=== PATIENT | female | born 1955 | race Caucasian/White ===

== ENCOUNTER 2017-04-09 09:58 | Emergency (ER) | payer OTHER ==
[~2017-04-09] VITALS: Ht 167.6 cm; Wt 99.3 kg
[~2017-04-09 09:58] MED LIST: BISACODYL5 MG PO; CALCIUM600 MG PO; HYDROCHLOROTH12.5 M1 PO; PRILOSEC20 MG PO; SERTRALINE HCL100 MG PO; SIMVASTATIN40 MG PO; STOOL SOFT-STI1 EACH PO; VITAMIN D250000 UNIT PO
[2017-04-09] MEDS ORDERED: TIZANIDINE HCL4 MG PO (10:22)
[2017-04-09] MEDS ORDERED: DOXYCYCLINE HY100 MG PO (12:07)
== END 2017-04-09 12:20 | disposition home or self-care (01) ==
LOC: ED 09:58
DX: J32.9 Chronic sinusitis, unspecified (principal); E78.00 Pure hypercholesterolemia, unspecified; F17.200 Nicotine dependence, unspecified, uncomplicated; Z79.899 Other long term (current) drug therapy
CPT/HCPCS: 70450; 80053; 85025; 99284

== ENCOUNTER 2017-06-21 08:20 | Emergency (ER) | payer OTHER ==
[~2017-06-21] VITALS: Ht 167.6 cm; Wt 99.3 kg
--- OUTSIDE RECORDS SUMMARY | ~2017-06-21 | XMS | Clinical Summary ---
Demographics + + + | Address | [address] | | | [place] [address] | + + + | Home Phone | | + + + | Preferred Language | Unknown | + + + | Marital Status | Single | + + + | Latter-Day Affiliation | NRP | + + + | Race | White | + + + | Ethnic Group | Not or | + + + Author + + + | Author | [facility] | + + + | Organization | [facility] | + + + | Address | Unknown | + + + | Phone | Unavailable | + + + Support + + +---------+ + | Name | Relationship | Address | Phone | + + +---------+ + | RONAN | ECON | Unknown | | | [place] | | | | + + +---------+ + Care Team Providers + +------+ + | Care Passenger Interline Clerk Name | Role | Phone | + +------+ + | Eric Lew DO | PP | | + +------+ + Source Comments LAURA is fully live on both [facility] and [facility]Patient.[facility] Allergies No Known Allergies Current Medications + + +--------+---------+------+------+-------+ | Prescription | Sig. | Disp. | Refills | Star | End | Statu | | | | | | t | Date | s | | | | | | Date | | | + + +--------+---------+------+------+-------+ | ergocalciferol | | | 0 | 03/2 | | Activ | | 50,000 unit oral | | | | 0/20 | | e | | capsule | | | | 16 | | | + + +--------+---------+------+------+-------+ | omeprazole 20 mg | | | 0 | 03/1 | | Activ | | oral capsule,delayed | | | | 20 | | e | | release(DR/EC) | | | | 16 | | | + + +--------+---------+------+------+-------+ | | | | 0 | 04/0 | | Activ | | hydrochlorothiazide | | | | 08/14 | | e | | 12.5 mg oral tablet | | | | 16 | | | + + +--------+---------+------+------+-------+ | sertraline 100 mg | Take 100 mg by mouth | | 0 | 03/0 | | Activ | | oral tablet | once daily. FOR | | | 20 | | e | | | DEPRESSION | | | 16 | | | + + +--------+---------+------+------+-------+ | simvastatin 40 mg | Take 40 mg by mouth | | 1 | 03/2 | | Activ | | oral tablet | once daily in the | | | 05/16 | | e | | | evening. | | | 16 | | | + + +--------+---------+------+------+-------+ | aspirin chewable | Chew and swallow 1 | | | 04/1 | | Activ | | 81 mg oral | tablet once daily. | | | 7/20 | | e | | tablet,chewable | | | | 16 | | | + + +--------+---------+------+------+-------+ | oxyCODONE, | Take 1-2 tablets by | 75 | 0 | 04/1 | | Activ | | immediate release, 5 | mouth every four | tablet | | 7/20 | | e | | mg oral tablet | hours as needed for | | | 16 | | | | | moderate pain. | | | | | | + + +--------+---------+------+------+-------+ Active Problems + + + | Problem | Noted Date | + + + | Laceration of right middle finger without foreign body without | 08/11/2015 | | damage to nail | | + + + | Laceration of right middle finger without foreign body without | 08/11/2015 | | damage to nail, initial encounter | | + + + Social History + + + +--------+ + | Tobacco Use | Types | Packs/Day | Years | Date | | | | | Used | | + + + +--------+ + | Current Every Day | Cigarettes | 0.5 | 50 | Started: 10/09/1969 | | Smoker | | | | | + + + +--------+ + + +---+---+---+ | Smokeless Tobacco: | | | | | Never Used | | | | + +---+---+---+ + + +---------+ + | Alcohol Use | Drinks/We | oz/Week | Comments | | | ek | | | + + +---------+ + | No | 0 | 0.0 | | | | Standard | | | | | drinks or | | | | | | | | | | equivalen | | | | | t | | | + + +---------+ + + + + | Sex Assigned at | Date Recorded | | | | + + + | Not on file | | + + + Last Filed Vital Signs + + + + | Vital Sign | Reading | Time Taken | + + + + | Blood Pressure | 136/73 | 10/10/2015 10:43 AM PDT | + + + + | Pulse | 81 | 10/10/2015 10:43 AM PDT | + + + + | Temperature | 36.6 C (97.9 F) | 09/05/2015 12:34 PM PDT | + + + + | Respiratory Rate | 20 | 10/10/2015 10:43 AM PDT | + + + + | Oxygen Saturation | 95% | 10/10/2015 10:43 AM PDT | + + + + | Inhaled Oxygen | - | - | | Concentration | | | + + + + | Weight | 102.5 kg (225 lb | 10/10/2015 10:43 AM PDT | | | 14.4 oz) | | + + + + | Height | 167.6 cm (5' 6") | 10/10/2015 10:43 AM PDT | + + + + | Body Mass Index | 36.46 | 10/10/2015 10:43 AM PDT | + + + + Plan of Treatment + + + + + | Health Maintenance | Due Date | Last Done | Comments | + + + + + | INFLUENZA VACCINE | | 01/29/2015, 02/07/2014, | | | (FLU SHOT) | 7 | 04/14/2005 | | + + + + + Results Not on filefrom Last 3 Months
--- OUTSIDE RECORDS SUMMARY | ~2017-06-21 | XMS | Clinical Summary ---
Demographics + + + | Address | [address] | | | [place] [address] | + + + | Home Phone | | + + + | Preferred Language | Unknown | + + + | Marital Status | Single | + + + | Bahai Affiliation | NRP | + + + [...] Team Providers + +------+ + | Care Security Clerk Name | Role | Phone | + +------+ + | Eric Lew DO | PP | | + +------+ + Source Comments LAURA is fully live on both [facility] and [facility] Allergies No Known Allergies Current Medications + [...]
[~2017-06-21 08:20] MED LIST changes: +DOXYCYCLINE HY100 MG PO; +TIZANIDINE HCL4 MG PO
[2017-06-21] MEDS ORDERED: GABAPENTIN300 MG PO (08:31)
[2017-06-21] MEDS ORDERED: VENTOLIN HFA18 GM INH (08:32)
[2017-06-21] MEDS ORDERED: CYCLOBENZAPRINE10 MG PO (09:31)
[2017-07-15] MEDS ORDERED: ESOMEPRAZOLE MA40 MG PO (14:48)
[2017-07-15] MEDS ORDERED: VITAMIN D3400 UNI2 PO (14:48)
[2017-07-15] MEDS ORDERED: BAYER CHEWABLE81 MG (14:48)
[2017-08-26] MEDS ORDERED: MULTIVITAMINS1 EAC7 (14:08)
[2017-08-26] MEDS ORDERED: SERTRALINE HCL100 MG PO (14:09)
[2017-08-26] MEDS ORDERED: POLYOX WSR-3011 GM MISC (14:09)
== END 2017-06-21 09:44 | disposition home or self-care (01) ==
LOC: ED 08:20
DX: M54.5 Low back pain (principal); F17.200 Nicotine dependence, unspecified, uncomplicated; E78.00 Pure hypercholesterolemia, unspecified; Z79.899 Other long term (current) drug therapy
CPT/HCPCS: 72110; 99283

== ENCOUNTER 2017-07-17 10:26 | Day surgery (SDC) | payer OTHER ==
[~2017-07-17] VITALS: Ht 167.6 cm; Wt 86.6 kg
[~2017-07-17 10:26] MED LIST changes: +BAYER CHEWABLE81 MG; +CYCLOBENZAPRINE10 MG PO; +ESOMEPRAZOLE MA40 MG PO; +GABAPENTIN300 MG PO; +VENTOLIN HFA18 GM INH; +VITAMIN D3400 UNI2 PO
[2017-07-17] MEDS ORDERED: ENDOCET 10-3251 EACH PO (10:59)
[2017-07-17] MEDS ORDERED: OXYCONTIN10 MG PO (11:00)
[2017-07-17] MEDS ORDERED: ELIQUIS5 MG PO (11:13)
--- NOTE | 2017-07-17 12:21 | NUR ---
LEFT LOWER LEG EDEMA NOTED RED. PURPLE BLISTER NOTED TOP OF LEFT FOOT AND LOWER CASTLE AREA. BLISTER TOP OF LEFT FOOT 3 CM AND 2 CM ON DISTAL CASTLE
--- NOTE | 2017-07-17 13:58 | NUR ---
07/17/17 Karen Rizvi 1230 PT ARRIVED IN PRONE POSTION, RESP EVEN AND UNLABORED. 1231 PT TURNED ON HER BACK AND O2 REMOVED. 1240 MD AT BEDSIDE. PT COUGHING OFF AND ON. BANDAID CDI. RESP EVEN AND UNLABORED. 1258 2L NC PLACED ON PT, O2 SAT 88%.
[2017-08-26] MEDS ORDERED: MULTIVITAMINS1 EAC7 (14:08)
[2017-08-26] MEDS ORDERED: SERTRALINE HCL100 MG PO (14:09)
[2017-08-26] MEDS ORDERED: POLYOX WSR-3011 GM MISC (14:09)
== END 2017-07-17 13:35 | disposition home or self-care (01) ==
LOC: DS 10:26 → OPS 10:26 → DS 12:00 → OPS 12:00
PROVIDERS: Specialist
PROC: 07JT3ZZ Inspection of Bone Marrow, Percutaneous Approach (ICD-10-PCS; principal; 2017-07-17 12:00)
DX: C79.51 Secondary malignant neoplasm of bone (principal); C80.1 Malignant (primary) neoplasm, unspecified; G89.3 Neoplasm related pain (acute) (chronic); E87.6 Hypokalemia; I82.402 Acute embolism and thrombosis of unspecified deep veins of left lower extremity; D50.9 Iron deficiency anemia, unspecified; E55.9 Vitamin D deficiency, unspecified; E78.5 Hyperlipidemia, unspecified; F17.210 Nicotine dependence, cigarettes, uncomplicated; F41.0 Panic disorder [episodic paroxysmal anxiety]; F32.9 Major depressive disorder, single episode, unspecified; K21.9 Gastro-esophageal reflux disease without esophagitis; Z90.49 Acquired absence of other specified parts of digestive tract; Z90.710 Acquired absence of both cervix and uterus; Z98.890 Other specified postprocedural states; Z79.899 Other long term (current) drug therapy
CPT/HCPCS: 80053; 82306; 82310; 82378; 83615; 83970; 85025; 99152; J2250; J3010; J7120

== ENCOUNTER 2017-08-20 20:38 | Emergency (ER) | payer OTHER ==
[~2017-08-20] VITALS: Ht 167.6 cm; Wt 86.6 kg
--- OUTSIDE RECORDS SUMMARY | ~2017-08-20 | XMS | Clinical Summary ---
Demographics + + + | Address | [address] | | | [place] [address] | + + + | Home Phone | | + + + | Preferred Language | Unknown | + + + | Marital Status | Single | + + + | Shinto Affiliation | Unknown | + + + | Race | Unknown | + + + | Ethnic Group | Unknown | + + + Author + + + | Author | [facility] | | | and [place] | + + + | Organization | [facility] | | | and [place] | + + + | Address | Unknown | + + + | Phone | Unavailable | + + + Support + + + + + | Name | Relationship | Address | Phone | + + + + + | Elina Castellanos | ECON | [address] | | | | | [place] | | | | | [address] | | + + + + + Care Team Providers + +------+ + | Care Aviation Technical Systems Specialist Name | Role | Phone | + +------+ + | Eric Lew DO | PP | | + +------+ + Allergies Not on File Current Medications Not on file Active Problems Not on file Encounters +--------+ + + + + | Date | Type | Specialty | Care Team | Description | +--------+ + + + + | 07/29/ | Telephone | | Daniella Henao | | 2018 | | | Jm Dominguez MD | | +--------+ + + + + | 07/21/ | Telephone | | Earlene, | Other | | 2018 | | | Jm Dominguez MD | | +--------+ + + + + from Last 3 Months Social History + +-------+ +--------+------+ | Tobacco Use | Types | Packs/Day | Years | Date | | | | | Used | | + +-------+ +--------+------+ | Never Assessed | | | | | + +-------+ +--------+------+ + + + | Sex Assigned at | Date Recorded | | | | + + + | Not on file | | + + + Plan of Treatment + + + + + | Health Maintenance | Due Date | Last Done | Comments | + + + + + | Hepatitis C | | | | | Screening | 5 | | | + + + + + | Vaccine: | | | | | Dtap/Tdap/Td (1 - | 4 | | | | Tdap) | | | | + + + + + | CERVICAL CANCER | | | | | SCREENING (PAP EVERY | 6 | | | | 3 YEARS 21-64 ) | | | | + + + + + | BREAST CANCER | | | | | SCREENING (MAMM Q2 | 5 | | | | YEARS 50-74) | | | | + + + + + | COLON CANCER | | | | | SCREENING | 5 | | | | (COLONOSCOPY EVERY | | | | | 10 YEARS 50-75) | | | | + + + + + | Vaccine: Influenza | | | | | (Season Ended) | 8 | | | + + + + + Results Not on filefrom Last 3 Months Insurance +-------+--------+ +------+ + + | Payer | Benefi | Subscriber | Type | Phone | Address | | | t Plan | ID | | | | | | / | | | | | | | Group | | | | | +-------+--------+ +------+ + + | [employer] | [employer] | [phone] | PPO | [phone] | [address] [address] | | | [place] | | | [phone] | [place] [address] | | | TY PPO | | | | | +-------+--------+ +------+ + + + +--------+ +--------+ + + | Guarantor Name | Accoun | Relation to | Date | Phone | Billing Address | | | t Type | Patient | of | | | | | | | | | | + +--------+ +--------+ + + | CARMEN KAHN | Person | Self [birth year] Home: | [address] | | | al/Fam | | 1956 | [phone] | [place] [address] | | | cong | | | [phone] | | + +--------+ +--------+ + +"
--- OUTSIDE RECORDS SUMMARY | ~2017-08-20 | XMS | Encounter Summary ---
Demographics + + + | Address | [address] | | | [place] [address] | + + + | Home Phone | | + + + | Preferred Language | Unknown | + + + | Marital Status | Single | + + + | Buddhist Affiliation | Unknown | + + + | Race | Unknown | + + + | Ethnic Group | Unknown | + + + Author + + + | Author | [facility] | + + + | Organization | [facility] | + + + | Address | Unknown | + + + | Phone | Unavailable | + + + Support + + +---------+ + | Name | Relationship | Address | Phone | + + +---------+ + | Harriet Waite | ECON | Unknown | | | a | | | | + + +---------+ + Care Team Providers + +------+ + | Care Automotive Services Manager Name | Role | Phone | + +------+ + | Eric Lew DO | PCP | | + +------+ + Encounter Details +--------+ + + + + | Date | Type | Department | Care Team | Description | +--------+ + + + + | 08/04/ | Procedure | [facility] | | | | 2018 | [facility] | [facility] | | | | | | Floor [place] | | | | | | [address] | | | | | | [place] [address] | | | | | | [phone] | | | +--------+ + + + + Social History + +-------+ +--------+------+ | Tobacco Use | Types | Packs/Day | Years | Date | | | | | Used | | + +-------+ +--------+------+ | Former Smoker | | | | | + +-------+ +--------+------+ + +---+---+---+ | Smokeless Tobacco: | | | | | Never Used | | | | + +---+---+---+ + + +---------+ + | Alcohol Use | Drinks/We | oz/Week | Comments | | | ek | | | + + +---------+ + | No | | | | + + +---------+ + + + + | Sex Assigned at | Date Recorded | | | | + + + | Not on file | | + + + as of this encounter Plan of Treatment +--------+---------+ + + + | Date | Type | Specialty | Care Team | Description | +--------+---------+ + + + | 08/28/ | Office | Vascular Surgery | Dolores Harrison DNP | | | 2017 | Visit | | [address] | | | | | | [place] | | | | | | [address] | | | | | | | | +--------+---------+ + + + as of this encounter Visit Diagnoses Not on filein this encounter"
--- OUTSIDE RECORDS SUMMARY | ~2017-08-20 | XMS | Encounter Summary ---
Demographics + + + | Address | [address] | | | [place] [address] | + + + | Home Phone | | + + + | Preferred Language | Unknown | + + + | Marital Status | Single | + + + | Yazdanism Affiliation | Unknown | + + + | Race | Unknown | + + + | Ethnic Group | Unknown | + + + Author + + + | Author | [facility] | + + + | Organization | [facility] | + + + | Address | [...] Team Providers + +------+ + | Care Remote Computer Terminal Operator Name | Role | Phone | + +------+ + | Anant Grajeda DO | PCP | | + +------+ + Reason for Visit + + + | Reason | Comments | + + + | Referral | coming from the wound clinic, following bilateral DVT's. left | | | foot wound. | + + + Auth/Cert +--------+--------+ + + + + | Status | Reason | Specialty | Diagnoses / | Referred By | Referred To | | | | | Procedures | Contact | Contact | +--------+--------+ + + + + | | | | Diagnoses | | | | | | | Lactic | | | | | | | acidosis | | | | | | | Normocytic | | | | | | | anemia | | | | | | | Hypoalbumine | | | | | | | erik Wet | | | | | | | gangrene | | | | | | | (HCC) | | | | | | | Wet | | | | | | | gangrene, | | | | | | | left foot | | | | | | | (HCC) | | | +--------+--------+ + + + + Encounter Details +--------+ + + + + | Date | Type | Department | Care Team | Description | +--------+ + + + + | 08/04/ | Hospital | [facility] | [place], | Wet gangrene, left | | 2018 - | Encounter | [facility] | [address] | foot (HCC) (Primary | | | | [facility] [place] | EMERGENCY DEPARTMENT | Dx); Normocytic | | 08/14/ | | [address] | [place] [address] | anemia; Lactic | | 2018 | | [place] [address] | [phone] | acidosis; | | | | [phone] | | Hypoalbuminemia | | | | | Rafa Villalpando MD [address] | | [address] | | | | | | [place] [address] | | | | | | [phone] | | | | | | | | | | | | Karina Pinto MD [address] | | | [address] | | | | | | [address] | | | | | | [place] [address] | | | | | | [phone] | | | | | | | | | | | | Harshil Tomlinson, | | | | | | [address] | | | | | | [place] [address] | | | | | | [phone] | | | | | | | | +--------+ + + + [...] + + + as of this encounter Last Filed Vital Signs + + + + | Vital Sign | Reading | Time Taken | + + + + | Blood Pressure | 126/56 | 08/14/2017 11:06 AM PDT | + + + + | Pulse | 104 | 08/14/2017 11:06 AM PDT | + + + + | Temperature | 36.6 C (97.8 F) | 08/14/2017 11:06 AM PDT | + + + + | Respiratory Rate | 18 | 08/14/2017 11:06 AM PDT | + + + + | Oxygen Saturation | 94% | 08/14/2017 11:06 AM PDT | + + + + | Inhaled Oxygen | - | - | | Concentration | | | + + + + | Weight | 79.1 kg (174 lb 6.4 | 08/14/2017 3:01 AM PDT | | | oz) | | + + + + | Height | 167.6 cm (5' 6") | 08/04/2017 8:39 PM PDT | + + + + | Body Mass Index | 28.15 | 08/14/2017 3:01 AM PDT | + + + + in this encounter Discharge Summaries Harshil Tomlinson MD - 08/14/2017 10:34 AM PDTFormatting of this note may be different fro m the original. 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 She was diagnosed with deep vein thrombos is in mid June -started on Eliquis. 3 days later patient presented to [facility] ER for hemor rhagic bullae and toe discoloration on 07/14. Case was discussed with multiple specialists in cluding vascular surgery andoncology. She had a CTA of lower extremity that showed no sign ificant stenosis and good distal runoff. Oncology was concerned about interaction of blood t hinner and proteins with his multiple myeloma causing possible TMA. Oncology at [facility] thought patient might have cerulae alba malignancy associatedand recwas to co ntinue treatment with Lovenox. Even vascular surgery was consulted at [facility] with recommendation to continue with Lovenox wound care and no interventions needed. Vijay mariscal also had COPD exacerbation during this same timeframe and was treated with prednisone and nebs. 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 ENT evaluated the patient and on fiberoptic scope she was not thought to have any airway compromise and recwas to follow-up with her oncologist Dr. Us. She keita d biopsy taken for same. She came in as a referral from wound clinic for L foot wound, foul smelling . In the ED, genesis quintana was found to have lactic acid of 2.9, WBC of 11, xray was negative for osteomyelitis but s howed mild superficial skin gas. She was admitted for LLE hemorrhagic skin lesion with compl ication of wet gangrene/cellulitis, with history of thrombotic microangiopathy. ID, Podia try, and Vascular Surgery were consulted. No interventionable vessel was found. Pt underwent AKA on 08/07/[address] Haley following pt up, and started pt on gabapentin for ph antom limb pain. Course complicated by urinary retention smith catheter placed on 08/09/17 - the smith was r emoved yesterday and she has been urinating without problems Course complicated by acute hypoxic respiratory failure requiring PPV. Pt was started on di uretics and steroids. CXR showed moderate R pleural effusion with associated atelectasis or consolidation, possible atelectasis or infiltrate at L base with trace L effusion,borderl ine cardiomegaly On 08/11 she underwent S/p 1.9 L thoracentesis from R side,she still requires O2 but has si gnificant improvement as far as mentation. I also Discussed case with Dr Us 0 he states biopsy result was adenoca likely for m pancreas or gallbladder. Discussed with pt and daughter, who wish to obtain Oncology consu ltation from here. Dr Emerson is kindly consulting. Per his recommendations: Reviewed with the above medical records that are available to care everywhere and nichole shahid some of the details with the patient. She has laryngeal/hypopharynx squamous cell cancer. Also, she has hilar adenopathy, and right pleural effusion. Thoracocentesis was performed to follow cytology to evaluate for malignant cells. If pleural effusion positive, she has metastatic cancer and may be treated accordingly. If pleural effusion negative for malignan t cells, consider bronchoscopy and biopsy of the right paratracheal lymph node. This could either be metastatic from head and neck cancer, or synchronous second primary. Also, multip le bone lesions are noted on the imaging, and may be biopsied as needed, if above workup and confirmatory. She underwent left above knee amputation for wet gangrene of the left foot and is recoverin g from that. She is being managed with the hospitalist team, infectious diseases and vascul ar surgery and recommend continued management. She was seen by Dr. Us previously and wanted to follow-up with Dr. sU aft er discharge. After discharge she may follow-up with Dr. Us for further management of cancer. If patient remains admitted in the hospital management of her wet gangrene, I w ill help with workup for malignancy on as-needed basis. Patient has been cleared by Vasculary surgery to discharge. They recommend a f/u with them as outpatient for wound check. ID has cleared th epatient for discharge and recommends for oral abx (augmentin) to be completed until 08/18. I have spoken to Dr Emerson and he r ecommends for pt to f/u with Dr Us to discuss the diagnoses and treatment for her m alignancy. She has been seen by PT and the recommendation is for pt to be at SNF. Pt requires O2 but has improved to 3 l today. She needs to continue with diuretics, nebuli zers. She may need repeat CXR For follow up to see whether she needs repeat thoracentesis. But for the most part, her most important issue is to have a discussion with Dr Us for her diagnosis and prognosis. Due to her multiple comorbidities and the fact that her malignancy seems to be metastatic, but still needs further re eval by her primary Oncologyist, she is a High risk for readmiss ion We have taken care of her O2 prescription DISCHARGE EXAM Vital Signs: BP 126/56 (BP Location: Right upper arm) | Pulse 104 | Temp 97.8 F (36.6 C) (Oral) | Resp 18 | Ht 1.676 m (5' 6") | Wt 79.1 kg (174 lb 6.4 oz) | LMP (LMP Unknown) | SpO2 9 4% | ? No | BMI 28.15 kg/m Constitutional: Alert and awake , obese, sheis 94$ on 3 lpm via NC, she is in pleasant spi rits HEENT: moist mucous membranes, pink conjunctivae and anicteric sclerae. No JVD. Neck s upple Cardiovascular: mild tachycardia of 104 Pulmonary: Breath sounds are diminished in bases , scattered wheezing Abdominal: Soft and non-tender. Bowel sounds are present. No rebound or guarding. Extremities: s/p L AKA, dressing in place, no significant edema on R Neurological: AAO x3. No CN deficit. Skin: No diaphoresis Psychiatric: normal mood and affect Disposition: [place] Condition: stable and improved Code Status: Full Code Follow up: Anant Grajeda, [address] [place] [address] Follow up [facility] Vascular Surgery [address] [place] [phone] Follow up in 3 week(s) staple removal and post op appointment Jm Us MD [facility] [id number] Schedule an appointment as soon as possible for a visit Medication List START taking these medications amoxicillin-clavulanate 875-125 MG per tablet QTY: 8 tablet Refills: 0 Commonly known as: AUGMENTIN Take 1 tablet by mouth every 12 (twelve) hours for 4 days. aspirin 81 MG chewable tablet QTY: 30 tablet Refills: 0 Take 1 tablet by mouth daily with breakfast. Start taking on: 08/15/2017 furosemide 20 MG tablet QTY: 42 tablet Refills: 0 Commonly known as: LASIX Take 3 tablets by mouth daily for 14 days. gabapentin 100 MG capsule QTY: 180 capsule Refills: 0 Commonly known as: NEURONTIN Take 2 capsules by mouth 3 (three) times daily. guaiFENesin 600 MG 12 hr tablet QTY: 60 tablet Refills: 0 Commonly known as: MUCINEX Take 1 tablet by mouth 2 (two) times daily. potassium chloride SA 20 MEQ tablet QTY: 10 tablet Refills: 0 Commonly known as: K-DUR,KLOR-CON Take 1 tablet by mouth daily. predniSONE 20 MG tablet QTY: 26 tablet Refills: 0 Commonly known as: DELTASONE 60 mg x 4 days then 40 mg x 4 days then 20 mg x 4 days then 10 mg x 4 days and needs to be reassessed by physician before stopping CONTINUE taking these medications acetaminophen 325 MG tablet Refills: 0 Commonly known as: TYLENOL calcium-vitamin D 600-400 MG-UNIT per tablet Refills: 0 Commonly known as: CALCITRATE enoxaparin 100 MG/ML Soln Refills: 0 Commonly known as: LOVENOX esomeprazole 40 MG capsule Refills: 0 Commonly known as: NEXIUM fentaNYL 12 MCG/HR QTY: 3 patch Refills: 0 Commonly known as: DURAGESIC Place 1 patch onto the skin every third day. guaifenesin-codeine 100-10 MG/5ML syrup Refills: 0 Commonly known as: GUAIFENESIN AC ipratropium-albuterol 0.5-2.5 mg/3mL Refills: 0 Commonly known as: DUO-NEB nicotine 21 MG/24HR QTY: 28 patch Refills: 0 Commonly known as: NICODERM CQ Place 1 patch onto the skin daily. * oxyCODONE 10 MG 12 hr tablet QTY: 20 each Refills: 0 Commonly known as: OXYCONTIN Take 1 tablet by mouth 2 (two) times daily. * oxyCODONE 5 MG immediate release tablet QTY: 20 tablet Refills: 0 Commonly known as: ROXICODONE Take 1 tablet by mouth every 4 (four) hours as needed for Pain. polyethylene glycol packet Refills: 0 Commonly known as: GLYCOLAX Senna 8.6 MG Caps Refills: 0 sertraline 100 MG tablet Refills: 0 Commonly known as: ZOLOFT simvastatin 40 MG tablet Refills: 0 Commonly known as: ZOCOR VENTOLIN HFA 108 (90 Base) MCG/ACT inhaler Refills: 1 Generic drug: albuterol vitamin D2 (ergocalciferol) 96912 units capsule Refills: 0 * This list has 2 medication(s) that are the same as other medications prescribed for you. Read the directions carefully, and ask your doctor or other care provider to review them wit h you. You might also be taking other medications not listed above. If you have questions about an y of your other medications, talk to the person who prescribed them or your Primary Care Pro vider. Where to Get Your Medications You can get these medications from any pharmacy Bring a paper prescription for each of these medications amoxicillin-clavulanate 875-125 MG per tablet aspirin 81 MG chewable tablet fentaNYL 12 MCG/HR furosemide 20 MG tablet gabapentin 100 MG capsule guaiFENesin 600 MG 12 hr tablet nicotine 21 MG/24HR oxyCODONE 10 MG 12 hr tablet oxyCODONE 5 MG immediate release tablet potassium chloride SA 20 MEQ tablet predniSONE 20 MG tablet Discharge took >30 minutes, to include final examination, discussion of admission, and prep aration of prescriptions, instructions for on-going care, follow-up and documentation of dis charge summary. HARSHIL TOMLINSON MD 08/14/2017 in this encounter Discharge Instructions Harshil Tomlinson MD - 08/11/2017YOU NEED TO FOLLOW UP WITH DR US SOON POSS IBLE PLEURAL EFFUSION CYTOLOGY IS PENDING. DR US TO REVIEW THOSE RESULTS -Follow up with Vascular Surgery in 3 weeks -Please call clinic to schedule appointment if we have not contacted you within 3 days -Please complete any follow up imaging prior to post operative appointment. Our office meredith l arrange this for you. -OK to remove dressing in 2 days and shower. Change dressing minimum of daily using clean dry guaze pad to cover incision and secure with guaze wrap. 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 Wear protector any time you are out of bed or moving -Please call with any questions or concerns in this encounter Medications at Time of Discharge + + + +---------+ + + | Medication | Sig. | Disp. | Refills | Start | End Date | | | | | | Date | | + + + +---------+ + + | acetaminophen | Take 650 mg by mouth | | | | | | (TYLENOL) 325 MG | every 6 (six) hours | | | | | | tabletIndications: | as needed for Pain. | | | | | | Pain | | | | | | + + + +---------+ + + | aspirin 81 MG | Take 1 tablet by | 30 | 0 | 08/16/19 | | | chewable tablet | mouth daily with | tablet | | 18 | 9 | | | breakfast. | | | | | + + + +---------+ + + | calcium-vitamin D | Take 1 tablet by | | | | | | (CALCITRATE) 600-400 | mouth 2 (two) times | | | | | | MG-UNIT per tablet | daily. 600mg/800IU | | | | | | | PO BID | | | | | + + + +---------+ + + | enoxaparin | Inject 90 mg into | | | | | | (LOVENOX) 100 MG/ML | the skin every 12 | | | | | | SOLNIndications: | (twelve) hours. | | | | | | Deep Vein Thrombosis | | | | | | + + + +---------+ + + | esomeprazole | Take 40 mg by mouth | | | | | | (NEXIUM) 40 MG | every morning before | | | | | | capsuleIndications: | breakfast. | | | | | | Gastroesophageal | | | | | | | Reflux Disease | | | | | | + + + +---------+ + + | fentaNYL | Place 1 patch onto | 3 patch | 0 | 08/15/19 | | | (DURAGESIC) 12 | the skin every third | | | 18 | | | MCG/HRIndications: | day. | | | | | | Chronic Pain | | | | | | + + + +---------+ + + | furosemide (LASIX) | Take 3 tablets by | 42 | 0 | 08/15/19 | | | 20 MG tablet | mouth daily for 14 | tablet | | 18 | 8 | | | days. | | | | | + + + +---------+ + + | gabapentin | Take 2 capsules by | 180 | 0 | 08/15/19 | | | (NEURONTIN) 100 MG | mouth 3 (three) | capsule | | 18 | 9 | | capsule | times daily. | | | | | + + + +---------+ + + | guaiFENesin | Take 1 tablet by | 60 | 0 | 08/15/19 | | | (MUCINEX) 600 MG 12 | mouth 2 (two) times | tablet | | 18 | 9 | | hr tablet | daily. | | | | | + + + +---------+ + + | | Take 10 mLs by mouth | 120 mL | 0 | 08/15/19 | | | guaifenesin-codeine | every 6 (six) hours | | | 18 | | | (GUAIFENESIN AC) | as needed for | | | | | | 100-10 MG/5ML syrup | Cough. | | | | | + + + +---------+ + + | | Inhale 3 mLs into | | | 04/03/20 | | | ipratropium-albutero | the lungs every 4 | | | 18 | | | l (DUO-NEB) 0.5-2.5 | (four) hours as | | | | | | mg/3mL | needed. | | | | | + + + +---------+ + + | nicotine (NICODERM | Place 1 patch onto | 28 | 0 | 08/15/19 | | | CQ) 21 | the skin daily. | patch | | 18 | | | MG/24HRIndications: | | | | | | | Nicotine Dependence | | | | | | + + + +---------+ + + | oxyCODONE | Take 1 tablet by | 28 each | 0 | 08/15/19 | | | (OXYCONTIN) 10 MG 12 | mouth 2 (two) times | | | 18 | 8 | | hr | daily for 14 days. | | | | | | tabletIndications: | | | | | | | Chronic Pain | | | | | | + + + +---------+ + + | oxyCODONE | Take 1 tablet by | 40 | 0 | 08/15/19 | | | (ROXICODONE) 5 MG | mouth every 4 (four) | tablet | | 18 | | | immediate release | hours as needed for | | | | | | tablet | Pain. | | | | | + + + +---------+ + + | polyethylene | Take 17 g by mouth 3 | | | | | | glycol (GLYCOLAX) | (three) times daily | | | | | | packetIndications: | as needed. | | | | | | Constipation | | | | | | + + + +---------+ + + | potassium chloride | Take 1 tablet by | 10 | 0 | 08/15/19 | | | (K-HERMES MCKEON) 20 | mouth daily. | tablet | | 18 | | | MEQ tablet | | | | | | + + + +---------+ + + | predniSONE | 60 mg x 4 days then | 26 | 0 | 08/15/19 | | | (DELTASONE) 20 MG | 40 mg x 4 days | tablet | | 18 | | | tablet | then 20 mg x 4 days | | | | | | | then 10 mg x 4 days | | | | | | | and needs to be | | | | | | | reassessed by | | | | | | | physician before | | | | | | | stopping | | | | | + + + +---------+ + + | Sennosides (SENNA) | Take 17.2 mg by | | | | | | 8.6 MG CAPS | mouth 2 (two) times | | | | | | | daily. | | | | | + + + +---------+ + + | sertraline | Take 100 mg by mouth | | | | | | (ZOLOFT) 100 MG | daily. | | | | | | tablet | | | | | | + + + +---------+ + + | simvastatin | Take 40 mg by mouth | | 0 | 07/03/19 | | | (ZOCOR) 40 MG tablet | every evening. | | | 18 | | + + + +---------+ + + | VENTOLIN HFA 108 | Take 2 puffs by | | 1 | 06/12/19 | | | (90 Base) MCG/ACT | mouth every 4 (four) | | | 18 | | | inhaler | hours as needed. | | | | | + + + +---------+ + + | vitamin D2, | Take 1 capsule by | | 0 | 07/03/19 | | | ergocalciferol, | mouth once a week. | | | 18 | | | [address]250 units capsule | On Fridays | | | | | + + + +---------+ + + | | Take 1 tablet by | 8 | 0 | 08/15/19 | | | amoxicillin-clavulan | mouth every 12 | tablet | | 18 | 8 | | ate (AUGMENTIN) | (twelve) hours for 4 | | | | | | 875-125 MG per | days. | | | | | | tabletIndications: | | | | | | | Non-Purulent Skin | | | | | | | and Soft Tissue | | | | | | | Infection | | | | | | + + + +---------+ + + as of this encounter Progress Notes Barber Montero, CODE MACHINE OPERATOR - 08/14/2017 9:00 AM PDTFormatting of this note may be different from th e original. [facility] Department of Respiratory Correction Oxygen Evaluation (Evaluation is valid for 48 hours once completed) Date: 08/14/2017 RT: BARBER MONTERO Time: 9:00 AM Home O2 Eval at rest-Part 1 Is the patient's SpO2 88% or lower at rest & breathing room air? : Yes SpO2 at rest & breathing room air: 80 percent If yes, lpm O2 to keep SpO2 88% or higher at rest: 3 lpm Home O2 Eval Comment Eval Comment: pt is amputee. requires 2-3 lpm to keep sats up. HOME OXYGEN PROVIDER PREFERENCE PHONE FAX *NOTE* Provider must include liter flow, route of oxygen administration, frequency of use w ith duration of need in months on the prescription AND document patient s diagnosis. OXYGEN PRN IS NOT A VALID ORDER Physician Signature: Date: Time: Barry Lobo DO - 08/14/2017 7:11 AM PDTFormatting of this note may be different from the original. [facility] Service: Infectious Disease Progress Note Hospital Day: LOS: 10 days Post-Op Day: * No surgery found * SUBJECTIVE Patient Summary: 61 y.o. 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 3 days later patient presented to [facility] ER for hemorrhagic bullae and toe discoloration o n 07/14. Case was discussed with multiple specialists including vascular surgery andoncolog y. She had a CTA of lower extremity that showed no significant stenosis and good distal runo ff. Oncology was concerned about interaction of blood thinner and proteins with his multiple myeloma causing possible TMA. Oncology at [facility] thought patient might have cerulae alba malignancy associatedand recwas to continue treatment with Lovenox. Even v ascular surgery was consulted at [facility] with recommendation to continue with Lovenox wound care and no interventions needed. Patient also had COPD exacerbation during t his same timeframe and was treated with prednisone and nebs. 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 ENT evaluated the patient and on fiberoptic scope she was not thought to have any airway compromise and recwas to follow-up with her oncologist Dr. Us. The patient denies any known trauma or irritation that lead to the hemorrhagic bulla on her left foot, appeared spontaneously in her opinion. Over the past week or so the wound has be en gradually worsening and has developed a foul odor. Cellulitis improved with Unasyn. To OR on 08/07 for the following: Left above knee amputation Placement of Prevena incision management system to incision CC: Left foot gangrene Chart reviewed: No new events. Subjective The patient reports that her left leg stump pain has completely resolved. She is breathing better. She denies any ongoing cough or pleuritic chest pain. No nausea or vomiting. ROS No fever, chills sweats. No nausea, vomiting or diarrhea. No rashes or pruritis. No oral pa in. Scheduled Medications amoxicillin-clavulanate 1 tablet Oral 2 times per day aspirin 81 mg Oral Daily with breakfast atorvastatin 40 mg Oral Nightly enoxaparin 1 mg/kg Subcutaneous Q12H fentaNYL 12 mcghr Transdermal Q72H furosemide 60 mg Intravenous Daily gabapentin 200 mg Oral TID guaiFENesin 600 mg Oral BID ipratropium-albuterol 3 mL Nebulization Q6H nicotine 1 patch Transdermal Q24H oxyCODONE 15 mg Oral BID pantoprazole 40 mg Oral QAM AC predniSONE 60 mg Oral Daily with breakfast senna 17.2 mg Oral BID sertraline 100 mg Oral Daily Continuous Infusions PRN Medications acetaminophen OR acetaminophen, albuterol, albuterol, HYDROmorphone OR HYDROmorphon e, LORazepam, ondansetron OR ondansetron, oxyCODONE OR oxyCODONE OR oxyCODONE, p olyethylene glycol, saline lock IV - when tolerating PO fluids AND sodium chloride (PF) OBJECTIVE Vital Signs: BP 134/69 (BP Location: Right upper arm) | Pulse 103 | Temp 97.9 F (36.6 C) (Oral) | Resp 18 | Ht 1.676 m (5' 6") | Wt 79.1 kg (174 lb 6.4 oz) | LMP (LMP Unknown) | SpO2 9 4% | ? No | BMI 28.15 kg/m Temp (24hrs), Av.9 F (36.6 C), Min:97.8 F (36.6 C), Max:97.9 F (36.6 C) Exam: Const: Vitals reviewed. No acute distress Skin: No rashes, no edema. ENT: No thrush. Lungs: CTAB, no rales or wheezes Heart: RRR, no murmur Abd: soft, NT, + bowel sounds Musculoskeletal: Status post left above-knee amputation, limb protector in place. DATA CBC: Lab Results Component Value Date WBC 9.33 08/14/2017 RBC 3.68 (L) 08/14/2017 HGB 9.6 (L) 08/14/2017 HCT 29.8 (L) 08/14/2017 MCV 80.9 08/14/2017 MCH 26.0 (L) 08/14/2017 MCHC 32.1 08/14/2017 RDW 49.9 08/14/2017 PLT 295 08/14/2017 MPV 6.7 08/14/2017 DIFFTYPE MANUAL 08/14/2017 CMP: Lab Results Component Value Date NA 138 08/14/2017 K 3.4 (L) 08/14/2017 CL 93 (L) 08/14/2017 CO2 37 (H) 08/14/2017 ANIONGAP 11 08/14/2017 GLUF 88 08/14/2017 BUN 20 08/14/2017 CREATININE 0.5 08/14/2017 BCR 40 08/14/2017 CA 8.6 08/14/2017 PROT 6.1 (L) 08/14/2017 ALB 1.8 (L) 08/14/2017 GLOB 4.3 08/14/2017 BILITOT 0.6 08/14/2017 ALP 581 (H) 08/14/2017 AST 49 (H) 08/14/2017 ALT 24 08/14/2017 EGFR >60 08/14/2017 Microbiology: Pleural fluid Gram's stain negative, culture remains negative. PROBLEM LIST Principal Problem: 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HCC) Active Problems: DVT (deep venous thrombosis) (HCC) Hyperlipidemia Multiple myeloma (HCC) Open wound of left lower leg Left foot infection COPD (chronic obstructive pulmonary disease) ([facility]) Moderate obesity Phantom limb pain ([facility]) S/P AKA (above knee amputation), left ([facility]) ASSESSMENT & PLAN 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[facility]) (08/04/2017) The patient has been diagnosed with thrombotic microangiopathy 3, which is likely the dri ving factor of her left foot gangrene. Vascular workup has not revealed any large vessel dis ease which could be intervened upon. The patient has now undergone above-knee amputation. Right pleural effusion with possible consolidation CT scan suggests metastatic disease, most likely a malignant pleural effusion, has findin gs of dense infiltrate and consolidation in the right midlung zone responded promptly after removal of fluid. The patient has been found to have evidence of chronic aspiration, therefo re I would favor completing a course of treatment with Augmentin. Overall treatment day #10 of 14 including prior Unasyn. Left foot infection (08/04/2017) Surgically treated. DVT (deep venous thrombosis) ([facility]) (08/04/2017) Management per primary service and hematology. Disposition: Ready for discharge from infectious diseases standpoint. The patient will need to continue oral Augmentin through August 18. Please call with any further questions. Dr. Miller will assume Infectious Diseases followup starting Tuesday 08/15if needed. Code Status: Full Code BARRY LOBO, 08/14/2017Harshil Tomlinson MD - 08/13/2017 12:04 PM PDTFormatting of this note may be diff erent from the original. [facility] Service: Hospitalist Progress Note Pt: Carmen Neda Kahn AGE/SEX: 61 y.o. female ROOM: 8119/8119-1 : 1955 PCP: ANANT GRAJEDA ADMIT DATE: 08/04/2017 TODAY'S DATE: 08/13/2017 Hospital Day/Hospital Course: LOS: 9 days 61 y/o F with hx of DVT on lovenox [employer] WORK[employer], COPD, obesity, hx of multiple myeloma and laryngea l lesion (details unknown by pt) sees Dr Martinez Oncologist, 60 pack year smoker, GERD, H LD,chronic pain on opiates, recent complicated history from H&P Patient had a recent complicated hospital course. She was diagnosed with deep vein thrombos is in mid June - started on Eliquis. 3 days later patient presented to [facility] ER for hemorr hagic bullae and toe discoloration on 07/14. Case was discussed with multiple specialists inc luding vascular surgery and oncology. She had a CTA of lower extremity that showed no signif icant stenosis and good distal runoff. Oncology was concerned about interaction of blood thi nner and proteins with his multiple myeloma causing possible TMA. Oncology at [facility] thought patient might have cerulae alba malignancy associated and rec was to contin ue treatment with Lovenox. Even vascular surgery was consulted at [facility] wit h recommendation to continue with Lovenox wound care and no interventions needed. Patient al so had COPD exacerbation during this same timeframe and was treated with prednisone and nebs . 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 ENT evaluated the patient and on fiberoptic scope she was not thought to have any airway compromise and rec was to follow-up with her oncologist Dr. Us. She had biopsy taken for same. She came in as a referral from wound clinic for L foot wound, foul smelling . In the ED, sh e was found to have lactic acid of 2.9, WBC of 11, xray was negative for osteomyelitis but s howed mild superficial skin gas. She was admitted for LLE hemorrhagic skin lesion with compl ication of wet gangrene/cellulitis, with history of thrombotic microangiopathy. ID, Podia try, and Vascular Surgery were consulted. No interventionable vessel was found. Pt underwent AKA on 08/07/[address] Haley following pt up, and started pt on gabapentin for ph antom limb pain. Course complicated by urinary retention smith catheter placed on 08/09/1708/10 Noted events overnight of acute hypoxic respiratory failure requiring PPV. Pt was also given lasix total 40 mg IV CXR showed moderate R pleural effusion with associated atelecta sis or consolidation, possible atelectasis or infiltrate at L base with trace L effusion,bor derline cardiomegaly. Pt also given IV steroids. When I saw pt she was fatigued but awake and answering questions. States breathing has impr corine. CT chest has been ordered for her. I spoke with Dr Ortiz about shifting back to l ovenox from heparin due to the volume from heparin gtt, and he had no objections to this curry nge. 08/11 S/p 1.9 L thoracentesis from R side, pt feels better. Discussed with Dr Us 0 he states biopsy result was adenoca likely form pancreas or gallbladder. Discussed with pt a nd daughter, who wish to obtain Oncology consultation from here. Dr Emerson is kindly co nsulting. Await further recommendations 08/12 Await Oncology recommendations. Pt appearing mildly tachypneic, denies SOB to me. Will continue with lasix for now. Currently still on IV abx . Still on 5 L O2 but has been on m uch higher, and this has been an improvemen t SUBJECTIVE: Patient seen and examined. Appears stable. Still net + fluid. Will receive lasix. Also rem patito smith in preparation for discharge Will also need home o2 eval prior to d;c She strongly DECLINES rehab CM spoke with daughter, she is in agreement with plan to discharge to home ASSESSMENT & PLAN First problem in the list is the principal problem: Principal Problem: 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HCC) 08/09 felt to be due to thrombotic microangiopathy, Vascular surgery consulted, no interv entionable vessel was found, s/p AKA, ID is following for abx, today has been shifted to ora l abx, needs to work with PT/OT. Pt encouraged, continue wound care,continue pain meds ,cont inue asa and statin `08/[address] Ortiz about shifting back to lovenox from heparin due to the volum e from heparin gtt, and he had no objections to this change. 08/11 she remains stable, she is now on oral abx - augmentin as of 08/13, discharge planni ng in place Active Problems: Acute hypoxic respiratory failure 08/10 remains on BIPAP but mentation is improving, will see if we can wean off. Will contin ue steroids IV for now. Continue duonebs, lasix prn. 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 Strict Is and Os. Check echo, and have fluid restriction of 1.5 L /24 hours after NPO. Salt restriction. 08/11 improving, s/p R sided thoracentesis of 1.9L on R side, await fluid studies 08/12 shift to oral steroid tomorrow, continue lasix to keep on negative fluid balance 08/13 stable, home O2 eval tomorrow L foot cellulitis on abx as above per ID DVT (deep venous thrombosis) ([facility]) per chart notes was on full dose lovenox [employer] Currently on heparin gtt, transition to lovenox if okay with surgeon (done 08/10) Hyperlipidemia continue statin Multiple myeloma ([facility]), query Hx of laryngeal lesion Dr Emerson is consulted , I will touch base with him today re his recommendations COPD (chronic obstructive pulmonary disease) ([facility]) continue with duonebs prn Moderate obesity will benefit from obesity specialist referral Phantom limb pain ([facility]) gabapentin has been started and was recommended to be uptitrated to sx control Smoking hx Continue nicotine patch DVT prophylaxis not necessary as pt on lovenox Scheduled Medications: amoxicillin-clavulanate 1 tablet Oral 2 times per day aspirin 81 mg Oral Daily with breakfast atorvastatin 40 mg Oral Nightly enoxaparin 1 mg/kg Subcutaneous Q12H fentaNYL 12 mcghr Transdermal Q72H [START ON 08/14/2017] furosemide 60 mg Intravenous Daily gabapentin 200 mg Oral TID guaiFENesin 600 mg Oral BID ipratropium-albuterol 3 mL Nebulization Q6H nicotine 1 patch Transdermal Q24H oxyCODONE 15 mg Oral BID pantoprazole 40 mg Oral QAM AC predniSONE 60 mg Oral Daily with breakfast senna 17.2 mg Oral BID sertraline 100 mg Oral Daily Continuous Infusions PRN Medications acetaminophen OR acetaminophen, albuterol, albuterol, HYDROmorphone OR HYDROmorphon e, LORazepam, morphine OR morphine OR morphine, ondansetron OR ondansetron, oxyC ODONE OR oxyCODONE OR oxyCODONE, polyethylene glycol, saline lock IV - when tolerati ng PO fluids AND sodium chloride (PF) Allergy: No Known Allergies OBJECTIVE: Vitals: Patient Vitals for the past 24 hrs: BP Temp Temp src Pulse Resp SpO2 Weight 08/13/17 0933 - - - 90 18 93 % - 08/13/17 0925 - - - 89 18 91 % - 08/13/17 0739 136/68 97.8 F (36.6 C) Oral 88 18 91 % - 08/13/17 0520 - - - 86 16 93 % - 08/13/17 0506 - - - 77 16 93 % - 08/13/17 0339 142/75 98.5 F (36.9 C) Oral 104 18 90 % 81.6 kg (180 lb) 08/12/17 2317 - - - 87 16 92 % - 08/12/17 2313 146/73 98.1 F (36.7 C) Axillary 82 16 92 % - 08/12/17 2302 - - - 81 16 95 % - 08/12/17 1919 141/65 97.9 F (36.6 C) Oral 92 18 95 % - 08/12/17 1637 - - - 87 17 96 % - 08/12/17 1508 125/61 98.6 F (37 C) Axillary 100 18 93 % - I&O Detailed Table: Intake/Output Summary (Last 24 hours) at 08/13/17 1204 Last data filed at 08/13/17 1018 Gross per 24 hour Intake 100 ml Output 3425 ml Net -3325 ml Patient Vitals for the past 96 hrs: Weight 08/13/17 0339 81.6 kg (180 lb) 08/12/17 0306 84.3 kg (185 lb 13.6 oz) 08/11/17 0241 88.6 kg (195 lb 4.8 oz) 08/10/17 0231 89.2 kg (196 lb 11.2 oz) Hemodynamics Last 24hrs: Physical Examination: Constitutional: Alert and awake , Mild tachypnea HEENT: Dry mucous membranes, pink conjunctivae and anicteric sclerae. No JVD. Neck supp le Cardiovascular: Normal rate and rhythm. . No appreciable murmurs. Pulmonary: Breath sounds are diminished in bases Abdominal: Soft and non-tender. Bowel sounds are present. No rebound or guarding. Extremities: s/p L AKA, dressing in place, no significant edema on R Neurological: AAO x3. No CN deficit. Skin: No diaphoresis Psychiatric: normal mood and affect LABS: Recent Labs Lab 08/13/17 0503 08/12/17 0507 08/11/17 0546 WBC 8.60 9.37 10.80 HGB 9.2* 8.9* 8.7* HCT 28.5* 26.9* 25.9* PLT 299 274 277 Recent Labs Lab 08/13/17 0503 08/12/17 0507 08/11/17 0546 NA 141 143 | 142 137 K 3.3* 3.7 | 3.7 3.5 CL 96* 101 | 99 95* CO2 37* 35* | 38* 35* BUN 21 17 | 19 17 CREATININE 0.5 0.5 | 0.5 0.4* PROT 6.3 5.8* 5.9* BILITOT 0.4 0.3 0.4 ALT 25 10 7* AST 44 31 18 Phosphorus: Lab Results Component Value Date PHOS 3.8 08/13/2017 Invalid input(s): LABALBU Recent Labs Lab 08/13/17 0503 08/12/17 0507 08/11/17 0546 MG 2.4 2.4 2.3 No results for input(s): AMYLASE in the last 168 hours. Recent Labs Lab 08/10/17 1917 08/09/17 2309 BEART 16* 7* Recent Labs Lab 08/11/17 0546 08/10/17 0503 08/09/17 0641 08/06/17 1557 APTT 39* 72* 65* < > 39* INR 1.2 -- -- -- 1.1 < > = values in this interval not displayed. No results for input(s): TSH, T3FREE, FREET4 in the last 168 hours. No results for input(s): CKTOTAL, TROPONINI, TROPONINT, CKMBINDEX in the last 168 hours. PROBLEM LIST Principal Problem: 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HCC) Active Problems: DVT (deep venous thrombosis) (HCC) Hyperlipidemia Multiple myeloma (HCC) Open wound of left lower leg Left foot infection COPD (chronic obstructive pulmonary disease) (HCC) Moderate obesity Phantom limb pain (HCC) S/P AKA (above knee amputation), left (HCC) More than 35 mins were spent on the review of H/P, imaging and labs, formulation of assessm ent and plan, discussion with the patient/family, staff and providers. HARSHIL TOMLINSON MD 08/13/2017 12:04 PM Barry Lobo DO - 08/13/2017 7:14 AM PDTFormatting of this note may be different from the original. [facility] Service: Infectious Disease Progress Note Hospital Day: LOS: 9 days Post-Op Day: * No surgery found * SUBJECTIVE Patient Summary: 61 y.o. 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 3 days later patient presented to [facility] ER for hemorrhagic bullae and toe discoloration o n 07/14. Case was discussed with multiple specialists including vascular surgery andoncolog y. She had a CTA of lower extremity that showed no significant stenosis and good distal runo ff. Oncology was concerned about interaction of blood thinner and proteins with his multiple myeloma causing possible TMA. Oncology at [facility] thought patient might have cerulae alba malignancy associatedand recwas to continue treatment with Lovenox. Even v ascular surgery was consulted at [facility] with recommendation to continue with Lovenox wound care and no interventions needed. Patient also had COPD exacerbation during t his same timeframe and was treated with prednisone and nebs. 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 ENT evaluated the patient and on fiberoptic scope she was not thought to have any airway compromise and recwas to follow-up with her oncologist Dr. Us. The patient denies any known trauma or irritation that lead to the hemorrhagic bulla on her left foot, appeared spontaneously in her opinion. Over the past week or so the wound has be en gradually worsening and has developed a foul odor. Cellulitis improved with Unasyn. To OR on 08/07 for the following: Left above knee amputation Placement of Prevena incision management system to incision CC: Left foot gangrene Chart reviewed: No new events. Subjective The patient reports that her left leg stump pain has completely resolved. She continues to have cough, and does note that she has had coughing while eating and drinking for a month or more, prior to coming to the hospital. She is very upset about her modified diet which incl udes mechanical soft and thickened liquids. ROS No fever, chills sweats. No nausea, vomiting or diarrhea. No rashes or pruritis. No oral pa in. Scheduled Medications ampicillin-sulbactam 3 g Intravenous Q6H aspirin 81 mg Oral Daily with breakfast atorvastatin 40 mg Oral Nightly enoxaparin 1 mg/kg Subcutaneous Q12H fentaNYL 12 mcghr Transdermal Q72H furosemide 40 mg Intravenous Daily gabapentin 200 mg Oral TID guaiFENesin 600 mg Oral BID ipratropium-albuterol 3 mL Nebulization Q6H nicotine 1 patch Transdermal Q24H oxyCODONE 15 mg Oral BID pantoprazole 40 mg Oral QAM AC predniSONE 60 mg Oral Daily with breakfast senna 17.2 mg Oral BID sertraline 100 mg Oral Daily Continuous Infusions PRN Medications acetaminophen OR acetaminophen, albuterol, albuterol, HYDROmorphone OR HYDROmorphon e, LORazepam, morphine OR morphine OR morphine, ondansetron OR ondansetron, oxyC ODONE OR oxyCODONE OR oxyCODONE, polyethylene glycol, saline lock IV - when tolerati ng PO fluids AND sodium chloride (PF) OBJECTIVE Vital Signs: BP 142/75 (BP Location: Right upper arm) | Pulse 86 | Temp 98.5 F (36.9 C) (Oral) | Resp 16 | Ht 1.676 m (5' 6") | Wt 81.6 kg (180 lb) | LMP (LMP Unknown) | SpO2 93% | Br eastfeeding? No | BMI 29.05 kg/m Temp (24hrs), Av.1 F (36.7 C), Min:97.6 F (36.4 C), Max:98.6 F (37 C) Exam: Const: Vitals reviewed. No acute distress Skin: No rashes, no edema. ENT: No thrush. Lungs: CTAB, no rales or wheezes Heart: RRR, no murmur Abd: soft, NT, + bowel sounds Musculoskeletal: Status post left above-knee amputation, limb protector in place. DATA CBC: Lab Results Component Value Date WBC 8.60 08/13/2017 RBC 3.50 (L) 08/13/2017 HGB 9.2 (L) 08/13/2017 HCT 28.5 (L) 08/13/2017 MCV 81.4 08/13/2017 MCH 26.3 (L) 08/13/2017 MCHC 32.3 08/13/2017 RDW 51.6 08/13/2017 PLT 299 08/13/2017 MPV 6.9 08/13/2017 DIFFTYPE MANUAL 08/13/2017 CMP: Lab Results Component Value Date NA 141 08/13/2017 K 3.3 (L) 08/13/2017 CL 96 (L) 08/13/2017 CO2 37 (H) 08/13/2017 ANIONGAP 11 08/13/2017 GLUF 122 (H) 08/13/2017 BUN 21 08/13/2017 CREATININE 0.5 08/13/2017 BCR 42 08/13/2017 CA 8.3 (L) 08/13/2017 PROT 6.3 08/13/2017 ALB 1.8 (L) 08/13/2017 GLOB 4.5 08/13/2017 BILITOT 0.4 08/13/2017 ALP 534 (H) 08/13/2017 AST 44 08/13/2017 ALT 25 08/13/2017 EGFR >60 08/13/2017 Microbiology: Pleural fluid Gram's stain negative, culture negative so far. Protein 3.0, gl ucose 109, LDH 490, pH 7.64, WBC 6180, 88% neutrophils. PROBLEM LIST Principal Problem: 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HCC) Active Problems: DVT (deep venous thrombosis) (HCC) Hyperlipidemia Multiple myeloma (HCC) Open wound of left lower leg Left foot infection COPD (chronic obstructive pulmonary disease) (HCC) Moderate obesity Phantom limb pain (HCC) S/P AKA (above knee amputation), left ([facility]) ASSESSMENT & PLAN 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HCC) (08/04/2017) The patient has been diagnosed with thrombotic microangiopathy 3, which is likely the dri ving factor of her left foot gangrene. Vascular workup has not revealed any large vessel dis ease which could be intervened upon. The patient has now undergone above-knee amputation. We will transition back to oral Augmentin. Right pleural effusion with possible consolidation CT scan suggests metastatic disease, most likely a malignant pleural effusion, has findin gs of dense infiltrate and consolidation in the right midlung zone responded promptly after removal of fluid. The patient has been found to have evidence of chronic aspiration, therefo re I would favor completing a course of treatment with Augmentin. Overall treatment day #9 o f 14 including prior Unasyn. Left foot infection (08/04/2017) Surgically treated. DVT (deep venous thrombosis) (HCC) (08/04/2017) Management per primary service and hematology. Code Status: Full Code BARRY LOBO, DO 08/13/2017Harshil Tomlinson MD - 08/12/2017 2:25 PM PDTFormatting of this note may be diff erent from the original. [facility] Service: Hospitalist Progress Note Pt: Carmen Kahn AGE/SEX: 61 y.o. female ROOM: 8119/8119-1 : 1955 PCP: ANANT GRAJEDA ADMIT DATE: 08/04/2017 TODAY'S DATE: 08/12/2017 Hospital Day/Hospital Course: LOS: 8 days 61 y/o F with hx of DVT on lovenox [employer] WORK[employer], COPD, obesity, hx of multiple myeloma and laryngea l lesion (details unknown by pt) sees Dr Martinez Oncologist, 60 pack year smoker, GERD, H LD,chronic pain on opiates, recent complicated history from H&P Patient had a recent complicated hospital course. She was diagnosed with deep vein thrombos is in mid June - started on Eliquis. 3 days later patient presented to [facility] ER for hemorr hagic bullae and toe discoloration on 07/14. Case was discussed with multiple specialists inc luding vascular surgery and oncology. She had a CTA of lower extremity that showed no signif icant stenosis and good distal runoff. Oncology was concerned about interaction of blood thi nner and proteins with his multiple myeloma causing possible TMA. Oncology at [facility] thought patient might have cerulae alba malignancy associated and rec was to contin ue treatment with Lovenox. Even vascular surgery was consulted at [facility] wit h recommendation to continue with Lovenox wound care and no interventions needed. Patient al so had COPD exacerbation during this same timeframe and was treated with prednisone and nebs . 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 ENT evaluated the patient and on fiberoptic scope she was not thought to have any airway compromise and rec was to follow-up with her oncologist Dr. Us. She had biopsy taken for same. She came in as a referral from wound clinic for L foot wound, foul smelling . In the ED, sh lilian was found to have lactic acid of 2.9, WBC of 11, xray was negative for osteomyelitis but s howed mild superficial skin gas. She was admitted for LLE hemorrhagic skin lesion with compl ication of wet gangrene/cellulitis, with history of thrombotic microangiopathy. ID, Podia try, and Vascular Surgery were consulted. No interventionable vessel was found. Pt underwent AKA on 08/07/[address] Haley following pt up, and started pt on gabapentin for ph antom limb pain. Course complicated by urinary retention smith catheter placed on 08/09/1708/10 Noted events overnight of acute hypoxic respiratory failure requiring PPV. Pt was also given lasix total 40 mg IV CXR showed moderate R pleural effusion with associated atelecta sis or consolidation, possible atelectasis or infiltrate at L base with trace L effusion,bor derline cardiomegaly. Pt also given IV steroids. When I saw pt she was fatigued but awake and answering questions. States breathing has impr corine. CT chest has been ordered for her. I spoke with Dr Ortiz about shifting back to l ovenox from heparin due to the volume from heparin gtt, and he had no objections to this curry nge. 08/11 S/p 1.9 L thoracentesis from R side, pt feels better. Discussed with Dr Us 0 he states biopsy result was adenoca likely form pancreas or gallbladder. Discussed with pt a nd daughter, who wish to obtain Oncology consultation from here. Dr Emerson is kindly co nsulting. Await further recommendations SUBJECTIVE: Patient seen and examined. Await Oncology recommendations. Pt appearing mildly tachypneic , denies SOB to me. Will continue with lasix for now. Currently still on IV abx . Still on 5 L O2 but has been on much higher, and this has been an improvemen t ASSESSMENT & PLAN First problem in the list is the principal problem: Principal Problem: 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HCC) 08/09 felt to be due to thrombotic microangiopathy, Vascular surgery consulted, no interv entionable vessel was found, s/p AKA, ID is following for abx, today has been shifted to ora l abx, needs to work with PT/OT. Pt encouraged, continue wound care,continue pain meds ,cont inue asa and statin `08/[address] Ortiz about shifting back to lovenox from heparin due to the volum e from heparin gtt, and he had no objections to this change. Active Problems: Acute hypoxic respiratory failure 08/10 remains on BIPAP but mentation is improving, will see if we can wean off. Will contin ue steroids IV for now. Continue duonebs, lasix prn. 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 Strict Is and Os. Check echo, and have fluid restriction of 1.5 L /24 hours after NPO. Salt restriction. 08/11 improving, s/p R sided thoracentesis of 1.9L on R side, await fluid studies 08/12 shift to oral steroid tomorrow, continue lasix to keep on negative fluid balance L foot cellulitis on abx as above per ID DVT (deep venous thrombosis) (HCC) per chart notes was on full dose lovenox [employer] Currently on heparin gtt, transition to lovenox if okay with surgeon (done 08/10) Hyperlipidemia continue statin Multiple myeloma (HCC), query Hx of laryngeal lesion Dr Emerson is consulted COPD (chronic obstructive pulmonary disease) (HCC) continue with duonebs prn Moderate obesity will benefit from obesity specialist referral Phantom limb pain (HCC) gabapentin has been started and was recommended to be uptitrated to sx control Smoking hx Continue nicotine patch DVT prophylaxis not necessary as pt on lovenox Scheduled Medications: ampicillin-sulbactam 3 g Intravenous Q6H aspirin 81 mg Oral Daily with breakfast atorvastatin 40 mg Oral Nightly enoxaparin 1 mg/kg Subcutaneous Q12H fentaNYL 12 mcghr Transdermal Q72H furosemide 40 mg Intravenous Daily gabapentin 200 mg Oral TID guaiFENesin 600 mg Oral BID ipratropium-albuterol 3 mL Nebulization Q6H methylPREDNISolone 40 mg Intravenous Q8H nicotine 1 patch Transdermal Q24H oxyCODONE 15 mg Oral BID pantoprazole 40 mg Oral QAM AC [START ON 08/13/2017] predniSONE 60 mg Oral Daily with breakfast senna 17.2 mg Oral BID sertraline 100 mg Oral Daily Continuous Infusions PRN Medications acetaminophen OR acetaminophen, albuterol, albuterol, HYDROmorphone OR HYDROmorphon e, LORazepam, morphine OR morphine OR morphine, ondansetron OR ondansetron, oxyC ODONE OR oxyCODONE OR oxyCODONE, polyethylene glycol, saline lock IV - when tolerati ng PO fluids AND sodium chloride (PF) Allergy: No Known Allergies OBJECTIVE: Vitals: Patient Vitals for the past 24 hrs: BP Temp Temp src Pulse Resp SpO2 Weight 08/12/17 1155 133/62 97.9 F (36.6 C) Oral 92 18 97 % - 08/12/17 1007 - - - 89 17 97 % - 08/12/17 0755 134/66 97.6 F (36.4 C) Oral 83 18 95 % - 08/12/17 0527 - - - - 20 - - 08/12/17 0513 - - - 82 20 - - 08/12/17 0306 139/64 97.7 F (36.5 C) Oral 91 20 93 % 84.3 kg (185 lb 13.6 oz) 08/11/17 2355 - - - 94 - 96 % - 08/11/17 2254 150/72 97.7 F (36.5 C) Oral 89 20 95 % - 08/11/17 1951 155/80 98.1 F (36.7 C) Oral 100 20 93 % - 08/11/17 1705 - - - 95 20 95 % - 08/11/17 1701 - - - 101 20 94 % - 08/11/17 1653 - - - - - 94 % - 08/11/17 1515 143/81 98.5 F (36.9 C) Oral 109 21 90 % - I&O Detailed Table: Intake/Output Summary (Last 24 hours) at 08/12/17 1425 Last data filed at 08/12/17 0558 Gross per 24 hour Intake 547 ml Output 675 ml Net -128 ml Patient Vitals for the past 96 hrs: Weight 08/12/17 0306 84.3 kg (185 lb 13.6 oz) 08/11/17 0241 88.6 kg (195 lb 4.8 oz) 08/10/17 0231 89.2 kg (196 lb 11.2 oz) Hemodynamics Last 24hrs: Physical Examination: Constitutional: Alert and awake , Mild tachypnea HEENT: Dry mucous membranes, pink conjunctivae and anicteric sclerae. No JVD. Neck supp le Cardiovascular: Normal rate and rhythm. . No appreciable murmurs. Pulmonary: Breath sounds are diminished in bases ,few expiratory wheezes Abdominal: Soft and non-tender. Bowel sounds are present. No rebound or guarding. Extremities: s/p L AKA, dressing in place, no significant edema on R Neurological: AAO x3. No CN deficit. Skin: No diaphoresis Psychiatric: normal mood and affect LABS: Recent Labs Lab 08/12/17 0507 08/11/17 0546 08/10/17 0503 WBC 9.37 10.80 9.98 HGB 8.9* 8.7* 8.9* HCT 26.9* 25.9* 26.5* PLT 274 277 249 Recent Labs Lab 08/12/17 0507 08/11/17 0546 08/10/17 0503 NA 143 | 142 137 135 K 3.7 | 3.7 3.5 3.9 CL 101 | 99 95* 95* CO2 35* | 38* 35* 29 BUN 17 | 19 17 12 CREATININE 0.5 | 0.5 0.4* 0.6 PROT 5.8* 5.9* -- BILITOT 0.3 0.4 -- ALT 10 7* -- AST 31 18 -- Phosphorus: Lab Results Component Value Date PHOS 3.7 08/12/2017 PHOS 3.7 08/12/2017 Invalid input(s): LABALBU Recent Labs Lab 08/12/17 0507 08/11/17 0546 MG 2.4 2.3 No results for input(s): AMYLASE in the last 168 hours. Recent Labs Lab 08/10/17 1917 08/09/17 2309 BEART 16* 7* Recent Labs Lab 08/11/17 0546 08/10/17 0503 08/09/17 0641 08/06/17 1557 APTT 39* 72* 65* < > 39* INR 1.2 -- -- -- 1.1 < > = values in this interval not displayed. No results for input(s): TSH, T3FREE, FREET4 in the last 168 hours. No results for input(s): CKTOTAL, TROPONINI, TROPONINT, CKMBINDEX in the last 168 hours. PROBLEM LIST Principal Problem: 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HCC) Active Problems: DVT (deep venous thrombosis) (HCC) Hyperlipidemia Multiple myeloma (HCC) Open wound of left lower leg Left foot infection COPD (chronic obstructive pulmonary disease) (HCC) Moderate obesity Phantom limb pain (HCC) S/P AKA (above knee amputation), left (HCC) More than 35 mins were spent on the review of H/P, imaging and labs, formulation of assessm ent and plan, discussion with the patient/family, staff and providers. HARSHIL TOMLINSON MD 08/12/2017 2:25 PM Wally Keating CPO, LPO - 08/12/2017 10:12 AM [facility], [place], operated by [facility], Pt seen for follow up on her AK Post Op Protector. She was asleep but willing to don protec tor. Her dressing had fallen off a couple times in the night. She doesn't have any drainage so I put on a post op sock and then donned the protector. She understands it is important to were the protector as much as possible, but particularly if she is moving around or out of bed. The steps for donning this protector are: 1) don gait belt around waist. 2) don protector w ith seem anterior and plastic laterally. 3) attach protector to gait belt with straps. PRN. [facility], [phone], Wally Keating CPO, Barry Donaldson, - 08/12/2017 6:58 AM PD TFormatting of this note may be different from the original. [facility] Service: Infectious Disease Progress Note Hospital Day: LOS: 8 days Post-Op Day: * No surgery found * SUBJECTIVE Patient Summary: 61 y.o. 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 3 days later patient presented to [facility] ER for hemorrhagic bullae and toe discoloration o n 07/14. Case was discussed with multiple specialists including vascular surgery andoncolog y. She had a CTA of lower extremity that showed no significant stenosis and good distal runo ff. Oncology was concerned about interaction of blood thinner and proteins with his multiple myeloma causing possible TMA. Oncology at [facility] thought patient might have cerulae alba malignancy associatedand recwas to continue treatment with Lovenox. Even v ascular surgery was consulted at [facility] with recommendation to continue with Lovenox wound care and no interventions needed. Patient also had COPD exacerbation during t his same timeframe and was treated with prednisone and nebs. 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 ENT evaluated the patient and on fiberoptic scope she was not thought to have any airway compromise and recwas to follow-up with her oncologist Dr. Us. The patient denies any known trauma or irritation that lead to the hemorrhagic bulla on her left foot, appeared spontaneously in her opinion. Over the past week or so the wound has be en gradually worsening and has developed a foul odor. Cellulitis improved with Unasyn. To OR on 08/07 for the following: Left above knee amputation Placement of Prevena incision management system to incision CC: Left foot gangrene Chart reviewed: No new events. Subjective The patient reports continued gradual improvement in left leg stump pain. She is breathing much better, denies any shortness of breath, pleurisy or sputum production. She has a dry co ugh. ROS No fever, chills sweats. No nausea, vomiting or diarrhea. No rashes or pruritis. No oral pa in. Scheduled Medications ampicillin-sulbactam 3 g Intravenous Q6H aspirin 81 mg Oral Daily with breakfast atorvastatin 40 mg Oral Nightly enoxaparin 1 mg/kg Subcutaneous Q12H fentaNYL 12 mcghr Transdermal Q72H gabapentin 200 mg Oral TID guaiFENesin 600 mg Oral BID ipratropium-albuterol 3 mL Nebulization Q6H methylPREDNISolone 40 mg Intravenous Q8H nicotine 1 patch Transdermal Q24H oxyCODONE 15 mg Oral BID pantoprazole 40 mg Oral QAM AC senna 17.2 mg Oral BID sertraline 100 mg Oral Daily Continuous Infusions PRN Medications acetaminophen OR acetaminophen, albuterol, albuterol, HYDROmorphone OR HYDROmorphon e, LORazepam, morphine OR morphine OR morphine, ondansetron OR ondansetron, oxyC ODONE OR oxyCODONE OR oxyCODONE, polyethylene glycol, saline lock IV - when tolerati ng PO fluids AND sodium chloride (PF) OBJECTIVE Vital Signs: BP 139/64 (BP Location: Right upper arm) | Pulse 82 | Temp 97.7 F (36.5 C) (Oral) | Resp 20 | Ht 1.676 m (5' 6") | Wt 84.3 kg (185 lb 13.6 oz) | LMP (LMP Unknown) | SpO2 9 3% | ? No | BMI 30.00 kg/m Temp (24hrs), Av F (36.7 C), Min:97.7 F (36.5 C), Max:98.5 F (36.9 C) Exam: Const: Vitals reviewed. No acute distress Skin: No rashes, no edema. ENT: No thrush. Lungs: CTAB, no rales or wheezes Heart: RRR, no murmur Abd: soft, NT, + bowel sounds Musculoskeletal: Status post left above-knee amputation, limb protector in place. DATA CBC: Lab Results Component Value Date WBC 9.37 08/12/2017 RBC 3.35 (L) 08/12/2017 HGB 8.9 (L) 08/12/2017 HCT 26.9 (L) 08/12/2017 MCV 80.4 08/12/2017 MCH 26.6 (L) 08/12/2017 MCHC 33.1 08/12/2017 RDW 49.9 08/12/2017 PLT 274 08/12/2017 MPV 7.1 08/12/2017 DIFFTYPE MANUAL 08/12/2017 CMP: Lab Results Component Value Date NA 143 08/12/2017 NA 142 08/12/2017 K 3.7 08/12/2017 K 3.7 08/12/2017 CL 101 08/12/2017 CL 99 08/12/2017 CO2 35 (H) 08/12/2017 CO2 38 (H) 08/12/2017 ANIONGAP 11 08/12/2017 ANIONGAP 9 08/12/2017 GLUF 113 (H) 08/12/2017 GLUF 131 (H) 08/12/2017 BUN 17 08/12/2017 BUN 19 08/12/2017 CREATININE 0.5 08/12/2017 CREATININE 0.5 08/12/2017 BCR 38 08/12/2017 CA 8.5 08/12/2017 CA 7.9 (L) 08/12/2017 PROT 5.8 (L) 08/12/2017 ALB 1.5 (L) 08/12/2017 ALB 1.7 (L) 08/12/2017 GLOB 4.1 08/12/2017 BILITOT 0.3 08/12/2017 ALP 502 (H) 08/12/2017 AST 31 08/12/2017 ALT 10 08/12/2017 EGFR >60 08/12/2017 EGFR >60 08/12/2017 Microbiology: Pleural fluid Gram's stain negative, culture negative so far. Protein 3.0, gl ucose 109, LDH 490, pH 7.64, WBC 6180, 88% neutrophils. Medical imaging: Post thoracentesis CXR was viewed in PACS and shows resolution of priopr d ense mid-lung opacity on the right, which may have been atelectasis or fluid in the fissure. There is a small residual right pleural effusion, similar top that seen on the left. No foc al infiltrates or consolidation. Radiology report as follows: X-ray Chest Inspiration & Expiration Result Date: 08/11/2017 No pneumothorax. Right basilar patchy consolidation/atelectasis. Bilateral interstitial raquel ma. Interval improvement of right pleural effusion. Heart size and mediastinal contours are unchanged. Diffuse sclerotic metastases persists. LEM LIST Principal Problem: 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HCC) Active Problems: DVT (deep venous thrombosis) (HCC) Hyperlipidemia Multiple myeloma (HCC) Open wound of left lower leg Left foot infection COPD (chronic obstructive pulmonary disease) (HCC) Moderate obesity Phantom limb pain (HCC) S/P AKA (above knee amputation), left (HCC) ASSESSMENT & PLAN 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HCC) (08/04/2017) The patient has been diagnosed with thrombotic microangiopathy 3, which is likely the dri ving factor of her left foot gangrene. Vascular workup has not revealed any large vessel dis ease which could be intervened upon. The patient has now undergone above-knee amputation. We ll covered with Unasyn. Right pleural effusion with possible consolidation CT scan suggests metastatic disease, most likely a malignant pleural effusion. Appreciate thoracentesis. Fluid did have a neutrophil predominance, although clinically this is still most likely to be malignant. Postprocedure images do not show any residual consolidation or focal infiltrates. Gram stain was negative. If culture shows no growth, we can transition ba ck to oral Augmentin tomorrow. Left foot infection (08/04/2017) Surgically treated. DVT (deep venous thrombosis) (HCC) (08/04/2017) Management per primary service and hematology. Code Status: Full Code BARRY Deborah LOBO, DO 08/12/2017SaWally apple CPO, BUBBA - 08/11/2017 5:55 PM [facility], [place], operated by [facility], Pt seen for fitting of AK Post Op Protector. She had family visiting but was willing to don n protector. I did not leave it on her as she says she won't be getting out of bed tonight. She understands it is important to were the protector as much as possible, but particularly if she is moving around or out of bed. The steps for donning this protector are: 1) don gait belt around waist. 2) don protector w ith seem anterior and plastic laterally. 3) attach protector to gait belt with straps. If PT is coming to see this patient tomorrow at a certain time, give me a call and I will t ry to be there to assist. PRN. [facility], [phone], Wally Keating CPO, Harshil Mujica MD - 08/11/2017 4:50 PM P DTFormatting of this note may be different from the original. [facility] Service: Hospitalist Progress Note Pt: Carmen Kahn AGE/SEX: 61 y.o. 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 She was diagnosed with deep vein thrombos is in mid June - started on Eliquis. 3 days later patient presented to [facility] ER for hemorr hagic bullae and toe discoloration on 07/14. Case was discussed with multiple specialists inc luding vascular surgery and oncology. She had a CTA of lower extremity that showed no signif icant stenosis and good distal runoff. Oncology was concerned about interaction of blood thi nner and proteins with his multiple myeloma causing possible TMA. Oncology at [facility] thought patient might have cerulae alba malignancy associated and rec was to contin ue treatment with Lovenox. Even vascular surgery was consulted at [facility] recommendation to continue with Lovenox wound care and no interventions needed. Patient emilia so had COPD exacerbation during this same timeframe and was treated with prednisone and nebs . 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 ENT evaluated the patient and on fiberoptic scope she was not thought to have any airway compromise and rec was to follow-up with her oncologist Dr. Us. She had biopsy taken for same. She came in as a referral from wound clinic for L foot wound, foul smelling . In the ED, genesis quintana was found to have lactic acid of 2.9, WBC of 11, xray was negative for osteomyelitis but s howed mild superficial skin gas. She was admitted for LLE hemorrhagic skin lesion with compl ication of wet gangrene/cellulitis, with history of thrombotic microangiopathy. ID, Podia try, and Vascular Surgery were consulted. No interventionable vessel was found. Pt underwent AKA on 08/07/[address] Haley following pt up, and started pt on gabapentin for ph antom limb pain. Course complicated by urinary retention smith catheter placed on 08/09/1708/10 Noted events overnight of acute hypoxic respiratory failure requiring PPV. Pt was also given lasix total 40 mg IV CXR showed moderate R pleural effusion with associated atelecta sis or consolidation, possible atelectasis or infiltrate at L base with trace L effusion,bor derline cardiomegaly. Pt also given IV steroids. When I saw pt she was fatigued but awake and answering questions. States breathing has impr corine. CT chest has been ordered for her. I spoke with Dr Ortiz about shifting back to l ovenox from heparin due to the volume from heparin gtt, and he had no objections to this curry nge. SUBJECTIVE: Patient seen and examined. S/p 1.9 L thoracentesis from R side, pt feels better. Discussed with Dr Us 0 he states biopsy result was adenoca likely form pancreas or gallbladd er. Discussed with pt and daughter, who wish to obtain Oncology consultation from here. Dr Alberto winter is kindly consulting. Await further recommendations ASSESSMENT & PLAN First problem in the list is the principal problem: Principal Problem: 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HCC) 08/09 felt to be due to thrombotic microangiopathy, Vascular surgery consulted, no interv entionable vessel was found, s/p AKA, ID is following for abx, today has been shifted to ora l abx, needs to work with PT/OT. Pt encouraged, continue wound care,continue pain meds ,cont inue asa and statin `08/09I spoke with Dr Ortiz about shifting back to lovenox from heparin due to the volu me from heparin gtt, and he had no objections to this change. Active Problems: Acute hypoxic respiratory failure 08/10 remains on BIPAP but mentation is improving, will see if we can wean off. Will contin ue steroids IV for now. Continue duonebs, lasix prn. 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 Strict Is and Os. Check echo, and have fluid restriction of 1.5 L /24 hours after NPO. Salt restriction. 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 Currently on heparin gtt, transition to lovenox if okay with surgeon (done 08/10) Hyperlipidemia continue statin Multiple myeloma (HCC), query Hx of laryngeal lesion Dr Emerson is consulted COPD (chronic obstructive pulmonary disease) (HCC) continue with duonebs prn Moderate obesity will benefit from obesity specialist referral Phantom limb pain (HCC) gabapentin has been started and was recommended to be uptitrated to sx control Smoking hx Continue nicotine patch DVT prophylaxis not necessary as pt on lovenox Scheduled Medications: ampicillin-sulbactam 3 g Intravenous Q6H aspirin 81 mg Oral Daily with breakfast atorvastatin 40 mg Oral Nightly enoxaparin 1 mg/kg Subcutaneous Q12H fentaNYL 12 mcghr Transdermal Q72H gabapentin 200 mg Oral TID guaiFENesin 600 mg Oral BID ipratropium-albuterol 3 mL Nebulization Q6H methylPREDNISolone 81.25 mg Intravenous Q8H nicotine 1 patch Transdermal Q24H oxyCODONE 15 mg Oral BID pantoprazole 40 mg Oral QAM AC senna 17.2 mg Oral BID sertraline 100 mg Oral Daily Continuous Infusions PRN Medications acetaminophen OR acetaminophen, albuterol, albuterol, HYDROmorphone OR HYDROmorphon e, LORazepam, morphine OR morphine OR morphine, ondansetron OR ondansetron, oxyC ODONE OR oxyCODONE OR oxyCODONE, polyethylene glycol, saline lock IV - when tolerati ng PO fluids AND sodium chloride (PF) Allergy: No Known Allergies OBJECTIVE: Vitals: Patient Vitals for the past 24 hrs: BP Temp Temp src Pulse Resp SpO2 Weight 08/11/17 1515 143/81 98.5 F (36.9 C) Oral 109 21 90 % - 08/11/17 1245 - - - 90 22 94 % - 08/11/17 1240 - - - 95 24 95 % - 08/11/17 1112 159/75 98 F (36.7 C) Oral 79 20 96 % - 08/11/17 0743 155/68 98.1 F (36.7 C) Oral 99 21 - - 08/11/17 0533 - - - 95 20 92 % - 08/11/17 0527 - - - 92 22 91 % - 08/11/17 0241 164/71 97.9 F (36.6 C) Oral 91 21 94 % 88.6 kg (195 lb 4.8 oz) 08/10/17 2308 132/60 97.9 F (36.6 C) Oral 93 24 96 % - 08/10/17 2255 - - - - 20 - - 08/10/172246 - - - 76 20 (!) 88 % - 08/10/172032 113/67 97.5 F (36.4 C) Oral 101 24 94 % - 08/10/171701 - - - - 22 - - 08/10/171651 - - - 118 20 - - I&O Detailed Table: Intake/Output Summary (Last 24 hours) at 08/11/17 165 Last data filed at 08/11/17 1524 Gross per 24 hour Intake 1054 ml Output 1025 ml Net 29 ml Patient Vitals for the past 96 hrs: Weight 08/11/17 0241 88.6 kg (195 lb 4.8 oz) 08/10/17 0231 89.2 kg (196 lb 11.2 oz) Hemodynamics Last 24hrs: Physical Examination: Constitutional: Alert and awake ,more awake today , not In Acute respiratory distress HEENT: Dry mucous membranes, pink conjunctivae and anicteric sclerae. No JVD. Neck supp le Cardiovascular: Normal rate and rhythm. . No appreciable murmurs. Pulmonary: Breath sounds are diminished in bases Abdominal: Soft and non-tender. Bowel sounds are present. No rebound or guarding. Extremities: s/p L AKA, dressing in place, no significant edema on R Neurological: AAO x3. No CN deficit. Skin: No diaphoresis Psychiatric: normal mood and affect LABS: Recent Labs Lab 08/11/17 0546 08/10/17 0503 08/09/17 0510 08/04/17 1702 WBC 10.80 9.98 10.41 < > 11.07* HGB 8.7* 8.9* 8.4* < > 9.9* HCT 25.9* 26.5* 26.0* < > 31.3* PLT 277 249 246 < > 276 NEUTOPHILPCT -- -- -- -- 85.73 MONOPCT -- -- -- -- 4.15 < > = values in this interval not displayed. Recent Labs Lab 08/11/17 0546 08/10/17 0503 08/09/17 0510 08/05/17 0520 08/04/17 1702 NA 137 135 135 < > 135 134* K 3.5 3.9 4.3 < > 4.4 4.7 CL 95* 95* 100 < > 97* 100 CO2 35* 29 27 < > 27 28 BUN 17 12 10 < > 13 14 CREATININE 0.4* 0.6 0.5 < > 0.7 0.76 PROT 5.9* -- -- -- 7.0 7.1 BILITOT 0.4 -- -- -- 0.5 0.4 ALT 7* -- -- -- 15 18 AST 18 -- -- -- 24 21 < > = values in this interval not displayed. Phosphorus: Lab Results Component Value Date PHOS 3.2 08/11/2017 Invalid input(s): LABALBU Recent Labs Lab 08/11/17 0546 08/05/17 0520 MG 2.3 2.7* No results for input(s): AMYLASE in the last 168 hours. Recent Labs Lab 08/10/17 1917 08/09/17 2309 BEART 16* 7* Recent Labs Lab 08/11/17 0546 08/10/17 0503 08/09/17 0641 08/06/17 1557 08/05/17 0520 APTT 39* 72* 65* < > 39* 34* INR 1.2 -- -- -- 1.1 1.1 < > = values in this interval not displayed. No results for input(s): TSH, T3FREE, FREET4 in the last 168 hours. No results for input(s): CKTOTAL, TROPONINI, TROPONINT, CKMBINDEX in the last 168 hours. PROBLEM LIST Principal Problem: 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[facility]) Active Problems: DVT (deep venous thrombosis) ([facility]) Hyperlipidemia Multiple myeloma ([facility]) Open wound of left lower leg Left foot infection COPD (chronic obstructive pulmonary disease) ([facility]) Moderate obesity Phantom limb pain ([facility]) S/P AKA (above knee amputation), left ([facility]) More than 35 mins were spent on the review of H/P, imaging and labs, formulation of assessm ent and plan, discussion with the patient/family, staff and providers. HARSHIL TOMLINSON MD 08/11/2017 4:[address] - 08/11/2017 1:45 PM PDTFormatting of this note may be different fro m the original. 08/11/17 1322 Subjective Pt c/o Pt triggered for wound VAC, dysphagia, & LOS. Pt was in bed watching TV while on O2. She reports she feels she has been on NPO for most of her stay and that she is feeling hung ry. On 08/07 pt had L AKA and has since been experiencing phantom pain. Reported by Patient Diet Experience Self-selected diet(s) followed Pt reports no special diet followed at home. Fluid / Beverage Intake Oral Fluids Amount NPO Food Intake Amount of Food NPO. 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 Type of Food / Meals NPO; previously on mechanical soft, NTL. Meal / Snack Pattern NPO for thoracentesis tiday. Food and Nutrition Knowledge Area(s) and Level of Knowledge Encouraged increased protein. Nutrition-Focused Physical Findings Overall Appearance Pt appeared obese - consistent with BMI of 31.52 (class one obesity) Body Language Pleasant to speak with. 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 Pt is missing teeth. Skin L AKA. NPWT in place. Anthropometrics Weight change Wt has remained stable throughout admit. Admitted at 88.5 kg and currently we ighs 88.6 kg. Pt is noted to be 1485 mL fluid negative. Will monitor. Biochemical data, medical tests, and procedures reviewed Biochemical data, medical tests, and procedures reviewed BG 129 - pt has solu-medrol ordere d which is a steroid and can cause an increase in BG levels. Estimated Energy Needs Total Energy Estimated Needs [id number] kcal/day Method for Estimating Needs 25-30 kcal/kg based on adjusted body wt 66.5 kg Estimated Protein Needs Total Protein Estimated Needs 80-100 g/day Method for Estimating Needs 1.2-1.5 g/kg based on adjusted body wt 66.5 kg Recommendations Recommended energy needs ADAT to GLAZIER SUPERVISOR recs. Encourage increased protein. Ensure Enlive order ed PRN - pt will call and request as she desires. Will continue to follow per nutrition prot ocol. Nutritional Risk Nutritional risk Moderate Follow up date 08/16/[address] Boost plus is ordered as dietary supplement, not ensure enlive.Wally Keating, , LPO - 12:49 PM [facility], [place], operated by [facility], I was called this morning to provide this patient a AK Post Op Protector. I saw her to froilan ure her limb and will return with her post-op protector this afternoon or early evening. [facility], [phone], Wally Keating CPO, LPOSloot Neeru, ALVARO - 08/11/2017 8:44 AM PDT Formatting of this note may be different from the original. [facility] Service: Vascular Surgery Progress Note Hospital Day: LOS: 7 days Post-Op Day: 4 days post op SUBJECTIVE Patient Summary: S/P left AKA secondary to LLE gas gangrene POD#2 S/P left AKA. Pt complaining of phantom limb pain but this has improved since startin g gabapentin. Also received Smith catheter for urinary retention. Events Overnight: Smith remains in. Phantom pain still an issue. Scheduled Medications ampicillin-sulbactam 3 g Intravenous Q6H aspirin 81 mg Oral Daily with breakfast atorvastatin 40 mg Oral Nightly enoxaparin 1 mg/kg Subcutaneous Q12H fentaNYL 12 mcghr Transdermal Q72H gabapentin 200 mg Oral TID guaiFENesin 600 mg Oral BID ipratropium-albuterol 3 mL Nebulization Q6H methylPREDNISolone 81.25 mg Intravenous Q8H nicotine 1 patch Transdermal Q24H oxyCODONE 15 mg Oral BID pantoprazole 40 mg Oral QAM AC senna 17.2 mg Oral BID sertraline 100 mg Oral Daily Continuous Infusions PRN Medications acetaminophen OR acetaminophen, albuterol, albuterol, HYDROmorphone OR HYDROmorphon e, LORazepam, morphine OR morphine OR morphine, ondansetron OR ondansetron, oxyC ODONE OR oxyCODONE OR oxyCODONE, polyethylene glycol, saline lock IV - when tolerati ng PO fluids AND sodium chloride (PF) OBJECTIVE Vital Signs: BP 155/68 | Pulse 99 | Temp 98.1 F (36.7 C) (Oral) | Resp 21 | Ht 1.676 m (5' 6") | Wt 88.6 kg (195 lb 4.8 oz) | LMP (LMP Unknown) | SpO2 92% | ? No | BMI 3 1.52 kg/m Temp: [97.5 F (36.4 C)-98.1 F (36.7 C)] 98.1 F (36.7 C) (08/11 742) BP: (113-164)/(60-75) 155/68 (08/11 742) Heart Rate: [76-118] 99 (08/11 742) Resp: [12-24] 21 (08/11 742) SpO2: [88 %-96 %] 92 % (08/11 05) Weight: [88.6 kg (195 lb 4.8 oz)] 88.6 kg (195 lb 4.8 oz) (08/11 024) Vitals:reviewed CONSTITUTIONAL: Conversant, well developed, NAD EYES: Anicteric sclerae, no lid drag, no proptosis RESP: Normal effort, regular, even, unlabored rate CV: + peripheral edema, rate regular SKIN: [place], warm, dry without rash/lesion MS: ROM not limited, no digital cyanosis, NEURO: Cranial nerves II-XII grossly intact, A&O times 3 PSYCH: appropriate affect, speech and tone, judgement and insight intact Vascular: Prevena removed. Incision CDI no erythema or purulence DATA CBC: Lab Results Component Value Date WBC 10.80 08/11/2017 RBC 3.24 (L) 08/11/2017 HGB 8.7 (L) 08/11/2017 HCT 25.9 (L) 08/11/2017 MCV 80.0 08/11/2017 MCH 26.9 (L) 08/11/2017 MCHC 33.7 08/11/2017 RDW 51.2 08/11/2017 PLT 277 08/11/2017 MPV 7.1 08/11/2017 DIFFTYPE MANUAL 08/11/2017 PROBLEM LIST Principal Problem: 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HCC) Active Problems: DVT (deep venous thrombosis) ([facility]) Hyperlipidemia Multiple myeloma (HCC) Open wound of left lower leg Left foot infection COPD (chronic obstructive pulmonary disease) ([facility]) Moderate obesity Phantom limb pain (HCC) S/P AKA (above knee amputation), left (HCC) ASSESSMENT & PLAN PT eval and treat IS to bedside CM- discharge planning Daily dressing change as ordered Consult head golf coach-done Disposition: Stable from surgical standpoint for discharge once medically stable. Will se e in post op clinic in 3 weeks. Code Status: Full Code NARCISO DillardP 08/11/2017YorBarry mason, DO - 08/11/2017 8:11 AM PDTFormatting of this note may be different from the original. [facility] Service: Infectious Disease Progress Note Hospital Day: LOS: 7 days Post-Op Day: * No surgery found * SUBJECTIVE Patient Summary: 61 y.o. 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 3 days later patient presented to [facility] ER for hemorrhagic bullae and toe discoloration o n 07/14. Case was discussed with multiple specialists including vascular surgery andoncolog y. She had a CTA of lower extremity that showed no significant stenosis and good distal runo ff. Oncology was concerned about interaction of blood thinner and proteins with his multiple myeloma causing possible TMA. Oncology at [facility] thought patient might have cerulae alba malignancy associatedand recwas to continue treatment with Lovenox. Even v ascular surgery was consulted at [facility] with recommendation to continue with Lovenox wound care and no interventions needed. Patient also had COPD exacerbation during t his same timeframe and was treated with prednisone and nebs. 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 ENT evaluated the patient and on fiberoptic scope she was not thought to have any airway compromise and recwas to follow-up with her oncologist Dr. Us. The patient denies any known trauma or irritation that lead to the hemorrhagic bulla on her left foot, appeared spontaneously in her opinion. Over the past week or so the wound has be en gradually worsening and has developed a foul odor. Cellulitis improved with Unasyn. To OR on 08/07 for the following: Left above knee amputation Placement of Prevena incision management system to incision CC: Left foot gangrene Chart reviewed: No new events. Subjective The patient reports gradual improvement in the pain in her left leg stump. Shortness of jovanna ath has improved, now on facemask oxygen, no longer requiring BiPAP. She denies any signific ant cough or sputum production. ROS No fever, chills sweats. No nausea, vomiting or diarrhea. No rashes or pruritis. No oral pa in. Scheduled Medications ampicillin-sulbactam 3 g Intravenous Q6H aspirin 81 mg Oral Daily with breakfast atorvastatin 40 mg Oral Nightly enoxaparin 1 mg/kg Subcutaneous Q12H fentaNYL 12 mcghr Transdermal Q72H gabapentin 200 mg Oral TID guaiFENesin 600 mg Oral BID ipratropium-albuterol 3 mL Nebulization Q6H methylPREDNISolone 81.25 mg Intravenous Q8H nicotine 1 patch Transdermal Q24H oxyCODONE 15 mg Oral BID pantoprazole 40 mg Oral QAM AC senna 17.2 mg Oral BID sertraline 100 mg Oral Daily Continuous Infusions PRN Medications acetaminophen OR acetaminophen, albuterol, albuterol, HYDROmorphone OR HYDROmorphon e, LORazepam, morphine OR morphine OR morphine, ondansetron OR ondansetron, oxyC ODONE OR oxyCODONE OR oxyCODONE, polyethylene glycol, saline lock IV - when tolerati ng PO fluids AND sodium chloride (PF) OBJECTIVE Vital Signs: BP 155/68 | Pulse 99 | Temp 98.1 F (36.7 C) (Oral) | Resp 21 | Ht 1.676 m (5' 6") | Wt 88.6 kg (195 lb 4.8 oz) | LMP (LMP Unknown) | SpO2 92% | ? No | BMI 3 1.52 kg/m Temp (24hrs), Av.9 F (36.6 C), Min:97.5 F (36.4 C), Max:98.1 F (36.7 C) Exam: Const: Vitals reviewed. No acute distress Skin: No rashes, no edema. ENT: No thrush. Lungs: CTAB, no rales or wheezes Heart: RRR, no murmur Abd: soft, NT, + bowel sounds Musculoskeletal: Status post left above-knee amputation, dressing is clean dry and intact DATA CBC: Lab Results Component Value Date WBC 10.80 08/11/2017 RBC 3.24 (L) 08/11/2017 HGB 8.7 (L) 08/11/2017 HCT 25.9 (L) 08/11/2017 MCV 80.0 08/11/2017 MCH 26.9 (L) 08/11/2017 MCHC 33.7 08/11/2017 RDW 51.2 08/11/2017 PLT 277 08/11/2017 MPV 7.1 08/11/2017 DIFFTYPE MANUAL 08/11/2017 CMP: Lab Results Component Value Date NA 137 08/11/2017 K 3.5 08/11/2017 CL 95 (L) 08/11/2017 CO2 35 (H) 08/11/2017 ANIONGAP 11 08/11/2017 GLUF 129 (H) 08/11/2017 BUN 17 08/11/2017 CREATININE 0.4 (L) 08/11/2017 BCR 43 08/11/2017 CA 8.4 (L) 08/11/2017 PROT 5.9 (L) 08/11/2017 ALB 1.6 (L) 08/11/2017 GLOB 4.3 08/11/2017 BILITOT 0.4 08/11/2017 ALP 497 (H) 08/11/2017 AST 18 08/11/2017 ALT 7 (L) 08/11/2017 EGFR >60 08/11/2017 Microbiology: Wound culture has 3+ MSSA, 2+ Group B strep. Medical imaging: CT scan of the chest performed on August 10 as follows: Ct Chest Without Contrast Result Date: 08/10/2017 1. I suspect metastatic adenopathy in the right paratracheal region, with collapse of the right lower lobe and partial collapse of the right middle lobe. I cannot exclude mass in the right perihilar region. PET CT is suggested for further evaluation. 2. Large right and sma ll left effusions. 3. Nodular and nodular infiltrative changes of the left lung as describe d. 4. Centrilobular emphysematous change. 5. Mixed lytic and blastic bony metastatic disea se throughout the visualized osseous skeleton. LEM LIST Principal Problem: 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HCC) Active Problems: DVT (deep venous thrombosis) (HCC) Hyperlipidemia Multiple myeloma (HCC) Open wound of left lower leg Left foot infection COPD (chronic obstructive pulmonary disease) (HCC) Moderate obesity Phantom limb pain (HCC) S/P AKA (above knee amputation), left (HCC) ASSESSMENT & PLAN 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HCC) (08/04/2017) The patient has been diagnosed with thrombotic microangiopathy 3, which is likely the dri ving factor of her left foot gangrene. Vascular workup has not revealed any large vessel dis ease which could be intervened upon. The patient has now undergone above-knee amputation. We ll covered with Unasyn. We can resume oral Augmentin as long as her pleural effusion workup does not reveal any evidence of infection. Right pleural effusion with possible consolidation CT scan suggests metastatic disease, most likely a malignant pleural effusion. Await thor acentesis for diagnostic purposes. Continue IV Unasyn for now, we will resume oral Augmentin if workup is consistent with malignant effusion. Left foot infection (08/04/2017) Surgically treated. DVT (deep venous thrombosis) (HCC) (08/04/2017) Management per primary service and hematology. Discussed with Dr. Tomlinson Code Status: Full Code BARRY LOBO, DO 08/11/2017Harshil Tomlinson MD - 08/10/2017 9:46 AM PDTFormatting of this note may be diff erent from the original. [facility] Service: Hospitalist Progress Note Pt: Carmen Neda Kahn AGE/SEX: 61 y.o. female ROOM: [facility]/8119-1 : 1955 PCP: ANANT GRAJEDA ADMIT DATE: 08/04/2017 TODAY'S DATE: 08/10/2017 Hospital Day/Hospital Course: LOS: 6 days 61 y/o F with hx of DVT on lovenox [employer] WORK[employer], COPD, obesity, hx of multiple myeloma and laryngea l lesion (details unknown by pt) sees Dr Martinez Oncologist, 60 pack year smoker, GERD, H LD,chronic pain on opiates, recent complicated history from H&P Patient had a recent complicated hospital course. She was diagnosed with deep vein thrombos is in mid June - started on Eliquis. 3 days later patient presented to [facility] ER for hemorr hagic bullae and toe discoloration on 07/14. Case was discussed with multiple specialists inc luding vascular surgery and oncology. She had a CTA of lower extremity that showed no signif icant stenosis and good distal runoff. Oncology was concerned about interaction of blood thi nner and proteins with his multiple myeloma causing possible TMA. Oncology at [facility] thought patient might have cerulae alba malignancy associated and rec was to contin ue treatment with Lovenox. Even vascular surgery was consulted at [facility] wit h recommendation to continue with Lovenox wound care and no interventions needed. Patient emilia chong had COPD exacerbation during this same timeframe and was treated with prednisone and nebs . 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 ENT evaluated the patient and on fiberoptic scope she was not thought to have any airway compromise and rec was to follow-up with her oncologist Dr. Us. She had biopsy taken for same. She came in as a referral from wound clinic for L foot wound, foul smelling . In the ED, sh lilian was found to have lactic acid of 2.9, WBC of 11, xray was negative for osteomyelitis but s howed mild superficial skin gas. She was admitted for LLE hemorrhagic skin lesion with compl ication of wet gangrene/cellulitis, with history of thrombotic microangiopathy. ID, Podia try, and Vascular Surgery were consulted. No interventionable vessel was found. Pt underwent AKA on 08/07/[address] Haley following pt up, and started pt on gabapentin for ph antom limb pain. Course complicated by urinary retention smith catheter placed on 08/09/17 SUBJECTIVE: Patient seen and examined. Noted events overnight of acute hypoxic respiratory failure requ iring PPV. Pt was also given lasix total 40 mg IV CXR showed moderate R pleural effusion wi th associated atelectasis or consolidation, possible atelectasis or infiltrate at L base wit h trace L effusion,borderline cardiomegaly. Pt also given IV steroids. When I saw pt she was fatigued but awake and answering questions. States breathing has impr corine. CT chest has been ordered for her. I spoke with Dr Ortiz about shifting back to l ovenox from heparin due to the volume from heparin gtt, and he had no objections to this curry nge. ASSESSMENT & PLAN First problem in the list is the principal problem: Principal Problem: 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HCC) 08/09 felt to be due to thrombotic microangiopathy, Vascular surgery consulted, no interv entionable vessel was found, s/p AKA, ID is following for abx, today has been shifted to ora l abx, needs to work with PT/OT. Pt encouraged, continue wound care,continue pain meds ,cont inue asa and statin ` spoke with Dr Ortiz about shifting back to lovenox from heparin due to the volu me from heparin gtt, and he had no objections to this change. Active Problems: Acute hypoxic respiratory failure remains on BIPAP but mentation is improving, will see if we can wean off. Will continue s teroids IV for now. Continue duonebs, lasix prn. 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 Strict Is and Os. Check echo, and have fluid restriction of 1.5 L /24 hour s after NPO. Salt restriction. Guarded prognosis, transfer to ICU if no improvement L foot cellulitis on abx as above DVT (deep venous thrombosis) (HCC) per chart notes was on full dose lovenox [employer] Currently on heparin gtt, transition to lovenox if okay with surgeon (done 08/10) Hyperlipidemia continue statin Multiple myeloma (HCC) Hx of laryngeal lesion Pt does not know much of her history on this sees Dr Us outpt transfuse for hgb < 7 COPD (chronic obstructive pulmonary disease) (HCC) continue with duonebs prn Moderate obesity will benefit from obesity specialist referral Phantom limb pain (HCC) gabapentin has been started and was recommended to be uptitrated to sx control Smoking hx Continue nicotine patch DVT prophylaxis not necessary as pt on lovenox Scheduled Medications: aspirin 81 mg Oral Daily with breakfast atorvastatin 40 mg Oral Nightly enoxaparin 1 mg/kg Subcutaneous Q12H fentaNYL 12 mcghr Transdermal Q72H furosemide gabapentin 200 mg Oral TID guaiFENesin 600 mg Oral BID ipratropium-albuterol 3 mL Nebulization Q6H methylPREDNISolone 81.25 mg Intravenous Q8H nicotine 1 patch Transdermal Q24H oxyCODONE 15 mg Oral BID pantoprazole 40 mg Oral QAM AC piperacillin-tazobactam 3.375 g Intravenous Q8H senna 17.2 mg Oral BID sertraline 100 mg Oral Daily Continuous Infusions PRN Medications acetaminophen OR acetaminophen, albuterol, albuterol, heparin (porcine) 5000 unit/0.5mL , heparin (porcine) 5000 unit/0.5mL, HYDROmorphone OR HYDROmorphone, LORazepam, morphine OR morphine OR morphine, ondansetron OR ondansetron, oxyCODONE OR oxyCODONE OR oxyCODONE, polyethylene glycol, saline lock IV - when tolerating PO fluids AND s odium chloride (PF) Allergy: No Known Allergies OBJECTIVE: Vitals: Patient Vitals for the past 24 hrs: BP Temp Temp src Pulse Resp SpO2 Weight 08/10/17 0750 - - - 95 - 93 % - 08/10/17 0742 140/71 98.5 F (36.9 C) Axillary 95 14 92 % - 08/10/17 0521 - - - 100 11 93 % - 08/10/17 0512 - - - 101 14 90 % - 08/10/17 0231 131/76 98.9 F (37.2 C) Oral 112 19 93 % 89.2 kg (196 lb 11.2 oz) 08/09/17 2320 - - - - - 91 % - 08/09/17 2309 130/73 - - 118 - (!) 75 % - 08/09/17 2223 - - - - 24 95 % - 08/09/17 2028 114/62 98 F (36.7 C) Oral 111 24 95 % - 08/09/17 1522 107/68 98.5 F (36.9 C) Oral 109 24 91 % - 08/09/17 1221 96/55 97.7 F (36.5 C) Oral 110 22 96 % - I&O Detailed Table: Intake/Output Summary (Last 24 hours) at 08/10/17 0946 Last data filed at 08/10/17 0822 Gross per 24 hour Intake 680 ml Output 2975 ml Net -2295 ml Patient Vitals for the past 96 hrs: Weight 08/10/17 0231 89.2 kg (196 lb 11.2 oz) 08/07/17 0615 88.9 kg (196 lb) Hemodynamics Last 24hrs: Physical Examination: Constitutional: Alert and awake but fatigued. In respiratory distress on BIPAP HEENT: Dry mucous membranes, pink conjunctivae and anicteric sclerae. No JVD. Neck supp le Cardiovascular: Normal rate and rhythm. . No appreciable murmurs. Pulmonary: Breath sounds show wheezing all over Abdominal: Soft and non-tender. Bowel sounds are present. No rebound or guarding. Extremities: s/p L AKA, dressing in place, no significant edema on R Neurological: AAO x3. No CN deficit. Skin: No diaphoresis Psychiatric: flat affect LABS: Recent Labs Lab 08/10/17 0503 08/09/17 0510 08/08/17 0521 08/04/17 1702 WBC 9.98 10.41 10.28 < > 11.07* HGB 8.9* 8.4* 8.7* < > 9.9* HCT 26.5* 26.0* 26.8* < > 31.3* PLT 249 246 254 < > 276 NEUTOPHILPCT -- -- -- -- 85.73 MONOPCT -- -- -- -- 4.15 < > = values in this interval not displayed. Recent Labs Lab 08/10/17 0503 08/09/17 0510 08/08/17 0521 08/05/17 0520 08/04/17 1702 NA 135 135 137 < > 135 134* K 3.9 4.3 4.8 < > 4.4 4.7 CL 95* 100 100 < > 97* 100 CO2 29 27 27 < > 27 28 BUN 12 10 9 < > 13 14 CREATININE 0.6 0.5 0.5 < > 0.7 0.76 PROT -- -- -- -- 7.0 7.1 BILITOT -- -- -- -- 0.5 0.4 ALT -- -- -- -- 15 18 AST -- -- -- -- 24 21 < > = values in this interval not displayed. Phosphorus: Lab Results Component Value Date PHOS 4.9 (H) 08/10/2017 Invalid input(s): LABALBU Recent Labs Lab 08/05/17 0520 MG 2.7* No results for input(s): AMYLASE in the last 168 hours. Recent Labs Lab 08/09/17 2309 BEART 7* Recent Labs Lab 08/10/17 0503 08/09/17 0641 08/09/17 0032 08/06/17 1557 08/05/17 0520 APTT 72* 65* 54* < > 39* 34* INR -- -- -- -- 1.1 1.1 < > = values in this interval not displayed. No results for input(s): TSH, T3FREE, FREET4 in the last 168 hours. No results for input(s): CKTOTAL, TROPONINI, TROPONINT, CKMBINDEX in the last 168 hours. PROBLEM LIST Principal Problem: 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HCC) Active Problems: DVT (deep venous thrombosis) (HCC) Hyperlipidemia Multiple myeloma (HCC) Open wound of left lower leg Left foot infection COPD (chronic obstructive pulmonary disease) (HCC) Moderate obesity Phantom limb pain (HCC) More than 35 mins were spent on the review of H/P, imaging and labs, formulation of assessm ent and plan, discussion with the patient/family, staff and providers. HARSHIL TOMLINSON MD 08/10/2017 9:46 AM Barry Lobo DO - 08/10/2017 8:52 AM PDTFormatting of this note may be different from the original. [facility] Service: Infectious Disease Progress Note Hospital Day: LOS: 6 days Post-Op Day: * No surgery found * SUBJECTIVE Patient Summary: 61 y.o. 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 3 days later patient presented to [facility] ER for hemorrhagic bullae and toe discoloration o n 07/14. Case was discussed with multiple specialists including vascular surgery andoncolog y. She had a CTA of lower extremity that showed no significant stenosis and good distal runo ff. Oncology was concerned about interaction of blood thinner and proteins with his multiple myeloma causing possible TMA. Oncology at [facility] thought patient might have cerulae alba malignancy associatedand recwas to continue treatment with Lovenox. Even v ascular surgery was consulted at [facility] with recommendation to continue with Lovenox wound care and no interventions needed. Patient also had COPD exacerbation during t his same timeframe and was treated with prednisone and nebs. 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 ENT evaluated the patient and on fiberoptic scope she was not thought to have any airway compromise and recwas to follow-up with her oncologist Dr. Us. The patient denies any known trauma or irritation that lead to the hemorrhagic bulla on her left foot, appeared spontaneously in her opinion. Over the past week or so the wound has be en gradually worsening and has developed a foul odor. Cellulitis improved with Unasyn. To OR on 08/07 for the following: Left above knee amputation Placement of Prevena incision management system to incision CC: Left foot gangrene Chart reviewed: No new events. 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 She is mostly bothered by shortness of breath which has required treatment with BiPAP o vernight. BiPAP has been poorly tolerated, but she is managing to keep it on. She denies any nausea or vomiting. ROS No fever, chills sweats. No nausea, vomiting or diarrhea. No rashes or pruritis. No oral pa in. Scheduled Medications aspirin 81 mg Oral Daily with breakfast atorvastatin 40 mg Oral Nightly fentaNYL 12 mcghr Transdermal Q72H furosemide gabapentin 200 mg Oral TID guaiFENesin 600 mg Oral BID ipratropium-albuterol 3 mL Nebulization Q6H methylPREDNISolone 81.25 mg Intravenous Q8H nicotine 1 patch Transdermal Q24H oxyCODONE 15 mg Oral BID pantoprazole 40 mg Oral QAM AC piperacillin-tazobactam 3.375 g Intravenous Q8H senna 17.2 mg Oral BID sertraline 100 mg Oral Daily Continuous Infusions heparin 50 units/mL 13 Units/kg/hr (08/10/17 0633) PRN Medications acetaminophen OR acetaminophen, albuterol, albuterol, heparin (porcine) 5000 unit/0.5mL , heparin (porcine) 5000 unit/0.5mL, HYDROmorphone OR HYDROmorphone, LORazepam, morphine OR morphine OR morphine, ondansetron OR ondansetron, oxyCODONE OR oxyCODONE OR oxyCODONE, polyethylene glycol, saline lock IV - when tolerating PO fluids AND s odium chloride (PF) OBJECTIVE Vital Signs: BP 140/71 (BP Location: Right upper arm) | Pulse 95 | Temp 98.5 F (36.9 C) (Axillary) | Resp 14 | Ht 1.676 m (5' 6") | Wt 89.2 kg (196 lb 11.2 oz) | LMP (LMP Unknown) | Sp O2 93% | ? No | BMI 31.75 kg/m Temp (24hrs), Av.3 F (36.8 C), Min:97.7 F (36.5 C), Max:98.9 F (37.2 C) Exam: Const: Vitals reviewed. No acute distress Skin: No rashes, no edema. ENT: No thrush. Lungs: CTAB, no rales or wheezes Heart: RRR, no murmur Abd: soft, NT, + bowel sounds Musculoskeletal: Status post left above-knee amputation, wound distress from the operating room, dressing was not removed. DATA CBC: Lab Results Component Value Date WBC 9.98 08/10/2017 RBC 3.30 (L) 08/10/2017 HGB 8.9 (L) 08/10/2017 HCT 26.5 (L) 08/10/2017 MCV 80.5 08/10/2017 MCH 27.0 08/10/2017 MCHC 33.5 08/10/2017 RDW 50.8 08/10/2017 PLT 249 08/10/2017 MPV 6.8 08/10/2017 DIFFTYPE MANUAL 08/10/2017 CMP: Lab Results Component Value Date NA 135 08/10/2017 K 3.9 08/10/2017 CL 95 (L) 08/10/2017 CO2 29 08/10/2017 ANIONGAP 15 08/10/2017 GLUF 133 (H) 08/10/2017 BUN 12 08/10/2017 CREATININE 0.6 08/10/2017 BCR 19 08/05/2017 CA 8.1 (L) 08/10/2017 PROT 7.0 08/05/2017 ALB 1.7 (L) 08/10/2017 GLOB 4.6 08/05/2017 BILITOT 0.5 08/05/2017 ALP 692 (H) 08/05/2017 AST 24 08/05/2017 ALT 15 08/05/2017 EGFR >60 08/10/2017 Microbiology: Wound culture has 3+ MSSA, 2+ Group B strep. Medical imaging: Chest x-ray performed overnight was viewed in PACS and shows a moderate-si zed right pleural effusion with a dense area in the right midlung zone that could be atelect asis or consolidation. Radiology report as follows: Xr Chest 1 View Result Date: 08/09/2017 1. Moderate right pleural effusion with associated atelectasis or consolidation. 2. Possibl e atelectasis or infiltrate at the left base with trace left effusion. 3. Borderline cardiom egaly. RADIA The call report notification system was initiated by Dr. Guero Eid at 23: 11 hrs on 08/09/17. The above findings were discussed with Dr RUDOLPH Dr by Dr. Guero quintana at 23:28 hrs on 08/09/17. Electronically signed by Guero Eid MD on Aug 09 2017 11:29PM Referring Provider Line: [phone] ID: [id number] PROBLEM LIST Principal Problem: 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HCC) Active Problems: DVT (deep venous thrombosis) (HCC) Hyperlipidemia Multiple myeloma (HCC) Open wound of left lower leg Left foot infection COPD (chronic obstructive pulmonary disease) ([facility]) Moderate obesity Phantom limb pain ([facility]) ASSESSMENT & PLAN 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HCC) (08/04/2017) The patient has been diagnosed with thrombotic microangiopathy 3, which is likely the dri ving factor of her left foot gangrene. Vascular workup has not revealed any large vessel dis ease which could be intervened upon. The patient has now undergone above-knee amputation. We ll covered with Unasyn. Right pleural effusion with possible consolidation The patient has a normal white blood cell count and is afebrile, and has not had respirat ory symptoms until last evening. I have ordered a CT scan to further clarify findings on [facility] x-ray and determine whether any thoracentesis with chest tube placement might be indicate d. In the meantime, coverage with Unasyn as appropriate as the patient has already been on U nasyn for several days and has no systemic symptoms or leukocytosis. There is no indication for broadening her antibiotic coverage. Left foot infection (08/04/2017) Secondary to above, Unasyn as discussed above, will monitor. DVT (deep venous thrombosis) ([facility]) (08/04/2017) Management per primary service and hematology. Code Status: Full Code BARRY LOBO DO 08/10/2017Amauri Sin, [facility] - 08/10/2017 12:06 AM PDTFormatting of this note may be diff erent from the original. Zosyn Extended Infusion Initial Consult Carmen Kahn 61 y.o. female Estimated Creatinine Clearance: 130.9 mL/min (by C-G formula based on SCr of 0.5 mg/dL). NEUTROPHILS ABS Date Value Ref Range Status 08/04/2017 9.49 (H) 1.90 - 7.40 K/uL Final CREATININE Date Value Ref Range Status 08/09/2017 0.5 0.50 - 1.00 mg/dL Final Comment: SPECIMEN SLIGHTLY HEMOLYZED Zosyn extended Infusion loading and maintenance dose guidelines: Plan per pharmacy protocol: Loading Dose Re-load if maintenance dose is not given within > = 4 hours 4.5 g IV Over 30 minutes CrCl >20 ml/min 3.375 g IV Q 8 hours Over 4 hours CrCl 10-20 ml/min *Do Not re-load if CrCl ?20 ml/min regardless of time in between dosing 3.375 g IV Q 12 fadia rs Over 4 hours CrCl <10, HD, PD Zosyn 4.5 g IVPB loading dose over 30 minutes followed by Zosyn 3.375 g IVPB extended infus ion over 4 hours Q 8 hours Pharmacy will continue monitoring patient for appropriate dosing per renal function. 08/10/2017 12:06 AM Pharmacist: Harshil Vu MD - 08/09/2017 5:41 PM PDTFormatting of this note may be different fro m the original. [facility] Service: Hospitalist Progress Note Pt: Carmen Kahn AGE/SEX: 61 y.o. female ROOM: 8119/8119-1 : 1955 PCP: ANANT GRAJEDA ADMIT DATE: 08/04/2017 TODAY'S DATE: 08/09/2017 Hospital Day/Hospital Course: LOS: 5 days See prior note SUBJECTIVE: Patient seen and examined. Laying in bed. Per RN she has not been wanting to move with ther apists. Also has been needing repeated straight catheterization for urinary retention, there fore have discussed with pt and she agrees to smith catheterization. 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, transition to lovenox if okay with surgeon Hyperlipidemia continue statin Multiple myeloma (HCC) Hx of laryngeal lesion Pt does not know much of her history on this sees Dr Us outpt transfuse for hgb < 7 COPD (chronic obstructive pulmonary disease) (HCC) continue with duonebs prn Moderate obesity will benefit from obesity specialist referral Phantom limb pain (HCC) gabapentin has been started and was recommended to be uptitrated to sx control Smoking hx Continue nicotine patch DVT prophylaxis heparin subcutaneous and mechanical devices Scheduled Medications: amoxicillin-clavulanate 1 tablet Oral 2 times per day aspirin 81 mg Oral Daily with breakfast atorvastatin 40 mg Oral Nightly fentaNYL 12 mcghr Transdermal Q72H gabapentin 100 mg Oral TID guaiFENesin 600 mg Oral BID ipratropium-albuterol 1 puff Inhalation 4x Daily nicotine 1 patch Transdermal Q24H oxyCODONE 15 mg Oral BID pantoprazole 40 mg Oral QAM AC senna 17.2 mg Oral BID sertraline 100 mg Oral Daily Continuous Infusions heparin 50 units/mL 15 Units/kg/hr (08/09/17 1245) PRN Medications acetaminophen OR acetaminophen, albuterol, heparin (porcine) 5000 unit/0.5mL, heparin ( porcine) 5000 unit/0.5mL, HYDROmorphone OR HYDROmorphone, LORazepam, morphine OR mor phine OR morphine, ondansetron OR ondansetron, oxyCODONE OR oxyCODONE OR oxy CODONE, polyethylene glycol, saline lock IV - when tolerating PO fluids AND sodium chlor amy (PF), zolpidem Allergy: No Known Allergies OBJECTIVE: Vitals: Patient Vitals for the past 24 hrs: BP Temp Temp src Pulse Resp SpO2 08/09/17 1522 107/68 98.5 F (36.9 C) Oral 109 24 91 % 08/09/17 1221 96/55 97.7 F (36.5 C) Oral 110 22 96 % 08/09/17 0834 140/70 97.8 F (36.6 C) Oral 109 24 93 % 08/09/17 0301 140/78 98.4 F (36.9 C) Oral 104 18 90 % 08/08/17 2351 128/70 98.2 F (36.8 C) Oral 95 16 94 % 08/08/17 1909 117/65 98 F (36.7 C) Oral 96 16 96 % I&O Detailed Table: Intake/Output Summary (Last 24 hours) at 08/09/17 1741 Last data filed at 08/09/17 1252 Gross per 24 hour Intake 500 ml Output 1800 ml Net -1300 ml Patient Vitals for the past 96 hrs: Weight 08/07/17 0615 88.9 kg (196 lb) Hemodynamics Last 24hrs: Physical Examination: Constitutional: Alert and awake . No acute respiratory distress HEENT: moist mucous membranes, pink conjunctivae and anicteric sclerae. No JVD. Neck s upple Cardiovascular: Normal rate and rhythm. . No appreciable murmurs. Pulmonary: Non labored breathing. Breath sounds are clear bilaterally. Abdominal: Soft and non-tender. Bowel sounds are present. No rebound or guarding. Extremities: s/p L AKA, dressing in place Neurological: AAO x3. No CN deficit. Skin: No diaphoresis Psychiatric: flat affect LABS: Recent Labs Lab 08/09/17 0510 08/08/17 0521 08/07/17 0522 08/04/17 1702 WBC 10.41 10.28 10.42 < > 11.07* HGB 8.4* 8.7* 9.1* < > 9.9* HCT 26.0* 26.8* 27.4* < > 31.3* PLT 246 254 255 < > 276 NEUTOPHILPCT -- -- -- -- 85.73 MONOPCT -- -- -- -- 4.15 < > = values in this interval not displayed. Recent Labs Lab 08/09/17 0510 08/08/17 0521 08/07/17 0522 08/05/17 0520 08/04/17 1702 NA 135 137 137 < > 135 134* K 4.3 4.8 4.1 < > 4.4 4.7 CL 100 100 100 < > 97* 100 CO2 27 27 27 < > 27 28 BUN 10 9 12 < > 13 14 CREATININE 0.5 0.5 0.6 < > 0.7 0.76 PROT -- -- -- -- 7.0 7.1 BILITOT -- -- -- -- 0.5 0.4 ALT -- -- -- -- 15 18 AST -- -- -- -- 24 21 < > = values in this interval not displayed. Phosphorus: Lab Results Component Value Date PHOS 4.2 08/09/2017 Invalid input(s): LABALBU Recent Labs Lab 08/05/17 0520 MG 2.7* No results for input(s): AMYLASE in the last 168 hours. No results for input(s): PHART, PO2ART, GUR1DKK, Q1QDSDCE, BEART in the last 168 hours. Recent Labs Lab 08/09/17 0641 08/09/17 0032 08/08/17 1650 08/06/17 1557 08/05/17 0520 APTT 65* 54* 78* < > 39* 34* INR -- -- -- -- 1.1 1.1 < > = values in this interval not displayed. No results for input(s): TSH, T3FREE, FREET4 in the last 168 hours. No results for input(s): CKTOTAL, TROPONINI, TROPONINT, CKMBINDEX in the last 168 hours. PROBLEM LIST Principal Problem: 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HCC) Active Problems: DVT (deep venous thrombosis) (HCC) Hyperlipidemia Multiple myeloma (HCC) Open wound of left lower leg Left foot infection COPD (chronic obstructive pulmonary disease) (HCC) Moderate obesity Phantom limb pain (HCC) More than 35 mins were spent on the review of H/P, imaging and labs, formulation of assessm ent and plan, discussion with the patient/family, staff and providers. HARSHIL TOMLINSON MD 08/09/2017 5:41 PM Jeffery Ortiz MD - 08/09/2017 1:32 PM PDTFormatting of this note may be different from the original. [facility] Service: Vascular Surgery Progress Note Hospital Day: LOS: 5 days Post-Op Day: 2 days Post-Op SUBJECTIVE Patient Summary: Events Overnight: POD#2 S/P left AKA. Pt complaining of phantom limb pain but this keita s improved since starting gabapentin. Also received Smith catheter for urinary retention. Scheduled Medications amoxicillin-clavulanate 1 tablet Oral 2 times per day aspirin 81 mg Oral Daily with breakfast atorvastatin 40 mg Oral Nightly fentaNYL 12 mcghr Transdermal Q72H gabapentin 100 mg Oral TID guaiFENesin 600 mg Oral BID ipratropium-albuterol 1 puff Inhalation 4x Daily nicotine 1 patch Transdermal Q24H oxyCODONE 15 mg Oral BID pantoprazole 40 mg Oral QAM AC senna 17.2 mg Oral BID sertraline 100 mg Oral Daily Continuous Infusions heparin 50 units/mL 15 Units/kg/hr (08/09/17 1245) PRN Medications acetaminophen OR acetaminophen, albuterol, heparin (porcine) 5000 unit/0.5mL, heparin ( porcine) 5000 unit/0.5mL, HYDROmorphone OR HYDROmorphone, LORazepam, morphine OR mor phine OR morphine, ondansetron OR ondansetron, oxyCODONE OR oxyCODONE OR oxy CODONE, polyethylene glycol, saline lock IV - when tolerating PO fluids AND sodium chlor amy (PF), zolpidem OBJECTIVE Vital Signs: BP 96/55 (BP Location: Right upper arm) | Pulse 110 | Temp 97.7 F (36.5 C) (Oral) | Resp 22 | Ht 1.676 m (5' 6") | Wt 88.9 kg (196 lb) | LMP (LMP Unknown) | SpO2 96% | Br eastfeeding? No | BMI 31.64 kg/m Temp: [97.7 F (36.5 C)-98.4 F (36.9 C)] 97.7 F (36.5 C) (08/09 1221) BP: (96-140)/(55-78) 96/55 (08/09 1221) Heart Rate: [95-110] 110 (08/09 1221) Resp: [16-24] 22 (08/09 1221) SpO2: [90 %-96 %] 96 % (08/09 1221) NAD, in mild discomfort. Left AKA wrap in place, Prevena dressing in place and functioning. DATA CBC: Lab Results Component Value Date WBC 10.41 08/09/2017 RBC 3.17 (L) 08/09/2017 HGB 8.4 (L) 08/09/2017 HCT 26.0 (L) 08/09/2017 MCV 82.0 08/09/2017 MCH 26.4 (L) 08/09/2017 MCHC 32.1 08/09/2017 RDW 52.9 08/09/2017 PLT 246 08/09/2017 MPV 6.7 08/09/2017 DIFFTYPE MANUAL 08/09/2017 PROBLEM LIST Principal Problem: 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HCC) Active Problems: DVT (deep venous thrombosis) (HCC) Hyperlipidemia Multiple myeloma (HCC) Open wound of left lower leg Left foot infection COPD (chronic obstructive pulmonary disease) (HCC) Moderate obesity Phantom limb pain (HCC) ASSESSMENT & PLAN POD# 2 S/P left AKA. Stump doing well. Phantom limb pain improved--consider Increasing caio apentin dose as tolerated. Keep smith cath in for now. Disposition: Continued inpatient care Code Status: Full Code Jeffery Ortiz MD 08/09/2017YoBarry liz DO - 08/09/2017 7:01 AM PDTFormatting of this note may be different from the original. [facility] Service: Infectious Disease Progress Note Hospital Day: LOS: 5 days Post-Op Day: * No surgery found * SUBJECTIVE Patient Summary: 61 y.o. 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 3 days later patient presented to [facility] ER for hemorrhagic bullae and toe discoloration o n 07/14. Case was discussed with multiple specialists including vascular surgery andoncolog y. She had a CTA of lower extremity that showed no significant stenosis and good distal runo ff. Oncology was concerned about interaction of blood thinner and proteins with his multiple myeloma causing possible TMA. Oncology at [facility] thought patient might have cerulae alba malignancy associatedand recwas to continue treatment with Lovenox. Even v ascular surgery was consulted at [facility] with recommendation to continue with Lovenox wound care and no interventions needed. Patient also had COPD exacerbation during t his same timeframe and was treated with prednisone and nebs. 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 ENT evaluated the patient and on fiberoptic scope she was not thought to have any airway compromise and recwas to follow-up with her oncologist Dr. Us. The patient denies any known trauma or irritation that lead to the hemorrhagic bulla on her left foot, appeared spontaneously in her opinion. Over the past week or so the wound has be en gradually worsening and has developed a foul odor. Cellulitis improved with Unasyn. To OR on 08/07 for the following: Left above knee amputation Placement of Prevena incision management system to incision CC: Left foot gangrene Chart reviewed: No new events. 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 She has mostly uncomfortable with movement. She has been able to eat and denies any annabelle sea or vomiting. ROS No fever, chills sweats. No nausea, vomiting or diarrhea. No rashes or pruritis. No oral pa in. Scheduled Medications amoxicillin-clavulanate 1 tablet Oral 2 times per day aspirin 81 mg Oral Daily with breakfast atorvastatin 40 mg Oral Nightly fentaNYL 12 mcghr Transdermal Q72H gabapentin 100 mg Oral TID guaiFENesin 600 mg Oral BID ipratropium-albuterol 1 puff Inhalation 4x Daily nicotine 1 patch Transdermal Q24H oxyCODONE 15 mg Oral BID pantoprazole 40 mg Oral QAM AC senna 17.2 mg Oral BID sertraline 100 mg Oral Daily Continuous Infusions heparin 50 units/mL 15 Units/kg/hr (08/09/17 0500) sodium chloride (IV) 75 mL/hr at 08/08/17 1048 PRN Medications acetaminophen OR acetaminophen, albuterol, heparin (porcine) 5000 unit/0.5mL, heparin ( porcine) 5000 unit/0.5mL, HYDROmorphone OR HYDROmorphone, LORazepam, morphine OR mor phine OR morphine, ondansetron OR ondansetron, oxyCODONE OR oxyCODONE OR oxy CODONE, polyethylene glycol, saline lock IV - when tolerating PO fluids AND sodium chlor amy (PF), zolpidem OBJECTIVE Vital Signs: BP 140/78 (BP Location: Left upper arm) | Pulse 104 | Temp 98.4 F (36.9 C) (Oral) | Resp 18 | Ht 1.676 m (5' 6") | Wt 88.9 kg (196 lb) | LMP (LMP Unknown) | SpO2 90% | Br eastfeeding? No | BMI 31.64 kg/m Temp (24hrs), Av F (36.7 C), Min:97.5 F (36.4 C), Max:98.4 F (36.9 C) Exam: Const: Vitals reviewed. No acute distress Skin: No rashes, no edema. ENT: No thrush. Lungs: CTAB, no rales or wheezes Heart: RRR, no murmur Abd: soft, NT, + bowel sounds Musculoskeletal: Status post left above-knee amputation, wound distress from the operating room, dressing was not removed. DATA CBC: Lab Results Component Value Date WBC 10.41 08/09/2017 RBC 3.17 (L) 08/09/2017 HGB 8.4 (L) 08/09/2017 HCT 26.0 (L) 08/09/2017 MCV 82.0 08/09/2017 MCH 26.4 (L) 08/09/2017 MCHC 32.1 08/09/2017 RDW 52.9 08/09/2017 PLT 246 08/09/2017 MPV 6.7 08/09/2017 DIFFTYPE MANUAL 08/09/2017 CMP: Lab Results Component Value Date NA 135 08/09/2017 K 4.3 08/09/2017 CL 100 08/09/2017 CO2 27 08/09/2017 ANIONGAP 12 08/09/2017 GLUF 109 (H) 08/09/2017 BUN 10 08/09/2017 CREATININE 0.5 08/09/2017 BCR 19 08/05/2017 CA 8.6 08/09/2017 PROT 7.0 08/05/2017 ALB 1.7 (L) 08/09/2017 GLOB 4.6 08/05/2017 BILITOT 0.5 08/05/2017 ALP 692 (H) 08/05/2017 AST 24 08/05/2017 ALT 15 08/05/2017 EGFR >60 08/09/2017 Microbiology: Wound culture has 3+ MSSA, 2+ Group B strep. PROBLEM LIST Principal Problem: 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HCC) Active Problems: DVT (deep venous thrombosis) ([facility]) Hyperlipidemia Multiple myeloma (HCC) Open wound of left lower leg Left foot infection COPD (chronic obstructive pulmonary disease) ([facility]) Moderate obesity Phantom limb pain ([facility]) ASSESSMENT & PLAN 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[facility]) (08/04/2017) The patient has been diagnosed with thrombotic microangiopathy 3, which is likely the dri ving factor of her left foot gangrene. Vascular workup has not revealed any large vessel dis ease which could be intervened upon. The patient has now undergone above-knee amputation. Un asyn has been replaced with Augmentin, well tolerated so far, should continue for total of 7 days postop, through August 13. Left foot infection (08/04/2017) Secondary to above, Unasyn as discussed above, will monitor. DVT (deep venous thrombosis) ([facility]) (08/04/2017) Management per primary service and hematology. Code Status: Full Code BARRY J DO YAMIL 08/09/2017MoNadeem venegas - 08/08/2017 2:30 PM PDTVisit per Epic req. Pt lying on bed. Pt siste r, niece, great niece present. Chp intro'd self, brief visit. Pt had above knee amput yester day 08/07/17, per pt. Chp offered to sit and visit. Pt declined. Jeffery Rodriguez MD - 08/08/2017 10:53 AM PDTFormatting of this note favio brannon be different from the original. [facility] Service: Vascular Surgery Progress Note Hospital Day: LOS: 4 days Post-Op Day: 1 Day Post-Op SUBJECTIVE Patient Summary: Events Overnight: POD#1 S/P left AKA. Pt complaining of phantom limb pain this estrellanin g--"feels like my leg is still there" Scheduled Medications amoxicillin-clavulanate 1 tablet Oral 2 times per day ampicillin-sulbactam 3 g Intravenous Q6H aspirin 81 mg Oral Daily with breakfast atorvastatin 40 mg Oral Nightly fentaNYL 12 mcghr Transdermal Q72H guaiFENesin 600 mg Oral BID ipratropium-albuterol 1 puff Inhalation 4x Daily nicotine 1 patch Transdermal Q24H oxyCODONE 15 mg Oral BID pantoprazole 40 mg Oral QAM AC senna 17.2 mg Oral BID sertraline 100 mg Oral Daily Continuous Infusions heparin 50 units/mL Stopped (08/07/17 1800) sodium chloride (IV) 75 mL/hr at 08/08/17 1048 PRN Medications acetaminophen OR acetaminophen, acetaminophen OR acetaminophen, albuterol, heparin (porcine) 5000 unit/0.5mL, heparin (porcine) 5000 unit/0.5mL, HYDROmorphone OR HYDROmorp angelic, LORazepam, morphine OR morphine OR morphine, ondansetron OR ondansetron, o ndansetron OR ondansetron, oxyCODONE OR oxyCODONE OR oxyCODONE, polyethylene gly col, polyethylene glycol, saline lock IV - when tolerating PO fluids AND sodium chloride (PF), zolpidem, zolpidem OBJECTIVE Vital Signs: BP 142/77 (BP Location: Left upper arm) | Pulse 89 | Temp 97.5 F (36.4 C) (Oral) | R glendy 16 | Ht 1.676 m (5' 6") | Wt 88.9 kg (196 lb) | LMP (LMP Unknown) | SpO2 95% | Jovanna astfeeding? No | BMI 31.64 kg/m Temp: [97.5 F (36.4 C)-98.5 F (36.9 C)] 97.5 F (36.4 C) (08/08 742) BP: (121-168)/(60-110) 142/77 (08/08 742) Heart Rate: [89-120] 89 (08/08 742) Resp: [12-38] 16 (08/08 742) SpO2: [87 %-95 %] 95 % (08/08 0743) FiO2 : [46 %-95 %] 56 % (08/07 1558) NAD, in mild discomfort. Left AKA wrap in place, Prevena dressing in place and functioning. DATA CBC: Lab Results Component Value Date WBC 10.28 08/08/2017 RBC 3.28 (L) 08/08/2017 HGB 8.7 (L) 08/08/2017 HCT 26.8 (L) 08/08/2017 MCV 81.6 08/08/2017 MCH 26.6 (L) 08/08/2017 MCHC 32.6 08/08/2017 RDW 51.2 08/08/2017 PLT 254 08/08/2017 MPV 6.6 08/08/2017 DIFFTYPE MANUAL 08/08/2017 PROBLEM LIST Principal Problem: 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HCC) Active Problems: DVT (deep venous thrombosis) (HCC) Hyperlipidemia Multiple myeloma (HCC) Open wound of left lower leg Left foot infection COPD (chronic obstructive pulmonary disease) ([facility]) Moderate obesity ASSESSMENT & PLAN Doing well S/P AKA, but with some phantom limb pain. Consider adding gabapentin for this--p t states she has been on it previously and tolerated it well. Can start at 100mg tid and inc rease as needed. OK to start PT today for transfers etc. Disposition: Continued inpatient care Code Status: Full Code Jeffery Ortiz MD 08/08/2017Karina Pinto MD - 08/08/2017 8:58 AM PDTFormatting of this note may be different from the original. [facility] Service: Hospitalist Progress Note Hospital Day: LOS: 4 days Post-Op Day: * No surgery found * SUBJECTIVE Patient Summary: Refer to H&P and consult note for details Per consult and H&P "The patient is a 61 y.o. female with significant past medical history of COPD, DVT, and hyperlipidemia who presents with worsening left lower extremity infection . Please see summary of patient course per hospitalist service below. Patient had a recent complicated hospital course. She was diagnosed with deep vein thrombos is in mid June -started on Eliquis. 3 days later patient presented to [facility] ER for hemor rhagic bullae and toe discoloration on 07/14. Case was discussed with multiple specialists in cluding vascular surgery andoncology. She had a CTA of lower extremity that showed no sign ificant stenosis and good distal runoff. Oncology was concerned about interaction of blood t hinner and proteins with his multiple myeloma causing possible TMA. Oncology at [facility] thought patient might have cerulae alba malignancy associatedand recwas to co ntinue treatment with Lovenox. Even vascular surgery was consulted at [facility] with recommendation to continue with Lovenox wound care and no interventions needed. Vijay mariscal also had COPD exacerbation during this same timeframe and was treated with prednisone and nebs. Was discharged to SNF and returned to [facility] wound care follow up today and was noted to have worsening cellulitis and drainage of hemmorhagic bullae of LLE concerning for cellulitis. S he was sent to ER for this where lactate was noted to be 2.9 and xray revealed gas gangrene of the left lower leg. Due to these findings vascular surgery was consulted for amputation r ecommendations." Events Overnight: Patient seen and examined,denies CP or SOB or abdominal pain has robert malik phantom pain,s/p L AKA on 08/07 per ,resumed on heparin gtt,stable VS, negative bl ood cx,daughter at bed side,addressed all questions. Scheduled Medications amoxicillin-clavulanate 1 tablet Oral 2 times per day ampicillin-sulbactam 3 g Intravenous Q6H aspirin 81 mg Oral Daily with breakfast atorvastatin 40 mg Oral Nightly fentaNYL 12 mcghr Transdermal Q72H gabapentin 100 mg Oral TID guaiFENesin 600 mg Oral BID ipratropium-albuterol 1 puff Inhalation 4x Daily nicotine 1 patch Transdermal Q24H oxyCODONE 15 mg Oral BID pantoprazole 40 mg Oral QAM AC senna 17.2 mg Oral BID sertraline 100 mg Oral Daily Continuous Infusions heparin 50 units/mL 18 Units/kg/hr (08/08/17 1048) sodium chloride (IV) 75 mL/hr at 08/08/17 1048 PRN Medications acetaminophen OR acetaminophen, albuterol, heparin (porcine) 5000 unit/0.5mL, heparin ( porcine) 5000 unit/0.5mL, HYDROmorphone OR HYDROmorphone, LORazepam, morphine OR mor phine OR morphine, ondansetron OR ondansetron, oxyCODONE OR oxyCODONE OR oxy CODONE, polyethylene glycol, saline lock IV - when tolerating PO fluids AND sodium chlor amy (PF), zolpidem OBJECTIVE Vital Signs: BP 133/64 (BP Location: Left upper arm) | Pulse 100 | Temp 97.8 F (36.6 C) (Oral) | Resp 22 | Ht 1.676 m (5' 6") | Wt 88.9 kg (196 lb) | LMP (LMP Unknown) | SpO2 90% | Br eastfeeding? No | BMI 31.64 kg/m Intake/Output Summary (Last 24 hours) at 08/08/17 1440 Last data filed at 08/08/17 1048 Gross per 24 hour Intake 3371.79 ml Output 2875 ml Net 496.79 ml General appearance: alert, appears stated age, cooperative,seems in pain,and moderately obe se Head: Normocephalic, without obvious abnormality, atraumatic Neck: no adenopathy, no carotid bruit, no JVD, supple, symmetrical, trachea midline and thy roid not enlarged, symmetric, no tenderness/mass/nodules Lungs: clear to auscultation bilaterally,no wheezing no crackles no resp distress no rhonch i Heart: regular rate and rhythm, S1, S2 normal, no murmur, click, rub or gallop Abdomen: soft, non-tender; bowel sounds present,not distended Musculoskeletal: Left AKA Neurologic: Grossly normal AXO3 non focal intact motor and sensation DATA CBC: Lab Results Component Value Date WBC 10.28 08/08/2017 RBC 3.28 (L) 08/08/2017 HGB 8.7 (L) 08/08/2017 HCT 26.8 (L) 08/08/2017 MCV 81.6 08/08/2017 MCH 26.6 (L) 08/08/2017 MCHC 32.6 08/08/2017 RDW 51.2 08/08/2017 PLT 254 08/08/2017 MPV 6.6 08/08/2017 DIFFTYPE MANUAL 08/08/2017 CMP: Lab Results Component Value Date NA 137 08/08/2017 K 4.8 08/08/2017 CL 100 08/08/2017 CO2 27 08/08/2017 ANIONGAP 15 08/08/2017 GLUF 112 (H) 08/08/2017 BUN 9 08/08/2017 CREATININE 0.5 08/08/2017 BCR 19 08/05/2017 CA 8.2 (L) 08/08/2017 PROT 7.0 08/05/2017 ALB 1.9 (L) 08/08/2017 GLOB 4.6 08/05/2017 BILITOT 0.5 08/05/2017 ALP 692 (H) 08/05/2017 AST 24 08/05/2017 ALT 15 08/05/2017 EGFR >60 08/08/2017 Results for CARMEN KAHN ( ) as of 08/05/2017 14:11 Ref. Range 08/05/2017 00:52 Lactate, Jim Latest Ref Range: 0.4 - 2.0 mmol/L 1.0 Wound culture [[id number]] (Abnormal) Collected: 08/04/17 1710 Order Status: Completed Lab Status: Final result Updated: 08/06/17 2980 Specimen: Wound from OTHR-w source desc (F6) Specimen Description OTHER CULTURE 3+ STAPHYLOCOCCUS AUREUS (A) 2+ BETA HEMOLYTIC GROUP G STREPTOCOCCUS (A) BETA STREP ORGANISMS ARE PREDICTABLY SUSCEPTIBLE TO PENICILLIN AND CEPHALOSPORINS 3+ NORMAL SKIN JAVED ISOLATED NO FURTHER WORKUP Xr Foot Left Ap Lateral And Oblique Result Date: 08/04/2017 1. Diffuse soft tissue swelling of the entire forefoot including the dorsal and plantar purcell rfaces. 2. Small amount of air suspected in the dorsal soft tissues of the great toe at the proximal phalanx which is suspicious for gangrene. Findings were reported to Dr. Quispe and Dr. Nolasco in person at 08/04/2017 5:45 PM. Electronically signed by Shiva Moy DO on 5:59 PM Mri Foot Left Without Contrast Result Date: 08/04/2017 1. Severely limited examination. There is extensive subcutaneous edema and swelling. Elect ronically signed by Keyon Hickman MD on 08/04/2017 11:45 PM Us Lower Extremity Venous Left Result Date: 08/04/2017 1. Thrombus previously noted within the popliteal vein is resolved. 2. There continues to be residual thrombus within the calf vessels. US Impression: Atherosclerosis in arteries of left lower extremity without hemodynamically significant nancy nosis. Three vessel distal runoff. LEM LIST Principal Problem: 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HCC) Active Problems: DVT (deep venous thrombosis) (HCC) Hyperlipidemia Multiple myeloma (HCC) Open wound of left lower leg Left foot infection COPD (chronic obstructive pulmonary disease) (HCC) Moderate obesity Phantom limb pain (HCC) ASSESSMENT & PLAN 1. Left lower extremity hemorrhagic skin lesion with complication of wet gangrene/celluliti s and hx of thrombotic microangiopathy s/p L AKA per continue ASA and statin and add gabapentin for phantom pain per vascular surgery team recc 2. Deep vein thrombosis malignancy associated covered with heparin gtt she was on full dos e Lovenox [employer] UT[employer] 3.Multiple myeloma per previous record Status post bone marrow biopsy and also history of l aryngeal lesion status post biopsy at [facility].she is to follow-up outpatient with her oncologist Dr. Us . 4. Chronic pain continue fentanyl patch / increase OxyContin to 15 mg po bid/oxycodone prn morphine IV prn for severe pain . 5. COPD with no respiratory distress. 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 Portions of this chart may have been copied from previous notes for continuity of care purp oses. Disposition: admitted Code Status: Full Code Karina Pinto MD 08/08/2017YoBarry liz DO - 08/08/2017 6:57 AM PDTFormatting of this note may be different from the original. [facility] Service: Infectious Disease Progress Note Hospital Day: LOS: 4 days Post-Op Day: * No surgery found * SUBJECTIVE Patient Summary: 61 y.o. 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 3 days later patient presented to [facility] ER for hemorrhagic bullae and toe discoloration o n 07/14. Case was discussed with multiple specialists including vascular surgery andoncolog y. She had a CTA of lower extremity that showed no significant stenosis and good distal runo ff. Oncology was concerned about interaction of blood thinner and proteins with his multiple myeloma causing possible TMA. Oncology at [facility] thought patient might have cerulae alba malignancy associatedand recwas to continue treatment with Lovenox. Even v ascular surgery was consulted at [facility] with recommendation to continue with Lovenox wound care and no interventions needed. Patient also had COPD exacerbation during t his same timeframe and was treated with prednisone and nebs. 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 ENT evaluated the patient and on fiberoptic scope she was not thought to have any airway compromise and recwas to follow-up with her oncologist Dr. Us. The patient denies any known trauma or irritation that lead to the hemorrhagic bulla on her left foot, appeared spontaneously in her opinion. Over the past week or so the wound has be en gradually worsening and has developed a foul odor. Cellulitis improved with Unasyn. To OR on 08/07 for the following: Left above knee amputation Placement of Prevena incision management system to incision CC: Left foot gangrene Chart reviewed: No new events. Subjective The patient had her above-knee amputation yesterday. Pain has been well controlled, muscle spasms decreasing in frequency. She denies any fevers or chills. ROS No fever, chills sweats. No nausea, vomiting or diarrhea. No rashes or pruritis. No oral pa in. Scheduled Medications ampicillin-sulbactam 3 g Intravenous Q6H aspirin 81 mg Oral Daily with breakfast atorvastatin 40 mg Oral Nightly fentaNYL 12 mcghr Transdermal Q72H guaiFENesin 600 mg Oral BID ipratropium-albuterol 1 puff Inhalation 4x Daily nicotine 1 patch Transdermal Q24H oxyCODONE 10 mg Oral BID pantoprazole 40 mg Oral QAM AC senna 17.2 mg Oral BID sertraline 100 mg Oral Daily Continuous Infusions heparin 50 units/mL Stopped (08/07/17 1800) lactated ringers 110 mL/hr at 08/08/17 0241 sodium chloride (IV) 75 mL/hr at 08/07/17 0755 PRN Medications acetaminophen OR acetaminophen, acetaminophen OR acetaminophen, albuterol, heparin (porcine) 5000 unit/0.5mL, heparin (porcine) 5000 unit/0.5mL, HYDROmorphone OR HYDROmorp angelic, LORazepam, morphine OR morphine OR morphine, ondansetron OR ondansetron, o ndansetron OR ondansetron, oxyCODONE OR oxyCODONE OR oxyCODONE, oxyCODONE, polye thylene glycol, polyethylene glycol, saline lock IV - when tolerating PO fluids AND sodi um chloride (PF), zolpidem, zolpidem OBJECTIVE Vital Signs: BP 146/73 (BP Location: Left upper arm) | Pulse 98 | Temp 97.7 F (36.5 C) (Oral) | R glendy 16 | Ht 1.676 m (5' 6") | Wt 88.9 kg (196 lb) | LMP (LMP Unknown) | SpO2 93% | Jovanna astfeeding? No | BMI 31.64 kg/m Temp (24hrs), Av.1 F (36.7 C), Min:97.7 F (36.5 C), Max:98.5 F (36.9 C) Exam: Const: Vitals reviewed. No acute distress Skin: No rashes, no edema. ENT: No thrush. Lungs: CTAB, no rales or wheezes Heart: RRR, no murmur Abd: soft, NT, + bowel sounds Musculoskeletal: Status post left above-knee amputation, wound distress from the operating room, dressing was not removed. DATA CBC: Lab Results Component Value Date WBC 10.28 08/08/2017 RBC 3.28 (L) 08/08/2017 HGB 8.7 (L) 08/08/2017 HCT 26.8 (L) 08/08/2017 MCV 81.6 08/08/2017 MCH 26.6 (L) 08/08/2017 MCHC 32.6 08/08/2017 RDW 51.2 08/08/2017 PLT 254 08/08/2017 MPV 6.6 08/08/2017 DIFFTYPE MANUAL 08/08/2017 CMP: Lab Results Component Value Date NA 137 08/08/2017 K 4.8 08/08/2017 CL 100 08/08/2017 CO2 27 08/08/2017 ANIONGAP 15 08/08/2017 GLUF 112 (H) 08/08/2017 BUN 9 08/08/2017 CREATININE 0.5 08/08/2017 BCR 19 08/05/2017 CA 8.2 (L) 08/08/2017 PROT 7.0 08/05/2017 ALB 1.9 (L) 08/08/2017 GLOB 4.6 08/05/2017 BILITOT 0.5 08/05/2017 ALP 692 (H) 08/05/2017 AST 24 08/05/2017 ALT 15 08/05/2017 EGFR >60 08/08/2017 Microbiology: Wound culture has 3+ MSSA, 2+ Group B strep. PROBLEM LIST Principal Problem: 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HCC) Active Problems: DVT (deep venous thrombosis) (HCC) Hyperlipidemia Multiple myeloma (HCC) Open wound of left lower leg Left foot infection COPD (chronic obstructive pulmonary disease) (HCC) Moderate obesity ASSESSMENT & PLAN 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HCC) (08/04/2017) The patient has been diagnosed with thrombotic microangiopathy 3, which is likely the dri ving factor of her left foot gangrene. Vascular workup has not revealed any large vessel dis ease which could be intervened upon. Appreciate amputation. Unasyn can be completed this aft ernindia, we will transition to oral Augmentin to complete 7 days postop. Left foot infection (08/04/2017) Secondary to above, Unasyn as discussed above, will monitor. DVT (deep venous thrombosis) (HCC) (08/04/2017) Management per primary service and hematology. Code Status: Full Code BARRY LOBO DO 08/08/2017Karina Pinto MD - 08/07/2017 1:33 PM PDTFormatting of this note may be different from the original. [facility] Service: Hospitalist Progress Note Hospital Day: LOS: 3 days Post-Op Day: * No surgery found * SUBJECTIVE Patient Summary: Refer to H&P and consult note for details Events Overnight: Patient seen and examined,denies CP or SOB or abdominal pain hs lef t foot pain,anxious about AKA today,stable VS, negative blood cx,addressed all questions. Scheduled Medications ampicillin-sulbactam 3 g Intravenous Q6H aspirin 81 mg Oral Daily with breakfast atorvastatin 40 mg Oral Nightly fentaNYL 12 mcghr Transdermal Q72H guaiFENesin 600 mg Oral BID ipratropium-albuterol 1 puff Inhalation 4x Daily nicotine 1 patch Transdermal Q24H oxyCODONE 10 mg Oral BID pantoprazole 40 mg Oral QAM AC senna 17.2 mg Oral BID sertraline 100 mg Oral Daily Continuous Infusions heparin 50 units/mL 13 Units/kg/hr (08/07/17 0936) sodium chloride (IV) 75 mL/hr at 08/07/17 0755 PRN Medications acetaminophen OR acetaminophen, albuterol, heparin (porcine) 5000 unit/0.5mL, heparin ( porcine) 5000 unit/0.5mL, LORazepam, morphine OR morphine OR morphine, ondansetron * *OR ondansetron, oxyCODONE, polyethylene glycol, zolpidem OBJECTIVE Vital Signs: BP 121/65 (BP Location: Left upper arm) | Pulse 92 | Temp 98.1 F (36.7 C) (Oral) | R glendy 18 | Ht 1.676 m (5' 6") | Wt 88.9 kg (196 lb) | LMP (LMP Unknown) | SpO2 (!) 88% | ? No | BMI 31.64 kg/m Intake/Output Summary (Last 24 hours) at 08/07/17 1336 Last data filed at 08/07/17 1330 Gross per 24 hour Intake 3040.52 ml Output 1950 ml Net 1090.52 ml General appearance: alert, appears stated age, cooperative, no distress and moderately obes e Head: Normocephalic, without obvious abnormality, atraumatic Neck: no adenopathy, no carotid bruit, no JVD, supple, symmetrical, trachea midline and thy roid not enlarged, symmetric, no tenderness/mass/nodules Lungs: clear to auscultation bilaterally,no wheezing no crackles no resp distress Heart: regular rate and rhythm, S1, S2 normal, no murmur, click, rub or gallop Abdomen: soft, non-tender; bowel sounds present,not distended Musculoskeletal: left foot redness and black doscolortion as well as swelling Pulses: 2+ and symmetric Neurologic: Grossly normal AXO3 non focal intact motor and sensation DATA CBC: Lab Results Component Value Date WBC 10.42 08/07/2017 RBC 3.36 (L) 08/07/2017 HGB 9.1 (L) 08/07/2017 HCT 27.4 (L) 08/07/2017 MCV 81.5 08/07/2017 MCH 27.0 08/07/2017 MCHC 33.1 08/07/2017 RDW 52.1 08/07/2017 PLT 255 08/07/2017 MPV 6.7 08/07/2017 DIFFTYPE MANUAL 08/07/2017 CMP: Lab Results Component Value Date NA 137 08/07/2017 K 4.1 08/07/2017 CL 100 08/07/2017 CO2 27 08/07/2017 ANIONGAP 14 08/07/2017 GLUF 94 08/07/2017 BUN 12 08/07/2017 CREATININE 0.6 08/07/2017 BCR 19 08/05/2017 CA 8.4 (L) 08/07/2017 PROT 7.0 08/05/2017 ALB 2.1 (L) 08/07/2017 GLOB 4.6 08/05/2017 BILITOT 0.5 08/05/2017 ALP 692 (H) 08/05/2017 AST 24 08/05/2017 ALT 15 08/05/2017 EGFR >60 08/07/2017 Results for CARMEN KAHN ( ) as of 08/05/2017 14:11 Ref. Range 08/05/2017 00:52 Lactate, Jim Latest Ref Range: 0.4 - 2.0 mmol/L 1.0 Wound culture [[id number]] (Abnormal) Collected: 08/04/17 1710 Order Status: Completed Lab Status: Final result Updated: 08/06/17 5331 Specimen: Wound from OTHR-w source desc (F6) Specimen Description OTHER CULTURE 3+ STAPHYLOCOCCUS AUREUS (A) 2+ BETA HEMOLYTIC GROUP G STREPTOCOCCUS (A) BETA STREP ORGANISMS ARE PREDICTABLY SUSCEPTIBLE TO PENICILLIN AND CEPHALOSPORINS 3+ NORMAL SKIN JAVED ISOLATED NO FURTHER WORKUP Xr Foot Left Ap Lateral And Oblique Result Date: 08/04/2017 1. Diffuse soft tissue swelling of the entire forefoot including the dorsal and plantar purcell rfaces. 2. Small amount of air suspected in the dorsal soft tissues of the great toe at the proximal phalanx which is suspicious for gangrene. Findings were reported to Dr. Quispe and Dr. Nolasco in person at 08/04/2017 5:45 PM. Electronically signed by Shiva Moy DO on 5:59 PM Mri Foot Left Without Contrast Result Date: 08/04/2017 1. Severely limited examination. There is extensive subcutaneous edema and swelling. Elect ronically signed by Keyon Hickman MD on 08/04/2017 11:45 PM Us Lower Extremity Venous Left Result Date: 08/04/2017 1. Thrombus previously noted within the popliteal vein is resolved. 2. There continues to be residual thrombus within the calf vessels. US Impression: Atherosclerosis in arteries of left lower extremity without hemodynamically significant nancy nosis. Three vessel distal runoff. LEM LIST Principal Problem: 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HCC) Active Problems: DVT (deep venous thrombosis) (HCC) Hyperlipidemia Multiple myeloma (HCC) Open wound of left lower leg Left foot infection COPD (chronic obstructive pulmonary disease) (HCC) Moderate obesity ASSESSMENT & PLAN 1. Left lower extremity hemorrhagic skin lesion with complication of wet gangrene/celluliti s and hx of thrombotic microangiopathy ID following continue IV Unasyn , vascular he is plans on L AKA today continue with heparin gtt and ASA and statin 2. Deep vein thrombosis malignancy associated covered with heparin gtt pending upcoming pr ocedure 3.Multiple myeloma per previous record Status post bone marrow biopsy and also history of l aryngeal lesion status post biopsy at [facility].she is to follow-up outpatient with her oncologist Dr. Us . 4. Chronic pain continue fentanyl patch / OxyContin to 10 mg po bid/oxycodone prn morphin e IV prn for severe pain . 5. COPD with no respiratory distress. Continue O2 as needed and nebs as now 6.hx of tobacco use she reports she quit for 3 weeks now and wants nicotine patch continued 7.GI px PPI 8.Moderately obese she was counseled on weight loss and life style modification Review of H/P, imaging and labs, formulation of assessment and plan, discussion with the pa tient/family, staff, and providers. Portions of this chart may have been copied from previous notes for continuity of care purp oses. Disposition: admitted Code Status: Full Code Karina Pinto MD 08/07/2017YoBarry liz DO - 08/07/2017 6:46 AM PDTFormatting of this note may be different from the original. [facility] Service: Infectious Disease Progress Note Hospital Day: LOS: 3 days Post-Op Day: * No surgery found * SUBJECTIVE Patient Summary: 61 y.o. 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 3 days later patient presented to [facility] ER for hemorrhagic bullae and toe discoloration o n 07/14. Case was discussed with multiple specialists including vascular surgery andoncolog y. She had a CTA of lower extremity that showed no significant stenosis and good distal runo ff. Oncology was concerned about interaction of blood thinner and proteins with his multiple myeloma causing possible TMA. Oncology at [facility] thought patient might have cerulae alba malignancy associatedand recwas to continue treatment with Lovenox. Even v ascular surgery was consulted at [facility] with recommendation to continue with Lovenox wound care and no interventions needed. Patient also had COPD exacerbation during t his same timeframe and was treated with prednisone and nebs. 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 ENT evaluated the patient and on fiberoptic scope she was not thought to have any airway compromise and recwas to follow-up with her oncologist Dr. Us. The patient denies any known trauma or irritation that lead to the hemorrhagic bulla on her left foot, appeared spontaneously in her opinion. Over the past week or so the wound has be en gradually worsening and has developed a foul odor. CC: Left foot gangrene Chart reviewed: No new events. Subjective The patient has been scheduled for a left AKA today. She is nervous about the procedure, bu t is looking forward to having it over with. She denies any fevers or chills. ROS No fever, chills sweats. No nausea, vomiting or diarrhea. No rashes or pruritis. No oral pa in. Scheduled Medications ampicillin-sulbactam 3 g Intravenous Q6H aspirin 81 mg Oral Daily with breakfast atorvastatin 40 mg Oral Nightly fentaNYL 12 mcghr Transdermal Q72H guaiFENesin 600 mg Oral BID ipratropium-albuterol 1 puff Inhalation 4x Daily nicotine 1 patch Transdermal Q24H oxyCODONE 10 mg Oral BID pantoprazole 40 mg Oral QAM AC senna 17.2 mg Oral BID sertraline 100 mg Oral Daily Continuous Infusions heparin 50 units/mL 15 Units/kg/hr (08/07/17 023) sodium chloride (IV) 75 mL/hr at 08/06/172030 PRN Medications acetaminophen OR acetaminophen, albuterol, heparin (porcine) 5000 unit/0.5mL, heparin ( porcine) 5000 unit/0.5mL, LORazepam, morphine OR morphine OR morphine, ondansetron * *OR ondansetron, oxyCODONE, polyethylene glycol, zolpidem OBJECTIVE Vital Signs: BP 122/62 (BP Location: Left upper arm) | Pulse 101 | Temp 98 F (36.7 C) (Oral) | Re sp 18 | Ht 1.676 m (5' 6") | Wt 88.9 kg (196 lb) | LMP (LMP Unknown) | SpO2 90% | [place] stfeeding? No | BMI 31.64 kg/m Temp (24hrs), Av F (36.7 C), Min:97.3 F (36.3 C), Max:98.5 F (36.9 C) Exam: Const: Vitals reviewed. No acute distress Skin: No rashes, no edema. Left foot has wet gangrene involving the toes and distal dorsum of the foot, macerated flesh extends toward the ankle, and there is also a small area of ulc eration above the ankle. No erythema. ENT: No thrush. Lungs: CTAB, no rales or wheezes Heart: RRR, no murmur Abd: soft, NT, + bowel sounds DATA CBC: Lab Results Component Value Date WBC 10.42 08/07/2017 RBC 3.36 (L) 08/07/2017 HGB 9.1 (L) 08/07/2017 HCT 27.4 (L) 08/07/2017 MCV 81.5 08/07/2017 MCH 27.0 08/07/2017 MCHC 33.1 08/07/2017 RDW 52.1 08/07/2017 PLT 255 08/07/2017 MPV 6.7 08/07/2017 DIFFTYPE MANUAL 08/07/2017 CMP: Lab Results Component Value Date NA 137 08/07/2017 K 4.1 08/07/2017 CL 100 08/07/2017 CO2 27 08/07/2017 ANIONGAP 14 08/07/2017 GLUF 94 08/07/2017 BUN 12 08/07/2017 CREATININE 0.6 08/07/2017 BCR 19 08/05/2017 CA 8.4 (L) 08/07/2017 PROT 7.0 08/05/2017 ALB 2.1 (L) 08/07/2017 GLOB 4.6 08/05/2017 BILITOT 0.5 08/05/2017 ALP 692 (H) 08/05/2017 AST 24 08/05/2017 ALT 15 08/05/2017 EGFR >60 08/07/2017 Microbiology: Wound culture has 3+ MSSA, 2+ Group B strep. PROBLEM LIST Principal Problem: 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HCC) Active Problems: DVT (deep venous thrombosis) (HCC) Hyperlipidemia Multiple myeloma (HCC) Open wound of left lower leg Left foot infection COPD (chronic obstructive pulmonary disease) (HCC) Moderate obesity ASSESSMENT & PLAN 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HCC) (08/04/2017) The patient has been diagnosed with thrombotic microangiopathy 3, which is likely the dri ving factor of her left foot gangrene. Vascular workup has not revealed any large vessel dis ease which could be intervened upon. Appreciate plan for above-knee amputation later today. Continue Unasyn for now. Left foot infection (08/04/2017) Secondary to above, Unasyn as discussed above, will monitor. DVT (deep venous thrombosis) (HCC) (08/04/2017) Management per primary service and hematology. Code Status: Full Code BARRY LOBO DO 08/07/2017Karina Pinto MD - 08/06/2017 9:14 AM PDTFormatting of this note may be different from the original. [facility] Service: Hospitalist Progress Note Hospital Day: LOS: 2 days Post-Op Day: * No surgery found * SUBJECTIVE Patient Summary: Refer to H&P and consult note for details Events Overnight: Patient seen and examined,denies CP or SOB or abdominal pain,contro lled left foot pain,stable VS,so far negative blood cx,addressed al questions. Scheduled Medications ampicillin-sulbactam 3 g Intravenous Q6H aspirin 81 mg Oral Daily with breakfast atorvastatin 40 mg Oral Nightly fentaNYL 12 mcghr Transdermal Q72H guaiFENesin 600 mg Oral BID ipratropium-albuterol 1 puff Inhalation 4x Daily nicotine 1 patch Transdermal Q24H oxyCODONE 10 mg Oral BID pantoprazole 40 mg Oral QAM AC senna 17.2 mg Oral BID sertraline 100 mg Oral Daily Continuous Infusions heparin 50 units/mL sodium chloride (IV) 75 mL/hr at 08/06/17 0619 PRN Medications acetaminophen OR acetaminophen, albuterol, heparin (porcine) 5000 unit/0.5mL, heparin ( porcine) 5000 unit/0.5mL, LORazepam, morphine OR morphine OR morphine, ondansetron * *OR ondansetron, oxyCODONE, polyethylene glycol, zolpidem OBJECTIVE Vital Signs: BP 142/76 (BP Location: Left upper arm) | Pulse 103 | Temp 97.8 F (36.6 C) (Oral) | Resp 16 | Ht 1.676 m (5' 6") | Wt 88.3 kg (194 lb 10.7 oz) | LMP (LMP Unknown) | SpO2 ( !) 88% | ? No | BMI 31.42 kg/m Intake/Output Summary (Last 24 hours) at 08/06/17 1405 Last data filed at 08/06/17 1119 Gross per 24 hour Intake 2994 ml Output 1550 ml Net 1444 ml General appearance: alert, appears stated age, cooperative, no distress and moderately obes e Head: Normocephalic, without obvious abnormality, atraumatic Neck: no adenopathy, no carotid bruit, no JVD, supple, symmetrical, trachea midline and thy roid not enlarged, symmetric, no tenderness/mass/nodules Lungs: clear to auscultation bilaterally,no wheezing no crackles Heart: regular rate and rhythm, S1, S2 normal, no murmur, click, rub or gallop Abdomen: soft, non-tender; bowel sounds present Musculoskeletal: left foot redness and black doscolortion as well as swelling Pulses: 2+ and symmetric Neurologic: Grossly normal AXO3 DATA CBC: Lab Results Component Value Date WBC 11.01 (H) 08/06/2017 RBC 3.46 (L) 08/06/2017 HGB 9.2 (L) 08/06/2017 HCT 28.6 (L) 08/06/2017 MCV 82.6 08/06/2017 MCH 26.5 (L) 08/06/2017 MCHC 32.0 08/06/2017 RDW 53.4 (H) 08/06/2017 PLT 246 08/06/2017 MPV 6.6 08/06/2017 DIFFTYPE MANUAL 08/06/2017 CMP: Lab Results Component Value Date NA 136 08/06/2017 K 4.1 08/06/2017 CL 100 08/06/2017 CO2 28 08/06/2017 ANIONGAP 12 08/06/2017 GLUF 83 08/06/2017 BUN 12 08/06/2017 CREATININE 0.6 08/06/2017 BCR 19 08/05/2017 CA 8.3 (L) 08/06/2017 PROT 7.0 08/05/2017 ALB 2.2 (L) 08/06/2017 GLOB 4.6 08/05/2017 BILITOT 0.5 08/05/2017 ALP 692 (H) 08/05/2017 AST 24 08/05/2017 ALT 15 08/05/2017 EGFR >60 08/06/2017 Results for CARMEN KAHN ( ) as of 08/05/2017 14:11 Ref. Range 08/05/2017 00:52 Lactate, Jim Latest Ref Range: 0.4 - 2.0 mmol/L 1.0 Wound culture [[id number]] (Abnormal) Collected: 08/04/17 7210 Order Status: Completed Lab Status: Final result Updated: 08/06/17 0100 Specimen: Wound from OTHR-w source desc (F6) Specimen Description OTHER CULTURE 3+ STAPHYLOCOCCUS AUREUS (A) 2+ BETA HEMOLYTIC GROUP G STREPTOCOCCUS (A) BETA STREP ORGANISMS ARE PREDICTABLY SUSCEPTIBLE TO PENICILLIN AND CEPHALOSPORINS 3+ NORMAL SKIN JAVED ISOLATED NO FURTHER WORKUP Xr Foot Left Ap Lateral And Oblique Result Date: 08/04/2017 1. Diffuse soft tissue swelling of the entire forefoot including the dorsal and plantar purcell rfaces. 2. Small amount of air suspected in the dorsal soft tissues of the great toe at the proximal phalanx which is suspicious for gangrene. Findings were reported to Dr. Quispe and Dr. Nolasco in person at 08/04/2017 5:45 PM. Electronically signed by Shiva Moy DO on 5:59 PM Mri Foot Left Without Contrast Result Date: 08/04/2017 1. Severely limited examination. There is extensive subcutaneous edema and swelling. Elect ronically signed by Keyon Hickman MD on 08/04/2017 11:45 PM Us Lower Extremity Venous Left Result Date: 08/04/2017 1. Thrombus previously noted within the popliteal vein is resolved. 2. There continues to be residual thrombus within the calf vessels. US Impression: Atherosclerosis in arteries of left lower extremity without hemodynamically significant nancy nosis. Three vessel distal runoff. LEM LIST Principal Problem: 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HCC) Active Problems: DVT (deep venous thrombosis) (HCC) Hyperlipidemia Multiple myeloma (HCC) Open wound of left lower leg Left foot infection COPD (chronic obstructive pulmonary disease) (HCC) Moderate obesity ASSESSMENT & PLAN 1. Left lower extremity hemorrhagic skin lesion with complication of wet gangrene/celluliti s and hx of thrombotic microangiopathy ID following continue IV Unasyn ,I have d/w and cons ulted vascular he is plans on L AKA and recc to switch to heparin gtt.,continue ASA a nd statin 2. Deep vein thrombosis malignancy associated will switch to heparin gtt pending upcoming p rocedure 3.Multiple myeloma per previous record Status post bone marrow biopsy and also history of l aryngeal lesion status post biopsy at [facility].she is to follow-up outpatient with her oncologist Dr. Us . 4. Chronic pain will resume fentanyl patch and continue OxyContin to 10 mg po bid/oxycodone prn morphine IV prn for severe pain . 5. COPD with no respiratory distress. Continue O2 as needed and nebs as now 6.hx of tobacco use she reports she quit for 3 weeks now and wants nicotine patch resumed. 7.GI px PPI 8.Moderately obese she was counseled on weight loss and life style modification Review of H/P, imaging and labs, formulation of assessment and plan, discussion with the pa tient/family, staff, and providers. Portions of this chart may have been copied from previous notes for continuity of care purp oses. Disposition: admitted Code Status: Full Code Karina Pinto MD 08/06/2017YorBarry mason, - 08/06/2017 8:33 AM PDTFormatting of this note may be different from the original. [facility] Service: Infectious Disease Progress Note Hospital Day: LOS: 2 days Post-Op Day: * No surgery found * SUBJECTIVE Patient Summary: 61 y.o. 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 3 days later patient presented to [facility] ER for hemorrhagic bullae and toe discoloration o n 07/14. Case was discussed with multiple specialists including vascular surgery andoncolog y. She had a CTA of lower extremity that showed no significant stenosis and good distal runo ff. Oncology was concerned about interaction of blood thinner and proteins with his multiple myeloma causing possible TMA. Oncology at [facility] thought patient might have cerulae alba malignancy associatedand recwas to continue treatment with Lovenox. Even v ascular surgery was consulted at [facility] with recommendation to continue with Lovenox wound care and no interventions needed. Patient also had COPD exacerbation during t his same timeframe and was treated with prednisone and nebs. 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 ENT evaluated the patient and on fiberoptic scope she was not thought to have any airway compromise and recwas to follow-up with her oncologist Dr. Us. The patient denies any known trauma or irritation that lead to the hemorrhagic bulla on her left foot, appeared spontaneously in her opinion. Over the past week or so the wound has be en gradually worsening and has developed a foul odor. CC: Left foot gangrene Chart reviewed: No new events. Subjective The patient was seen in consultation by Dr. Riggs last evening and was told that she wi ll need at least a transmetatarsal amputation, although more likely a below-knee amputation due to concern that she will not be able to heal the TMA. Vascular surgery consultation has been requested, pending at this time. The patient denies any uncontrolled pain. No fevers or chills. ROS No fever, chills sweats. No nausea, vomiting or diarrhea. No rashes or pruritis. No oral pa in. Scheduled Medications ampicillin-sulbactam 3 g Intravenous Q6H aspirin 81 mg Oral Daily with breakfast atorvastatin 40 mg Oral Nightly enoxaparin 90 mg Subcutaneous Q12H fentaNYL 12 mcghr Transdermal Q72H guaiFENesin 600 mg Oral BID ipratropium-albuterol 3 mL Nebulization Q4H WA nicotine 1 patch Transdermal Q24H oxyCODONE 10 mg Oral BID pantoprazole 40 mg Oral QAM AC senna 17.2 mg Oral BID sertraline 100 mg Oral Daily Continuous Infusions sodium chloride (IV) 75 mL/hr at 08/06/17 0619 PRN Medications acetaminophen OR acetaminophen, albuterol, LORazepam, morphine OR morphine OR m orphine, ondansetron OR ondansetron, oxyCODONE, polyethylene glycol, zolpidem OBJECTIVE Vital Signs: BP 137/69 (BP Location: Left upper arm) | Pulse 97 | Temp 98.3 F (36.8 C) (Oral) | R glendy 18 | Ht 1.676 m (5' 6") | Wt 88.3 kg (194 lb 10.7 oz) | LMP (LMP Unknown) | SpO2 93 % | ? No | BMI 31.42 kg/m Temp (24hrs), Av.2 F (36.8 C), Min:98 F (36.7 C), Max:98.3 F (36.8 C) Exam: Const: Vitals reviewed. No acute distress Skin: No rashes, no edema. Left foot has wet gangrene involving the toes and distal dorsum of the foot, macerated flesh extends toward the ankle, and there is also a small area of ulc eration above the ankle. No erythema. ENT: No thrush. Lungs: CTAB, no rales or wheezes Heart: RRR, no murmur Abd: soft, NT, + bowel sounds DATA CBC: Lab Results Component Value Date WBC 11.01 (H) 08/06/2017 RBC 3.46 (L) 08/06/2017 HGB 9.2 (L) 08/06/2017 HCT 28.6 (L) 08/06/2017 MCV 82.6 08/06/2017 MCH 26.5 (L) 08/06/2017 MCHC 32.0 08/06/2017 RDW 53.4 (H) 08/06/2017 PLT 246 08/06/2017 MPV 6.6 08/06/2017 DIFFTYPE MANUAL 08/06/2017 CMP: Lab Results Component Value Date NA 136 08/06/2017 K 4.1 08/06/2017 CL 100 08/06/2017 CO2 28 08/06/2017 ANIONGAP 12 08/06/2017 GLUF 83 08/06/2017 BUN 12 08/06/2017 CREATININE 0.6 08/06/2017 BCR 19 08/05/2017 CA 8.3 (L) 08/06/2017 PROT 7.0 08/05/2017 ALB 2.2 (L) 08/06/2017 GLOB 4.6 08/05/2017 BILITOT 0.5 08/05/2017 ALP 692 (H) 08/05/2017 AST 24 08/05/2017 ALT 15 08/05/2017 EGFR >60 08/06/2017 Microbiology: Wound culture has 3+ gram-positive cocci, identification and susceptibility p ending. MRSA screen was negative. Blood cultures remain negative. PROBLEM LIST Principal Problem: 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HCC) Active Problems: DVT (deep venous thrombosis) ([facility]) Hyperlipidemia Multiple myeloma (HCC) Open wound of left lower leg Left foot infection COPD (chronic obstructive pulmonary disease) ([facility]) Moderate obesity ASSESSMENT & PLAN 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HCC) (08/04/2017) The patient has been diagnosed with thrombotic microangiopathy 3, which is likely the dri ving factor of her left foot gangrene. Vascular workup has not revealed any large vessel dis ease which could be intervened upon. Agree that amputation will be needed, level of agitatio n yet to be determined, although more likely to be alone he amputation. Await vascular consu ltation. Continue Unasyn, noting improvement in erythema. The patient remains afebrile. Whit e blood cell count is improving. Will monitor. Left foot infection (08/04/2017) Secondary to above, Unasyn as discussed above, will monitor. DVT (deep venous thrombosis) (HCC) (08/04/2017) Management per primary service and hematology. Code Status: Full Code BARRY LOBO, DO 08/06/2017Karina Pinto MD - 08/05/2017 9:13 AM PDTFormatting of this note may be different from the original. [facility] Service: Hospitalist Progress Note Hospital Day: LOS: 1 day Post-Op Day: * No surgery found * SUBJECTIVE Patient Summary: Refer to H&P and consult note for details Events Overnight: Patient seen and examined,denies CP or SOB or abdominal pain,contro lled left foot pain,stable VS, daughter at bed side, pending blood cx,addressed al questions . Scheduled Medications ampicillin-sulbactam 3 g Intravenous Q6H aspirin 81 mg Oral Daily with breakfast atorvastatin 40 mg Oral Nightly enoxaparin 90 mg Subcutaneous Q12H [START ON 08/07/2017] fentaNYL 12 mcghr Transdermal Q72H ipratropium-albuterol 3 mL Nebulization Q4H WA nicotine 1 patch Transdermal Q24H oxyCODONE 10 mg Oral BID pantoprazole 40 mg Oral QAM AC senna 17.2 mg Oral BID sertraline 100 mg Oral Daily Continuous Infusions sodium chloride (IV) PRN Medications acetaminophen OR acetaminophen, albuterol, LORazepam, morphine OR morphine OR m orphine, ondansetron OR ondansetron, oxyCODONE, polyethylene glycol, zolpidem OBJECTIVE Vital Signs: BP 124/56 (BP Location: Left upper arm) | Pulse 100 | Temp 98 F (36.7 C) (Oral) | Re sp 18 | Ht 1.676 m (5' 6") | Wt 88.3 kg (194 lb 10.7 oz) | LMP (LMP Unknown) | SpO2 (!) 88% | ? No | BMI 31.42 kg/m Intake/Output Summary (Last 24 hours) at 08/05/17 1418 Last data filed at 08/05/17 1410 Gross per 24 hour Intake 650 ml Output 900 ml Net -250 ml General appearance: alert, appears stated age, cooperative, no distress and moderately obes e Head: Normocephalic, without obvious abnormality, atraumatic Neck: no adenopathy, no carotid bruit, no JVD, supple, symmetrical, trachea midline and thy roid not enlarged, symmetric, no tenderness/mass/nodules Lungs: clear to auscultation bilaterally Heart: regular rate and rhythm, S1, S2 normal, no murmur, click, rub or gallop Abdomen: soft, non-tender; bowel sounds present Musculoskeletal: left foot redness and black doscolortion as well as swelling Pulses: 2+ and symmetric Neurologic: Grossly normal AXO3 DATA CBC: Lab Results Component Value Date WBC 13.29 (H) 08/05/2017 RBC 3.69 (L) 08/05/2017 HGB 9.8 (L) 08/05/2017 HCT 30.1 (L) 08/05/2017 MCV 81.5 08/05/2017 MCH 26.6 (L) 08/05/2017 MCHC 32.7 08/05/2017 RDW 50.8 08/05/2017 PLT 285 08/05/2017 MPV 6.7 08/05/2017 DIFFTYPE MANUAL 08/05/2017 CMP: Lab Results Component Value Date NA 135 08/05/2017 K 4.4 08/05/2017 CL 97 (L) 08/05/2017 CO2 27 08/05/2017 ANIONGAP 15 08/05/2017 GLUF 83 08/05/2017 BUN 13 08/05/2017 CREATININE 0.7 08/05/2017 BCR 19 08/05/2017 CA 8.6 08/05/2017 PROT 7.0 08/05/2017 ALB 2.4 (L) 08/05/2017 GLOB 4.6 08/05/2017 BILITOT 0.5 08/05/2017 ALP 692 (H) 08/05/2017 AST 24 08/05/2017 ALT 15 08/05/2017 EGFR >60 08/05/2017 Results for CARMEN KAHN ( ) as of 08/05/2017 14:11 Ref. Range 08/05/2017 00:52 Lactate, Jim Latest Ref Range: 0.4 - 2.0 mmol/L 1.0 Xr Foot Left Ap Lateral And Oblique Result Date: 08/04/2017 1. Diffuse soft tissue swelling of the entire forefoot including the dorsal and plantar purcell rfaces. 2. Small amount of air suspected in the dorsal soft tissues of the great toe at the proximal phalanx which is suspicious for gangrene. Findings were reported to Dr. Quispe and Dr. Nolasco in person at 08/04/2017 5:45 PM. Electronically signed by Shiva Moy DO on 5:59 PM Mri Foot Left Without Contrast Result Date: 08/04/2017 1. Severely limited examination. There is extensive subcutaneous edema and swelling. Elect ronically signed by Keyon Hickman MD on 08/04/2017 11:45 PM Us Lower Extremity Venous Left Result Date: 08/04/2017 1. Thrombus previously noted within the popliteal vein is resolved. 2. There continues to be residual thrombus within the calf vessels. LEM LIST Principal Problem: 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HCC) Active Problems: DVT (deep venous thrombosis) (HCC) Hyperlipidemia Multiple myeloma (HCC) Open wound of left lower leg Left foot infection COPD (chronic obstructive pulmonary disease) (HCC) Moderate obesity ASSESSMENT & PLAN 1. Left lower extremity hemorrhagic skin lesion with complication of wet gangrene/celluliti s and hx of thrombotic microangiopathy ID following continue IV Unasyn and await podiatry Pramod Riggs [facility] ,Vascular workup has not revealed any large vessel disease which could be intervened upon per records .monitor wbc and fever,add gentle hydration 2. Deep vein thrombosis malignancy associated Continue with Lovenox treatment dose 3.Multiple myeloma per previous record Status post bone marrow biopsy and also history of l aryngeal lesion status post biopsy at [facility].eliazar is to follow-up outpatient with her oncologist Dr. Us . 4. Chronic pain will resume fentanyl patch and continue OxyContin to 10 mg po bid / with ox ycodone po prn morphine IV prn for severe pain . 5. COPD with no respiratory distress. Continue O2 as needed and nebs as now 6.hx of tobacco use she reports she quit for 3 weeks now and wants nicotine patch resumed. Review of H/P, imaging and labs, formulation of assessment and plan, discussion with the pa tiecorrie/family, staff, and providers. Portions of this chart may have been copied from previous notes for continuity of care purp oses. Disposition: admitted Code Status: Full Code Karina Pinto MD 08/05/2017in this encounter Plan of Treatment +--------+---------+ + + + | Date | Type | Specialty | Care Team | Description | +--------+---------+ + + + | 08/28/ | Office | Vascular Surgery | Dolores Harrison DNP | | | 2017 | Visit | | [address] | | | | | | [place] | | | | | | [id number] | | | | | | | | +--------+---------+ + + + + +--------+ + + | Name | Priori | Associated Diagnoses | Order Schedule | | | ty | | | + +--------+ + + | Basic metabolic panel | Routin | Wet gangrene, left | Expected: | | | e | foot ([facility]) | 08/16/2017, Expires: | | | | | 08/14/2018 | + +--------+ + + | Magnesium | Routin | Wet gangrene, left | Expected: | | | e | foot ([facility]) | 08/16/2017, Expires: | | | | | 08/14/2018 | + +--------+ + + as of this encounter Procedures + +--------+ + + + | Procedure Name | Priori | Date/Time | Associated Diagnosis | Comments | | | ty | | | | + +--------+ + + + | ABG DRAW | STAT | 08/10/2017 | | | | | | 3:47 PM | | | | | | PDT | | | + +--------+ + + + | ECHO CARDIAC ADULT | Routin | 08/10/2017 | | Results for this | | COMPLETE | e | 9:19 AM | | procedure are in the | | | | PDT | | results section. | + +--------+ + + + | ABG DRAW | STAT | 08/09/2017 | | | | | | 10:47 PM | | | | | | PDT | | | + +--------+ + + + | KNEE - AMPUTATION | | 08/07/2017 | Gangrene of left | | | ABOVE | | 3:55 PM | foot | | | | | PDT | | | + +--------+ + + + +---+--------+ | | | | | Specia | | | l | | | Needs | | | Pt in | | | rm | | | [id number] | +---+--------+ + +--------+ +---+---+ | CASE REQUEST | Routin | 08/06/2017 | | | | OPERATING ROOM | e | 12:05 PM | | | | | | PDT | | | + +--------+ +---+---+ in this encounter Results Phosphorus (08/14/2017 4:35 AM) + + + + | Component | Value | Ref Range | + + + + | PHOSPHORUS | 3.2Comment: Testing performed at [facility], [address] | 2.3 - 4.8 mg/dL | | | [place] [address] | | + + + + + + + | Specimen | Performing Laboratory | + + + | Blood | [address] [place], | | | [place] [address] | + + + Magnesium (08/14/2017 4:35 AM) + + + + | Component | Value | Ref Range | + + + + | MAGNESIUM | 2.2Comment: Testing performed at [facility], [address] | 1.7 - 2.4 mg/dL | | | [facility] [place] [address] | | + + + + + + + | Specimen | Performing Laboratory | + + + | Blood | [facility] [address] [place] [address] [address] [place], | | | [place] [address] | + + + Comprehensive metabolic panel (08/14/2017 4:35 AM) + + + + | Component | Value | Ref Range | + + + + | SODIUM | 138 | 135 - 145 mmol/L | + + + + | POTASSIUM | 3.4 (L) | 3.5 - 4.9 mmol/L | + + + + | CHLORIDE | 93 (L) | 99 - 109 mmol/L | + + + + | CO2 | 37 (H) | 23 - 32 mmol/L | + + + + | ANION GAP AGAP | 11 | 5 - 20 mmol/L | + + + + | GLUCOSE | 88 | 65 - 99 mg/dL | + + + + | BUN | 20 | 8 - 25 mg/dL | + + + + | CREATININE | 0.5 | 0.50 - 1.00 mg/dL | + + + + | BUN/CREAT | 40 | | + + + + | CALCIUM | 8.6 | 8.5 - 10.5 mg/dL | + + + + | TOTAL PROTEIN | 6.1 (L) | 6.3 - 8.2 g/dL | + + + + | Albumin | 1.8 (L) | 3.3 - 4.8 g/dL | + + + + | GLOBULIN | 4.3 | 1.3 - 4.9 g/dL | + + + + | A/G | 0.4 (L) | 1.0 - 2.4 | + + + + | TBIL | 0.6 | 0.1 - 1.5 mg/dL | + + + + | ALK PHOS | 581 (H) | 35 - 115 U/L | + + + + | AST | 49 (H) | 10 - 45 U/L | + + + + | ALT | 24 | 10 - 65 U/L | + + + + | EGFR | >60Comment: GFR <60: CHRONIC KIDNEY | >60 mL/min/1.73m2 | | | DISEASE, IF FOUND OVER A 3 MONTH PERIOD.GFR | | | | <15: KIDNEY FAILURE.FOR AMERICANS, | | | | MULTIPLY THE CALCULATED GFR BY | | | | 1.210.Testing performed at [facility], [address] | | | | [place] [address] | | | | | | + + + + + + + | Specimen | Performing Laboratory | + + + | Blood | [address] [place], | | | [place] [address] | + + + CBC W/Auto Diff (Reflex to Manual) (08/14/2017 4:35 AM) + + -----+ + | Component | Value | Ref Range | + + -----+ + | WBC | 9.33 | 3.80 - 11.00 K/uL | + + -----+ + | RBC | 3.68 (L) | 3.70 - 5.10 M/uL | + + -----+ + | HGB | 9.6 (L) | 11.3 - 15.5 g/dL | + + -----+ + | HCT | 29.8 (L) | 34.0 - 46.0 % | + + -----+ + | MCV | 80.9 | 80.0 - 100.0 fl | + + -----+ + | MCH | 26.0 (L) | 27.0 - 34.0 pg | + + -----+ + | MCHC | 32.1 | 32.0 - 35.5 g/dL | + + -----+ + | RDW SD | 49.9 | 37 - 53 fl | + + -----+ + | PLT | 295 | 150 - 400 K/uL | + + -----+ + | MPV | 6.7 | fl | + + -----+ + | DIFF TYPE | MANUAL | | + + -----+ + | Neutrophils Manual | 72 | % | + + -----+ + | Lymphocytes Manual | 19 | % | + + -----+ + | Monocytes Manual | 9 | % | + + -----+ + | Neutrophils Absolute | 6.72 | 1.90 - 7.40 K/uL | + + -----+ + | Lymphocytes Absolute | 1.77 | 1.00 - 3.90 K/uL | + + -----+ + | Monocytes Absolute | 0.84 (H) | 0.00 - 0.80 K/uL | + + -----+ + | MORPHOLOGY | 1+Comment: ANISO1+HYPO1+MICRONORMAL PLT | | | | MORPHTesting performed at [facility], [address] | | | | [place] [address] | | | |1+ | | | |HYPO | | | |1+ | | | |MICRO | | | |NORMAL PLT MORPH | | | |Testing performed at [facility], [address] [place], [place] [address] | | | | | | + + -----+ + + + + | Specimen | Performing Laboratory | + + + | Blood | [facility] [address] [place] [address] [address] [place], | | | [place] [address] | + + + Phosphorus (08/13/2017 5:03 AM) + + + + | Component | Value | Ref Range | + + + + | PHOSPHORUS | 3.8Comment: Testing performed at [facility], [address] | 2.3 - 4.8 mg/dL | | | [place] [address] | | + + + + + + + | Specimen | Performing Laboratory | + + + | Blood | [facility] [address] [place] [address] [place], | | | [place] [address] | + + + Magnesium (08/13/2017 5:03 AM) + + + + | Component | Value | Ref Range | + + + + | MAGNESIUM | 2.4Comment: Testing performed at [facility], [address] | 1.7 - 2.4 mg/dL | | | [place] [address] | | + + + + + + + | Specimen | Performing Laboratory | + + + | Blood | [facility] [address] [place], | | | [place] [address] | + + + Comprehensive metabolic panel (08/13/2017 5:03 AM) + + + + | Component | Value | Ref Range | + + + + | SODIUM | 141 | 135 - 145 mmol/L | + + + + | POTASSIUM | 3.3 (L) | 3.5 - 4.9 mmol/L | + + + + | CHLORIDE | 96 (L) | 99 - 109 mmol/L | + + + + | CO2 | 37 (H) | 23 - 32 mmol/L | + + + + | ANION GAP AGAP | 11 | 5 - 20 mmol/L | + + + + | GLUCOSE | 122 (H) | 65 - 99 mg/dL | + + + + | BUN | 21 | 8 - 25 mg/dL | + + + + | CREATININE | 0.5 | 0.50 - 1.00 mg/dL | + + + + | BUN/CREAT | 42 | | + + + + | CALCIUM | 8.3 (L) | 8.5 - 10.5 mg/dL | + + + + | TOTAL PROTEIN | 6.3 | 6.3 - 8.2 g/dL | + + + + | Albumin | 1.8 (L) | 3.3 - 4.8 g/dL | + + + + | GLOBULIN | 4.5 | 1.3 - 4.9 g/dL | + + + + | A/G | 0.4 (L) | 1.0 - 2.4 | + + + + | TBIL | 0.4 | 0.1 - 1.5 mg/dL | + + + + | ALK PHOS | 534 (H) | 35 - 115 U/L | + + + + | AST | 44 | 10 - 45 U/L | + + + + | ALT | 25 | 10 - 65 U/L | + + + + | EGFR | >60Comment: GFR <60: CHRONIC KIDNEY | >60 mL/min/1.73m2 | | | DISEASE, IF FOUND OVER A 3 MONTH PERIOD.GFR | | | | <15: KIDNEY FAILURE.FOR AMERICANS, | | | | MULTIPLY THE CALCULATED GFR BY | | | | 1.210.Testing performed at [facility], [facility] [address] | | | | [facility] [place] [address] | | | | | | + + + + + + + | Specimen | Performing Laboratory | + + + | Blood | [facility] [address] [place], [place] [address]vd[address] [place], | | | [place] [address] | + + + CBC W/Auto Diff (Reflex to Manual) (08/13/2017 5:03 AM) + + + + | Component | Value | Ref Range | + + + + | WBC | 8.60 | 3.80 - 11.00 K/uL | + + + + | RBC | 3.50 (L) | 3.70 - 5.10 M/uL | + + + + | HGB | 9.2 (L) | 11.3 - 15.5 g/dL | + + + + | HCT | 28.5 (L) | 34.0 - 46.0 % | + + + + | MCV | 81.4 | 80.0 - 100.0 fl | + + + + | MCH | 26.3 (L) | 27.0 - 34.0 pg | + + + + | MCHC | 32.3 | 32.0 - 35.5 g/dL | + + + + | RDW SD | 51.6 | 37 - 53 fl | + + + + | PLT | 299 | 150 - 400 K/uL | + + + + | MPV | 6.9 | fl | + + + + | DIFF TYPE | MANUAL | | + + + + | Neutrophils Manual | 79 | % | + + + + | Bands | 5 | % | + + + + | MYELOCYTES | 3 | % | + + + + | Lymphocytes Manual | 7 | % | + + + + | Monocytes Manual | 6 | % | + + + + | Neutrophils Absolute | 6.79 | 1.90 - 7.40 K/uL | + + + + | Bands Manual | 0.43 (H) | 0.00 - 0.20 K/uL | + + + + | Myelocytes Absolute | 0.26 (H) | 0.00 K/uL | + + + + | Lymphocytes Absolute | 0.60 (L) | 1.00 - 3.90 K/uL | + + + + | Monocytes Absolute | 0.52 | 0.00 - 0.80 K/uL | + + + + | MORPHOLOGY | RBC AND PLT MORPHOLOGY APPEAR NORMAL | | + + + + | Diff Comment | SLIDE SCANNED, AGREES WITH AUTOMATED | | | | RESULTS.Comment: Testing performed at [facility], | | | | [address] [facility] [place] | | | | [address] | | + + + + + + + | Specimen | Performing Laboratory | + + + | Blood | [facility] [address] [place], | | | [place] [address] | + + + Phosphorus (08/12/2017 5:07 AM) + + + + | Component | Value | Ref Range | + + + + | PHOSPHORUS | 3.7Comment: Testing performed at [facility], [facility] | 2.3 - 4.8 mg/dL | | | [place] [address] | | + + + + + + + | Specimen | Performing Laboratory | + + + | Blood | [facility] [address] [place] [address] [address] [place], | | | [place] [address] | + + + Magnesium (08/12/2017 5:07 AM) + + + + | Component | Value | Ref Range | + + + + | MAGNESIUM | 2.4Comment: Testing performed at [facility], [facility] | 1.7 - 2.4 mg/dL | | | [place] [address] | | + + + + + + + | Specimen | Performing Laboratory | + + + | Blood | [facility] [address] [place], | | | [place] [address] | + + + Comprehensive metabolic panel (08/12/2017 5:07 AM) + + + + | Component | Value | Ref Range | + + + + | SODIUM | 142 | 135 - 145 mmol/L | + + + + | POTASSIUM | 3.7 | 3.5 - 4.9 mmol/L | + + + + | CHLORIDE | 99 | 99 - 109 mmol/L | + + + + | CO2 | 38 (H) | 23 - 32 mmol/L | + + + + | ANION GAP AGAP | 9 | 5 - 20 mmol/L | + + + + | GLUCOSE | 131 (H) | 65 - 99 mg/dL | + + + + | BUN | 19 | 8 - 25 mg/dL | + + + + | CREATININE | 0.5 | 0.50 - 1.00 mg/dL | + + + + | BUN/CREAT | 38 | | + + + + | CALCIUM | 7.9 (L) | 8.5 - 10.5 mg/dL | + + + + | TOTAL PROTEIN | 5.8 (L) | 6.3 - 8.2 g/dL | + + + + | Albumin | 1.7 (L) | 3.3 - 4.8 g/dL | + + + + | GLOBULIN | 4.1 | 1.3 - 4.9 g/dL | + + + + | A/G | 0.4 (L) | 1.0 - 2.4 | + + + + | TBIL | 0.3 | 0.1 - 1.5 mg/dL | + + + + | ALK PHOS | 502 (H) | 35 - 115 U/L | + + + + | AST | 31 | 10 - 45 U/L | + + + + | ALT | 10 | 10 - 65 U/L | + + + + | EGFR | >60Comment: GFR <60: CHRONIC KIDNEY | >60 mL/min/1.73m2 | | | DISEASE, IF FOUND OVER A 3 MONTH PERIOD.GFR | | | | <15: KIDNEY FAILURE.FOR AMERICANS, | | | | MULTIPLY THE CALCULATED GFR BY | | | | 1.210.Testing performed at [facility], [address] | | | | [facility] [place] [address] | | | | | | + + + + + + + | Specimen | Performing Laboratory | + + + | Blood | [facility] [address] [place], | | | [place] [address] | + + + Renal function panel (08/12/2017 5:07 AM) + + + + | Component | Value | Ref Range | + + + + | SODIUM | 143 | 135 - 145 mmol/L | + + + + | POTASSIUM | 3.7 | 3.5 - 4.9 mmol/L | + + + + | CHLORIDE | 101 | 99 - 109 mmol/L | + + + + | CO2 | 35 (H) | 23 - 32 mmol/L | + + + + | ANION GAP AGAP | 11 | 5 - 20 mmol/L | + + + + | GLUCOSE | 113 (H) | 65 - 99 mg/dL | + + + + | BUN | 17 | 8 - 25 mg/dL | + + + + | CREATININE | 0.5 | 0.50 - 1.00 mg/dL | + + + + | CALCIUM | 8.5 | 8.5 - 10.5 mg/dL | + + + + | Albumin | 1.5 (L) | 3.3 - 4.8 g/dL | + + + + | PHOSPHORUS | 3.7 | 2.3 - 4.8 mg/dL | + + + + | EGFR | >60Comment: GFR <60: CHRONIC KIDNEY | >60 mL/min/1.73m2 | | | DISEASE, IF FOUND OVER A 3 MONTH PERIOD.GFR | | | | <15: KIDNEY FAILURE.FOR AMERICANS, | | | | MULTIPLY THE CALCULATED GFR BY | | | | 1.210.Testing performed at [facility], [address] | | | | [place] [address] | | | | | | + + + + + + + | Specimen | Performing Laboratory | + + + | Blood | [address] [place], | | | [place] [address] | + + + CBC W/Auto Diff (Reflex to Manual) (08/12/2017 5:07 AM) + + -----+ + | Component | Value | Ref Range | + + -----+ + | WBC | 9.37 | 3.80 - 11.00 K/uL | + + -----+ + | RBC | 3.35 (L) | 3.70 - 5.10 M/uL | + + -----+ + | HGB | 8.9 (L) | 11.3 - 15.5 g/dL | + + -----+ + | HCT | 26.9 (L) | 34.0 - 46.0 % | + + -----+ + | MCV | 80.4 | 80.0 - 100.0 fl | + + -----+ + | MCH | 26.6 (L) | 27.0 - 34.0 pg | + + -----+ + | MCHC | 33.1 | 32.0 - 35.5 g/dL | + + -----+ + | RDW SD | 49.9 | 37 - 53 fl | + + -----+ + | PLT | 274 | 150 - 400 K/uL | + + -----+ + | MPV | 7.1 | fl | + + -----+ + | DIFF TYPE | MANUAL | | + + -----+ + | nRBC | 1 (H) | 0 /100WBC | + + -----+ + | Neutrophils Manual | 84 | % | + + -----+ + | Bands | 1 | % | + + -----+ + | Lymphocytes Manual | 9 | % | + + -----+ + | Monocytes Manual | 5 | % | + + -----+ + | Eosinophils Manual | 1 | % | + + -----+ + | Neutrophils Absolute | 7.88 (H) | 1.90 - 7.40 K/uL | + + -----+ + | Bands Manual | 0.09 | 0.00 - 0.20 K/uL | + + -----+ + | Lymphocytes Absolute | 0.84 (L) | 1.00 - 3.90 K/uL | + + -----+ + | Monocytes Absolute | 0.47 | 0.00 - 0.80 K/uL | + + -----+ + | Eosinophils Absolute | 0.09 | 0.00 - 0.50 K/uL | + + -----+ + | MORPHOLOGY | 1+Comment: ANISO1+POLY1+HYPOTesting | | | | performed at [facility], [address], | | | | [place] [address] | | | |1+ | | | |POLY | | | |1+ | | | |HYPO | | | |Testing performed at [facility], [address] [place], [place] [address] [address] | | | | | | + + -----+ + + + + | Specimen | Performing Laboratory | + + + | Blood | [facility] [address] [place], | | | [place] [address] | + + + Pathology cytology - fluid (08/11/2017 4:00 PM) + + + | Specimen | Performing Laboratory | + + + | Body Fluid - Pleural | [facility] | | Fluid | | + + + + + | Narrative | + + | ORDERING PHYSICIAN: Harshil Tomlinson MD PATIENT NAME: CARMEN KAHN | | GENDER: Noelle : 1955 SPECIMEN(S): A PLEURAL FLUID (THORACENTESIS) | | GROSS DESCRIPTION: 45 ML OF CLOUDY, YELLOW FLUID W/ LARGE FRAGMENTS. CLINICAL | | HISTORY: NO CLINICAL DATA PROVIDED LABORATORY PREPARATIONS: 1 MONOLAYER, 1 | | CYTOLOGY CELL BLOCK. CYTOLOGIC INTERPRETATION: Pleural effusion: Marked acute | | inflammation Atypical cells present. Suspicious for metastatic carcinoma. PATHOLOGIST | | COMMENTS: I have reviewed the patient's medical records. 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 The patient also has multiple | | myeloma. The pleural fluid show severe acute inflammation. There is also a small | | number of scattered atypical cells suspicious for carcinoma. Some of these cells stain | | for epithelial markers Jean-Ep4, Moc-31, Tag 72 and CEA. Mesothelial marker Mesothelin | | and calretinin highlight background mesothelial cells, some of which are atypical, most | | likely secondary to the inflammation. There are many REYMUNDO (primarily an epithelial | | marker) positive cells, but this marker can be seen in up to 57% of mesothelial cells. | | There are only rare CD138 (plasma marker) positive cells, so I do not think there is | | involvement by multiple myeloma. Squamous marker p63 is negative, and there are only | | rare CK5 positive cells, so there is no good evidence of involvement by squamous cell | | carcinoma. Pulmonary adenocarcinoma marker TTF-1 is negative in addition to WT-1 and | | calretinin. Overall, the findings are suspicious for involvement by carcinoma based up | | on the presence of cells positive for Jean-Ep4, Moc-31, CEA and Tag 72. A definitive | | diagnosis is precluded by the small number of cells present and the lack of staining for | | squamous and adenocarcinoma markers. As part of the [employer], this | | case was reviewed by another member of [facility]. (AMB) DESCRIPTION: In | | addition to mesothelial cells and fibrin, the preparations contain many | | polymorphonuclear leukocytes. Pleural acute inflammation can be caused by pneumonia, | | pulmonary infarct, pulmonary abscess, pleuritis, and secondary bacterial infection of a | | transudate. Atypical cells suspicious for carcinoma are also present (see comment). | | SPECIMEN ADEQUACY: Satisfactory for Evaluation PERFORMING LABORATORY: Technical | | preparation was performed by [facility], [address] [place] [address] | | [place] [address] (Equipment Specialist: Venkatesh Teixeira D.O.; CLIA#: [id number]). | | Professional interpretation was performed by [facility], [facility] | | [address] [address] (Equipment Specialist: Barry Barnett, | | [place]; CLIA#: [id number]).6 Diagnostician: Scott Hassan CT([facility]) Host/Hostess Head | | Diagnostician: Barry Barnett MD Pathologist Electronically Signed 08/19/2017 | + + X-ray chest inspiration & expiration (08/11/2017 3:11 PM) + + + | Specimen | Performing Laboratory | + + + | | [facility] [address] [place] [address] | + + + + + | Impressions | + + | No pneumothorax. Right basilar patchy consolidation/atelectasis. Bilateral | | interstitial edema. Interval improvement of right pleural effusion. Heart size and | | mediastinal contours are unchanged. Diffuse sclerotic metastases persists. | | | + + + + | Narrative | + + | CARMEN KAHN 1955 61 years Female XR CHEST INSPIRATION/EXPIRATION | | 08/11/2017 3:11 PM INDICATION: Status post thoracentesis. Inspiration and expiration | | views. COMPARISON: August 09, 2017 TECHNIQUE: Inspiration and expiration views. | | | + + + + | Procedure Note | + + | Jorge, Rad Results In - 08/11/2017 3:21 PM PDT CARMEN A [id number] years | | FemaleXR CHEST INSPIRATION/EXPIRATION08/11/2017 3:11 PMINDICATION: Status post | | thoracentesis. Inspiration and expiration views.COMPARISON: August 09, 2017TECHNIQUE: | | Inspiration and expiration views.IMPRESSION:No pneumothorax.Right basilar patchy | | consolidation/atelectasis. Bilateral interstitial edema. Interval improvement of right | | pleural effusion.Heart size and mediastinal contours are unchanged. Diffuse sclerotic | | metastases persists. | | | |COMPARISON: August 09, 2017 | | | |TECHNIQUE: Inspiration and expiration views. | | | |IMPRESSION: | | | |No pneumothorax. | | | |Right basilar patchy consolidation/atelectasis. Bilateral interstitial edema. Interval impr ovement of right pleural effusion. | | | |Heart size and mediastinal contours are unchanged. Diffuse sclerotic metastases persists. | | | | | + + US thoracentesis (includes imaging) (08/11/2017 1:36 PM) + + + | Specimen | Performing Laboratory | + + + | Body Fluid | [facility] [address] [place] [address] | + + + + + | Impressions | + + | 1. Successful right sided thoracentesis using ultrasound guidance at bedside. | | 2. 1950 mL of yellow pleural fluid was aspirated from the right pleural | | space. Patient was breathing much easier at the end of the exam and required much | | less supplemental oxygen to maintain a normal O2 saturation. 3. Chest x-ray in | | inspiration and expiration ordered for 1 hour post procedure. | + + + + | Narrative | + + | CARMEN AKHN US THORACENTESIS WITH IMAGING GUIDANCE 08/11/2017 1:36 PM | | HISTORY: 61 years. Female. Large right-sided pleural | | effusion. Ultrasound-guided thoracentesis at bedside is requested. TECHNIQUE: | | 4-MHz curved array transducer used. COMPARISON: Chest x-ray 08/09/2017. | | FINDINGS: Prior to beginning the procedure, I obtained written informed consent and a | | timeout was performed. I then performed real-time sonography over the right lower | | chest with the patient in a seated upright position. A pleural effusion is identified in | | the right lower chest, 3.2 cm below the skin surface. The distance from the skin to | | the posterior margin of the collection is 10.6 cm. A skin site over the pleural | | effusion was selected and marked. PROCEDURE: A sterile prep and drape was | | performed. The skin was then anesthetized with 9 mL of 1% lidocaine. Subsequently | | a thoracentesis catheter with clamped tubing and a Vacutainer needle attached to the | | side port of the catheter was advanced into the pleural space with gentle aspiration on | | attached syringe at the end of the catheter. When flow of pleural fluid into the | | syringe was seen, the catheter was advanced over the central needle while the needle was | | withdrawn. Drainage of the pleural fluid into two Vacutainer bottles was | | performed. Ultrasound images were obtained after each liter of fluid. A total of | | 1950 cc of cloudy yellow pleural fluid was obtained. No significant fluid was seen in | | the pleural space at the end of the procedure. A sample of the fluid was sent to the | | lab for culture and cytology. The thoracentesis catheter was then removed during | | expiration and a Xeroform gauze and Tegaderm dressing was applied. The patient | | tolerated the procedure well. There were no complications. | + + + + | Procedure Note | + + | Bob Patel In - 08/11/2017 2:10 PM PDT CARMEN A GAALEXEUS THORACENTESIS WITH | | IMAGING GUIDANCE08/11/2017 1:36 PMHISTORY:61 years. Female. Large right-sided pleural | | effusion. Ultrasound-guided thoracentesis at bedside is requested.TECHNIQUE:4-MHz | | curved array transducer used.COMPARISON:Chest x-ray 08/09/2017.FINDINGS:Prior to | | beginning the procedure, I obtained written informed consent and a timeout was | | performed. I then performed real-time sonography over the right lower chest with the | | patient in a seated upright position. A pleural effusion is identified in the right | | lower chest, 3.2 cm below the skin surface. The distance from the skin to the posterior | | margin of the collection is 10.6 cm. A skin site over the pleural effusion was | | selected and marked.PROCEDURE:A sterile prep and drape was performed. The skin was then | | anesthetized with 9 mL of 1% lidocaine. Subsequently a thoracentesis catheter with | | clamped tubing and a Vacutainer needle attached to the side port of the catheter was | | advanced into the pleural space with gentle aspiration on attached syringe at the end of | | the catheter. When flow of pleural fluid into the syringe was seen, the catheter was | | advanced over the central needle while the needle was withdrawn. Drainage of the | | pleural fluid into two Vacutainer bottles was performed. Ultrasound images were | | obtained after each liter of fluid. A total of 1950 cc of cloudy yellow pleural fluid | | was obtained. No significant fluid was seen in the pleural space at the end of the | | procedure. A sample of the fluid was sent to the lab for culture and cytology. The | | thoracentesis catheter was then removed during expiration and a Xeroform gauze and | | Tegaderm dressing was applied.The patient tolerated the procedure well. There were no | | complications.IMPRESSION:1. Successful right sided thoracentesis using ultrasound | | guidance at bedside.2. 1950 mL of yellow pleural fluid was aspirated from the right | | pleural space. Patient was breathing much easier at the end of the exam and required | | much less supplemental oxygen to maintain a normal O2 saturation.3. Chest x-ray in | | inspiration and expiration ordered for 1 hour post procedure. | |IMPRESSION: | |1. Successful right sided thoracentesis using ultrasound guidance at bedside. | |2. 1950 mL of yellow pleural fluid was aspirated from the right pleural space. Patient wa s breathing much easier at the end of the exam and required much less supplemental oxygen to maintain a normal O2 saturation. | |3. Chest x-ray in inspiration and expiration ordered for 1 hour post procedure. | | | | | + + Pathologist consult (08/11/2017 1:15 PM) + + + + | Component | Value | Ref Range | + + + + | Pathologist Consult | Comment: Review of pleural fluid collected | | | | 08/11/2017. I agree with the cell | | | | count. Acute inflammation is | | | | present. There is no evidence of | | | | malignancy. Dr. Barry Barnett 08/12/2017 | | | | BES/rrcTesting performed at [facility];[address] [place] [address] | | | | [facility];[place] [address] | | | | | | + + + + + + + | Specimen | Performing Laboratory | + + + | | [facility] [address] [place] [address] | + + + Body Fluid Cell Count (08/11/2017 1:15 PM) + + + + | Component | Value | Ref Range | + + + + | FLUID TYPE | PLEURAL FLUID | | + + + + | COLOR | YELLOW | | + + + + | APPEARANCE | CLOUDY | | + + + + | RBC'S | <87158 | /mm3 | + + + + | TOTAL NUCLEATED | 6,180 | /mm3 | | CELLS | | | + + + + | NEUTROPHILS | 88 | % | + + + + | LYMPHOCYTES | 6 | % | + + + + | MONOCYTES/MACROPHAGE | 6 | % | | S | | | + + + + | CELLS COUNTED | 100Comment: Testing performed at [facility];[address] | | | | [address];[place] [address] | | + + + + + + + | Specimen | Performing Laboratory | + + + | Body Fluid - Pleural | [facility] [address] [facility] [place] [address] | | Fluid | | + + + pH, body fluid (08/11/2017 1:15 PM) + + + + | Component | Value | Ref Range | + + + + | FLUID PH | 7.64Comment: Testing performed at [facility];[address] | | | | [facility];[place] [address] | | + + + + + + + | Specimen | Performing Laboratory | + + + | Body Fluid - Pleural | [address] [address] | | Fluid | | + + + Lactate dehydrogenase, body fluid (08/11/2017 1:15 PM) + + + + | Component | Value | Ref Range | + + + + | FLUID LDH | 490Comment: This is not a doll wig maker | U/L | | | validated sample type for this method. No | | | | reference ranges have been | | | | established.Testing performed at [facility], [address] | | | | [place] [address] | | + + + + + + + | Specimen | Performing Laboratory | + + + | Body Fluid - Pleural | [facility] [address] [place] [address] [address] [place], | | Fluid | [place] [address] | + + + Glucose, body fluid (08/11/2017 1:15 PM) + + + + | Component | Value | Ref Range | + + + + | FLUID GLUCOSE | 109Comment: This is not a doll wig maker | mg/dL | | | validated sample type for this method. No | | | | reference ranges have been | | | | established.Testing performed at [facility], [address] | | | | [address] [facility], [place] [address] | | + + + + | Glucose, Fluid Type | PLEURAL FLUIDComment: Testing performed at | | | | [facility];[address] [facility];[place] [address] | | + + + + + + + | Specimen | Performing Laboratory | + + + | Body Fluid - Pleural | [facility] [address] [facility] [place] [place] [address] | | Fluid | | + + + Fluid total protein (Body fluid) (08/11/2017 1:15 PM) + + + + | Component | Value | Ref Range | + + + + | FLUID TOTAL PROTEIN | 3.0Comment: This is not a doll wig maker | g/dL | | | validated sample type for this method. No | | | | reference ranges have been | | | | established.Testing performed at [facility], [address] | | | | [address] [facility] [place] [address] | | + + + + | FLUID TP SOURCE | PLEURAL FLUIDComment: Testing performed at | | | | [facility];[address] [place] [address];[place] [address] | | + + + + + + + | Specimen | Performing Laboratory | + + + | Body Fluid - Pleural | [address] [address] | | Fluid | | + + + FLUID CULT W/GRAM STAIN (08/11/2017 1:15 PM) + + + + | Component | Value | Ref Range | + + + + | Specimen Description | PLEURAL FLUID | | + + + + | GRAM STAIN | 2+ | | + + + + | GRAM STAIN | WBC'S SEEN | | + + + + | GRAM STAIN | NO ORGANISMS SEEN | | + + + + | CULTURE | NO GROWTH 4 DAYS | | + + + + + + + | Specimen | Performing Laboratory | + + + | Body Fluid - Pleural | [facility] [address] [place], | | Fluid | [place] [address] | + + + Protime-INR (08/11/2017 5:46 AM) + + + + | Component | Value | Ref Range | + + + + | INR | 1.2Comment: REFERENCE RANGE:0.9 - | | | | 1.2 NON-ANTICOAGULATED2.0 - 3.0 ALL | | | | OTHER THERAPEUTIC INDICATIONS2.5 - 3.5 | | | | MECHANICAL HEART VALVES, RECURRENT OR | | | | SYSTEMIC EMBOLISMTesting performed at | | | | [facility];[address] [facility];[place] [address] | | | |Testing performed at [facility];[address] [place] [address];[place] [address] | | | | | | + + + + + + + | Specimen | Performing Laboratory | + + + | Blood | [facility] [address] [facility] [place] [address] | + + + aPTT (08/11/2017 5:46 AM) + + + + | Component | Value | Ref Range | + + + + | APTT | 39 (H)Comment: Testing performed at [facility];[address] | 23 - 32 seconds | | | [address];[place] [address] | | + + + + + + + | Specimen | Performing Laboratory | + + + | Blood | [facility] [address] [place] [address] [place] [address] | + + + Phosphorus (08/11/2017 5:46 AM) + + + + | Component | Value | Ref Range | + + + + | PHOSPHORUS | 3.2Comment: Testing performed at [facility], [address] | 2.3 - 4.8 mg/dL | | | [place] [address] | | + + + + + + + | Specimen | Performing Laboratory | + + + | Blood | [facility] [address] [place] [address] [address] [place], | | | [place] [address] | + + + Magnesium (08/11/2017 5:46 AM) + + + + | Component | Value | Ref Range | + + + + | MAGNESIUM | 2.3Comment: Testing performed at [facility], [address] | 1.7 - 2.4 mg/dL | | | [facility] [place] [address] | | + + + + + + + | Specimen | Performing Laboratory | + + + | Blood | [facility] [address] [place], [place] [address], | | | [place] [address] | + + + Comprehensive metabolic panel (08/11/2017 5:46 AM) + + + + | Component | Value | Ref Range | + + + + | SODIUM | 137 | 135 - 145 mmol/L | + + + + | POTASSIUM | 3.5 | 3.5 - 4.9 mmol/L | + + + + | CHLORIDE | 95 (L) | 99 - 109 mmol/L | + + + + | CO2 | 35 (H) | 23 - 32 mmol/L | + + + + | ANION GAP AGAP | 11 | 5 - 20 mmol/L | + + + + | GLUCOSE | 129 (H) | 65 - 99 mg/dL | + + + + | BUN | 17 | 8 - 25 mg/dL | + + + + | CREATININE | 0.4 (L) | 0.50 - 1.00 mg/dL | + + + + | BUN/CREAT | 43 | | + + + + | CALCIUM | 8.4 (L) | 8.5 - 10.5 mg/dL | + + + + | TOTAL PROTEIN | 5.9 (L) | 6.3 - 8.2 g/dL | + + + + | Albumin | 1.6 (L) | 3.3 - 4.8 g/dL | + + + + | GLOBULIN | 4.3 | 1.3 - 4.9 g/dL | + + + + | A/G | 0.4 (L) | 1.0 - 2.4 | + + + + | TBIL | 0.4 | 0.1 - 1.5 mg/dL | + + + + | ALK PHOS | 497 (H) | 35 - 115 U/L | + + + + | AST | 18 | 10 - 45 U/L | + + + + | ALT | 7 (L) | 10 - 65 U/L | + + + + | EGFR | >60Comment: GFR <60: CHRONIC KIDNEY | >60 mL/min/1.73m2 | | | DISEASE, IF FOUND OVER A 3 MONTH PERIOD.GFR | | | | <15: KIDNEY FAILURE.FOR AMERICANS, | | | | MULTIPLY THE CALCULATED GFR BY | | | | 1.210.Testing performed at [facility], [address] | | | | [place] [address] | | | | | | + + + + + + + | Specimen | Performing Laboratory | + + + | Blood | [address] [place], | | | [place] [address] | + + + CBC W/Auto Diff (Reflex to Manual) (08/11/2017 5:46 AM) + + -----+ + | Component | Value | Ref Range | + + -----+ + | WBC | 10.80 | 3.80 - 11.00 K/uL | + + -----+ + | RBC | 3.24 (L) | 3.70 - 5.10 M/uL | + + -----+ + | HGB | 8.7 (L) | 11.3 - 15.5 g/dL | + + -----+ + | HCT | 25.9 (L) | 34.0 - 46.0 % | + + -----+ + | MCV | 80.0 | 80.0 - 100.0 fl | + + -----+ + | MCH | 26.9 (L) | 27.0 - 34.0 pg | + + -----+ + | MCHC | 33.7 | 32.0 - 35.5 g/dL | + + -----+ + | RDW SD | 51.2 | 37 - 53 fl | + + -----+ + | PLT | 277 | 150 - 400 K/uL | + + -----+ + | MPV | 7.1 | fl | + + -----+ + | DIFF TYPE | MANUAL | | + + -----+ + | nRBC | 1 (H) | 0 /100WBC | + + -----+ + | Neutrophils Manual | 83 | % | + + -----+ + | Bands | 1 | % | + + -----+ + | Lymphocytes Manual | 11 | % | + + -----+ + | Monocytes Manual | 5 | % | + + -----+ + | Neutrophils Absolute | 8.96 (H) | 1.90 - 7.40 K/uL | + + -----+ + | Bands Manual | 0.11 | 0.00 - 0.20 K/uL | + + -----+ + | Lymphocytes Absolute | 1.19 | 1.00 - 3.90 K/uL | + + -----+ + | Monocytes Absolute | 0.54 | 0.00 - 0.80 K/uL | + + -----+ + | MORPHOLOGY | NORMAL PLT MORPHComment: | | | | 1+ANISO2+POLYTesting performed at [facility], [address] | | | | [place] [address] | | | |ANISO | | | |2+ | | | |POLY | | | |Testing performed at [facility], [facility] [address] [place], [place] [address] | | | | | | + + -----+ + + + + | Specimen | Performing Laboratory | + + + | Blood | [facility] [address] [place] [address] [address] [place], | | | [place] [address] | + + + POC Arterial Blood Gas (08/10/2017 7:17 PM) + + + + | Component | Value | Ref Range | + + + + | POC FIO2 | 8 | % | + + + + | pH, Art | 7.531 (H) | 7.350 - 7.450 | + + + + | POC PCO2 | 47 (H) | 35 - 45 mmHg | + + + + | POC p02 | 61 (L) | 80 - 105 mmHg | + + + + | POC HCO3 | 39 (H) | 22 - 26 mmol/L | + + + + | POC TCO2 | 41 (H) | 23 - 27 mEq/L | + + + + | POC BASE EXCESS | 16 (H) | 0 - 3 mEq/L | + + + + | POC S02 | 93 (L) | 95 - 98 % | + + + + | POC COMMENTS | Modified Timothy Test passedComment: Testing | | | | performed at [facility];[address];[place] | | | | [address] | | + + + + + + + | Specimen | Performing Laboratory | + + + | | [facility] [address] [place] [address] | + + + CT chest without contrast (08/10/2017 10:39 AM) + + + | Specimen | Performing Laboratory | + + + | | [facility] [address] [place] [address] | + + + + + | Impressions | + + | 1. I suspect metastatic adenopathy in the right paratracheal region, with collapse | | of the right lower lobe and partial collapse of the right middle lobe. I cannot exclude | | mass in the right perihilar region. PET CT is suggested for further evaluation. | | 2. Large right and small left effusions. 3. Nodular and nodular infiltrative | | changes of the left lung as described. 4. Centrilobular emphysematous change. | | 5. Mixed lytic and blastic bony metastatic disease throughout the visualized osseous | | skeleton. | + + + + | Narrative | + + | HISTORY: Pneumonia. Lactic acidosis. Weight gangrene left foot. COMPARISON: | | Chest x-ray previous day. CTA abdomen 07/18/17. TECHNIQUE: 5-mm axial CT images | | were acquired using automated exposure control through the chest. Oral Contrast: None | | IV contrast: None. FINDINGS: Bulky adenopathy in the right paratracheal region, | | poorly defined sequence 3 image 25 measuring 5.1 x 4.1 cm, sequence 3 image 18 measuring | | 3.7 x 2.9 cm. There is collapse of the right lower lobe, and of most of the right | | middle lobe. Mass in the hilar region cannot be excluded. Mild centrilobular | | emphysematous change in the upper lung zones. There are large right and small left | | pleural effusions, increased compared with previous chest x-ray. Subtle infiltrative | | change in the posterior left upper lobe perhaps due to edema or atelectasis, with | | minimal airspace infiltrate in the lateral left apex sequence 6 image 21. Nodularity is | | seen in the pleural-based anterior left upper lobe sequence 6 image 48 measuring 3 mm, | | image 61 measuring 4 mm, image 63 and 2 areas of the adjacent anterior left upper lobe | | measuring 5 x 2 mm, and 4 x 2 mm with smaller similar adjacent areas image 69. | | Infiltrative nodule in the anterior left upper lobe image 73 measuring 4 mm, with 1.5 mm | | nodule in the anterior left upper lobe image 74. 5 mm nodule in the anterior left upper | | lobe abutting the major fissure image 105. Nodular infiltrative change image 137 in the | | anterior lingula. Nodular changes along the major fissure image 150 measuring up to | | 8mm. Probable strandy atelectasis along the anterior right middle lobe image 123 | | measuring 8 x 5 mm. No definite right lung nodules. Extensive right lower lobe and right | | middle lobe with minimal posterior right upper lobe presumed atelectasis. Bone | | windows show extensive mixed lytic and sclerotic foci throughout the entire visualized | | axial and appendicular skeleton of the chest. No compression fractures. | + + + -----+ | Procedure Note | + -----+ | Jorge, Rad Results In - 08/10/2017 11:23 AM PDT HISTORY:Pneumonia. Lactic acidosis. | | Weight gangrene left foot.COMPARISON:Chest x-ray previous day. CTA abdomen | | 07/18/17.TECHNIQUE:5-mm axial CT images were acquired using automated exposure control | | through the chest.Oral Contrast: NoneIV contrast: None.FINDINGS:Bulky adenopathy in the | | right paratracheal region, poorly defined sequence 3 image 25 measuring 5.1 x 4.1 cm, | | sequence 3 image 18 measuring 3.7 x 2.9 cm.There is collapse of the right lower lobe, | | and of most of the right middle lobe. Mass in the hilar region cannot be excluded.Mild | | centrilobular emphysematous change in the upper lung zones. There are large right and | | small left pleural effusions, increased compared with previous chest x-ray.Subtle | | infiltrative change in the posterior left upper lobe perhaps due to edema or | | atelectasis, with minimal airspace infiltrate in the lateral left apex sequence 6 image | | 21. Nodularity is seen in the pleural-based anterior left upper lobe sequence 6 image 48 | | measuring 3 mm, image 61 measuring 4 mm, image 63 and 2 areas of the adjacent anterior | | left upper lobe measuring 5 x 2 mm, and 4 x 2 mm with smaller similar adjacent areas | | image 69. Infiltrative nodule in the anterior left upper lobe image 73 measuring 4 mm, | | with 1.5 mm nodule in the anterior left upper lobe image 74. 5 mm nodule in the anterior | | left upper lobe abutting the major fissure image 105. Nodular infiltrative change image | | 137 in the anterior lingula. Nodular changes along the major fissure image 150 | | measuring up to 8mm.Probable strandy atelectasis along the anterior right middle lobe | | image 123 measuring 8 x 5 mm. No definite right lung nodules. Extensive right lower lobe | | and right middle lobe with minimal posterior right upper lobe presumed atelectasis.Bone | | windows show extensive mixed lytic and sclerotic foci throughout the entire visualized | | axial and appendicular skeleton of the chest. No compression fractures.IMPRESSION:1. I | | suspect metastatic adenopathy in the right paratracheal region, with collapse of the | | right lower lobe and partial collapse of the right middle lobe. I cannot exclude mass in | | the right perihilar region. PET CT is suggested for further evaluation.2. Large right | | and small left effusions.3. Nodular and nodular infiltrative changes of the left lung | | as described.4. Centrilobular emphysematous change.5. 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 | |3. Nodular and nodular infiltrative changes of the left lung as described. | |4. Centrilobular emphysematous change. | |5. 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 | | | | | + -----+ Echo cardiac adult complete (08/10/2017 9:19 AM) + +-------+ + | Component | Value | Ref Range | + +-------+ + | LV EF | 70 | 50 - 70 % | + +-------+ + + + + | Specimen | Performing Laboratory | + + + | | [facility] [place] [address] | + + + + + | Impressions | + + | 1. This was a technically difficult study with suboptimal views. 2. Overall left | | ventricular systolic function is normal with, an EF between 65 - 70 %. 3. The right | | ventricle is mildly enlarged, but right ventricular systolic function is normal. 4. | | There is mild pulmonary hypertension. 5. The aortic root is mildly dilated, limited to | | the sinuses of Valsalva, measuring up to 40 mm. 6. No significant valvular abnormalities | | were noted. | + + + + | Narrative | + + | Patient Name: CARMEN KAHN Date of : 1955 | | Performing Physician: AMARA CHAUDHARY MD | | INDICATIONS | | sob,bipap CONCLUSIONS 1. This was a technically difficult | | study with suboptimal views. 2. Overall left ventricular systolic function is normal | | with, an EF between 65 - 70 %. 3. The right ventricle is mildly enlarged, but right | | ventricular systolic function is normal. 4. There is mild pulmonary hypertension. 5. | | The aortic root is mildly dilated, limited to the sinuses of Valsalva, measuring up to | | 40 mm. 6. No significant valvular abnormalities were noted. FINDINGS -------- ECG | | rhythm: Sinus rhythm. Study: A 2-dimensional transthoracic echocardiogram with m-mode, | | spectral and color flow Doppler was perfomed. Study: This was a technically difficult | | study with suboptimal views. Left Ventricle: Overall left ventricular systolic function | | is normal with, an EF between 65 - 70 %. Left Ventricle: The left ventricle cavity | | size is normal. Left Ventricle: Left ventricular wall thickness is normal. A | | Left Ventricle: ssessment of diastolic function yielded indeterminate results. Right | | Ventricle: The right ventricle is mildly enlarged measuring 3.6 cm. Right Ventricle: | | The right ventricular systolic function is normal. Left Atrium: The left atrial size is | | normal. Right Atrium: The right atrial size is normal. Aortic Valve: The aortic valve | | was not well visualized. Aortic Valve: There is no evidence of aortic stenosis. | | Mitral Valve: No mitral stenosis or regurgitation. Mitral Valve: No evidence of MVP. | | Mitral Valve: There is mild calcification of the anterior mitral valve leaflet. | | Mitral Valve: There is mild calcification of the posterior mitral valve leaflet. | | Tricuspid Valve: The tricuspid valve appears structurally normal. Tricuspid Valve: | | Trace tricuspid regurgitation present. Tricuspid Valve: There is mild pulmonary | | hypertension. Tricuspid Valve: The right ventricular systolic pressure (pulmonary | | artery systolic pressure), as measured by Doppler, is 39 - 44 mm Hg. Pulmonic Valve: | | The pulmonic valve was not well visualized. Pericardium: Anterior echo free space | | present. IVC/Hepatic Veins: The IVC is normal size (1.5-2.5cm) and collapses >50% with | | sniff, consistent with central venous pressures of 5-10mmHg. Aorta: The aortic root is | | mildly dilated, limited to the sinuses of Valsalva, measuring up to 40 mm. Mass: No | | mass visualized Thrombus: No clot visualized Thrombus: No vegetation visualized. | | MEASUREMENTS Ao asc: 3.98 cm Ao sinus: 3.[address] | | junct: 2.78 cm IVC: 2.14 cm LA Diam: 3.59 cm LA Major: 4.50 cm | | EDV(Teich): 82.10 ml IVSd: 0.97 cm LVIDd: 4.27 cm LVPWd: 1.00 cm | | LVOT Diam: 1.98 cm %FS: 41.62 % EF(Teich): 72.87 % ESV(Teich): 22.27 | | ml IVSs: 1.36 cm LVIDs: 2.49 cm LVPWs: 1.47 cm SV(Teich): 59.83 ml | | RA Major: 4.66 cm RVIDd: 3.59 cm LAESV(A-L): 40.28 ml LAESV Index | | (A-L): 20.34 ml/m2 LAAs A2C: 15.95 cm2 LAESV A-L A2C: 39.38 ml LALs | | A2C: 5.48 cm LAAs A4C: 13.35 cm2 LAESV A-L A4C: 33.72 ml LALs A4C: | | 4.48 cm Ao Diam: 3.31 cm D-E Excursion: 2.18 cm E-F Kershaw: 0.03 m/s | | EPSS: 0.41 cm TAPSE: 2.10 cm HR: 93.72 BPM AV maxP.31 mmHg AV | | meanP.60 mmHg AV Vmax: 1.52 m/s AV Vmean: 1.00 m/s AV VTI: 27.04 | | cm VARGHESE Vmax: 3.01 cm2 VARGHESE (VTI): 2.98 cm2 AVAI Vmax: 0.00 cm2/m2 AVAI | | (VTI): 0.00 cm2/m2 LVCI Dopp: 3.64 l/minm2 LVCO Dopp: 7.21 l/min HR: | | 89.38 BPM LVOT maxP.91 mmHg LVOT meanP.95 mmHg LVSI Dopp: 40.78 | | ml/m2 LVSV Dopp: 80.74 ml LVOT Vmax: 1.49 m/s LVOT Vmean: 0.92 m/s LVOT | | VTI: 26.16 cm MV A Maurice: 1.14 m/s MV DecT: 175.09 ms MV E Maurice: 1.01 | | m/s MV E/A Ratio: 0.88 MV PHT: 49.76 ms MVA By PHT: 4.42 cm2 MV A | | Dur: 141.86 ms MV maxP.98 mmHg MV meanP.49 mmHg MV Vmax: 1.32 | | m/s MV Vmean: 0.87 m/s MV VTI: 25.86 cm MVA (VTI): 3.12 cm2 Septal | | e': 0.07 m/s Septal E/e': 14.33 Lateral e': 0.10 m/s Lateral E/e': | | 9.59 HR: 88.92 BPM PV maxP.42 mmHg PV meanP.15 mmHg PV | | Vmax: 1.36 m/s PV Vmean: 0.81 m/s PV VTI: 22.77 cm RAP: 3 mmHg RV | | S': 0.12 m/s RVSP: 37.29 mmHg TR maxP.29 mmHg TR Vmax: 2.92 m/s | | TV A Maurice: 0.66 m/s TV Dec Kershaw: 4.09 m/s2 TV Dec Time: 135.89 ms TV E | | Maurice: 0.55 m/s TV E/A Ratio: 0.84 Negative Stripper: EDWARD Authenticated | | by: AMARA CHAUDHARY MD Report Date/Time: 08-10-2017 16:30:17 | + + + + | Procedure Note | + + | Bob Patel In - 08/10/2017 4:40 PM PDT Patient Name: Geri KAHN of | | : 5Accession: [id number] Physician: AMARA CHAUDHARY MD | | INDICATIONS sob | | ,bipapCONCLUSIONS 1. This was a technically difficult study with suboptimal | | views.2. Overall left ventricular systolic function is normal with, an EF between 65 - | | 70 %.3. The right ventricle is mildly enlarged, but right ventricular systolic function | | is normal.4. There is mild pulmonary hypertension.5. The aortic root is mildly dilated, | | limited to the sinuses of Valsalva, measuring up to 40 mm. 6. No significant valvular | | abnormalities were noted.FINDINGS--------ECG rhythm: Sinus rhythm.Study: A 2-dimensional | | transthoracic echocardiogram with m-mode, spectral and color flow Doppler was perfomed. | | Study: This was a technically difficult study with suboptimal views.Left Ventricle: | | Overall left ventricular systolic function is normal with, an EF between 65 - 70 %. Left | | Ventricle: The left ventricle cavity size is normal. Left Ventricle: Left ventricular | | wall thickness is normal. A Left Ventricle: ssessment of diastolic function yielded | | indeterminate results.Right Ventricle: The right ventricle is mildly enlarged measuring | | 3.6 cm. Right Ventricle: The right ventricular systolic function is normal.Left Atrium: | | The left atrial size is normal.Right Atrium: The right atrial size is normal.Aortic | | Valve: The aortic valve was not well visualized. Aortic Valve: There is no evidence of | | aortic stenosis.Mitral Valve: No mitral stenosis or regurgitation. Mitral Valve: No | | evidence of MVP. Mitral Valve: There is mild calcification of the anterior mitral valve | | leaflet. Mitral Valve: There is mild calcification of the posterior mitral valve | | leaflet.Tricuspid Valve: The tricuspid valve appears structurally normal. Tricuspid | | Valve: Trace tricuspid regurgitation present. Tricuspid Valve: There is mild pulmonary | | hypertension. Tricuspid Valve: The right ventricular systolic pressure (pulmonary artery | | systolic pressure), as measured by Doppler, is 39 - 44 mm Hg.Pulmonic Valve: The | | pulmonic valve was not well visualized.Pericardium: Anterior echo free space | | present.IVC/Hepatic Veins: The IVC is normal size (1.5-2.5cm) and collapses >50% with | | sniff, consistent with central venous pressures of 5-10mmHg.Aorta: The aortic root is | | mildly dilated, limited to the sinuses of Valsalva, measuring up to 40 mm.Mass: No mass | | visualizedThrombus: No clot visualized Thrombus: No vegetation | | visualized.MEASUREMENTS Ao asc: 3.98 cmAo sinus: 3.[address] junct: | | 2.78 cmIVC: 2.14 cmLA Diam: 3.59 cmLA Major: 4.50 cmEDV(Teich): 82.10 mlIVSd: | | 0.97 cmLVIDd: 4.27 cmLVPWd: 1.00 cmLVOT Diam: 1.98 cm%FS: 41.62 %EF(Teich): | | 72.87 %ESV(Teich): 22.27 mlIVSs: 1.36 cmLVIDs: 2.49 cmLVPWs: 1.47 cmSV(Teich): | | 59.83 mlRA Major: 4.66 cmRVIDd: 3.59 cmLAESV(A-L): 40.28 mlLAESV Index (A-L): | | 20.34 ml/m2LAAs A2C: 15.95 [id number] A-L A2C: 39.38 mlLALs A2C: 5.48 cmLAAs A4C: | | 13.35 [id number] A-L A4C: 33.72 mlLALs A4C: 4.48 cmAo Diam: 3.31 cmD-E Excursion: | | 2.18 cmE-F Kershaw: 0.03 m/sEPSS: 0.41 cmTAPSE: 2.10 cmHR: 93.72 BPMAV maxPG: | | 9.31 mmHgAV meanP.60 mmHgAV Vmax: 1.52 m/Melina Vmean: 1.00 m/Melina VTI: 27.04 | | cmAVA Vmax: 3.01 cm2AVA (VTI): 2.98 [id number] Vmax: 0.00 cm2/m2AVAI (VTI): 0.00 | | cm2/m2LVCI Dopp: 3.64 l/ckcg7FALI Dopp: 7.21 l/minHR: 89.38 BPMLVOT maxP.91 | | mmHgLVOT meanP.95 mmHgLVSI Dopp: 40.78 ml/m2LVSV Dopp: 80.74 mlLVOT Vmax: | | 1.49 m/sLVOT Vmean: 0.92 m/sLVOT VTI: 26.16 cmMV A Maurice: 1.14 m/sMV DecT: 175.09 | | msMV E Maurice: 1.01 m/sMV E/A Ratio: 0.88 MV PHT: 49.76 msMVA By PHT: 4.42 cm2MV A | | Dur: 141.86 msMV maxP.98 mmHgMV meanP.49 mmHgMV Vmax: 1.32 m/sMV Vmean: | | 0.87 m/sMV VTI: 25.86 cmMVA (VTI): 3.12 [id number] e': 0.07 m/sSeptal E/e': | | 14.33 Lateral e': 0.10 m/sLateral E/e': 9.59 HR: 88.92 BPMPV maxP.42 mmHgPV | | meanP.15 mmHgPV Vmax: 1.36 m/sPV Vmean: 0.81 m/sPV VTI: 22.77 cmRAP: 3 | | mmHgRV S': 0.12 m/sRVSP: 37.29 mmHgTR maxP.29 mmHgTR Vmax: 2.92 m/sTV A | | Maurice: 0.66 m/sTV Dec Kershaw: 4.09 m/s2TV Dec Time: 135.89 msTV E Maurice: 0.55 m/sTV | | E/A Ratio: 0.84 Negative Stripper: CMAuthenticated by: Bry COOK Date/Time: | | 08-10-2017 16:30:17IMPRESSION:1. This was a technically difficult study with suboptimal | | views.2. Overall left ventricular systolic function is normal with, an EF between 65 - | | 70 %.3. The right ventricle is mildly enlarged, but right ventricular systolic function | | is normal.4. There is mild pulmonary hypertension.5. The aortic root is mildly dilated, | | limited to the sinuses of Valsalva, measuring up to 40 mm. 6. No significant valvular | | abnormalities were noted. | |LA Diam: 3.59 cm | |LA Major: 4.50 cm | |EDV(Teich): 82.10 ml | |IVSd: 0.97 cm | |LVIDd: 4.27 cm | |LVPWd: 1.00 cm | |LVOT Diam: 1.98 cm | |%FS: 41.62 % | |EF(Teich): 72.87 % | |ESV(Teich): 22.27 ml | |IVSs: 1.36 cm | |LVIDs: 2.49 cm | |LVPWs: 1.47 cm | |SV(Teich): 59.83 ml | |RA Major: 4.66 cm | |RVIDd: 3.59 cm | |LAESV(A-L): 40.28 ml | |LAESV Index (A-L): 20.34 ml/m2 | |LAAs A2C: 15.95 cm2 | |LAESV A-L A2C: 39.38 ml | |LALs A2C: 5.48 cm | |LAAs A4C: 13.35 cm2 | |LAESV A-L A4C: 33.72 ml | |LALs A4C: 4.48 cm | |Ao Diam: 3.31 cm | |D-E Excursion: 2.18 cm | |E-F Kershaw: 0.03 m/s | |EPSS: 0.41 cm | |TAPSE: 2.10 cm | |HR: 93.72 BPM | |AV maxP.31 mmHg | |AV meanP.60 mmHg | |AV Vmax: 1.52 m/s | |AV Vmean: 1.00 m/s | |AV VTI: 27.04 cm | |VARGHESE Vmax: 3.01 cm2 | |VARGHESE (VTI): 2.98 cm2 | |AVAI Vmax: 0.00 cm2/m2 | |AVAI (VTI): 0.00 cm2/m2 | |LVCI Dopp: 3.64 l/minm2 | |LVCO Dopp: 7.21 l/min | |HR: 89.38 BPM | |LVOT maxP.91 mmHg | |LVOT meanP.95 mmHg | |LVSI Dopp: 40.78 ml/m2 | |LVSV Dopp: 80.74 ml | |LVOT Vmax: 1.49 m/s | |LVOT Vmean: 0.92 m/s | |LVOT VTI: 26.16 cm | |MV A Maurice: 1.14 m/s | |MV DecT: 175.09 ms | |MV E Maurice: 1.01 m/s | |MV E/A Ratio: 0.88 | |MV PHT: 49.76 ms | |MVA By PHT: 4.42 cm2 | |MV A Dur: 141.86 ms | |MV maxP.98 mmHg | |MV meanP.49 mmHg | |MV Vmax: 1.32 m/s | |MV Vmean: 0.87 m/s | |MV VTI: 25.86 cm | |MVA (VTI): 3.12 cm2 | |Septal e': 0.07 m/s | |Septal E/e': 14.33 | |Lateral e': 0.10 m/s | |Lateral E/e': 9.59 | |HR: 88.92 BPM | |PV maxP.42 mmHg | |PV meanP.15 mmHg | |PV Vmax: 1.36 m/s | |PV Vmean: 0.81 m/s | |PV VTI: 22.77 cm | |RAP: 3 mmHg | |RV S': 0.12 m/s | |RVSP: 37.29 mmHg | |TR maxP.29 mmHg | |TR Vmax: 2.92 m/s | |TV A Maurice: 0.66 m/s | |TV Dec Kershaw: 4.09 m/s2 | |TV Dec Time: 135.89 ms | |TV E Maurice: 0.55 m/s | |TV E/A Ratio: 0.84 | | | |Negative Stripper: CM | |Authenticated by: AMARA CHAUDHARY MD | |Report Date/Time: 08-10-2017 16:30:17 | | | |IMPRESSION: | |1. This was a technically difficult study with suboptimal views. | |2. Overall left ventricular systolic function is normal with, an EF between 65 - 70 %. | |3. The right ventricle is mildly enlarged, but right ventricular systolic function is amie l. | |4. There is mild pulmonary hypertension. | |5. The aortic root is mildly dilated, limited to the sinuses of Valsalva, measuring up to 4 0 mm. 6. No significant valvular abnormalities were noted. | + + aPTT (08/10/2017 5:03 AM) + + + + | Component | Value | Ref Range | + + + + | APTT | 72 (H)Comment: Testing performed at [facility];[address] | 23 - 32 seconds | | | [facility];[place] [address] | | + + + + + + + | Specimen | Performing Laboratory | + + + | | [facility] [address] [facility] [place] [address] | + + + Brain natriuretic peptide (08/10/2017 5:03 AM) + + + + | Component | Value | Ref Range | + + + + | BRAIN NATRIURETIC | 60.5Comment: Testing performed at [facility] | 0 - 100 pg/mL | | PEPTIDE | [facility];[place] [address] | | + + + + + + + | Specimen | Performing Laboratory | + + + | | [facility] [place] [address] | + + + CBC W/Auto Diff (Reflex to Manual) (08/10/2017 5:03 AM) + + -----+ + | Component | Value | Ref Range | + + -----+ + | WBC | 9.98 | 3.80 - 11.00 K/uL | + + -----+ + | RBC | 3.30 (L) | 3.70 - 5.10 M/uL | + + -----+ + | HGB | 8.9 (L) | 11.3 - 15.5 g/dL | + + -----+ + | HCT | 26.5 (L) | 34.0 - 46.0 % | + + -----+ + | MCV | 80.5 | 80.0 - 100.0 fl | + + -----+ + | MCH | 27.0 | 27.0 - 34.0 pg | + + -----+ + | MCHC | 33.5 | 32.0 - 35.5 g/dL | + + -----+ + | RDW SD | 50.8 | 37 - 53 fl | + + -----+ + | PLT | 249 | 150 - 400 K/uL | + + -----+ + | MPV | 6.8 | fl | + + -----+ + | DIFF TYPE | MANUAL | | + + -----+ + | nRBC | 1 (H) | 0 /100WBC | + + -----+ + | Neutrophils Manual | 75 | % | + + -----+ + | Bands | 6 | % | + + -----+ + | METAMYELOCYTES | 1 | % | + + -----+ + | Lymphocytes Manual | 12 | % | + + -----+ + | Monocytes Manual | 6 | % | + + -----+ + | Neutrophils Absolute | 7.48 (H) | 1.90 - 7.40 K/uL | + + -----+ + | Bands Manual | 0.60 (H) | 0.00 - 0.20 K/uL | + + -----+ + | Metamyelocytes | 0.10 (H) | 0.00 K/uL | | Absolute | | | + + -----+ + | Lymphocytes Absolute | 1.20 | 1.00 - 3.90 K/uL | + + -----+ + | Monocytes Absolute | 0.60 | 0.00 - 0.80 K/uL | + + -----+ + | MORPHOLOGY | 1+Comment: | | | | ANISO1+POLY1+HYPO1+STIPPLINGNORMAL PLT | | | | MORPHTesting performed at [facility], [address] | | | | [place] [address] | | | |POLY | | | |1+ | | | |HYPO | | | |1+ | | | |STIPPLING | | | |NORMAL PLT MORPH | | | |Testing performed at [facility], [address] [place] [address] | | | | | | + + -----+ + + + + | Specimen | Performing Laboratory | + + + | | [facility] [address] [facility] | | | [place] [address] | + + + Renal function panel (08/10/2017 5:03 AM) + + + + | Component | Value | Ref Range | + + + + | SODIUM | 135 | 135 - 145 mmol/L | + + + + | POTASSIUM | 3.9 | 3.5 - 4.9 mmol/L | + + + + | CHLORIDE | 95 (L) | 99 - 109 mmol/L | + + + + | CO2 | 29 | 23 - 32 mmol/L | + + + + | ANION GAP AGAP | 15 | 5 - 20 mmol/L | + + + + | GLUCOSE | 133 (H) | 65 - 99 mg/dL | + + + + | BUN | 12 | 8 - 25 mg/dL | + + + + | CREATININE | 0.6 | 0.50 - 1.00 mg/dL | + + + + | CALCIUM | 8.1 (L) | 8.5 - 10.5 mg/dL | + + + + | Albumin | 1.7 (L) | 3.3 - 4.8 g/dL | + + + + | PHOSPHORUS | 4.9 (H) | 2.3 - 4.8 mg/dL | + + + + | EGFR | >60Comment: GFR <60: CHRONIC KIDNEY | >60 mL/min/1.73m2 | | | DISEASE, IF FOUND OVER A 3 MONTH PERIOD.GFR | | | | <15: KIDNEY FAILURE.FOR AMERICANS, | | | | MULTIPLY THE CALCULATED GFR BY | | | | 1.210.Testing performed at [facility], [address] | | | | [place] [address] | | | | | | + + + + + + + | Specimen | Performing Laboratory | + + + | Blood | [facility] [address] [facility] [place], | | | [place] [address] | + + + Pathology histology - tissue (08/10/2017) + + + | Specimen | Performing Laboratory | + + + | Tissue | [facility] | + + + + + | Narrative | + + | SPECIMEN(S): A Lt. LEG SPECIMEN SOURCE: A. Lt. LEG CLINICAL HISTORY: 08/07/2017 | | at 1523 H. Gangrene left foot/leg. 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 See | | comment. -Moderate arteriosclerosis. COMMENT: The end soft tissues of | | resection margin are histologically viable and non-inflamed. WGR:rds:[id number] GROSS | | DESCRIPTION: One specimen is received in one container, labeled with the patient's | | name: A. Received fresh designated "left leg " consists of a left tvedz-aox-xgsn | | amputated leg that is 52.5 cm from uikt-ti-zmkwdrerx margin and has a calf circumference | | of 37.4 cm. The 24.5 x 8.3 cm foot is present and displays 5 digits with red and pink | | toenails. Present on the dorsal surface of the foot and involving the dorsal aspects of | | the first 4 digits is a red ulcerated lesion that is a 10.5 x 10.3 cm. The skin | | surrounding this lesion displays marking skin slippage. The anterior mckoy displays a 1.5 | | x 1.3 cm ulcerated yellow-red lesion that is a greater than 20 cm from the closest soft | | tissue resection margin. The popliteal vessels display approximately 20 % occlusion. | | The anterior tibial vessels display areas of yellow calcification with less than 10% | | occlusion. The posterior tibial vessels display less than 10% occlusion. The surgical | | resection margin is grossly viable with a portion of distal femur that extends 3 cm | | proximally. Classifier Tender sections are submitted in three cassettes. Cassette | | summary: (A1) soft tissue resection margin, shave and popliteal vessels; (A2) | | ulcerated lesion on the dorsal foot and anterior tibial vessels; (A3) ulcerated lesion | | on mckoy and posterior tibial vessels. The gross description section of this | | report has been prepared using a voice recognition system. The report was reviewed for | | accuracy, however, sound-alike word errors, addition and/or deletions may occur. If | | there is any question about this report please contact the originating pathologist. | | MICROSCOPIC EXAMINATION: Histologic sections of all submitted blocks are examined by | | light microscopy. These findings, together with the gross examination, support the | | pathologic diagnosis. PERFORMING LABORATORY: Professional interpretation and technical | | preparation was performed by [facility], [facility], [address] | [place] [address] (Equipment Specialist: Barry Barnett M.D.; | | [facility]#: [id number]). Diagnostician: Josué Gresham MD Pathologist Electronically | | Signed 08/11/2017 | + + POC Arterial Blood Gas (08/09/2017 11:09 PM) + + + + | Component | Value | Ref Range | + + + + | POC FIO2 | 100 | % | + + + + | pH, Art | 7.411 | 7.350 - 7.450 | + + + + | POC PCO2 | 50 (H) | 35 - 45 mmHg | + + + + | POC p02 | 85 | 80 - 105 mmHg | + + + + | POC HCO3 | 32 (H) | 22 - 26 mmol/L | + + + + | POC TCO2 | 33 (H) | 23 - 27 mEq/L | + + + + | POC BASE EXCESS | 7 (H) | 0 - 3 mEq/L | + + + + | POC S02 | 96 | 95 - 98 % | + + + + | POC COMMENTS | Modified Timothy Test passedComment: Testing | | | | performed at [facility];[place] | | | | [address] | | + + + + + + + | Specimen | Performing Laboratory | + + + | | [place] [id number] [employer] [address] | + + + XR chest 1 view (08/09/2017 10:59 PM) + + + | Specimen | Performing Laboratory | + + + | | [facility] [address] [place] [address] | + + + + + | Impressions | + + | 1. Moderate right pleural effusion with associated atelectasis or consolidation. | | 2. Possible atelectasis or infiltrate at the left base with trace left effusion. 3. | | Borderline cardiomegaly. RADIA The call report notification system was initiated | | by Dr. Guero Eid at 23:11 hrs on 08/09/17. The above findings were discussed | | with Dr RUDOLPH Dr by Dr. Guero Eid at 23:28 hrs on 08/09/17. Electronically | | signed by Guero Eid MD on Aug 09 2017 11:29PM Referring Provider Line: | | [phone] ID: [id number] | + + + + | Narrative | + + | EXAM: CHEST RADIOGRAPHY EXAM DATE: 08/09/2017 11:00 PM. CLINICAL HISTORY: | | Shortness of breath. COMPARISON: 07/18/2017. TECHNIQUE: 1 view. FINDINGS: | | Lungs/Pleura: Moderate right pleural effusion with possible loculation. Moderate | | atelectasis or consolidation in the right lung. Possible atelectasis or infiltrate at | | the left base. There may be trace left pleural effusion. No pneumothorax. | | Mediastinum: Heart size upper normal. Other: None. | + + + + | Procedure Note | + + | Jorge, Rad Results In - 08/09/2017 11:29 PM PDT EXAM: CHEST RADIOGRAPHYEXAM DATE: | | 08/09/2017 11:00 PM. CLINICAL HISTORY: Shortness of breath. COMPARISON: | | 07/18/2017.TECHNIQUE: 1 view. FINDINGS:Lungs/Pleura: Moderate right pleural effusion | | with possible loculation. Moderate atelectasis or consolidation in the right lung. | | Possible atelectasis or infiltrate at the left base. There may be trace left pleural | | effusion. No pneumothorax. Mediastinum: Heart size upper normal. Other: None. | | IMPRESSION:1. Moderate right pleural effusion with associated atelectasis or | | consolidation. 2. Possible atelectasis or infiltrate at the left base with trace left | | effusion. 3. Borderline cardiomegaly. RADIAThe call report notification system was | | initiated by Dr. Guero Eid at 23:11 hrs on 08/09/17.The above findings were | | discussed with Dr RUDOLPH Dr by Dr. Guero Eid at 23:28 hrs on 08/09/17. | | Electronically signed by Guero Eid MD on Aug 09 2017 11:29PM Referring Provider Line: | | [phone] ID: [id number] | | | |Mediastinum: Heart size upper normal. | | | |Other: None. | | | |IMPRESSION: | | | |1. Moderate right pleural effusion with associated atelectasis or consolidation. | |2. Possible atelectasis or infiltrate at the left base with trace left effusion. | |3. Borderline cardiomegaly. | | | |RADIA | | | |The call report notification system was initiated by Dr. Guero Eid at 23:11 hrs on 07/26 09/11. | | | |The above findings were discussed with Dr RUDOLPH Dr by Dr. Guero Eid at 23:28 hrs on 08/09/17. | | | | Electronically signed by Guero Eid MD on Aug 09 2017 11:29PM Referring Provider Line: [phone] ID: [id number] | + + APTT (08/09/2017 6:41 AM) + + + + | Component | Value | Ref Range | + + + + | APTT | 65 (H)Comment: Testing performed at [facility];888 | 23 - 32 seconds | | | [place]arrin Thoams;[place] [address] | | + + + + + + + | Specimen | Performing Laboratory | + + + | Blood | [facility] [address] [place] [address] | + + + CBC W/Auto Diff (Reflex to Manual) (08/09/2017 5:10 AM) + + -----+ + | Component | Value | Ref Range | + + -----+ + | WBC | 10.41 | 3.80 - 11.00 K/uL | + + -----+ + | RBC | 3.17 (L) | 3.70 - 5.10 M/uL | + + -----+ + | HGB | 8.4 (L) | 11.3 - 15.5 g/dL | + + -----+ + | HCT | 26.0 (L) | 34.0 - 46.0 % | + + -----+ + | MCV | 82.0 | 80.0 - 100.0 fl | + + -----+ + | MCH | 26.4 (L) | 27.0 - 34.0 pg | + + -----+ + | MCHC | 32.1 | 32.0 - 35.5 g/dL | + + -----+ + | RDW SD | 52.9 | 37 - 53 fl | + + -----+ + | PLT | 246 | 150 - 400 K/uL | + + -----+ + | MPV | 6.7 | fl | + + -----+ + | DIFF TYPE | MANUAL | | + + -----+ + | nRBC | 2 (H) | 0 /100WBC | + + -----+ + | Neutrophils Manual | 76 | % | + + -----+ + | Bands | 3 | % | + + -----+ + | METAMYELOCYTES | 4 | % | + + -----+ + | Lymphocytes Manual | 12 | % | + + -----+ + | Monocytes Manual | 5 | % | + + -----+ + | Neutrophils Absolute | 7.91 (H) | 1.90 - 7.40 K/uL | + + -----+ + | Bands Manual | 0.31 (H) | 0.00 - 0.20 K/uL | + + -----+ + | Metamyelocytes | 0.42 (H) | 0.00 K/uL | | Absolute | | | + + -----+ + | Lymphocytes Absolute | 1.25 | 1.00 - 3.90 K/uL | + + -----+ + | Monocytes Absolute | 0.52 | 0.00 - 0.80 K/uL | + + -----+ + | MORPHOLOGY | 1+Comment: ANISO1+MICRO1+POLYNORMAL PLT | | | | MORPHTesting performed at [facility], [address] | | | | [place] [address] | | | |1+ | | | |MICRO | | | |1+ | | | |POLY | | | |NORMAL PLT MORPH | | | |Testing performed at [facility], [address] [place], [place] [address] | | | | | | + + -----+ + + + + | Specimen | Performing Laboratory | + + + | | [facility] [address] [facility] [place], | | | [place] [address] | + + + Renal function panel (08/09/2017 5:10 AM) + + + + | Component | Value | Ref Range | + + + + | SODIUM | 135 | 135 - 145 mmol/L | + + + + | POTASSIUM | 4.3Comment: SPECIMEN SLIGHTLY HEMOLYZED | 3.5 - 4.9 mmol/L | + + + + | CHLORIDE | 100 | 99 - 109 mmol/L | + + + + | CO2 | 27 | 23 - 32 mmol/L | + + + + | ANION GAP AGAP | 12 | 5 - 20 mmol/L | + + + + | GLUCOSE | 109 (H)Comment: SPECIMEN SLIGHTLY HEMOLYZED | 65 - 99 mg/dL | + + + + | BUN | 10 | 8 - 25 mg/dL | + + + + | CREATININE | 0.5Comment: SPECIMEN SLIGHTLY HEMOLYZED | 0.50 - 1.00 mg/dL | + + + + | CALCIUM | 8.6 | 8.5 - 10.5 mg/dL | + + + + | Albumin | 1.7 (L) | 3.3 - 4.8 g/dL | + + + + | PHOSPHORUS | 4.2Comment: SPECIMEN SLIGHTLY HEMOLYZED | 2.3 - 4.8 mg/dL | + + + + | EGFR | >60Comment: GFR <60: CHRONIC KIDNEY | >60 mL/min/1.73m2 | | | DISEASE, IF FOUND OVER A 3 MONTH PERIOD.GFR | | | | <15: KIDNEY FAILURE.FOR AMERICANS, | | | | MULTIPLY THE CALCULATED GFR BY | | | | 1.210.Testing performed at [facility], [address] | | | | [facility] [place] [address] | | | | | | + + + + + + + | Specimen | Performing Laboratory | + + + | Blood | [facility] [address] [place], [place] [address]J[place], | | | [place] [address] | + + + APTT (08/09/2017 12:32 AM) + + + + | Component | Value | Ref Range | + + + + | APTT | 54 (H)Comment: Testing performed at [facility];888 | 23 - 32 seconds | | | [place]arrin Thomas;[place] [address] | | + + + + + + + | Specimen | Performing Laboratory | + + + | Blood | [facility] [address] [address] | + + + APTT (08/08/2017 4:50 PM) + + + + | Component | Value | Ref Range | + + + + | APTT | 78 ()Comment: CALLED TO LACEY Quintana ON 8RP AT | 23 - 32 seconds | | | 1730 BY CD, READ BACKTesting performed at | | | | [facility];[address] [place] [address];[place] [address] | | | |Testing performed at [address];[place] [address] | | | | | | + + + + + + + | Specimen | Performing Laboratory | + + + | Blood | [facility] [address] [place] [address] | + + + APTT (08/08/2017 9:19 AM) + + + + | Component | Value | Ref Range | + + + + | APTT | 34 (H)Comment: Testing performed at [facility];888 | 23 - 32 seconds | | | [place]arr[place] Thomas;[place] [address] | | + + + + + + + | Specimen | Performing Laboratory | + + + | Blood | [facility] [address] [address] | + + + Renal function panel (08/08/2017 5:21 AM) + + + + | Component | Value | Ref Range | + + + + | SODIUM | 137 | 135 - 145 mmol/L | + + + + | POTASSIUM | 4.8 | 3.5 - 4.9 mmol/L | + + + + | CHLORIDE | 100 | 99 - 109 mmol/L | + + + + | CO2 | 27 | 23 - 32 mmol/L | + + + + | ANION GAP AGAP | 15 | 5 - 20 mmol/L | + + + + | GLUCOSE | 112 (H) | 65 - 99 mg/dL | + + + + | BUN | 9 | 8 - 25 mg/dL | + + + + | CREATININE | 0.5 | 0.50 - 1.00 mg/dL | + + + + | CALCIUM | 8.2 (L) | 8.5 - 10.5 mg/dL | + + + + | Albumin | 1.9 (L) | 3.3 - 4.8 g/dL | + + + + | PHOSPHORUS | 4.5 | 2.3 - 4.8 mg/dL | + + + + | EGFR | >60Comment: GFR <60: CHRONIC KIDNEY | >60 mL/min/1.73m2 | | | DISEASE, IF FOUND OVER A 3 MONTH PERIOD.GFR | | | | <15: KIDNEY FAILURE.FOR AMERICANS, | | | | MULTIPLY THE CALCULATED GFR BY | | | | 1.210.Testing performed at [facility], [address] | | | | [place] [address] | | | | | | + + + + + + + | Specimen | Performing Laboratory | + + + | Blood | [employer] [facility] [address] [place] [address] [address] [place], | | | [place] [address] | + + + CBC W/Auto Diff (Reflex to Manual) (08/08/2017 5:21 AM) + + -----+ + | Component | Value | Ref Range | + + -----+ + | WBC | 10.28 | 3.80 - 11.00 K/uL | + + -----+ + | RBC | 3.28 (L) | 3.70 - 5.10 M/uL | + + -----+ + | HGB | 8.7 (L) | 11.3 - 15.5 g/dL | + + -----+ + | HCT | 26.8 (L) | 34.0 - 46.0 % | + + -----+ + | MCV | 81.6 | 80.0 - 100.0 fl | + + -----+ + | MCH | 26.6 (L) | 27.0 - 34.0 pg | + + -----+ + | MCHC | 32.6 | 32.0 - 35.5 g/dL | + + -----+ + | RDW SD | 51.2 | 37 - 53 fl | + + -----+ + | PLT | 254 | 150 - 400 K/uL | + + -----+ + | MPV | 6.6 | fl | + + -----+ + | DIFF TYPE | MANUAL | | + + -----+ + | Neutrophils Manual | 78 | % | + + -----+ + | Bands | 8 | % | + + -----+ + | METAMYELOCYTES | 1 | % | + + -----+ + | Lymphocytes Manual | 10 | % | + + -----+ + | Monocytes Manual | 3 | % | + + -----+ + | Neutrophils Absolute | 8.02 (H) | 1.90 - 7.40 K/uL | + + -----+ + | Bands Manual | 0.82 (H) | 0.00 - 0.20 K/uL | + + -----+ + | Metamyelocytes | 0.10 (H) | 0.00 K/uL | | Absolute | | | + + -----+ + | Lymphocytes Absolute | 1.03 | 1.00 - 3.90 K/uL | + + -----+ + | Monocytes Absolute | 0.31 | 0.00 - 0.80 K/uL | + + -----+ + | MORPHOLOGY | 2+Comment: TOXIC GRANULATIONRBC AND PLT | | | | MORPHOLOGY APPEAR NORMALTesting performed | | | | at [address], [address] [address], | | | | [place] [address] | | | |Testing performed at [facility], [address] [facility] [place] [address] | | | | | | + + -----+ + + + + | Specimen | Performing Laboratory | + + + | Blood | [facility] [address] [place] [address] [address], | | | [place] [address] | + + + APTT (08/07/2017 4:21 PM) + + + + | Component | Value | Ref Range | + + + + | APTT | 35 (H)Comment: Testing performed at [facility];888 | 23 - 32 seconds | | | [facility];[place] [address] | | + + + + + + + | Specimen | Performing Laboratory | + + + | Blood | [facility] [address] [facility] [place] [place] [address] | + + + Type and screen (08/07/2017 2:36 PM) + + + + | Component | Value | Ref Range | + + + + | ABO/RH(D) | O POSITIVE | | + + + + | ANTIBODY SCREEN | NEGATIVE | | + + + + | ARM BAND NUMBER | [id number] performed at [facility];[address] | | | | [place] [address] | | | | | | + + + + + + + | Specimen | Performing Laboratory | + + + | Blood | [facility] [address] [facility] [place] [address] | + + + APTT (08/07/2017 8:27 AM) + + + + | Component | Value | Ref Range | + + + + | APTT | 68 (H)Comment: Testing performed at [facility];888 | 23 - 32 seconds | | | [facility];[place] [address] | | + + + + + + + | Specimen | Performing Laboratory | + + + | Blood | [facility] [address] [place] [address] | + + + Renal function panel (08/07/2017 5:22 AM) + + + + | Component | Value | Ref Range | + + + + | SODIUM | 137 | 135 - 145 mmol/L | + + + + | POTASSIUM | 4.1 | 3.5 - 4.9 mmol/L | + + + + | CHLORIDE | 100 | 99 - 109 mmol/L | + + + + | CO2 | 27 | 23 - 32 mmol/L | + + + + | ANION GAP AGAP | 14 | 5 - 20 mmol/L | + + + + | GLUCOSE | 94 | 65 - 99 mg/dL | + + + + | BUN | 12 | 8 - 25 mg/dL | + + + + | CREATININE | 0.6 | 0.50 - 1.00 mg/dL | + + + + | CALCIUM | 8.4 (L) | 8.5 - 10.5 mg/dL | + + + + | Albumin | 2.1 (L) | 3.3 - 4.8 g/dL | + + + + | PHOSPHORUS | 4.2 | 2.3 - 4.8 mg/dL | + + + + | EGFR | >60Comment: GFR <60: CHRONIC KIDNEY | >60 mL/min/1.73m2 | | | DISEASE, IF FOUND OVER A 3 MONTH PERIOD.GFR | | | | <15: KIDNEY FAILURE.FOR AMERICANS, | | | | MULTIPLY THE CALCULATED GFR BY | | | | 1.210.Testing performed at [facility], [address] | | | | [place] [address] | | | | | | + + + + + + + | Specimen | Performing Laboratory | + + + | | [address] [place], | | | [place] [address] | + + + CBC W/Auto Diff (Reflex to Manual) (08/07/2017 5:22 AM) + + -----+ + | Component | Value | Ref Range | + + -----+ + | WBC | 10.42 | 3.80 - 11.00 K/uL | + + -----+ + | RBC | 3.36 (L) | 3.70 - 5.10 M/uL | + + -----+ + | HGB | 9.1 (L) | 11.3 - 15.5 g/dL | + + -----+ + | HCT | 27.4 (L) | 34.0 - 46.0 % | + + -----+ + | MCV | 81.5 | 80.0 - 100.0 fl | + + -----+ + | MCH | 27.0 | 27.0 - 34.0 pg | + + -----+ + | MCHC | 33.1 | 32.0 - 35.5 g/dL | + + -----+ + | RDW SD | 52.1 | 37 - 53 fl | + + -----+ + | PLT | 255 | 150 - 400 K/uL | + + -----+ + | MPV | 6.7 | fl | + + -----+ + | DIFF TYPE | MANUAL | | + + -----+ + | Neutrophils Manual | 74 | % | + + -----+ + | Bands | 6 | % | + + -----+ + | METAMYELOCYTES | 1 | % | + + -----+ + | Lymphocytes Manual | 15 | % | + + -----+ + | Monocytes Manual | 4 | % | + + -----+ + | Neutrophils Absolute | 7.71 (H) | 1.90 - 7.40 K/uL | + + -----+ + | Bands Manual | 0.63 (H) | 0.00 - 0.20 K/uL | + + -----+ + | Metamyelocytes | 0.10 (H) | 0.00 K/uL | | Absolute | | | + + -----+ + | Lymphocytes Absolute | 1.56 | 1.00 - 3.90 K/uL | + + -----+ + | Monocytes Absolute | 0.42 | 0.00 - 0.80 K/uL | + + -----+ + | MORPHOLOGY | 1+Comment: ANISO1+MICRO1+HYPO1+POLYNORMAL | | | | PLT MORPHTesting performed at [facility], [address] | | | | [place] [address] | | | |1+ | | | |MICRO | | | |1+ | | | |HYPO | | | |1+ | | | |POLY | | | |NORMAL PLT MORPH | | | |Testing performed at [facility], [address] [place], [place] [address], [place] [address] | | | | | | + + -----+ + + + + | Specimen | Performing Laboratory | + + + | Blood | [facility] [address] [place], | | | [place] [address] | + + + APTT (08/06/2017 11:04 PM) + + + + | Component | Value | Ref Range | + + + + | APTT | 86 ()Comment: CALLED NURSING | 23 - 32 seconds | | | MOSHE VASQUEZ AT 2344 BY RHREAD BACK | | | | RESULTS VERIFIEDTesting performed at | | | | [facility];[address] [place] [address];[place] [address] | | | |READ BACK RESULTS VERIFIED | | | |Testing performed at [facility];[address] [place] [address];[place] [address] | | | | | | + + + + + + + | Specimen | Performing Laboratory | + + + | Blood | [facility] [address] [place] [address] | + + + Protime-INR (08/06/2017 3:57 PM) + + + + | Component | Value | Ref Range | + + + + | INR | 1.1Comment: REFERENCE RANGE:0.9 - | | | | 1.2 NON-ANTICOAGULATED2.0 - 3.0 ALL | | | | OTHER THERAPEUTIC INDICATIONS2.5 - 3.5 | | | | MECHANICAL HEART VALVES, RECURRENT OR | | | | SYSTEMIC EMBOLISMTesting performed at | | | | [facility];[address] [place] [address];[place] [address] | | | |Testing performed at [facility];[address] [place] [address];[place] [address] | | | | | | + + + + + + + | Specimen | Performing Laboratory | + + + | Blood | [facility] [place] [address] | + + + CBC w/no diff (08/06/2017 3:57 PM) + + + + | Component | Value | Ref Range | + + + + | WBC | 10.76 | 3.80 - 11.00 K/uL | + + + + | RBC | 3.58 (L) | 3.70 - 5.10 M/uL | + + + + | HGB | 9.3 (L) | 11.3 - 15.5 g/dL | + + + + | HCT | 29.5 (L) | 34.0 - 46.0 % | + + + + | MCV | 82.3 | 80.0 - 100.0 fl | + + + + | MCH | 26.0 (L) | 27.0 - 34.0 pg | + + + + | MCHC | 31.6 (L) | 32.0 - 35.5 g/dL | + + + + | RDW SD | 52.9 | 37 - 53 fl | + + + + | PLT | 247 | 150 - 400 K/uL | + + + + | MPV | 6.4Comment: Testing performed at [facility];8 | fl | | | [facility];[place] [address] | | + + + + + + + | Specimen | Performing Laboratory | + + + | | [facility] [address] [place] [address] | + + + aPTT (08/06/2017 3:57 PM) + + + + | Component | Value | Ref Range | + + + + | APTT | 39 (H)Comment: Testing performed at [facility];888 | 23 - 32 seconds | | | [place] Thomas;[place] [address] | | + + + + + + + | Specimen | Performing Laboratory | + + + | Blood | [facility] [address] [place] [address] | + + + US lower extremity arterial left (08/06/2017 11:12 AM) + + + | Specimen | Performing Laboratory | + + + | | [facility] [address] [place] [address] | + + + + + | Impressions | + + | Atherosclerosis in arteries of left lower extremity without hemodynamically | | significant stenosis. Three vessel distal runoff. | + + + + | Narrative | + + | CARMEN KAHN US LOWER EXTREMITY ARTERIAL LEFT 08/06/2017 11:12 AM HISTORY: 61 | | years. Female. Left foot gangrene. COMPARISON: CT dated 07/18/2017. | | TECHNIQUE: Sonographic evaluation of bilateral lower extremity arterial system. | | Grayscale, color-flow, and Doppler spectral analysis. | | Peak systolic velocities (cm/s) / Doppler | | Waveform: Left GRAPHIC ARTS TECHNICIAN Prox: 130.6 and triphasic DFA Prox: 97.1 and triphasic SFA | | Prox: 118.8 and triphasic SFA Mid: 126.6 and triphasic SFA Distal: 142.4 and triphasic | | POP Mid: 81.2 and triphasic ISABEL Prox: 136.5 and triphasic ISABEL Distal: 102.2 and | | biphasic FILM PROCESSING UTILITY WORKER Prox: 71.5 and triphasic FILM PROCESSING UTILITY WORKER Distal: 89.6 and biphasic CHUYITA Prox: 103.8 | | and biphasic CHUYITA Distal: 68.9 and biphasic Atherosclerosis in arteries of left | | lower extremity. | + + + + | Procedure Note | + + | Jorge, Rad Results In - 08/06/2017 11:55 AM PDT CARMEN GONZALEZ LOWER EXTREMITY | | ARTERIAL LEFT08/06/2017 11:12 AMHISTORY:61 years. Female. Left foot | | gangrene.COMPARISON:CT dated 07/18/2017.TECHNIQUE:Sonographic evaluation of bilateral | | lower extremity arterial system. Grayscale, color-flow, and Doppler spectral | | analysis. Peak systolic velocities (cm/s) / Doppler | | Waveform:LeftCFA Prox: 130.6 and triphasicDFA Prox: 97.1 and triphasicSFA Prox: 118.8 | | and triphasicSFA Mid: 126.6 and triphasicSFA Distal: 142.4 and triphasicPOP Mid: 81.2 | | and triphasicATA Prox: 136.5 and triphasicATA Distal: 102.2 and biphasicPTA Prox: 71.5 | | and triphasicPTA Distal: 89.6 and biphasicPERA Prox: 103.8 and biphasicPERA Distal: 68.9 | | and biphasicAtherosclerosis in arteries of left lower | | extremity.IMPRESSION:Atherosclerosis in arteries of left lower extremity without | | hemodynamically significant stenosis. Three vessel distal runoff. | | | |Peak systolic velocities (cm/s) / Doppler Waveform: | | | |Left | |GRAPHIC ARTS TECHNICIAN Prox: 130.6 and triphasic | |DFA Prox: 97.1 and triphasic | |SFA Prox: 118.8 and triphasic | |SFA Mid: 126.6 and triphasic | |SFA Distal: 142.4 and triphasic | |POP Mid: 81.2 and triphasic | |ISABEL Prox: 136.5 and triphasic | |ISABEL Distal: 102.2 and biphasic | |FILM PROCESSING UTILITY WORKER Prox: 71.5 and triphasic | |FILM PROCESSING UTILITY WORKER Distal: 89.6 and biphasic | |CHUYITA Prox: 103.8 and biphasic | |CHUYITA Distal: 68.9 and biphasic | | | |Atherosclerosis in arteries of left lower extremity. | | | |IMPRESSION: | |Atherosclerosis in arteries of left lower extremity without hemodynamically significant nancy nosis. Three vessel distal runoff. | | | | | | | + + Renal function panel (08/06/2017 4:06 AM) + + + + | Component | Value | Ref Range | + + + + | SODIUM | 136 | 135 - 145 mmol/L | + + + + | POTASSIUM | 4.1 | 3.5 - 4.9 mmol/L | + + + + | CHLORIDE | 100 | 99 - 109 mmol/L | + + + + | CO2 | 28 | 23 - 32 mmol/L | + + + + | ANION GAP AGAP | 12 | 5 - 20 mmol/L | + + + + | GLUCOSE | 83 | 65 - 99 mg/dL | + + + + | BUN | 12 | 8 - 25 mg/dL | + + + + | CREATININE | 0.6 | 0.50 - 1.00 mg/dL | + + + + | CALCIUM | 8.3 (L) | 8.5 - 10.5 mg/dL | + + + + | Albumin | 2.2 (L) | 3.3 - 4.8 g/dL | + + + + | PHOSPHORUS | 4.8 | 2.3 - 4.8 mg/dL | + + + + | EGFR | >60Comment: GFR <60: CHRONIC KIDNEY | >60 mL/min/1.73m2 | | | DISEASE, IF FOUND OVER A 3 MONTH PERIOD.GFR | | | | <15: KIDNEY FAILURE.FOR AMERICANS, | | | | MULTIPLY THE CALCULATED GFR BY | | | | 1.210.Testing performed at [facility], [address] | | | | [place] [address] | | | | | | + + + + + + + | Specimen | Performing Laboratory | + + + | | [employer] [facility] [address] [place] [address] [address] [place], | | | [place] [address] | + + + CBC W/Auto Diff (Reflex to Manual) (08/06/2017 4:06 AM) + + + + | Component | Value | Ref Range | + + + + | WBC | 11.01 (H) | 3.80 - 11.00 K/uL | + + + + | RBC | 3.46 (L) | 3.70 - 5.10 M/uL | + + + + | HGB | 9.2 (L) | 11.3 - 15.5 g/dL | + + + + | HCT | 28.6 (L) | 34.0 - 46.0 % | + + + + | MCV | 82.6 | 80.0 - 100.0 fl | + + + + | MCH | 26.5 (L) | 27.0 - 34.0 pg | + + + + | MCHC | 32.0 | 32.0 - 35.5 g/dL | + + + + | RDW SD | 53.4 (H) | 37 - 53 fl | + + + + | PLT | 246 | 150 - 400 K/uL | + + + + | MPV | 6.6 | fl | + + + + | DIFF TYPE | MANUAL | | + + + + | Neutrophils Manual | 87 | % | + + + + | Lymphocytes Manual | 10 | % | + + + + | Monocytes Manual | 3 | % | + + + + | Neutrophils Absolute | 9.58 (H) | 1.90 - 7.40 K/uL | + + + + | Lymphocytes Absolute | 1.10 | 1.00 - 3.90 K/uL | + + + + | Monocytes Absolute | 0.33 | 0.00 - 0.80 K/uL | + + + + | MORPHOLOGY | RBC AND PLT MORPHOLOGY APPEAR NORMAL | | + + + + | Diff Comment | SLIDE SCANNED, AGREES WITH AUTOMATED | | | | RESULTS.Comment: Testing performed at [facility], | | | | [address] [place] | | | | [address] | | + + + + + + + | Specimen | Performing Laboratory | + + + | Blood | [facility] [address] [place] [address] [address], | | | [place] [address] | + + + aPTT (08/05/2017 5:20 AM) + + + + | Component | Value | Ref Range | + + + + | APTT | 34 (H)Comment: Testing performed at [facility];8 | 23 - 32 seconds | | | [facility];[place] [address] | | + + + + + + + | Specimen | Performing Laboratory | + + + | Blood | [facility] [address] [place] [address] | + + + Protime-INR (08/05/2017 5:20 AM) + + + + | Component | Value | Ref Range | + + + + | INR | 1.1Comment: REFERENCE RANGE:0.9 - | | | | 1.2 NON-ANTICOAGULATED2.0 - 3.0 ALL | | | | OTHER THERAPEUTIC INDICATIONS2.5 - 3.5 | | | | MECHANICAL HEART VALVES, RECURRENT OR | | | | SYSTEMIC EMBOLISMTesting performed at | | | | [facility];[address] [place] [address];[place] [address] | | | |Testing performed at [facility];[address] [place] [address];[place] [address] | | | | | | + + + + + + + | Specimen | Performing Laboratory | + + + | Blood | [facility] [address] [place] [id number] | + + + Glycohemoglobin A1C (08/05/2017 5:20 AM) + + + + | Component | Value | Ref Range | + + + + | HEMOGLOBIN A1C | 5.7Comment: The [employer] [employer] | 4.0 - 6.0 % | | | Association considers a hemoglobin A1c | | | | result of <7.0% to be the goal of diabetic | | | | therapy. When results are consistently | | | | >8.0%, the ADA suggests reevaluation of the | | | | treatment regimen. The testing method | | | | used is certified traceable to the Diabetes | | | | Control and Complications Trial reference | | | | method. | | + + + + | ESTIMATED AVG | 117Comment: The ADA considers an eAG result | mg/dL | | GLUCOSE | of LT 154 mg/dL to be the goal of diabetic | | | | therapy. Estimated Average Glucose | | | | calculated from hemoglobin A1c by use of | | | | the ADA recommended formula.Testing | | | | performed at [facility], [address], | | | | [place] [address] | | + + + + + + + | Specimen | Performing Laboratory | + + + | Blood | [employer] [facility] [address] [place], | | | [place] [address] | + + + Comprehensive Metabolic Panel (08/05/2017 5:20 AM) + + + + | Component | Value | Ref Range | + + + + | SODIUM | 135 | 135 - 145 mmol/L | + + + + | POTASSIUM | 4.4 | 3.5 - 4.9 mmol/L | + + + + | CHLORIDE | 97 (L) | 99 - 109 mmol/L | + + + + | CO2 | 27 | 23 - 32 mmol/L | + + + + | ANION GAP AGAP | 15 | 5 - 20 mmol/L | + + + + | GLUCOSE | 83 | 65 - 99 mg/dL | + + + + | BUN | 13 | 8 - 25 mg/dL | + + + + | CREATININE | 0.7 | 0.50 - 1.00 mg/dL | + + + + | BUN/CREAT | 19 | | + + + + | CALCIUM | 8.6 | 8.5 - 10.5 mg/dL | + + + + | TOTAL PROTEIN | 7.0 | 6.3 - 8.2 g/dL | + + + + | Albumin | 2.4 (L) | 3.3 - 4.8 g/dL | + + + + | GLOBULIN | 4.6 | 1.3 - 4.9 g/dL | + + + + | A/G | 0.5 (L) | 1.0 - 2.4 | + + + + | TBIL | 0.5 | 0.1 - 1.5 mg/dL | + + + + | ALK PHOS | 692 (H) | 35 - 115 U/L | + + + + | AST | 24 | 10 - 45 U/L | + + + + | ALT | 15 | 10 - 65 U/L | + + + + | EGFR | >60Comment: GFR <60: CHRONIC KIDNEY | >60 mL/min/1.73m2 | | | DISEASE, IF FOUND OVER A 3 MONTH PERIOD.GFR | | | | <15: KIDNEY FAILURE.FOR AMERICANS, | | | | MULTIPLY THE CALCULATED GFR BY | | | | 1.210.Testing performed at [facility], [address] | | | | [place] [address] | | | | | | + + + + + + + | Specimen | Performing Laboratory | + + + | Blood | [address] [place], | | | [place] [address] | + + + Phosphorus (08/05/2017 5:20 AM) + + + + | Component | Value | Ref Range | + + + + | PHOSPHORUS | 4.0Comment: Testing performed at [facility], [address] | 2.3 - 4.8 mg/dL | | | [place] [address] | | + + + + + + + | Specimen | Performing Laboratory | + + + | Blood | [facility] [address] [place] [address] [address] [place], | | | [place] [address] | + + + Magnesium (08/05/2017 5:20 AM) + + + + | Component | Value | Ref Range | + + + + | MAGNESIUM | 2.7 (H)Comment: Testing performed at [facility], | 1.7 - 2.4 mg/dL | | | [address] [facility] [place] | | | | [address] | | + + + + + + + | Specimen | Performing Laboratory | + + + | Blood | [facility] [address] [place], | | | [place] [address] | + + + CBC W/Auto Diff (Reflex to Manual) (08/05/2017 5:20 AM) + + -----+ + | Component | Value | Ref Range | + + -----+ + | WBC | 13.29 (H) | 3.80 - 11.00 K/uL | + + -----+ + | RBC | 3.69 (L) | 3.70 - 5.10 M/uL | + + -----+ + | HGB | 9.8 (L) | 11.3 - 15.5 g/dL | + + -----+ + | HCT | 30.1 (L) | 34.0 - 46.0 % | + + -----+ + | MCV | 81.5 | 80.0 - 100.0 fl | + + -----+ + | MCH | 26.6 (L) | 27.0 - 34.0 pg | + + -----+ + | MCHC | 32.7 | 32.0 - 35.5 g/dL | + + -----+ + | RDW SD | 50.8 | 37 - 53 fl | + + -----+ + | PLT | 285 | 150 - 400 K/uL | + + -----+ + | MPV | 6.7 | fl | + + -----+ + | DIFF TYPE | MANUAL | | + + -----+ + | Neutrophils Manual | 77 | % | + + -----+ + | Lymphocytes Manual | 16 | % | + + -----+ + | Monocytes Manual | 6 | % | + + -----+ + | Eosinophils Manual | 1 | % | + + -----+ + | Neutrophils Absolute | 10.23 (H) | 1.90 - 7.40 K/uL | + + -----+ + | Lymphocytes Absolute | 2.13 | 1.00 - 3.90 K/uL | + + -----+ + | Monocytes Absolute | 0.80 | 0.00 - 0.80 K/uL | + + -----+ + | Eosinophils Absolute | 0.13 | 0.00 - 0.50 K/uL | + + -----+ + | MORPHOLOGY | 1+Comment: HYPO1+MICRO2+ANISONORMAL PLT | | | | MORPHTesting performed at [facility], [address] | | | | [place] [address] | | | |1+ | | | |MICRO | | | |2+ | | | |ANISO | | | |NORMAL PLT MORPH | | | |Testing performed at [facility], [address] [place], [place] [address] | | | | | | + + -----+ + + + + | Specimen | Performing Laboratory | + + + | Blood | [facility] [address] [place] [address] [place], | | | [place] [address] | + + + Lactic acid (08/05/2017 12:52 AM) + + + + | Component | Value | Ref Range | + + + + | LACTIC ACID | 1.0Comment: Testing performed at [facility];[address] | 0.4 - 2.0 mmol/L | | | [place] [address] | | + + + + + + + | Specimen | Performing Laboratory | + + + | Blood | [address] [address] | + + + MRI foot left without contrast (08/04/2017 11:40 PM) + + + | Specimen | Performing Laboratory | + + + | | [address] [address] | + + + + + | Impressions | + + | 1. Severely limited examination. There is extensive subcutaneous edema and | | swelling. | + + + + | Narrative | + + | CARMEN KAHN 1955 MRI FOOT LEFT WO CONTRAST 08/04/2017 11:40 PM | | INDICATION: Lactic acidosis, wet gangrene COMPARISON: Plain films, 08/04/2017 | | TECHNIQUE: MRI of the left foot without IV contrast. Multiplanar multisequence MRI is | | performed on a 1.5 Chasidy magnet using standard institution protocol. FINDINGS: | | Examination is limited due to patient inability to tolerate complete examination. | | Additionally, there is extensive motion artifact of the foot. Severe subcutaneous edema | | is noted. Skin ulcerations are seen along the dorsum of the forefoot. No definitive | | abnormal signal intensity of the bony structures is noted. No focal fluid collection is | | seen. | + + + + | Procedure Note | + + | Jorge, Rad Results In - 08/04/2017 11:50 PM PDT CARMEN LOVELLE1955MRI FOOT LEFT | | WO CONTRAST08/04/2017 11:40 PMINDICATION: Lactic acidosis, wet gangreneCOMPARISON: Plain | | films, 08/04/2017TECHNIQUE: MRI of the left foot without IV contrast. Multiplanar | | multisequence MRI is performed on a 1.5 Chasidy magnet using standard institution | | protocol.FINDINGS: Examination is limited due to patient inability to tolerate complete | | examination. Additionally, there is extensive motion artifact of the foot. Severe | | subcutaneous edema is noted. Skin ulcerations are seen along the dorsum of the forefoot. | | No definitive abnormal signal intensity of the bony structures is noted. No focal fluid | | collection is seen.IMPRESSION:1. Severely limited examination. There is extensive | | subcutaneous edema and swelling.Electronically signed by Keyon Hickman MD on | | 08/04/2017 11:45 PM | |FINDINGS: Examination is limited due to patient inability to tolerate complete examination. Additionally, there is extensive motion artifact of the foot. Severe subcutaneous edema is noted. Skin ulcerations are seen | |along the dorsum of the forefoot. No definitive abnormal signal intensity of the bony struc tures is noted. No focal fluid collection is seen. | | | |IMPRESSION: | |1. Severely limited examination. There is extensive subcutaneous edema and swelling. | | | | | + + MRSA by PCR (08/04/2017 10:44 PM) + + + + | Component | Value | Ref Range | + + + + | SOURCE | NARES(NOSE) | | + + + + | MRSA PCR | NEGATIVEComment: Testing performed at | NEGATIVE | | | [facility];[address];[place] [address] | | + + + + + + + | Specimen | Performing Laboratory | + + + | Nasopharyngeal - | [facility] [address] [place] [address] | | Nasopharyngeal | | | Culture | | + + + US Lower extremity venous left (08/04/2017 10:15 PM) + + + | Specimen | Performing Laboratory | + + + | | [facility] [address] [place] [address] | + + + + + | Impressions | + + | 1. Thrombus previously noted within the popliteal vein is resolved. 2. There | | continues to be residual thrombus within the calf vessels. | + + + + | Narrative | + + | CARMEN LOVELLLilian 1955 US LOWER EXTREMITY VENOUS DOPPLER LEFT 08/04/2017 10:15 PM | | HISTORY: Follow-up of DVT, patient is on blood thinning medication COMPARISON: | | Ultrasound, 07/18/2017 TECHNIQUE: Left lower extremity venous duplex, robledo scale, | | color flow and spectral analysis performed FINDINGS: The deep venous system is | | normal on grayscale imaging. Normal compressibility and augmentation is demonstrated. | | There appears to be thrombus throughout the posterior tibial and peroneal veins, similar | | to prior study. There is no Jones's cyst. | + + + + | Procedure Note | + + | Jorge, Rad Results In - 08/04/2017 10:26 PM PDT CARMEN Neda FEMI1955US LOWER | | EXTREMITY VENOUS DOPPLER LEFT08/04/2017 10:15 PMHISTORY: Follow-up of DVT, patient is on | | blood thinning medicationCOMPARISON: Ultrasound, 07/18/2017TECHNIQUE: Left lower | | extremity venous duplex, robledo scale, color flow and spectral analysis performedFINDINGS: | | The deep venous system is normal on grayscale imaging. Normal compressibility and | | augmentation is demonstrated. There appears to be thrombus throughout the posterior | | tibial and peroneal veins, similar to prior study. There is no Jones's | | cyst.IMPRESSION:1. Thrombus previously noted within the popliteal vein is resolved.2. | | There continues to be residual thrombus within the calf vessels. | | | |FINDINGS: The deep venous system is normal on grayscale imaging. Normal compressibility and augmentation is demonstrated. There appears to be thrombus throughout the posterior tibial and peroneal veins, similar to prior study. There is no Jones's cyst. | | | |IMPRESSION: | |1. Thrombus previously noted within the popliteal vein is resolved. | |2. There continues to be residual thrombus within the calf vessels. | | | | | + + XR Foot Left AP Lateral and Oblique (08/04/2017 5:34 PM) + + + | Specimen | Performing Laboratory | + + + | | [place] [id number] [place] [address] | + + + + + | Impressions | + + | 1. Diffuse soft tissue swelling of the entire forefoot including the dorsal and | | plantar surfaces. 2. Small amount of air suspected in the dorsal soft tissues of the | | great toe at the proximal phalanx which is suspicious for gangrene. Findings were | | reported to Dr. Quispe and Dr. Nolasco in person at 08/04/2017 5:45 PM. Electronically | | signed by Shiva Moy DO on 08/04/2017 5:59 PM | + + + + | Narrative | + + | CARMEN KAHN XR FOOT LEFT 08/04/2017 5:34 PM HISTORY: 61 | | years. Female. Left foot wound. Cellulitis and skin blistering of the forefoot. | | TECHNIQUE: XR FOOT LEFT. 3 view(s) obtained. COMPARISON: CTA aorta and | | bilateral iliofemoral runoff 07/18/2017 FINDINGS: The regional osseous structures | | demonstrate normal mineralization and trabeculation. There is no evidence of lytic | | destruction to suggest osteomyelitis. No fracture, dislocation or subluxation is noted. | | The joint spaces appear normal. Soft tissue swelling is seen involving the entire | | forefoot both the plantar and dorsal surfaces. There is no there may be a small | | amount of air in the soft tissues of the great toe along the dorsal aspect of the | | proximal phalanx. This is suspicious for possible gangrene. No radiopaque foreign | | bodies are noted. Small calcaneal enthesophytes are seen at the plantar fascia origin | | and Achilles tendon insertion. | + + + + | Procedure Note | + + | Jorge, Rad Results In - 08/04/2017 6:04 PM PDT CARMEN Red GAEDEXR FOOT LEFT08/04/2017 | | 5:34 PMHISTORY:61 years. Female. Left foot wound. Cellulitis and skin blistering of | | the forefoot.TECHNIQUE:XR FOOT LEFT. 3 view(s) obtained.COMPARISON:CTA aorta and | | bilateral iliofemoral runoff 07/18/2017FINDINGS:The regional osseous structures | | demonstrate normal mineralization and trabeculation. There is no evidence of lytic | | destruction to suggest osteomyelitis.No fracture, dislocation or subluxation is | | noted.The joint spaces appear normal.Soft tissue swelling is seen involving the entire | | forefoot both the plantar and dorsal surfaces. There is no there may be a small amount | | of air in the soft tissues of the great toe along the dorsal aspect of the proximal | | phalanx. This is suspicious for possible gangrene.No radiopaque foreign bodies are | | noted.Small calcaneal enthesophytes are seen at the plantar fascia origin and Achilles | | tendon insertion.IMPRESSION:1. Diffuse soft tissue swelling of the entire forefoot | | including the dorsal and plantar surfaces.2. Small amount of air suspected in the | | dorsal soft tissues of the great toe at the proximal phalanx which is suspicious for | | gangrene.Findings were reported to Dr. Quispe and Dr. Nolasco in person at 08/04/2017 5:45 | | PM. | |The joint spaces appear normal. | |Soft tissue swelling is seen involving the entire forefoot both the plantar and dorsal surf aces. There is no there may be a small amount of air in the soft tissues of the great toe a long the dorsal aspect of the | |proximal phalanx. This is suspicious for possible gangrene. | |No radiopaque foreign bodies are noted. | |Small calcaneal enthesophytes are seen at the plantar fascia origin and Achilles tendon ins ertion. | | | |IMPRESSION: | |1. Diffuse soft tissue swelling of the entire forefoot including the dorsal and plantar purcell rfaces. | |2. Small amount of air suspected in the dorsal soft tissues of the great toe at the proxim al phalanx which is suspicious for gangrene. | | | |Findings were reported to Dr. Quispe and Dr. Nolasco in person at 08/04/2017 5:45 PM. | | | | | + + Wound culture (08/04/2017 5:10 PM) + + + + | Component | Value | Ref Range | + + + + | Specimen Description | OTHER | | + + + + | CULTURE | 3+ | | + + + + | CULTURE | STAPHYLOCOCCUS AUREUS (A) | | + + + + | CULTURE | 2+ | | + + + + | CULTURE | BETA HEMOLYTIC GROUP G STREPTOCOCCUS (A) | | + + + + | CULTURE | BETA STREP ORGANISMS ARE PREDICTABLY | | | | SUSCEPTIBLE TO PENICILLIN AND | | | | CEPHALOSPORINS | | + + + + | CULTURE | 3+ | | + + + + | CULTURE | NORMAL SKIN JAVED ISOLATED | | + + + + | CULTURE | NO FURTHER WORKUP | | + + + + + + + | Specimen | Performing Laboratory | + + + | Wound - [id number]-w | [facility] [address] [place], | | source desc (F6) | [place] [address] | + + + + + +--------+ + | Organism | Antibiotic | Method | Susceptibility | + + +--------+ + | Staphylococcus | Penicillin G | AD | RESISTANT: | | aureus | | | Resistant | + + +--------+ + | Staphylococcus | Clindamycin | AD | RESISTANT: | | aureus | | | Resistant | + + +--------+ + | Staphylococcus | Erythromycin | AD | RESISTANT: | | aureus | | | Resistant | + + +--------+ + | Staphylococcus | Gentamicin | AD | SUSCEPTIBLE: | | aureus | | | Sensitive | + + +--------+ + | Staphylococcus | Levofloxacin | AD | SUSCEPTIBLE: | | aureus | | | Sensitive | + + +--------+ + | Staphylococcus | Moxifloxacin | AD | SUSCEPTIBLE: | | aureus | | | Sensitive | + + +--------+ + | Staphylococcus | Oxacillin | AD | SUSCEPTIBLE: | | aureus | | | Sensitive | + + +--------+ + | Staphylococcus | Tetracycline | AD | SUSCEPTIBLE: | | aureus | | | Sensitive | + + +--------+ + | Staphylococcus | Trimethoprim + | AD | SUSCEPTIBLE: | | aureus | Sulfamethoxazole | | Sensitive | + + +--------+ + | Staphylococcus | Vancomycin | AD | SUSCEPTIBLE: | | aureus | | | Sensitive | + + +--------+ + Blood Culture Set 2 (08/04/2017 5:04 PM) + + + + | Component | Value | Ref Range | + + + + | Specimen Description | BLOOD, PERIPHERAL DRAW | | + + + + | SPECIAL REQUESTS | RFA | | + + + + | CULTURE | NO GROWTH 6 DAYS | | + + + + + + + | Specimen | Performing Laboratory | + + + | Blood - Blood, | [facility] [address] [place] [place], | | peripheral draw | [place] [address] | + + + Septic Lactic Acid (08/04/2017 5:02 PM) + + + + | Component | Value | Ref Range | + + + + | LACTIC ACID | 2.9 (H)Comment: Testing performed at | 0.4 - 2.0 mmol/L | | | [facility];[address] [place] [address] | | + + + + + + + | Specimen | Performing Laboratory | + + + | | [facility] [address] [place] [address] | + + + Blood Culture Set 1 (08/04/2017 5:02 PM) + + + + | Component | Value | Ref Range | + + + + | Specimen Description | BLOOD, PERIPHERAL DRAW | | + + + + | SPECIAL REQUESTS | LHAND | | + + + + | CULTURE | NO GROWTH 6 DAYS | | + + + + + + + | Specimen | Performing Laboratory | + + + | Blood - Blood, | [facility] [address] [place] [address] [address] [place], | | peripheral draw | [place] [address] | + + + C-reactive protein (08/04/2017 5:02 PM) + + + + | Component | Value | Ref Range | + + + + | CRP | 13.0 (H)Comment: Testing performed at | <0.5 mg/dL | | | [facility];[address] [place] [address];[place] [address] | | + + + + + + + | Specimen | Performing Laboratory | + + + | Blood | [facility] [address] [place] [address] | + + + Comprehensive metabolic panel (08/04/2017 5:02 PM) + + + + | Component | Value | Ref Range | + + + + | SODIUM | 134 (L) | 135 - 145 mmol/L | + + + + | POTASSIUM | 4.7 | 3.5 - 4.9 mmol/L | + + + + | CHLORIDE | 100 | 99 - 109 mmol/L | + + + + | CO2 | 28 | 23 - 32 mmol/L | + + + + | ANION GAP AGAP | 10 | 5 - 20 mmol/L | + + + + | GLUCOSE | 145 (H) | 65 - 99 mg/dL | + + + + | BUN | 14 | 8 - 25 mg/dL | + + + + | CREATININE | 0.76 | 0.50 - 1.00 mg/dL | + + + + | BUN/CREAT | 18 | | + + + + | CALCIUM | 8.1 (L) | 8.5 - 10.5 mg/dL | + + + + | TOTAL PROTEIN | 7.1 | 6.3 - 8.2 g/dL | + + + + | Albumin | 2.4 (L) | 3.3 - 4.8 g/dL | + + + + | GLOBULIN | 4.7 | 1.3 - 4.9 g/dL | + + + + | A/G | 0.5 (L) | 1.0 - 2.4 | + + + + | TBIL | 0.4 | 0.1 - 1.5 mg/dL | + + + + | ALK PHOS | 694 (H) | 35 - 115 U/L | + + + + | AST | 21 | 10 - 45 U/L | + + + + | ALT | 18 | 10 - 65 U/L | + + + + | EGFR | >60Comment: GFR <60: CHRONIC KIDNEY | >60 mL/min/1.73m2 | | | DISEASE, IF FOUND OVER A 3 MONTH PERIOD.GFR | | | | <15: KIDNEY FAILURE.FOR AMERICANS, | | | | MULTIPLY THE CALCULATED GFR BY | | | | 1.210.Testing performed at [facility];[address] [place] [address] | | | | [facility];[place] [address] | | | | | | + + + + + + + | Specimen | Performing Laboratory | + + + | Blood | [facility] [address] [place] [address] | + + + CBC with differential (08/04/2017 5:02 PM) + + + + | Component | Value | Ref Range | + + + + | WBC | 11.07 (H) | 3.80 - 11.00 K/uL | + + + + | RBC | 3.83 | 3.70 - 5.10 M/uL | + + + + | HGB | 9.9 (L) | 11.3 - 15.5 g/dL | + + + + | HCT | 31.3 (L) | 34.0 - 46.0 % | + + + + | MCV | 81.6 | 80.0 - 100.0 fl | + + + + | MCH | 25.7 (L) | 27.0 - 34.0 pg | + + + + | MCHC | 31.5 (L) | 32.0 - 35.5 g/dL | + + + + | RDW SD | 52.5 | 37 - 53 fl | + + + + | PLT | 276 | 150 - 400 K/uL | + + + + | MPV | 6.5 | fl | + + + + | DIFF TYPE | AUTOMATED | | + + + + | NEUTROPHILS | 85.73 | % | + + + + | LYMPHOCYTES | 9.88 | % | + + + + | MONOCYTES | 4.15 | % | + + + + | EOSINOPHILS | 0.15 | % | + + + + | BASOPHILS | 0.09 | % | + + + + | NEUTROPHILS ABS | 9.49 (H) | 1.90 - 7.40 K/uL | + + + + | LYMPHOCYTES ABS | 1.09 | 1.00 - 3.90 K/uL | + + + + | MONOCYTES ABS | 0.46 | 0.00 - 0.80 K/uL | + + + + | EOSINOPHILS ABS | 0.02 | 0.00 - 0.50 K/uL | + + + + | BASOPHILS ABS | 0.01 | 0.00 - 0.10 K/uL | + + + + | MORPHOLOGY | RBC AND PLT MORPHOLOGY APPEAR NORMAL | | + + + + | Diff Comment | SLIDE SCANNED, AGREES WITH AUTOMATED | | | | RESULTS.Comment: Testing performed at | | | | [facility];[address] [place] [address];[place] [address] | | + + + + + + + | Specimen | Performing Laboratory | + + + | Blood | [facility] [address] [place] [address] | + + + Urinalysis (reflex to microscopic/reflex to culture) (08/04/2017 3:38 PM) + + + + | Component | Value | Ref Range | + + + + | COLOR UA | YELLOW | | + + + + | CLARITY | CLEAR | | + + + + | Specific [place], UA | 1.011 | 1.002 - 1.030 | + + + + | LEUKOCYTE ESTERASE | NEGATIVE | NEGATIVE | + + + + | NITRITE | NEGATIVE | NEGATIVE | + + + + | UROBILINOGEN | NORMAL | <1.1 mg/dL | + + + + | PROTEIN | NEGATIVE | NEGATIVE mg/dL | + + + + | PH,URINE | 7.0 | 5.0 - 8.0 | + + + + | BLOOD | NEGATIVE | NEGATIVE | + + + + | KETONES | NEGATIVE | NEGATIVE mg/dL | + + + + | BILIRUBIN | NEGATIVE | NEGATIVE | + + + + | GLUCOSE | NEGATIVEComment: Testing performed at | NEGATIVE mg/dL | | | [facility];[address];[place] [address] | | + + + + + + + | Specimen | Performing Laboratory | + + + | Urine, Clean Catch | [facility] [address] [place] [address] | + + + in this encounter Visit Diagnoses + + | Diagnosis | + + | Wet gangrene, left foot (HCC) - Primary | + + | Gangrene | + + | Normocytic anemia | + + | Anemia, unspecified | + + | Lactic acidosis | + + | Acidosis | + + | Hypoalbuminemia | + + | Other disorders of plasma protein metabolism | + + | Open wound of left lower leg | + + | Open wound of knee, leg (except thigh), and ankle, without mention of complication | + + | Multiple myeloma (HCC) | + + | Multiple myeloma, without mention of having achieved remission | + + | Left foot infection | + + | Unspecified local infection of skin and subcutaneous tissue | + + | Hyperlipidemia | + + | Other and unspecified hyperlipidemia | + + | DVT (deep venous thrombosis) (HCC) | + + | Acute venous embolism and thrombosis of unspecified deep vessels of lower extremity | + + | COPD (chronic obstructive pulmonary disease) (HCC) | + + | Chronic airway obstruction, not elsewhere classified | + + | Moderate obesity | + + | Phantom limb pain (HCC) | + + | Phantom limb (syndrome) | + + | S/P AKA (above knee amputation), left (HCC) | + + Admitting Diagnoses + + | Diagnosis | + + | Lactic acidosis | + + | Acidosis | + + | Normocytic anemia | + + | Anemia, unspecified | + + | Hypoalbuminemia | + + | Other disorders of plasma protein metabolism | + + | 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HCC) - Wet gangrene, left foot (HCC) | + + | Gangrene | + + Administered Medications + +--------+---------+------+------+------+ | Medication Order | MAR | Action | Dose | Rate | Site | | | Action | Date | | | | + +--------+---------+------+------+------+ + +---+ | acetaminophen (TYLENOL) | | | suppository 650 mg 650 mg, | | | Rectal, Every 6 Hours PRN, Mild | | | Pain (1-3), Fever, Starting Fri | | | 08/07/17 at 1739 | | + +---+ | | | + +---+ + +-------+ +--------+---+---+ | acetaminophen (TYLENOL) tablet | Given | | 650 mg | | | | 650 mg 650 mg, Oral, Every 6 | | 8 20:27 | | | | | Hours PRN, Mild Pain (1-3), | | PDT | | | | | Fever, Starting Thu08/04/17 at | | | | | | | 1920 | | | | | | + +-------+ +--------+---+---+ +---+---+ | | | +---+---+ + +-------+ +--------+---+---+ | acetaminophen (TYLENOL) tablet | Given | | 650 mg | | | | 650 mg 650 mg, Oral, Every 6 | | 8 05:21 | | | | | Hours PRN, Mild Pain (1-3), | | PDT | | | | | Fever, Starting Thu08/04/17 at | | | | | | | 2039 | | | | | | + +-------+ +--------+---+---+ +-------+ +--------+---+---+ | Given | | 650 mg | | | | | 8 16:01 | | | | | | PDT | | | | +-------+ +--------+---+---+ + +---+ | | | + +---+ | acetaminophen (TYLENOL) tablet | | | 650 mg 650 mg, Oral, Every 6 | | | Hours PRN, Mild Pain (1-3), | | | Fever, Starting 08/07/17 at | | | 1739 | | + +---+ | | | + +---+ | albuterol (PROVENTIL) nebulizer | | | solution 2.5 mg 2.5 mg, | | | Nebulization, Every 4 Hours PRN, | | | Wheezing, Shortness of Breath, | | | Starting 08/09/17 at 2248 | | + +---+ | | | + +---+ + +-------+ + +---+---+ | amoxicillin-clavulanate | Given | | 1 tablet | | | | (AUGMENTIN) 875-125 MG per tablet | | 8 20:46 | | | | | 1 tablet 1 tablet, Oral, Every | | PDT | | | | | 12 Hours Scheduled (2 times per | | | | | | | day), First dose on 08/08/17 | | | | | | | at 2100, For 12 doses, | | | | | | | Indications: Non-Purulent Skin | | | | | | | and Soft Tissue Infection | | | | | | + +-------+ + +---+---+ +-------+ + +---+---+ | Given | | 1 tablet | | | | | 8 08:43 | | | | | | PDT | | | | +-------+ + +---+---+ | Given | | 1 tablet | | | | | 8 20:32 | | | | | | PDT | | | | +-------+ + +---+---+ +---+---+ | | | +---+---+ + +-------+ + +---+---+ | amoxicillin-clavulanate | Given | | 1 tablet | | | | (AUGMENTIN) 875-125 MG per tablet | | 8 09:22 | | | | | 1 tablet 1 tablet, Oral, Every | | PDT | | | | | 12 Hours Scheduled (2 times per | | | | | | | day), First dose on Thu08/13/17 | | | | | | | at 0900, Indications: | | | | | | | Non-Purulent Skin and Soft Tissue | | | | | | | Infection | | | | | | + +-------+ + +---+---+ +-------+ + +---+---+ | Given | | 1 tablet | | | | | 8 21:45 | | | | | | PDT | | | | +-------+ + +---+---+ | Given | | 1 tablet | | | | | 8 10:16 | | | | | | PDT | | | | +-------+ + +---+---+ +---+---+ | | | +---+---+ + +-------+ +-----+-------+---+ | ampicillin-sulbactam (UNASYN) 3 | Given | | 3 g | 100 | | | g in sodium chloride (IV) 0.9 % | | 8 07:55 | | mL/hr | | | 100 mL IVPB 3 g, Intravenous, at | | PDT | | | | | 100 mL/hr, Every 6 Hours, First | | | | | | | dose on Thu08/04/17 at 2011, | | | | | | | Indications: Skin and Soft Tissue | | | | | | | Abscess | | | | | | + +-------+ +-----+-------+---+ +-------+ +-----+-------+---+ | Given | | 3 g | 100 | | | | 8 20:05 | | mL/hr | | | | PDT | | | | +-------+ +-----+-------+---+ | Given | | 3 g | 100 | | | | 8 02:32 | | mL/hr | | | | PDT | | | | +-------+ +-----+-------+---+ +---+---+ | | | +---+---+ + +-------+ +-----+-------+---+ | ampicillin-sulbactam (UNASYN) 3 | Given | | 3 g | 100 | | | g in sodium chloride (IV) 0.9 % | | 8 08:43 | | mL/hr | | | 100 mL IVPB 3 g, Intravenous, at | | PDT | | | | | 100 mL/hr, Every 6 Hours, First | | | | | | | dose on 08/08/17 at 0830, For | | | | | | | 2 doses, Indications: Skin and | | | | | | | Soft Tissue Abscess | | | | | | + +-------+ +-----+-------+---+ +-------+ +-----+-------+---+ | Given | | 3 g | 100 | | | | 8 15:05 | | mL/hr | | | | PDT | | | | +-------+ +-----+-------+---+ +---+---+ | | | +---+---+ + +-------+ +-----+-------+---+ | ampicillin-sulbactam (UNASYN) 3 | Given | | 3 g | 100 | | | g in sodium chloride (IV) 0.9 % | | 8 16:51 | | mL/hr | | | 100 mL IVPB 3 g, Intravenous, at | | PDT | | | | | 100 mL/hr, Every 6 Hours, First | | | | | | | dose on 08/10/17 at 1100, | | | | | | | Indications: Non-Purulent Skin | | | | | | | and Soft Tissue Infection | | | | | | + +-------+ +-----+-------+---+ +-------+ +-----+-------+---+ | Given | | 3 g | 100 | | | | 8 23:26 | | mL/hr | | | | PDT | | | | +-------+ +-----+-------+---+ | Given | | 3 g | 100 | | | | 8 05:42 | | mL/hr | | | | PDT | | | | +-------+ +-----+-------+---+ +---+---+ | | | +---+---+ + +-------+ +-------+---+---+ | aspirin chewable tablet 81 mg | Given | | 81 mg | | | | 81 mg, Oral, Daily With | | 8 08:11 | | | | | Breakfast, First dose on Wed | | PDT | | | | | 08/05/17 at 1130 | | | | | | + +-------+ +-------+---+---+ +-------+ +-------+---+---+ | Given | | 81 mg | | | | | 8 09:22 | | | | | | PDT | | | | +-------+ +-------+---+---+ | Given | | 81 mg | | | | | 8 10:05 | | | | | | PDT | | | | +-------+ +-------+---+---+ +---+---+ | | | +---+---+ + +-------+ +-------+---+---+ | atorvastatin (LIPITOR) tablet | Given | | 40 mg | | | | 40 mg 40 mg, Oral, Nightly, | | 8 20:56 | | | | | First dose on 08/04/17 at 2200 | | PDT | | | | + +-------+ +-------+---+---+ +-------+ +-------+---+---+ | Given | | 40 mg | | | | | 8 21:29 | | | | | | PDT | | | | +-------+ +-------+---+---+ | Given | | 40 mg | | | | | 8 21:31 | | | | | | PDT | | | | +-------+ +-------+---+---+ +---+---+ | | | +---+---+ + +-------+ +-------+---+---+ | enoxaparin (LOVENOX) injection | Given | | 90 mg | | | | 90 mg 90 mg, Subcutaneous, Every | | 8 08:22 | | | | | 12 Hours, First dose on Tue | | PDT | | | | | 08/04/17 at 2100 | | | | | | + +-------+ +-------+---+---+ +-------+ +-------+---+---+ | Given | | 90 mg | | | | | 8 20:14 | | | | | | PDT | | | | +-------+ +-------+---+---+ | Given | | 90 mg | | | | | 8 08:27 | | | | | | PDT | | | | +-------+ +-------+---+---+ +---+---+ | | | +---+---+ + +-------+ +-------+---+---+ | enoxaparin (LOVENOX) injection | Given | | 90 mg | | | | 90 mg 90 mg (rounded from 89.2 | | 8 10:52 | | | | | mg = 1 mg/kg | | PDT | | | | | 89.2 kg), Subcutaneous, Every 12 | | | | | | | Hours, First dose on Thu08/10/17 | | | | | | | at 1030 | | | | | | + +-------+ +-------+---+---+ +-------+ +-------+---+---+ | Given | | 90 mg | | | | | 8 21:32 | | | | | | PDT | | | | +-------+ +-------+---+---+ | Given | | 90 mg | | | | | 8 10:19 | | | | | | PDT | | | | +-------+ +-------+---+---+ +---+---+ | | | +---+---+ + +---------+ +---------+---+--------+ | fentaNYL (DURAGESIC) 12 MCG/HR | Patch | | 1 patch | | Right | | patch 1 patch 1 patch (12 | Applied | 8 15:12 | | | Arm | | mcghr), Transdermal, Every 72 | | PDT | | | | | Hours, First dose on Thu08/05/17 | | | | | | | at 1530 | | | | | | + +---------+ +---------+---+--------+ + + +---------+---+ + | Patch Applied | | 1 patch | | Left Arm | | | 8 16:54 | | | | | | PDT | | | | + + +---------+---+ + | Patch Applied | | 1 patch | | Left Arm | | | 8 15:44 | | | | | | PDT | | | | + + +---------+---+ + +---+---+ | | | +---+---+ + +-------+ +--------+---+---+ | fentaNYL (SUBLIMAZE) injection | Given | | 50 mcg | | | | 50 mcg 50 mcg, Intravenous, | | 8 16:13 | | | | | Every 5 Min PRN, Pain, Option One | | PDT | | | | | for pain scale 5-10/10. If no | | | | | | | relief, proceed to option 2., | | | | | | | Starting 08/07/17 at 1537, | | | | | | | PACU | | | | | | + +-------+ +--------+---+---+ +---+---+ | | | +---+---+ + +-------+ +-------+---+---+ | furosemide (LASIX) injection 20 | Given | | 20 mg | | | | mg 20 mg, Intravenous, Once, | | 8 22:53 | | | | | 08/09/17 at 2330, For 1 dose | | PDT | | | | + +-------+ +-------+---+---+ +---+---+ | | | +---+---+ + +-------+ +-------+---+---+ | furosemide (LASIX) injection 20 | Given | | 20 mg | | | | mg 20 mg, Intravenous, Once, | | 8 23:18 | | | | | 08/09/17 at 2330, For 1 dose | | PDT | | | | + +-------+ +-------+---+---+ +---+---+ | | | +---+---+ + +-------+ +-------+---+---+ | furosemide (LASIX) injection 40 | Given | | 40 mg | | | | mg 40 mg, Intravenous, Once, | | 8 12:37 | | | | | 08/10/17 at 1030, For 1 dose | | PDT | | | | + +-------+ +-------+---+---+ +---+---+ | | | +---+---+ + +-------+ +-------+---+---+ | furosemide (LASIX) injection 40 | Given | | 40 mg | | | | mg 40 mg, Intravenous, Daily, | | 8 16:51 | | | | | First dose on Thu08/12/17 at 1500 | | PDT | | | | + +-------+ +-------+---+---+ +-------+ +-------+---+---+ | Given | | 40 mg | | | | | 8 09:23 | | | | | | PDT | | | | +-------+ +-------+---+---+ +---+---+ | | | +---+---+ + +-------+ +-------+---+---+ | furosemide (LASIX) injection 60 | Given | | 60 mg | | | | mg 60 mg, Intravenous, Daily, | | 8 10:06 | | | | | First dose on Thu08/14/17 at 0900 | | PDT | | | | + +-------+ +-------+---+---+ +---+---+ | | | +---+---+ + +-------+ +--------+---+---+ | gabapentin (NEURONTIN) capsule | Given | | 100 mg | | | | 100 mg 100 mg, Oral, 3 Times | | 8 20:46 | | | | | Daily, First dose on 08/08/17 | | PDT | | | | | at 1130 | | | | | | + +-------+ +--------+---+---+ +-------+ +--------+---+---+ | Given | | 100 mg | | | | | 8 06:13 | | | | | | PDT | | | | +-------+ +--------+---+---+ | Given | | 100 mg | | | | | 8 15:28 | | | | | | PDT | | | | +-------+ +--------+---+---+ +---+---+ | | | +---+---+ + +-------+ +--------+---+---+ | gabapentin (NEURONTIN) capsule | Given | | 200 mg | | | | 200 mg 200 mg, Oral, 3 Times | | 8 14:00 | | | | | Daily, First dose on 08/09/17 | | PDT | | | | | at 2200 | | | | | | + +-------+ +--------+---+---+ +-------+ +--------+---+---+ | Given | | 200 mg | | | | | 8 21:31 | | | | | | PDT | | | | +-------+ +--------+---+---+ | Given | | 200 mg | | | | | 8 05:20 | | | | | | PDT | | | | +-------+ +--------+---+---+ +---+---+ | | | +---+---+ + +-------+ +--------+---+---+ | guaiFENesin (MUCINEX) 12 hr | Given | | 600 mg | | | | tablet 600 mg 600 mg, Oral, 2 | | 8 09:23 | | | | | Times Daily, First dose on Wed | | PDT | | | | | 08/05/17 at 2100 | | | | | | + +-------+ +--------+---+---+ +-------+ +--------+---+---+ | Given | | 600 mg | | | | | 8 21:31 | | | | | | PDT | | | | +-------+ +--------+---+---+ | Given | | 600 mg | | | | | 8 10:04 | | | | | | PDT | | | | +-------+ +--------+---+---+ +---+---+ | | | +---+---+ + +---------+ + +-------+---+ | heparin 50 units/mL infusion | New Bag | | 15 | 26.5 | | | 18 Units/kg/hr | | 8 12:45 | Units/kg | mL/hr | | | 88.3 kg (31.788 mL/hr, rounded | | PDT | /hr | | | | to 31.8 mL/hr), Intravenous, at | | | | | | | 31.8 mL/hr, Continuous, Starting | | | | | | | [facility] 08/06/17 at 1700 | | | | | | + +---------+ + +-------+---+ + + + + +---+ | Rate/Dose Change | | 13 | 23 mL/hr | | | | 8 06:12 | Units/kg | | | | | PDT | /hr | | | + + + + +---+ | New Bag | | 13 | 23 mL/hr | | | | 8 06:33 | Units/kg | | | | | PDT | /hr | | | + + + + +---+ +---+---+ | | | +---+---+ + + + +--------+---+---+ | HYDROmorphone (DILAUDID) | Given by | | 0.5 mg | | | | injection 0.5 mg 0.5 mg, | Other | 8 16:59 | | | | | Intravenous, Every 5 Min PRN, | | PDT | | | | | Pain, Option Two for pain scale | | | | | | | 5-10/10. If no relief, proceed to | | | | | | | option 3., Starting 08/07/17 | | | | | | | at 1537, PACU | | | | | | + + + +--------+---+---+ +---+---+ | | | +---+---+ + +-------+ +--------+---+---+ | HYDROmorphone (DILAUDID) | Given | | 0.5 mg | | | | injection 0.5 mg 0.5 mg, | | 8 18:09 | | | | | Intravenous, Every 3 Hours PRN, | | PDT | | | | | Moderate Pain (4-6), Starting Fri | | | | | | | 08/07/17 at 1739 | | | | | | + +-------+ +--------+---+---+ +-------+ +--------+---+---+ | Given | | 0.5 mg | | | | | 8 03:26 | | | | | | PDT | | | | +-------+ +--------+---+---+ | Given | | 0.5 mg | | | | | 8 22:52 | | | | | | PDT | | | | +-------+ +--------+---+---+ +---+---+ | | | +---+---+ + +-------+ +------+---+---+ | HYDROmorphone (DILAUDID) | Given | | 1 mg | | | | injection 1 mg 1 mg, | | 8 00:48 | | | | | Intravenous, Every 3 Hours PRN, | | PDT | | | | | Severe Pain (7-10), Starting Fri | | | | | | | 08/07/17 at 1739 | | | | | | + +-------+ +------+---+---+ +-------+ +------+---+---+ | Given | | 1 mg | | | | | 8 04:49 | | | | | | PDT | | | | +-------+ +------+---+---+ | Given | | 1 mg | | | | | 8 23:25 | | | | | | PDT | | | | +-------+ +------+---+---+ +---+---+ | | | +---+---+ + +-------+ +--------+---+---+ | ipratropium-albuterol | Given | | 1 puff | | | | (COMBIVENT RESPIMAT) inhaler 1 | | 8 08:37 | | | | | puff 1 puff, Inhalation, 4 Times | | PDT | | | | | Daily, First dose on Thu08/06/17 | | | | | | | at 1200 | | | | | | + +-------+ +--------+---+---+ +-------+ +--------+---+---+ | Given | | 1 puff | | | | | 8 12:31 | | | | | | PDT | | | | +-------+ +--------+---+---+ | Given | | 1 puff | | | | | 8 15:22 | | | | | | PDT | | | | +-------+ +--------+---+---+ +---+---+ | | | +---+---+ + +-------+ +-------+---+---+ | ipratropium-albuterol (DUO-NEB) | Given | | 3 mLs | | | | 0.5-2.5 mg/3mL nebulizer | | 8 14:52 | | | | | solution 3 mL 3 mL, | | PDT | | | | | Nebulization, Every 4 Hours While | | | | | | | Awake, First dose on Thu08/04/17 | | | | | | | at 2200 | | | | | | + +-------+ +-------+---+---+ +-------+ +-------+---+---+ | Given | | 3 mLs | | | | | 8 19:07 | | | | | | PDT | | | | +-------+ +-------+---+---+ | Given | | 3 mLs | | | | | 8 07:08 | | | | | | PDT | | | | +-------+ +-------+---+---+ +---+---+ | | | +---+---+ + +-------+ +-------+---+---+ | ipratropium-albuterol (DUO-NEB) | Given | | 3 mLs | | | | 0.5-2.5 mg/3mL nebulizer | | 8 16:33 | | | | | solution 3 mL 3 mL, | | PDT | | | | | Nebulization, Once PRN, Wheezing, | | | | | | | as needed for PACU use., | | | | | | | Starting Thu08/07/17 at 1611, For | | | | | | | 1 dose, PACU | | | | | | + +-------+ +-------+---+---+ +---+---+ | | | +---+---+ + +-------+ +-------+---+---+ | ipratropium-albuterol (DUO-NEB) | Given | | 3 mLs | | | | 0.5-2.5 mg/3mL nebulizer | | 8 20:42 | | | | | solution 3 mL 3 mL, | | PDT | | | | | Nebulization, Every 6 Hours, | | | | | | | First dose on 08/09/17 at 1830 | | | | | | + +-------+ +-------+---+---+ +-------+ +-------+---+---+ | Given | | 3 mLs | | | | | 8 03:08 | | | | | | PDT | | | | +-------+ +-------+---+---+ | Given | | 3 mLs | | | | | 8 08:48 | | | | | | PDT | | | | +-------+ +-------+---+---+ +---+---+ | | | +---+---+ + +---------+ +---+-------+---+ | lactated ringers infusion at | New Bag | | | 110 | | | 110 mL/hr, Intravenous, | | 8 17:57 | | mL/hr | | | Continuous, Starting 08/07/17 | | PDT | | | | | at 1800 | | | | | | + +---------+ +---+-------+---+ +---------+ +---+-------+---+ | New Bag | | | 110 | | | | 8 02:41 | | mL/hr | | | | PDT | | | | +---------+ +---+-------+---+ + +---+ | | | + +---+ | LORazepam (ATIVAN) injection 1 | | | mg 1 mg, Intravenous, Img Once | | | PRN, Anxiety, Starting Tue | | | 08/04/17 at 2010, For 1 dose | | + +---+ | | | + +---+ + +-------+ +--------+---+---+ | methylPREDNISolone | Given | | 125 mg | | | | (Solu-MEDROL) injection 125 mg | | 8 22:53 | | | | | 125 mg, Intravenous, Once, Sun | | PDT | | | | | 08/09/17 at 2330, For 1 dose | | | | | | + +-------+ +--------+---+---+ +---+---+ | | | +---+---+ + +-------+ + +---+---+ | methylPREDNISolone | Given | | 81.25 mg | | | | (Solu-MEDROL) injection 81.25 mg | | 8 23:30 | | | | | 81.25 mg (rounded from 80 mg), | | PDT | | | | | Intravenous, Every 8 Hours, First | | | | | | | dose on Thu08/10/17 at 0600 | | | | | | + +-------+ + +---+---+ +-------+ + +---+---+ | Given | | 81.25 mg | | | | | 8 05:43 | | | | | | PDT | | | | +-------+ + +---+---+ | Given | | 81.25 mg | | | | | 8 14:21 | | | | | | PDT | | | | +-------+ + +---+---+ +---+---+ | | | +---+---+ + +-------+ +-------+---+---+ | methylPREDNISolone sodium | Given | | 40 mg | | | | succinate (Solu-MEDROL) injection | | 8 06:01 | | | | | 40 mg 40 mg, Intravenous, Every | | PDT | | | | | 8 Hours, First dose on Thu | | | | | | | 08/11/17 at 2200, For 4 doses | | | | | | + +-------+ +-------+---+---+ +-------+ +-------+---+---+ | Given | | 40 mg | | | | | 8 14:33 | | | | | | PDT | | | | +-------+ +-------+---+---+ | Given | | 40 mg | | | | | 8 21:30 | | | | | | PDT | | | | +-------+ +-------+---+---+ +---+---+ | | | +---+---+ + +-------+ +------+---+---+ | morphine injection 2 mg 2 mg, | Given | | 2 mg | | | | Intravenous, Every 2 Hours PRN, | | 8 09:15 | | | | | For pain scale 4 to 5, Starting | | PDT | | | | | 08/04/17 at 2010 | | | | | | + +-------+ +------+---+---+ +-------+ +------+---+---+ | Given | | 2 mg | | | | | 8 11:44 | | | | | | PDT | | | | +-------+ +------+---+---+ | Given | | 2 mg | | | | | 8 07:44 | | | | | | PDT | | | | +-------+ +------+---+---+ +---+---+ | | | +---+---+ + +-------+ +------+---+---+ | morphine injection 3 mg 3 mg, | Given | | 3 mg | | | | Intravenous, Every 2 Hours PRN, | | 8 03:20 | | | | | For pain scale 6 to 7, Starting | | PDT | | | | | 08/04/17 at 2010 | | | | | | + +-------+ +------+---+---+ +-------+ +------+---+---+ | Given | | 3 mg | | | | | 8 12:39 | | | | | | PDT | | | | +-------+ +------+---+---+ | Given | | 3 mg | | | | | 8 15:43 | | | | | | PDT | | | | +-------+ +------+---+---+ +---+---+ | | | +---+---+ + +-------+ +------+---+---+ | morphine injection 4 mg 4 mg, | Given | | 4 mg | | | | Intravenous, Every 2 Hours PRN, | | 8 23:07 | | | | | For pain scale 8 to 10, Starting | | PDT | | | | | Thu08/04/17 at 2010 | | | | | | + +-------+ +------+---+---+ +-------+ +------+---+---+ | Given | | 4 mg | | | | | 8 06:17 | | | | | | PDT | | | | +-------+ +------+---+---+ | Given | | 4 mg | | | | | 8 11:02 | | | | | | PDT | | | | +-------+ +------+---+---+ +---+---+ | | | +---+---+ + +---------+ +---------+---+--------+ | nicotine (NICODERM CQ) 21 | Patch | | 1 patch | | Right | | MG/24HR patch 1 patch 1 patch, | Applied | 8 21:00 | | | Arm | | Transdermal, Every 24 Hours, | | PDT | | | | | First dose on Thu08/04/17 at 2100 | | | | | | + +---------+ +---------+---+--------+ + + +---------+---+ + | Patch Applied | | 1 patch | | Left Arm | | | 8 21:36 | | | | | | PDT | | | | + + +---------+---+ + | Patch Applied | | 1 patch | | Left Arm | | | 8 21:32 | | | | | | PDT | | | | + + +---------+---+ + +---+---+ | | | +---+---+ + +---------+ +---------+---+--------+ | nicotine (NICODERM CQ) 21 | Patch | | 1 patch | | Right | | MG/24HR patch 1 patch 1 patch, | Applied | 8 13:01 | | | Arm | | Transdermal, Daily, First dose on | | PDT | | | | | 08/05/17 at 1130 | | | | | | + +---------+ +---------+---+--------+ + +---+ | | | + +---+ | ondansetron (ZOFRAN) injection | | | 4 mg 4 mg, Intravenous, Every 6 | | | Hours PRN, Nausea, Vomiting, | | | Starting 08/07/17 at 1739 | | + +---+ | | | + +---+ | ondansetron (ZOFRAN) tablet 4 | | | mg 4 mg, Oral, Every 6 Hours | | | PRN, Nausea, Vomiting, Starting | | | Thu08/07/17 at 1739 | | + +---+ | | | + +---+ + +-------+ +-------+---+---+ | oxyCODONE (oxyCONTIN) 12 hr | Given | | 10 mg | | | | tablet 10 mg 10 mg, Oral, 2 | | 8 08:00 | | | | | Times Daily, First dose on Thu | | PDT | | | | | 08/05/17 at 2100 | | | | | | + +-------+ +-------+---+---+ +-------+ +-------+---+---+ | Given | | 10 mg | | | | | 8 22:26 | | | | | | PDT | | | | +-------+ +-------+---+---+ | Given | | 10 mg | | | | | 8 08:48 | | | | | | PDT | | | | +-------+ +-------+---+---+ +---+---+ | | | +---+---+ + +-------+ +-------+---+---+ | OxyCODONE (oxyCONTIN) 12 hr | Given | | 15 mg | | | | tablet 15 mg 15 mg, Oral, 2 | | 8 21:04 | | | | | Times Daily, First dose on Thu | | PDT | | | | | 08/04/17 at 2100 | | | | | | + +-------+ +-------+---+---+ +-------+ +-------+---+---+ | Given | | 15 mg | | | | | 8 08:22 | | | | | | PDT | | | | +-------+ +-------+---+---+ +---+---+ | | | +---+---+ + +-------+ +-------+---+---+ | OxyCODONE (oxyCONTIN) 12 hr | Given | | 15 mg | | | | tablet 15 mg 15 mg, Oral, 2 | | 8 09:22 | | | | | Times Daily, First dose on Sat | | PDT | | | | | 08/08/17 at 2100 | | | | | | + +-------+ +-------+---+---+ +-------+ +-------+---+---+ | Given | | 15 mg | | | | | 8 21:31 | | | | | | PDT | | | | +-------+ +-------+---+---+ | Given | | 15 mg | | | | | 8 10:04 | | | | | | PDT | | | | +-------+ +-------+---+---+ +---+---+ | | | +---+---+ + +-------+ +-------+---+---+ | oxyCODONE (ROXICODONE) | Given | | 10 mg | | | | immediate release tablet 10 mg | | 8 14:33 | | | | | 10 mg, Oral, Every 4 Hours PRN, | | PDT | | | | | Pain, 6 to 7, Starting Fri | | | | | | | 08/07/17 at 1739 | | | | | | + +-------+ +-------+---+---+ +-------+ +-------+---+---+ | Given | | 10 mg | | | | | 8 19:26 | | | | | | PDT | | | | +-------+ +-------+---+---+ | Given | | 10 mg | | | | | 8 00:07 | | | | | | PDT | | | | +-------+ +-------+---+---+ +---+---+ | | | +---+---+ + +-------+ +-------+---+---+ | oxyCODONE (ROXICODONE) | Given | | 15 mg | | | | immediate release tablet 15 mg | | 8 22:26 | | | | | 15 mg, Oral, Every 4 Hours PRN, 8 | | PDT | | | | | to 10, Starting 08/07/17 at | | | | | | | 1739 | | | | | | + +-------+ +-------+---+---+ +-------+ +-------+---+---+ | Given | | 15 mg | | | | | 8 15:28 | | | | | | PDT | | | | +-------+ +-------+---+---+ | Given | | 15 mg | | | | | 8 05:20 | | | | | | PDT | | | | +-------+ +-------+---+---+ +---+---+ | | | +---+---+ + +-------+ +------+---+---+ | oxyCODONE (ROXICODONE) | Given | | 5 mg | | | | immediate release tablet 5 mg 5 | | 8 10:31 | | | | | mg, Oral, Every 4 Hours PRN, | | PDT | | | | | Moderate Pain (4-6), Starting Tue | | | | | | | 08/04/17 at 2039 | | | | | | + +-------+ +------+---+---+ +-------+ +------+---+---+ | Given | | 5 mg | | | | | 8 14:34 | | | | | | PDT | | | | +-------+ +------+---+---+ | Given | | 5 mg | | | | | 8 23:30 | | | | | | PDT | | | | +-------+ +------+---+---+ +---+---+ | | | +---+---+ + +-------+ +------+---+---+ | oxyCODONE (ROXICODONE) | Given | | 5 mg | | | | immediate release tablet 5 mg 5 | | 8 16:52 | | | | | mg, Oral, Every 4 Hours PRN, | | PDT | | | | | Pain, 4 to 5, Starting Fri | | | | | | | 08/07/17 at 1739 | | | | | | + +-------+ +------+---+---+ +-------+ +------+---+---+ | Given | | 5 mg | | | | | 8 17:58 | | | | | | PDT | | | | +-------+ +------+---+---+ | Given | | 5 mg | | | | | 8 04:40 | | | | | | PDT | | | | +-------+ +------+---+---+ +---+---+ | | | +---+---+ + +-------+ +-------+---+---+ | pantoprazole (PROTONIX) EC | Given | | 40 mg | | | | tablet 40 mg 40 mg, Oral, Every | | 8 06:00 | | | | | Morning Before Breakfast, First | | PDT | | | | | dose on Thu08/05/17 at 0630 | | | | | | + +-------+ +-------+---+---+ +-------+ +-------+---+---+ | Given | | 40 mg | | | | | 8 05:41 | | | | | | PDT | | | | +-------+ +-------+---+---+ | Given | | 40 mg | | | | | 8 05:20 | | | | | | PDT | | | | +-------+ +-------+---+---+ +---+---+ | | | +---+---+ + +-------+ +-------+---+---+ | piperacillin-tazobactam (ZOSYN) | Given | | 4.5 g | | | | 4-0.5 GM/100ML extended infusion | | 8 00:48 | | | | | bolus 4.5 g 4.5 g, Intravenous, | | PDT | | | | | Administer over 30 Minutes, | | | | | | | Once, 08/10/17 at 0030, For 1 | | | | | | | dose, Administer loading dose | | | | | | | over 30 minutes. | | | | | | + +-------+ +-------+---+---+ +---+---+ | | | +---+---+ + +-------+ +---------+-------+---+ | piperacillin-tazobactam (ZOSYN) | Given | | 3.375 g | 12.5 | | | extended infusion 3.375 g 3.375 | | 8 03:00 | | mL/hr | | | g, Intravenous, Administer over | | PDT | | | | | 4 Hours, Every 8 Hours, First | | | | | | | dose on 08/10/17 at 0300 | | | | | | + +-------+ +---------+-------+---+ +---+---+ | | | +---+---+ + +-------+ +------+---+---+ | polyethylene glycol (GLYCOLAX) | Given | | 17 g | | | | packet 17 g 17 g, Oral, Daily | | 8 18:00 | | | | | PRN, Constipation, Starting Fri | | PDT | | | | | 08/07/17 at 1739 | | | | | | + +-------+ +------+---+---+ +-------+ +------+---+---+ | Given | | 17 g | | | | | 8 04:41 | | | | | | PDT | | | | +-------+ +------+---+---+ +---+---+ | | | +---+---+ + +-------+ +--------+---+---+ | potassium chloride (K-DUR) CR | Given | | 20 mEq | | | | tablet 20 mEq 20 mEq, Oral, | | 8 09:22 | | | | | Once, [facility] 08/13/17 at 0830, For 1 | | PDT | | | | | dose | | | | | | + +-------+ +--------+---+---+ +---+---+ | | | +---+---+ + +-------+ +--------+---+---+ | potassium chloride (K-DUR) CR | Given | | 30 mEq | | | | tablet 30 mEq 30 mEq, Oral, | | 8 10:52 | | | | | Once, [facility] 08/13/17 at 1030, For 1 | | PDT | | | | | dose | | | | | | + +-------+ +--------+---+---+ +---+---+ | | | +---+---+ + +-------+ +--------+---+---+ | potassium chloride (K-DUR) CR | Given | | 30 mEq | | | | tablet 30 mEq 30 mEq, Oral, | | 8 10:25 | | | | | Once, 08/14/17 at 1100, For 1 | | PDT | | | | | dose | | | | | | + +-------+ +--------+---+---+ +---+---+ | | | +---+---+ + +-------+ +-------+---+---+ | predniSONE (DELTASONE) tablet | Given | | 60 mg | | | | 60 mg 60 mg, Oral, Daily With | | 8 09:22 | | | | | Breakfast, First dose on Lady | | PDT | | | | | 08/13/17 at 0800 | | | | | | + +-------+ +-------+---+---+ +-------+ +-------+---+---+ | Given | | 60 mg | | | | | 8 10:05 | | | | | | PDT | | | | +-------+ +-------+---+---+ +---+---+ | | | +---+---+ + +-------+ +---------+---+---+ | senna (SENOKOT) 8.6 MG tablet | Given | | 17.2 mg | | | | 17.2 mg 17.2 mg, Oral, 2 Times | | 8 09:22 | | | | | Daily, First dose on Thu08/04/17 | | PDT | | | | | at 2100 | | | | | | + +-------+ +---------+---+---+ +-------+ +---------+---+---+ | Given | | 17.2 mg | | | | | 8 21:31 | | | | | | PDT | | | | +-------+ +---------+---+---+ | Given | | 17.2 mg | | | | | 8 10:04 | | | | | | PDT | | | | +-------+ +---------+---+---+ +---+---+ | | | +---+---+ + +-------+ +--------+---+---+ | sertraline (ZOLOFT) tablet 100 | Given | | 100 mg | | | | mg 100 mg, Oral, Daily, First | | 8 08:11 | | | | | dose on Thu08/05/17 at 0900 | | PDT | | | | + +-------+ +--------+---+---+ +-------+ +--------+---+---+ | Given | | 100 mg | | | | | 8 09:23 | | | | | | PDT | | | | +-------+ +--------+---+---+ | Given | | 100 mg | | | | | 8 10:05 | | | | | | PDT | | | | +-------+ +--------+---+---+ + +---+ | | | + +---+ | sodium chloride (PF) 0.9 % | | | flush 10 mL 10 mL, Intravenous, | | | Every 8 Hours PRN, Line Care, | | | when tolerating oral fluids, | | | Starting 08/07/17 at 1739 | | + +---+ | | | + +---+ + +---------+ +---+ +---+ | sodium chloride 0.9 % infusion | New Bag | | | 75 mL/hr | | | at 75 mL/hr, Intravenous, | | 8 20:31 | | | | | Continuous, Starting 08/05/17 | | PDT | | | | | at 1500 | | | | | | + +---------+ +---+ +---+ +---------+ +---+ +---+ | New Bag | | | 75 mL/hr | | | | 8 07:55 | | | | | | PDT | | | | +---------+ +---+ +---+ | New Bag | 08/08/ | | 75 mL/hr | | | | 8 10:48 | | | | | | PDT | | | | +---------+ +---+ +---+ +---+---+ | | | +---+---+ in this encounter
--- OUTSIDE RECORDS SUMMARY | ~2017-08-20 | XMS | Encounter Summary ---
Demographics + + + | Address | [address] | | | [place] [address] | + + + | Home Phone | | + + + | Preferred Language | Unknown | + + + | Marital Status | Single | + + + | Rastafari Affiliation | Unknown | + + + | Race | Unknown | + + + | Ethnic Group | Unknown | + + + Author + + + | Author | [facility] | + + + | Organization | [facility] | + + + | Address | [...] Team Providers + +------+ + | Care Edger Saw Operator Name | Role | Phone | + +------+ + | Eric Lew DO | PCP | | + +------+ + Reason for Visit Auth/Cert +--------+--------+ + + + + | Status | Reason | Specialty | Diagnoses / | Referred By | Referred To | | | | | Procedures | Contact | Contact | +--------+--------+ + + + + | | | | | | | +--------+--------+ + + + + Encounter Details +--------+---------+ + + + | Date | Type | Department | Care Team | Description | +--------+---------+ + + + | 08/04/ | Office | [facility] | Eric Lew DO | 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HCC) | | 2018 | Visit | Wound Care [address] | [address] | (Primary Dx); Other | | | | Blvd. [place], [place] | [place] [address] | hyperlipidemia; Deep | | | | [id number] | [phone] | vein thrombosis | | | | | | (DVT) of distal vein | | | | | Justine Phoenix MD | of lower extremity, | | | | | [address] | unspecified | | | | | [place] [address] | chronicity, | | | | | [phone] | unspecified | | | | | | laterality ([facility]); | | | | | | Multiple myeloma, | | | | | | remission status | | | | | | unspecified ([facility]); | | | | | | Open wound of left | | | | | | foot, initial | | | | | | encounter; Open | | | | | | wound of left lower | | | | | | leg, initial | | | | | | encounter; Left foot | | | | | | infection | +--------+---------+ + + + Social History + +-------+ [...] + + + | Blood Pressure | 130/76 | 08/04/2017 1:01 PM PDT | + + + + | Pulse | 103 | 08/04/2017 1:01 PM PDT | + + + + | Temperature | 37.1 C (98.8 F) | 08/04/2017 1:01 PM PDT | + + + + | Respiratory Rate | - | - | + + + + | Oxygen Saturation | - | - | + + + + | Inhaled Oxygen | - | - | | Concentration | | | + + + + | Weight | - | - | + + + + | Height | - | - | + + + + | Body Mass Index | - | - | + + + + in this encounter Instructions Patient Instructions - Abimbola Rao RN - 08/04/2017 1:00 PM PDTWE WILL NOT SCHEDULE ANY FURTHER APPOINTMENTS FOR YOU AT THIS TIME. YOUR TO DO LIST: (studies, labs, referrals, etc) 1). PLEASE PROCEED TO THE EMERGENCY ROOM SOON POSSIBLE. 2). WE HAVE COVERED YOUR WOUNDS WITH A TEMPORARY DRESSING OF Doximity AG TODAY. TREATMENT BEFORE DOING WOUND CARE: To reduce your risk of infection please do the following. 1. Wash your hands. 2. Put on gloves. 3. Remove dressing. 4. Remove gloves. 5. Wash your hands. 6. Put on new gloves. WOUND CARE SUPPLIES: Please bring the following dressing supplies to each visit: On your initial visit you are being given a 3 day supply of dressings to treat your wound. We are unable to provide you with dressings beyond the 3 day period. Supply Resources: The chosen dressing supply company. The [employer]. Local [employer] retail stores. 0.9% NORMAL SALINE RECIPE: Dissolve 1 teaspoon salt in 2 cups boiling water. Allow to cool. Pour into container. Store in refrigerator no longer than 7 days. Dump out when one week old, or if left out of refrigerator for 24 hours. HELPS YOU TO HEAL: Adequate protein is important to enhance wound healing. Unless otherwise medically restric cecilio please increase your daily dietary intake of protein. Examples of protein are: Chicken , fish, beef, nuts, beans, lentils, eggs, nut butters and supplemental drinks such as Ensure , Glucerna (for diabetic diet), Boost; or add powder to foods. SHOWERING/BATHING WITH OPEN WOUNDS: Should only be done if you are able to maintain the areas dry by covering them. If the areas are on your legs and/or feet that you cover with plastic, put footwear on that has treads on the bottoms. This helps reduce the risk of slipping on wet surfaces. Examples of this type of footwear are: Non-skid slipper socks, regular slippers, water chrissy es. Please dry your footwear between bathing sessions. Hygiene of general wound care: Avoid tap water cleansing. Do not expose your wound to chrissy wer/bath water. Cleanse wound with wound center recommended solutions only. Keep wound cov ered with prescribed dressing. Keep dressing clean and dry. Pressure Relief Information: Do not rub reddened areas over bony prominences. Avoid pressure on your wound. IMPORTANT REMINDERS: The wound center hours are Thursday thru Thursday 8 AM-4:30 PM. If you have deterioration of y our wound(s), increased pain, redness, swelling, unusual odor or discharge that does not res olve after cleaning, or temp > 100.4, report to the emergency room for further evaluation. Please arrive to your appointments on time. If you are more than 15 minutes late, the appoi ntment may need to be rescheduled. Please call us with 24 hour notice if you need to cancel or reschedule your appointment at . Please inform us if you are having or have had any recent wound surgeries, debridements or major procedures completed as soon as possible so that we may obtain records for the wound c are physician to review. A post-operative visit and clearance by the surgeon completing the procedure(s) will be needed prior to an appointment being scheduled with the wound center do ctor. in this encounter Progress Notes Sameera Muñoz RN - 08/04/2017 1:00 PM PDTCarmen Stark is a 61 y.o. female who pres ents today for InitialWound Care visit. She presents accompanied by child. She arrived: [facility]. Transfer Assistance: Manual Pending Amputation on Presentation: no Wound under treatment by Physician outside of Wound Care Center: no Patient identification verified: yes Secondary verification process completed: yes Patient in isolation precaution: no If yes, what kind?: na Nutrition Risk Screen Score: Fall Risk Assessment Score: Score: 65 Abuse/Suicide Risk Screening: See Wound Care New Patient Flowsheet Education Assessment: See Wound Care New Patient Flowsheet Neuropathy Assessment: See Lower Extremity Assessment Flowsheet Do you have an Advance Care Directive in case of an emergency? No Do you have a Durable Power of Health Care Special Service Representative or healthcare agent? This is someone yo u have designated to make emergency medical decisions on your behalf when you are not able. Has already started the [facility] Would you be interested in having a conversation about this subject? Not necessary Justine Phoenix MD - 08/04/2017 1:00 PM PDTFormatting of this note may be different from the original. Subjective: Carmen Stark is a 61 y.o. female who presents for initial visit for wound care. she reports that the wound has been present for 2 weeks. 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 I have formulated a differential diagnosis that needs to be addressed during thi s wound care visit, briefly discussed this differential with Carmen and then discussed with them the plan of care. I have also addressed the risks and benefits of all diagnostic and treatment modalities planned for this visit. I have reviewed the nursing notes as well as pertinent prior records and also Carmen chandra's PMHx, PSHx, SOC Hx and FAMHx. I have reviewed MEDS and ALLERGIES as well. Review of Systems Constitutional: No fatigue, sweats or weight loss Eyes: No visual changes, loss of vision, or bluriness Nose: No excessive nosebleeds Throat: No sore throat or stridor Lungs: No cough productive of blood GI: No blood in stools, no vomiting blood : No hematuria or urinary incontinence Skeletal: No swelling of joints, no atrophy of muscles, no loss of strength Skin: Wound left pretibial area, wound left foot, blisters toes Neuro: No loss of sensation in arms/legs, no new weakness, no seizures All systems reviewed and otherwise negative Pertinent items are noted in HPI. Objective: BP 130/76 | Pulse 103 | Temp 98.8 F (37.1 C) (Temporal) | LMP (LMP Unknown) General Appearance: Alert, cooperative, no distress, appears stated age Head: Normocephalic, without obvious abnormality, atraumatic Eyes: PERRL, conjunctiva/corneas clear, EOM's intact Ears: deferred Nose: Normal appearing Throat: deferred Neck: Supple, symmetrical, trachea midline, no adenopathy Back: deferred Lungs: Clear to auscultation bilaterally, respirations unlabored Chest wall: No tenderness or deformity Heart: Regular rate and rhythm, S1 and S2 normal, no murmurs, rub, or gallop. Abdomen: Soft, non-tender, bowel sounds active all four quadrants Extremities: Moves all extremities, atraumatic, no cyanosis, no clubbing present Pulses: Pulses palpable in all extremities except left foot - could not be assessed prope rly on the left foot due to edema of the foot. Skin: Wound left pretibial on anterior lower area and wound left dorsal foot towards the leg both moist with slough. The wounds are secondary to ruptured blisters/bullae and they ar e limited to skin breakdown noticed for now. The whole foot and especially the forefoot is s wollen with mottled color on dorsal and plantar areas There is a ruptured bulla on the dors al site of the forefoot oozing a a serous discharge foul smelling and all toes are swollen with blood blisters and a purple/blackish color. The aspect is consistent with a wet gangren e. . Lymph nodes: No cervical lymphadenopathy Neurologic: No gross motor/sensory deficits Assessment / Plan: Discussed wound care with Carmen Stark, including average length of time for healing and that we will be using various topical dressing, packing and wound care options over the cou rse of the visit. Reviewed need for debridement, sometimes cultures or other studies that ar e necessary to assess pt for proper care and to promote wound healing. Carmen verbalized un derstanding and agreement and questions were answered to the best of my ability on today's v isit. See problem list and nursing notes for planned dressing. Due to clinical pattern I held the debridement today. She will need a deep debridement righ t away and she is at risk to loose the foot. I called ED and I spoke with Sowmya. They will see the patient there. The patient and the daughter were upset and frustrated but they agre ed to go after a lengthy explanation. I explained that there are risks of sepsis or even esau th if this issue is not addressed right away. There is nothing we can offer here due to clin ical pattern of the whole foot. Patient was clinically stable and she will go to ED by aby decker. 1.Wet gangrene - left foot. Left foot infection - will apply a temporary dressing with Aqua wero AG and the patient will go to ED. The foot will need OR debridement but due to clinical pattern I think that the patient will need amputation and also the patient will need IV ant ibiotics. 2.Wound left pretibial limited to skin breakdown and wound left foot limited to skin breakd own- will apply a temporary dressing with Aquacel AG - I held the debridement today and this is why a wound culture was not done here. 2.DVT - continue treatment and FU with PCP and specialists 3. Multiple Myeloma - Continue current treatment. Follow up with PCP and or specialists. 4.Hyperlipidemia - Continue a diet low in fat. Continue current treatment and follow up wit h PCP. She is not on chemotherapy. Visit diagnoses: Wet gangrene left foot Left foot infection Wound left pretibial area limited to skin breakdown. Wound left foot limited to skin breakdown. DVT Multiple Myeloma Hyperlipidemia JUSTINE PHOENIX MD 08/04/2017 I am evaluating this patient for their wound care needs. They will continue to be taken ca re of by their primary physician/Specialist. JUSTINE PHOENIX MD 08/04/2017 in this encounter Plan of Treatment +--------+---------+ + + + | Date | Type | Specialty | Care Team | Description | +--------+---------+ + + + | 08/28/ | Office | Vascular Surgery | Dolores Harrison DNP | | | 2017 | Visit | | [address] | | | | | | [place] | | | | | | [address] | | | | | | | | +--------+---------+ + + + as of this encounter Visit Diagnoses + + | Diagnosis | + + | 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HCC) - Primary | + + | Gangrene | + + | Other hyperlipidemia | + + | Deep vein thrombosis (DVT) of distal vein of lower extremity, unspecified chronicity, | | unspecified laterality (HCC) | + + | Multiple myeloma, remission status unspecified (HCC) | + + | Open wound of left foot, initial encounter | + + | Open wound of left lower leg, initial encounter | + + | Left foot infection | + + | Unspecified local infection of skin and subcutaneous tissue | + + Admitting Diagnoses + + | Diagnosis | + + | 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HCC) | + + | Gangrene | + + | Left foot infection | + + | Unspecified local infection of skin and subcutaneous tissue | + + | Open wound of left foot, initial encounter | + + | Open wound of left lower leg, initial encounter | + + | Other hyperlipidemia | + + | Deep vein thrombosis (DVT) of distal vein of lower extremity, unspecified chronicity, | | unspecified laterality (HCC) | + + | Multiple myeloma, remission status unspecified (HCC) | + + Administered Medications + +--------+ +------+------+------+ | Medication Order | MAR | Action | Dose | Rate | Site | | | Action | Date | | | | + +--------+ +------+------+------+ | lidocaine (XYLOCAINE) 4 % | Given | | | | | | external solution Topical, PRN, | | 8 12:55 | | | | | Wound Care, Starting 08/04/17 | | PDT | | | | | at 1254, For 1 day | | | | | | + +--------+ +------+------+------+ +---+---+ | | | +---+---+ in this encounter"
--- OUTSIDE RECORDS SUMMARY | ~2017-08-20 | XMS | Encounter Summary ---
Demographics + + + | Address | [address] | | | [place] [address] | + + + | Home Phone | | + + + | Preferred Language | Unknown | + + + | Marital Status | Single | + + + | Spiritism Affiliation | Unknown | + + + | Race | Unknown | + + + | Ethnic Group | Unknown | + + + Author + + + | Author | [facility] | + + + | Organization | [facility] | + + + | Address | [...] Team Providers + +------+ + | Care Conductor Orchestra Name | Role | Phone | + [...] + + | 08/04/ | Office | [facility] | Eric Lew DO | 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HCC) | | 2018 | Visit | Wound Care [address] | [address] | (Primary Dx); Other | | | | Blvd. [place], [place] | [place] [address] | hyperlipidemia; Deep | | | | [id number] | [phone] | vein thrombosis | | | | | | (DVT) of distal vein | | | | | Justine Phoenix MD | of lower extremity, | | | | | [address] | unspecified | | | | | [place] [address] | chronicity, | | | | | [phone] | unspecified | | | | | | laterality ([facility]); | | | | | | Multiple myeloma, | | | | | | remission status | | | | | | unspecified ([facility]); | | | | | | Open [...] YOUR WOUNDS WITH A TEMPORARY DRESSING OF Bramasol AG TODAY. TREATMENT BEFORE DOING WOUND CARE: [...] Resources: The chosen dressing supply company. The [employer]. Local [employer] retail stores. 0.9% NORMAL SALINE RECIPE: Dissolve [...] She presents accompanied by child. She arrived: [facility]. Transfer Assistance: Manual Pending Amputation on Presentation: [...] have a Durable Power of Health Care Internet Security Specialist or healthcare agent? This is someone yo u have designated to make emergency medical decisions on your behalf when you are not able. Has already started the process when [facility] Would you be interested in having [...] | | | | | | [place] | | | | | | [id number] [...]
--- OUTSIDE RECORDS SUMMARY | ~2017-08-20 | XMS | Encounter Summary ---
Demographics + + + | Address | [address] | | | [place] [address] | + + + | Home Phone | | + + + | Preferred Language | Unknown | + + + | Marital Status | Single | + + + | Faith Affiliation | Unknown | + + + | Race | Unknown | + + + | Ethnic Group | Unknown | + + + Author + + + | Author | [facility] | | | and [place] | + + + | Organization | [facility] | | | and [place] | + + + | Address | Unknown | + + + | Phone | Unavailable | + + + Support + + + + + | Name | Relationship | Address | Phone | + + + + + | Elina Castellanos | ECON | [address] | | | | | [place] | | | | | [address] | | + + + + + Care Team Providers + +------+ + | Care Field Hauler Name | Role | Phone | + +------+ + | Eric Lew DO | PCP | | + +------+ + Reason for Visit +--------+ + | Reason | Comments | +--------+ + | Other | | +--------+ + Encounter Details +--------+ + + + + | Date | Type | Department | Care Team | Description | +--------+ + + + + | 07/29/ | Telephone | [facility] | [place], | Other | | 2018 | | [facility] | Jm Dominguez MD [address] | | | | [facility] [address] [place] | | | | | [address] [place] | [place] [address] | | | | | [place] [address] | [phone] | | | | | [phone] | | | +--------+ + + + [...] as of this encounter Plan of Treatment Not on fileas of this encounter Visit Diagnoses Not on filein this encounter"
--- OUTSIDE RECORDS SUMMARY | ~2017-08-20 | XMS | Encounter Summary ---
Demographics + + + | Address | [address] | | | [place] [address] | + + + | Home Phone | | + + + | Preferred Language | Unknown | + + + | Marital Status | Single | + + + | Confucianism Affiliation | Unknown | + + + | Race | Unknown | + + + | Ethnic Group | Unknown | + + + Author + + + | Author | [facility] | + + + | Organization | [facility] | + + + | Address | [...] Team Providers + +------+ + | Care Cement Finishing Supervisor Name | Role | Phone | + [...] + + | 08/04/ | Hospital | [facility] | [place], | Wet gangrene, left | | 2018 - | Encounter | [facility] | [address] | foot (HCC) (Primary | | | | [facility] | EMERGENCY DEPARTMENT | Dx); Normocytic | | 08/14/ | | [address] | [place] [address] | anemia; Lactic | | 2018 | | [place] [address] | [phone] | acidosis; | | | | [phone] | | Hypoalbuminemia | | | | | Rafa Villalpando MD [address] | | | | [address] | | | | | | [place] [address] | | | | | | [phone] | | | | | | | | | | | | Karina Pinto MD [address] | | | | | [address] | | | | | | [address] | | | | | | [place] [address] | | | | | | [phone] | | | | | | | | | | | | Harshil Tomlinson, | | | | | | [address] | | | | | | [place] [address] | | | | | | [phone] | | | | | | | [...] may be different fro m the original. [facility] Service: Hospitalist Discharge Summary Date of Admission: 08/04/2017 Date of Discharge: 08/14/2017 Discharge Provider: HARSHIL TOMLINSON MD Consulting Provider: Dr Lobo - CARLY , Vascular Surgery - Dr Blandon, Dr Emerson - Oncology, Dr Riggs - Podiatry Discharge Diagnoses: Principal Problem: 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HCC) LLE s/p AKA Active Problems: Acute hypoxic respiratory failure L foot cellulitis DVT (history of ) Was on Lovenox 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 Laryngeal CA Metastatic disease unkown primary Pleural effusion COPD Obesity s/p AKA Phantom limb pain Smoker HLD BRIEF HISTORY OF PRESENTATION: Carmen Kahn is a 61 y.o. female with hx of DVT on lovenox 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, COPD, obesity, hx of multiple myeloma and laryngeal lesion (details unknown by pt) sees Dr Martinez Oncologangeles , 60 pack year smoker, GERD, HLD,chronic pain on opiates, recent complicated history from H&P Patient had a recent complicated hospital course. She was diagnosed with deep vein thrombos is in mid June -started on Eliquis. 3 days later patient presented to [facility] ER for hemor rhagic bullae and toe discoloration on 07/14. Case was discussed with multiple specialists in cluding vascular surgery andoncology. She had a CTA of lower extremity that showed no sign ificant stenosis and good distal runoff. Oncology was concerned about interaction of blood t hinner and proteins with his multiple myeloma causing possible TMA. Oncology at [facility] thought patient might have cerulae alba malignancy associatedand recwas to co ntinue treatment with Lovenox. Even vascular surgery was consulted at [facility] with recommendation to continue with Lovenox wound [...] previously and wanted to follow-up with Dr. Us aft er discharge. After discharge she may [...] diaphoresis Psychiatric: normal mood and affect Disposition: [place] Condition: stable and improved Code Status: Full Code Follow up: Anant Grajeda, [address] [place] [address] Follow up [facility] Vascular Surgery [address] [place] [phone] Follow up in 3 week(s) staple removal and post op appointment Jm Us MD [facility] [phone] Schedule an appointment as soon as possible [...] 1 Generic drug: albuterol vitamin D2 (ergocalciferol) 79259 units capsule Refills: 0 * This list [...] secure with guaze wrap. Wear your stump soccer ball assembler daily. Wear protector any time you are [...] | | | 18 | | | 35898 units capsule | On Fridays | | [...] of this encounter Progress Notes Barber Montero, CLOCKSMITH - 08/14/2017 9:00 AM PDTFormatting of this note may be different from th e original. [facility] Department of Respiratory Custodial Oxygen Evaluation (Evaluation is valid for 48 [...] note may be different from the original. [facility] Service: Infectious Disease Progress Note Hospital Day: LOS: 10 days Post-Op Day: * No surgery found * SUBJECTIVE Patient Summary: 61 y.o. 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 3 days later patient presented to [facility] ER for hemorrhagic bullae and toe discoloration o n 07/14. Case was discussed with multiple specialists including vascular surgery andoncolog y. She had a CTA of lower extremity that showed no significant stenosis and good distal runo ff. Oncology was concerned about interaction of blood thinner and proteins with his multiple myeloma causing possible TMA. Oncology at [facility] thought patient might have cerulae alba malignancy associatedand recwas to continue treatment with Lovenox. Even v ascular surgery was consulted at [facility] with recommendation to continue with Lovenox wound [...] foot infection COPD (chronic obstructive pulmonary disease) ([facility]) Moderate obesity Phantom limb pain ([facility]) S/P AKA (above knee amputation), left ([facility]) ASSESSMENT & PLAN 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[facility]) (08/04/2017) The patient has been diagnosed with [...] (08/04/2017) Surgically treated. DVT (deep venous thrombosis) ([facility]) (08/04/2017) Management per primary service and hematology. [...] may be diff erent from the original. [facility] Service: Hospitalist Progress Note Pt: Carmen Neda Kahn AGE/SEX: 61 y.o. female ROOM: 8119/8119-1 : 1955 PCP: ANANT GRAJEDA ADMIT DATE: 08/04/2017 TODAY'S DATE: 08/13/2017 Hospital Day/Hospital Course: LOS: 9 days 61 y/o F with hx of DVT on lovenox 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, COPD, obesity, hx of multiple myeloma and laryngea l lesion (details unknown by pt) sees Dr Martinez Oncologist, 60 pack year smoker, GERD, H LD,chronic pain on opiates, recent complicated history from H&P Patient had a recent complicated hospital course. She was diagnosed with deep vein thrombos is in mid June - started on Eliquis. 3 days later patient presented to [facility] ER for hemorr hagic bullae and toe discoloration on 07/14. Case was discussed with multiple specialists inc luding vascular surgery and oncology. She had a CTA of lower extremity that showed no signif icant stenosis and good distal runoff. Oncology was concerned about interaction of blood thi nner and proteins with his multiple myeloma causing possible TMA. Oncology at [facility] thought patient might have cerulae alba malignancy associated and rec was to contin ue treatment with Lovenox. Even vascular surgery was consulted at [facility] wit h recommendation to continue with Lovenox [...] Stopping heparin gtt, and shifting back to 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 med Lovenox. Strict Is and Os. [...] above per ID DVT (deep venous thrombosis) ([facility]) per chart notes was on full dose lovenox 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 Currently on heparin gtt, transition to lovenox if okay with surgeon (done 08/10) Hyperlipidemia continue statin Multiple myeloma ([facility]), query Hx of laryngeal lesion Dr Emerson is consulted , I will touch base with him today re his recommendations COPD (chronic obstructive pulmonary disease) ([facility]) continue with duonebs prn Moderate obesity will benefit from obesity specialist referral Phantom limb pain ([facility]) gabapentin has been started and was recommended [...] note may be different from the original. [facility] Service: Infectious Disease Progress Note Hospital Day: LOS: 9 days Post-Op Day: * No surgery found * SUBJECTIVE Patient Summary: 61 y.o. 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 3 days later patient presented to [facility] ER for hemorrhagic bullae and toe discoloration o n 07/14. Case was discussed with multiple specialists including vascular surgery andoncolog y. She had a CTA of lower extremity that showed no significant stenosis and good distal runo ff. Oncology was concerned about interaction of blood thinner and proteins with his multiple myeloma causing possible TMA. Oncology at [facility] thought patient might have cerulae alba malignancy associatedand recwas to continue treatment with Lovenox. Even v ascular surgery was consulted at [facility] with recommendation to continue with Lovenox wound [...] (HCC) S/P AKA (above knee amputation), left ([facility]) ASSESSMENT & PLAN 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HCC) (08/04/2017) [...] may be diff erent from the original. [facility] Service: Hospitalist Progress Note Pt: Carmen Kahn AGE/SEX: 61 y.o. female ROOM: 8119/8119-1 : 1955 PCP: ANANT GRAJEDA ADMIT DATE: 08/04/2017 TODAY'S DATE: 08/12/2017 Hospital Day/Hospital Course: LOS: 8 days 61 y/o F with hx of DVT on lovenox 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, COPD, obesity, hx of multiple myeloma and laryngea l lesion (details unknown by pt) sees Dr Martinez Oncologist, 60 pack year smoker, GERD, H LD,chronic pain on opiates, recent complicated history from H&P Patient had a recent complicated hospital course. She was diagnosed with deep vein thrombos is in mid June - started on Eliquis. 3 days later patient presented to [facility] ER for hemorr hagic bullae and toe discoloration on 07/14. Case was discussed with multiple specialists inc luding vascular surgery and oncology. She had a CTA of lower extremity that showed no signif icant stenosis and good distal runoff. Oncology was concerned about interaction of blood thi nner and proteins with his multiple myeloma causing possible TMA. Oncology at [facility] thought patient might have cerulae alba malignancy associated and rec was to contin ue treatment with Lovenox. Even vascular surgery was consulted at [facility] wit h recommendation to continue with Lovenox [...] foul smelling . In the ED, sh liilan was found to have lactic acid of [...] Stopping heparin gtt, and shifting back to 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 med Lovenox. Strict Is and Os. [...] chart notes was on full dose lovenox 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 Currently on heparin gtt, transition to [...] Keating CPO, LPO - 08/12/2017 10:12 AM [facility], Pt seen for follow up on her [...] protector to gait belt with straps. PRN. [facility], [phone], Wally Keating CPO, Barry Donaldson, - 08/12/2017 6:58 AM PD TFormatting of this note may be different from the original. [facility] Service: Infectious Disease Progress Note Hospital Day: LOS: 8 days Post-Op Day: * No surgery found * SUBJECTIVE Patient Summary: 61 y.o. 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 3 days later patient presented to [facility] ER for hemorrhagic bullae and toe discoloration o n 07/14. Case was discussed with multiple specialists including vascular surgery andoncolog y. She had a CTA of lower extremity that showed no significant stenosis and good distal runo ff. Oncology was concerned about interaction of blood thinner and proteins with his multiple myeloma causing possible TMA. Oncology at [facility] thought patient might have cerulae alba malignancy associatedand recwas to continue treatment with Lovenox. Even v ascular surgery was consulted at [facility] with recommendation to continue with Lovenox wound [...] apple CPO, BUBBA - 08/11/2017 5:55 PM [facility], Pt seen for fitting of AK Post [...] ry to be there to assist. PRN. [facility], [phone], Wally Keating CPO, Harshil Mujica MD - 08/11/2017 4:50 PM P DTFormatting of this note may be different from the original. [facility] Service: Hospitalist Progress Note Pt: Carmen Kahn AGE/SEX: 61 y.o. female ROOM: 8119/8119-1 : 1955 PCP: ANANT GRAJEDA ADMIT DATE: 08/04/2017 TODAY'S DATE: 08/11/2017 Hospital Day/Hospital Course: LOS: 7 days 61 y/o F with hx of DVT on lovenox 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, COPD, obesity, hx of multiple myeloma and laryngea l lesion (details unknown by pt) sees Dr Martinez Oncologist, 60 pack year smoker, GERD, H LD,chronic pain on opiates, recent complicated history from H&P Patient had a recent complicated hospital course. She was diagnosed with deep vein thrombos is in mid June - started on Eliquis. 3 days later patient presented to [facility] ER for hemorr hagic bullae and toe discoloration on 07/14. Case was discussed with multiple specialists inc luding vascular surgery and oncology. She had a CTA of lower extremity that showed no signif icant stenosis and good distal runoff. Oncology was concerned about interaction of blood thi nner and proteins with his multiple myeloma causing possible TMA. Oncology at [facility] thought patient might have cerulae alba malignancy associated and rec was to contin ue treatment with Lovenox. Even vascular surgery was consulted at [facility] recommendation to continue with Lovenox wound care [...] Stopping heparin gtt, and shifting back to 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 med Lovenox. Strict Is and Os. Check echo, and have fluid restriction of 1.5 L /24 hours after NPO. Salt restriction. 08/11 improving, s/p R sided thoracentesis of 1.9L on R side, await fluid studies L foot cellulitis on abx as above per ID DVT (deep venous thrombosis) (HCC) per chart notes was on full dose lovenox 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 Currently on heparin gtt, transition to [...] hours. PROBLEM LIST Principal Problem: 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[facility]) Active Problems: DVT (deep venous thrombosis) ([facility]) Hyperlipidemia Multiple myeloma ([facility]) Open wound of left lower leg Left foot infection COPD (chronic obstructive pulmonary disease) ([facility]) Moderate obesity Phantom limb pain ([facility]) S/P AKA (above knee amputation), left ([facility]) More than 35 mins were spent on [...] NPO. Reports less than optimal PO intakr 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 d/t taste change - nothing tast [...] speak with. Digestive System (Mouth to Rectum) STORYBOARD ARTIST following for dysphagia. Pt is missing teeth. [...] Estimated Energy Needs Total Energy Estimated Needs 6105-2372 kcal/day Method for Estimating Needs 25-30 kcal/kg based on adjusted body wt 66.5 kg Estimated Protein Needs Total Protein Estimated Needs 80-100 g/day Method for Estimating Needs 1.2-1.5 g/kg based on adjusted body wt 66.5 kg Recommendations Recommended energy needs ADAT to STORYBOARD ARTIST recs. Encourage increased protein. Ensure Enlive order ed PRN - pt will call and request as she desires. Will continue to follow per nutrition prot ocol. Nutritional Risk Nutritional risk Moderate Follow up date 08/16/[address] Boost plus is ordered as dietary supplement, not ensure enlive.Wally Keating, , LPO - 12:49 PM [facility], I was called this morning to provide this patient a AK Post Op Protector. I saw her to froilan ure her limb and will return with her post-op protector this afternoon or early evening. [facility], [phone], Wally Keating CPO, LPOSloot Neeru, ALVARO - 08/11/2017 8:44 AM PDT Formatting of this note may be different from the original. [facility] Service: Vascular Surgery Progress Note Hospital Day: [...] CV: + peripheral edema, rate regular SKIN: [place], warm, dry without rash/lesion MS: ROM not [...] (HCC) Active Problems: DVT (deep venous thrombosis) ([facility]) Hyperlipidemia Multiple myeloma (HCC) Open wound of left lower leg Left foot infection COPD (chronic obstructive pulmonary disease) ([facility]) Moderate obesity Phantom limb pain (HCC) S/P AKA (above knee amputation), left (HCC) ASSESSMENT & PLAN PT eval and treat IS to bedside CM- discharge planning Daily dressing change as ordered Consult auto mechanic-done Disposition: Stable from surgical standpoint for discharge once medically stable. Will se e in post op clinic in 3 weeks. Code Status: Full Code NARCISO DillardP 08/11/2017YorBarry mason, DO - 08/11/2017 8:11 AM PDTFormatting of this note may be different from the original. [facility] Service: Infectious Disease Progress Note Hospital Day: LOS: 7 days Post-Op Day: * No surgery found * SUBJECTIVE Patient Summary: 61 y.o. 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 3 days later patient presented to [facility] ER for hemorrhagic bullae and toe discoloration o n 07/14. Case was discussed with multiple specialists including vascular surgery andoncolog y. She had a CTA of lower extremity that showed no significant stenosis and good distal runo ff. Oncology was concerned about interaction of blood thinner and proteins with his multiple myeloma causing possible TMA. Oncology at [facility] thought patient might have cerulae alba malignancy associatedand recwas to continue treatment with Lovenox. Even v ascular surgery was consulted at [facility] with recommendation to continue with Lovenox wound [...] may be diff erent from the original. [facility] Service: Hospitalist Progress Note Pt: Carmen Neda Kahn AGE/SEX: 61 y.o. female ROOM: [facility]/8119-1 : 1955 PCP: ANANT GRAJEDA ADMIT DATE: 08/04/2017 TODAY'S DATE: 08/10/2017 Hospital Day/Hospital Course: LOS: 6 days 61 y/o F with hx of DVT on lovenox 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, COPD, obesity, hx of multiple myeloma and laryngea l lesion (details unknown by pt) sees Dr Martinez Oncologist, 60 pack year smoker, GERD, H LD,chronic pain on opiates, recent complicated history from H&P Patient had a recent complicated hospital course. She was diagnosed with deep vein thrombos is in mid June - started on Eliquis. 3 days later patient presented to [facility] ER for hemorr hagic bullae and toe discoloration on 07/14. Case was discussed with multiple specialists inc luding vascular surgery and oncology. She had a CTA of lower extremity that showed no signif icant stenosis and good distal runoff. Oncology was concerned about interaction of blood thi nner and proteins with his multiple myeloma causing possible TMA. Oncology at [facility] thought patient might have cerulae alba malignancy associated and rec was to contin ue treatment with Lovenox. Even vascular surgery was consulted at [facility] wit h recommendation to continue with Lovenox [...] Stopping heparin gtt, and shifting back to 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 med Lovenox. Strict Is and Os. Check echo, and have fluid restriction of 1.5 L /24 hour s after NPO. Salt restriction. Guarded prognosis, transfer to ICU if no improvement L foot cellulitis on abx as above DVT (deep venous thrombosis) (HCC) per chart notes was on full dose lovenox 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 Currently on heparin gtt, transition to [...] note may be different from the original. [facility] Service: Infectious Disease Progress Note Hospital Day: LOS: 6 days Post-Op Day: * No surgery found * SUBJECTIVE Patient Summary: 61 y.o. 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 3 days later patient presented to [facility] ER for hemorrhagic bullae and toe discoloration o n 07/14. Case was discussed with multiple specialists including vascular surgery andoncolog y. She had a CTA of lower extremity that showed no significant stenosis and good distal runo ff. Oncology was concerned about interaction of blood thinner and proteins with his multiple myeloma causing possible TMA. Oncology at [facility] thought patient might have cerulae alba malignancy associatedand recwas to continue treatment with Lovenox. 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 She is mostly bothered by shortness [...] Aug 09 2017 11:29PM Referring Provider Line: [phone] ID: [id number] PROBLEM LIST Principal Problem: 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HCC) Active Problems: DVT (deep venous thrombosis) (HCC) Hyperlipidemia Multiple myeloma (HCC) Open wound of left lower leg Left foot infection COPD (chronic obstructive pulmonary disease) ([facility]) Moderate obesity Phantom limb pain ([facility]) ASSESSMENT & PLAN 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HCC) (08/04/2017) [...] CT scan to further clarify findings on [facility] x-ray and determine whether any thoracentesis with [...] above, will monitor. DVT (deep venous thrombosis) ([facility]) (08/04/2017) Management per primary service and hematology. Code Status: Full Code BARRY LOBO DO 08/10/2017Amauri Sin, [facility] - 08/10/2017 12:06 AM PDTFormatting of this [...] may be different fro m the original. [facility] Service: Hospitalist Progress Note Pt: Carmen Kahn [...] chart notes was on full dose lovenox 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 Currently on heparin gtt, transition to [...] hours. No results for input(s): PHART, PO2ART, [id number], [id number], BEART in the last 168 hours. Recent [...] note may be different from the original. [facility] Service: Vascular Surgery Progress Note Hospital Day: [...] note may be different from the original. [facility] Service: Infectious Disease Progress Note Hospital Day: LOS: 5 days Post-Op Day: * No surgery found * SUBJECTIVE Patient Summary: 61 y.o. 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 3 days later patient presented to [facility] ER for hemorrhagic bullae and toe discoloration o n 07/14. Case was discussed with multiple specialists including vascular surgery andoncolog y. She had a CTA of lower extremity that showed no significant stenosis and good distal runo ff. Oncology was concerned about interaction of blood thinner and proteins with his multiple myeloma causing possible TMA. Oncology at [facility] thought patient might have cerulae alba malignancy associatedand recwas to continue treatment with Lovenox. 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 She has mostly uncomfortable with movement. [...] (HCC) Active Problems: DVT (deep venous thrombosis) ([facility]) Hyperlipidemia Multiple myeloma (HCC) Open wound of left lower leg Left foot infection COPD (chronic obstructive pulmonary disease) ([facility]) Moderate obesity Phantom limb pain ([facility]) ASSESSMENT & PLAN 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[facility]) (08/04/2017) The patient has been diagnosed with [...] above, will monitor. DVT (deep venous thrombosis) ([facility]) (08/04/2017) Management per primary service and hematology. [...] favio brannon be different from the original. [facility] Service: Vascular Surgery Progress Note Hospital Day: [...] foot infection COPD (chronic obstructive pulmonary disease) ([facility]) Moderate obesity ASSESSMENT & PLAN Doing well [...] note may be different from the original. [facility] Service: Hospitalist Progress Note Hospital Day: LOS: [...] Eliquis. 3 days later patient presented to [facility] ER for hemor rhagic bullae and toe discoloration on 07/14. Case was discussed with multiple specialists in cluding vascular surgery andoncology. She had a CTA of lower extremity that showed no sign ificant stenosis and good distal runoff. Oncology was concerned about interaction of blood t hinner and proteins with his multiple myeloma causing possible TMA. Oncology at [facility] thought patient might have cerulae alba malignancy associatedand recwas to co ntinue treatment with Lovenox. Even vascular surgery was consulted at [facility] with recommendation to continue with Lovenox wound [...] 0.4 - 2.0 mmol/L 1.0 Wound culture [[id number]] (Abnormal) Collected: 08/04/17 1710 Order Status: Completed Lab Status: Final result Updated: 08/06/17 6133 Specimen: Wound from OTHR-w source desc (F6) [...] she was on full dos e Lovenox 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 3.Multiple myeloma per previous record Status post bone marrow biopsy and also history of l aryngeal lesion status post biopsy at [facility].she is to follow-up outpatient with her oncologist [...] note may be different from the original. [facility] Service: Infectious Disease Progress Note Hospital Day: LOS: 4 days Post-Op Day: * No surgery found * SUBJECTIVE Patient Summary: 61 y.o. 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 3 days later patient presented to [facility] ER for hemorrhagic bullae and toe discoloration o n 07/14. Case was discussed with multiple specialists including vascular surgery andoncolog y. She had a CTA of lower extremity that showed no significant stenosis and good distal runo ff. Oncology was concerned about interaction of blood thinner and proteins with his multiple myeloma causing possible TMA. Oncology at [facility] thought patient might have cerulae alba malignancy associatedand recwas to continue treatment with Lovenox. Even v ascular surgery was consulted at [facility] with recommendation to continue with Lovenox wound [...] note may be different from the original. [facility] Service: Hospitalist Progress Note Hospital Day: LOS: [...] 0.4 - 2.0 mmol/L 1.0 Wound culture [[id number]] (Abnormal) Collected: 08/04/17 1710 Order Status: Completed Lab Status: Final result Updated: 08/06/17 1184 Specimen: Wound from OTHR-w source desc (F6) [...] l aryngeal lesion status post biopsy at [facility].she is to follow-up outpatient with her oncologist [...] note may be different from the original. [facility] Service: Infectious Disease Progress Note Hospital Day: LOS: 3 days Post-Op Day: * No surgery found * SUBJECTIVE Patient Summary: 61 y.o. 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 3 days later patient presented to [facility] ER for hemorrhagic bullae and toe discoloration o n 07/14. Case was discussed with multiple specialists including vascular surgery andoncolog y. She had a CTA of lower extremity that showed no significant stenosis and good distal runo ff. Oncology was concerned about interaction of blood thinner and proteins with his multiple myeloma causing possible TMA. Oncology at [facility] thought patient might have cerulae alba malignancy associatedand recwas to continue treatment with Lovenox. Even v ascular surgery was consulted at [facility] with recommendation to continue with Lovenox wound [...] LMP (LMP Unknown) | SpO2 90% | [place] stfeeding? No | BMI 31.64 kg/m Temp [...] note may be different from the original. [facility] Service: Hospitalist Progress Note Hospital Day: LOS: [...] 0.4 - 2.0 mmol/L 1.0 Wound culture [[id number]] (Abnormal) Collected: 08/04/17 2150 Order Status: Completed Lab Status: Final result Updated: 08/06/17 7710 Specimen: Wound from OTHR-w source desc (F6) [...] l aryngeal lesion status post biopsy at [facility].she is to follow-up outpatient with her oncologist [...] note may be different from the original. [facility] Service: Infectious Disease Progress Note Hospital Day: LOS: 2 days Post-Op Day: * No surgery found * SUBJECTIVE Patient Summary: 61 y.o. 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 3 days later patient presented to [facility] ER for hemorrhagic bullae and toe discoloration o n 07/14. Case was discussed with multiple specialists including vascular surgery andoncolog y. She had a CTA of lower extremity that showed no significant stenosis and good distal runo ff. Oncology was concerned about interaction of blood thinner and proteins with his multiple myeloma causing possible TMA. Oncology at [facility] thought patient might have cerulae alba malignancy associatedand recwas to continue treatment with Lovenox. Even v ascular surgery was consulted at [facility] with recommendation to continue with Lovenox wound [...] (HCC) Active Problems: DVT (deep venous thrombosis) ([facility]) Hyperlipidemia Multiple myeloma (HCC) Open wound of left lower leg Left foot infection COPD (chronic obstructive pulmonary disease) ([facility]) Moderate obesity ASSESSMENT & PLAN Wet gangrene [...] note may be different from the original. [facility] Service: Hospitalist Progress Note Hospital Day: LOS: [...] 08/05/2017 EGFR >60 08/05/2017 Results for CARMEN KANH ( ) as of 08/05/2017 14:11 Ref. [...] IV Unasyn and await podiatry Pramod Riggs [facility] ,Vascular workup has not revealed any large vessel disease which could be intervened upon per records .monitor wbc and fever,add gentle hydration 2. Deep vein thrombosis malignancy associated Continue with Lovenox treatment dose 3.Multiple myeloma per previous record Status post bone marrow biopsy and also history of l aryngeal lesion status post biopsy at [facility].eliazar is to follow-up outpatient with her oncologist [...] | | | | | | [place] | | | | | | [id number] | | | | | | | | +--------+---------+ + + + + +--------+ + + | Name | Priori | Associated Diagnoses | Order Schedule | | | ty | | | + +--------+ + + | Basic metabolic panel | Routin | Wet gangrene, left | Expected: | | | e | foot ([facility]) | 08/16/2017, Expires: | | | | | 08/14/2018 | + +--------+ + + | Magnesium | Routin | Wet gangrene, left | Expected: | | | e | foot ([facility]) | 08/16/2017, Expires: | | | | [...] | PHOSPHORUS | 3.2Comment: Testing performed at [facility], [address] | 2.3 - 4.8 mg/dL | | | [place] [address] | | + + + + + + + | Specimen | Performing Laboratory | + + + | Blood | [address] [place], | | | [place] [address] | + + + Magnesium (08/14/2017 4:35 AM) + + + + | Component | Value | Ref Range | + + + + | MAGNESIUM | 2.2Comment: Testing performed at [facility], [address] | 1.7 - 2.4 mg/dL | | | [address] [facility] [place] [address] | | + + + + + + + | Specimen | Performing Laboratory | + + + | Blood | [facility] [address] [place] [address] Blvd. [place], | | | [place] [address] | + + + Comprehensive metabolic panel [...] | | | | 1.210.Testing performed at [facility], [address] | | | | [place] [address] | | | | | | + + + + + + + | Specimen | Performing Laboratory | + + + | Blood | [address] [place], | | | [place] [address] | + + + CBC W/Auto Diff [...] | | | | MORPHTesting performed at [facility], [address] | | | | [place] [address] | | | |1+ | | | |HYPO | | | |1+ | | | |MICRO | | | |NORMAL PLT MORPH | | | |Testing performed at [facility], [address] [place], [place] [address] | | | | | | + + -----+ + + + + | Specimen | Performing Laboratory | + + + | Blood | [facility] [address] [place] [address] [address]vd[address] [place], | | | [place] [address] | + + + Phosphorus (08/13/2017 5:03 AM) + + + + | Component | Value | Ref Range | + + + + | PHOSPHORUS | 3.8Comment: Testing performed at [facility], [address] | 2.3 - 4.8 mg/dL | | | [place] [address] | | + + + + + + + | Specimen | Performing Laboratory | + + + | Blood | [facility] [address] [place] [address] [place], | | | [place] [address] | + + + Magnesium (08/13/2017 5:03 AM) + + + + | Component | Value | Ref Range | + + + + | MAGNESIUM | 2.4Comment: Testing performed at [facility], [address] | 1.7 - 2.4 mg/dL | | | [place] [address] | | + + + + + + + | Specimen | Performing Laboratory | + + + | Blood | [facility] [address] [place], | | | [place] [address] | + + + Comprehensive metabolic panel [...] | | | | 1.210.Testing performed at [facility], [facility] [address] | | | | [place] [address] | | | | | | + + + + + + + | Specimen | Performing Laboratory | + + + | Blood | [facility] [address] [place], [place] [address]vd. [place], | | | [place] [address] | + + + CBC W/Auto Diff [...] | | | RESULTS.Comment: Testing performed at [facility], | | | | [address] [facility] [place] | | | | [address] | | + + + + + + + | Specimen | Performing Laboratory | + + + | Blood | [facility] [address] [place], | | | [place] [address] | + + + Phosphorus (08/12/2017 5:07 AM) + + + + | Component | Value | Ref Range | + + + + | PHOSPHORUS | 3.7Comment: Testing performed at [facility], [facility] | 2.3 - 4.8 mg/dL | | | [place] [address] | | + + + + + + + | Specimen | Performing Laboratory | + + + | Blood | [facility] [address] [place] [address] [address] [place], | | | [place] [address] | + + + Magnesium (08/12/2017 5:07 AM) + + + + | Component | Value | Ref Range | + + + + | MAGNESIUM | 2.4Comment: Testing performed at [facility], [facility] | 1.7 - 2.4 mg/dL | | | [place] [address] | | + + + + + + + | Specimen | Performing Laboratory | + + + | Blood | [facility] [address] [place], | | | [place] [address] | + + + Comprehensive metabolic panel [...] | | | | 1.210.Testing performed at [facility], [address] | | | | [place] [address] | | | | | | + + + + + + + | Specimen | Performing Laboratory | + + + | Blood | [facility] [address] [facility] [address] [facility] [address] [place], | | | [place] [address] | + + + Renal function panel [...] | | | | 1.210.Testing performed at [facility], [address] | | | | [place] [address] | | | | | | + + + + + + + | Specimen | Performing Laboratory | + + + | Blood | [address] [place], | | | [place] [address] | + + + CBC W/Auto Diff [...] ANISO1+POLY1+HYPOTesting | | | | performed at [facility], [address] [place], | | | | [place] [address] | | | |1+ | | | |POLY | | | |1+ | | | |HYPO | | | |Testing performed at [facility], [address] [place], [place] [address], [place] [address] | | | | | | + + -----+ + + + + | Specimen | Performing Laboratory | + + + | Blood | [facility] [address] [facility] [place], | | | [place] [address] | + + + Pathology cytology - fluid (08/11/2017 4:00 PM) + + + | Specimen | Performing Laboratory | + + + | Body Fluid - Pleural | [facility] | | Fluid | | + [...] and adenocarcinoma markers. As part of the Health Care Aide Program, this | | case was reviewed by another member of [facility]. (AMB) DESCRIPTION: In | | addition [...] Technical | | preparation was performed by [facility], [address] [place] [address] | | [place] [address] (Consulting Practice Manager: Venkatesh Teixeira D.O.; CLIA#: [id number]). | | Professional interpretation was performed by [facility], [facility] | | [address] [address] (Consulting Practice Manager: Barry Barnett, | | [place]; CLIA#: [id number]).6 Diagnostician: Scott Hassan CT([facility]) Last Turner | | Diagnostician: Barry Barnett MD Pathologist Electronically Signed 08/19/2017 | + + X-ray chest inspiration & expiration (08/11/2017 3:11 PM) + + + | Specimen | Performing Laboratory | + + + | | [facility] [address] [place] [address] | + + + + + | [...] - 08/11/2017 3:21 PM PDT CARMEN A [id number] years | | FemaleXR CHEST INSPIRATION/EXPIRATION08/11/2017 3:11 [...] + + + | Body Fluid | [facility] [address] [place] [address] | + + + + + | [...] | + + | CARMEN KAHN US THORACENTESIS WITH IMAGING GUIDANCE 08/11/2017 1:36 [...] | | | | BES/rrcTesting performed at [facility];[address] [place] [address] | | | | [facility];[place] [address] | | | | | | + + + + + + + | Specimen | Performing Laboratory | + + + | | [facility] [address] [place] [address] | + + + Body Fluid Cell Count (08/11/2017 1:15 PM) + + + + | Component | Value | Ref Range | + + + + | FLUID TYPE | PLEURAL FLUID | | + + + + | COLOR | YELLOW | | + + + + | APPEARANCE | CLOUDY | | + + + + | RBC'S | <38605 | /mm3 | + + + + [...] CELLS COUNTED | 100Comment: Testing performed at [facility];[address] | | | | Darrin Thomas;[place] [address] | | + + + + + + + | Specimen | Performing Laboratory | + + + | Body Fluid - Pleural | [facility] [address] [facility] [place] [address] | | Fluid | | + + + pH, body fluid (08/11/2017 1:15 PM) + + + + | Component | Value | Ref Range | + + + + | FLUID PH | 7.64Comment: Testing performed at [facility];[address] | | | | [facility];[place] [address] | | + + + + + + + | Specimen | Performing Laboratory | + + + | Body Fluid - Pleural | [address] [address] | | Fluid | | + + + Lactate dehydrogenase, body fluid (08/11/2017 1:15 PM) + + + + | Component | Value | Ref Range | + + + + | FLUID LDH | 490Comment: This is not a courtesy bus driver | U/L | | | validated sample type for this method. No | | | | reference ranges have been | | | | established.Testing performed at [facility], [address] | | | | [place] [address] | | + + + + + + + | Specimen | Performing Laboratory | + + + | Body Fluid - Pleural | [facility] [address] [place] [address] [address]vd[address] [place], | | Fluid | [place] [address] | + + + Glucose, body fluid (08/11/2017 1:15 PM) + + + + | Component | Value | Ref Range | + + + + | FLUID GLUCOSE | 109Comment: This is not a courtesy bus driver | mg/dL | | | validated sample type for this method. No | | | | reference ranges have been | | | | established.Testing performed at [facility], [address] | | | | W [facility], [place] [address] | | + + + + | Glucose, Fluid Type | PLEURAL FLUIDComment: Testing performed at | | | | [facility];[address] [facility];[place] [address] | | + + + + + + + | Specimen | Performing Laboratory | + + + | Body Fluid - Pleural | [facility] [address] [facility] [facility] [place] [address] | | Fluid | | + + + Fluid total protein (Body fluid) (08/11/2017 1:15 PM) + + + + | Component | Value | Ref Range | + + + + | FLUID TOTAL PROTEIN | 3.0Comment: This is not a courtesy bus driver | g/dL | | | validated sample type for this method. No | | | | reference ranges have been | | | | established.Testing performed at [facility], [address] | | | | [address] [place] [place] [address] | | + + + + | FLUID TP SOURCE | PLEURAL FLUIDComment: Testing performed at | | | | [facility];[address] [place] [address];[place] [address] | | + + + + + + + | Specimen | Performing Laboratory | + + + | Body Fluid - Pleural | [address] [address] | | Fluid | | + + [...] | [facility] [address] [place], | | Fluid | [place] [address] | + + + Protime-INR (08/11/2017 5:46 [...] EMBOLISMTesting performed at | | | | [facility];[address] [facility];[place] [address] | | | |Testing performed at [facility];[address] [place] [address];[place] [address] | | | | | | + + + + + + + | Specimen | Performing Laboratory | + + + | Blood | [facility] [address] [facility] [place] [address] | + + + aPTT (08/11/2017 5:46 AM) + + + + | Component | Value | Ref Range | + + + + | APTT | 39 (H)Comment: Testing performed at [facility];[address] | 23 - 32 seconds | | | Darrin Thomas;[place] [address] | | + + + + + + + | Specimen | Performing Laboratory | + + + | Blood | [facility] [address] [place] [address] [place] [address] | + + + Phosphorus (08/11/2017 5:46 AM) + + + + | Component | Value | Ref Range | + + + + | PHOSPHORUS | 3.2Comment: Testing performed at [facility], [address] | 2.3 - 4.8 mg/dL | | | [place] [address] | | + + + + + + + | Specimen | Performing Laboratory | + + + | Blood | [facility] [address] [place] [address] [address] [place], | | | [place] [address] | + + + Magnesium (08/11/2017 5:46 AM) + + + + | Component | Value | Ref Range | + + + + | MAGNESIUM | 2.3Comment: Testing performed at [facility], [address] | 1.7 - 2.4 mg/dL | | | [place] [address] | | + + + + + + + | Specimen | Performing Laboratory | + + + | Blood | [facility] [address] [place], [place] [address], | | | [place] [address] | + + + Comprehensive metabolic panel [...] | | | | 1.210.Testing performed at [facility], [address] | | | | [place] [address] | | | | | | + + + + + + + | Specimen | Performing Laboratory | + + + | Blood | [address] [place], | | | [place] [address] | + + + CBC W/Auto Diff [...] | | | | 1+ANISO2+POLYTesting performed at [facility], [address] | | | | [place] [address] | | | |ANISO | | | |2+ | | | |POLY | | | |Testing performed at [facility], [facility] [address] [place], [place] [address] | | | | | | + + -----+ + + + + | Specimen | Performing Laboratory | + + + | Blood | [facility] [address] [place] [address] [address] [place], | | | [place] [address] | + + + POC Arterial Blood [...] Testing | | | | performed at [facility];[address];[place] | | | | [address] | | + + + + + + + | Specimen | Performing Laboratory | + + + | | [facility] [address] [place] [address] | + + + CT chest without contrast (08/10/2017 10:39 AM) + + + | Specimen | Performing Laboratory | + + + | | [facility] [address] [place] [address] | + + + + + | [...] + + + | | AMANDA BUTLER [facility] [address] | + + + + + | [...] 3.31 cm D-E Excursion: 2.18 cm E-F [place]: 0.03 m/s | | EPSS: 0.41 cm [...] TV A [place]: 0.66 m/s TV Dec [place]: 4.09 m/s2 TV Dec Time: 135.89 ms TV E | | [place]: 0.55 m/s TV E/A Ratio: 0.84 Preschool Assistant Teacher: EDWARD Authenticated | | by: AMARA CHAUDHARY MD Report Date/Time: 08-10-2017 16:30:17 | + + + + | Procedure Note | + + | Bob Patel In - 08/10/2017 4:40 PM PDT Patient Name: Geri KAHN of | | : 5Accession: [id number] Physician: AMARA CHAUDHARY MD | | INDICATIONS [...] (A-L): | | 20.34 ml/m2LAAs A2C: 15.95 [id number] A-L A2C: 39.38 mlLALs A2C: 5.48 cmLAAs A4C: | | 13.35 [id number] A-L A4C: 33.72 mlLALs A4C: 4.48 cmAo Diam: 3.31 cmD-E Excursion: | | 2.18 cmE-F [place]: 0.03 m/sEPSS: 0.41 cmTAPSE: 2.10 cmHR: 93.72 BPMAV maxPG: | | 9.31 mmHgAV meanP.60 mmHgAV Vmax: 1.52 m/Melina Vmean: 1.00 m/Melina VTI: 27.04 | | cmAVA Vmax: 3.01 cm2AVA (VTI): 2.98 pl5SWCX Vmax: 0.00 cm2/m2AVAI (VTI): 0.00 | | cm2/m2LVCI Dopp: 3.64 l/twck6HPCF Dopp: 7.21 l/minHR: 89.38 BPMLVOT maxP.91 | [...] 0.87 m/sMV VTI: 25.86 cmMVA (VTI): 3.12 ey5Bjyftr e': 0.07 m/sSeptal E/e': | | 14.33 Lateral e': 0.10 m/sLateral E/e': 9.59 HR: 88.92 BPMPV maxP.42 mmHgPV | | meanP.15 mmHgPV Vmax: 1.36 m/sPV Vmean: 0.81 m/sPV VTI: 22.77 cmRAP: 3 | | mmHgRV S': 0.12 m/sRVSP: 37.29 mmHgTR maxP.29 mmHgTR Vmax: 2.92 m/sTV A | | [place]: 0.66 m/sTV Dec [place]: 4.09 m/s2TV Dec Time: 135.89 msTV E [place]: 0.55 m/sTV | | E/A Ratio: 0.84 Preschool Assistant Teacher: CMAuthenticated by: Bry COOK Date/Time: | | [...] | |D-E Excursion: 2.18 cm | |E-F [place]: 0.03 m/s | |EPSS: 0.41 cm | [...] A [place]: 0.66 m/s | |TV Dec [place]: 4.09 m/s2 | |TV Dec Time: 135.89 ms | |TV E [place]: 0.55 m/s | |TV E/A Ratio: 0.84 | | | |Preschool Assistant Teacher: CM | |Authenticated by: AMARA CHAUDHARY MD [...] APTT | 72 (H)Comment: Testing performed at [facility];[address] | 23 - 32 seconds | | | [facility];[place] [address] | | + + + + + + + | Specimen | Performing Laboratory | + + + | | [facility] [address] [facility] [place] [address] | + + + Brain natriuretic peptide (08/10/2017 5:03 AM) + + + + | Component | Value | Ref Range | + + + + | BRAIN NATRIURETIC | 60.5Comment: Testing performed at [facility] | 0 - 100 pg/mL | | PEPTIDE | [facility];[place] [address] | | + + + + + + + | Specimen | Performing Laboratory | + + + | | [facility] [place] [address] | + + + CBC W/Auto Diff [...] TCL, [address] | | | | [place] [address] | | | |POLY | | | |1+ | | | |HYPO | | | |1+ | | | |STIPPLING | | | |NORMAL PLT MORPH | | | |Testing performed at [facility], [address] [place] [address] | | | | | | + + -----+ + + + + | Specimen | Performing Laboratory | + + + | | [facility] [address] [facility], | | | [place] [address] | + + + Renal function panel [...] | | | | 1.210.Testing performed at [facility], [address] | | | | [place] [address] | | | | | | + + + + + + + | Specimen | Performing Laboratory | + + + | Blood | [facility] [address] [facility] [place], | | | [place] [address] | + + + Pathology histology - [...] "left leg " consists of a left xfkjj-goz-ltvs | | amputated leg that is 52.5 cm from wvty-qp-soeswjfut margin and has a calf circumference | [...] that extends 3 cm | | proximally. Brine Purifier sections are submitted in three cassettes. Cassette [...] technical | | preparation was performed by [facility], [facility], [address] | | [place] [address] (Consulting Practice Manager: Barry Barnett M.D.; | | [facility]#: [id number]). Diagnostician: Josué Gresham MD Pathologist Electronically | [...] Testing | | | | performed at [facility];[place] | | | | [address] | | + + + + + + + | Specimen | Performing Laboratory | + + + | | [place] [id number] [address] | + + + XR chest 1 view (08/09/2017 10:59 PM) + + + | Specimen | Performing Laboratory | + + + | | [facility] [address] [place] [address] | + + + + + | [...] 2017 11:29PM Referring Provider Line: | | [phone] ID: [id number] | + + + + [...] 2017 11:29PM Referring Provider Line: | | [phone] ID: [id number] | | | |Mediastinum: Heart [...] 09 2017 11:29PM Referring Provider Line: [phone] ID: [id number] | + + APTT (08/09/2017 6:41 AM) + + + + | Component | Value | Ref Range | + + + + | APTT | 65 (H)Comment: Testing performed at [facility];[address] | 23 - 32 seconds | | | [address];[place] [address] | | + + + + + + + | Specimen | Performing Laboratory | + + + | Blood | [facility] [address] [address] | + + + CBC W/Auto Diff [...] | | | | MORPHTesting performed at [facility], [address] | | | | [place] [address] | | | |1+ | | | |MICRO | | | |1+ | | | |POLY | | | |NORMAL PLT MORPH | | | |Testing performed at [facility], [address] [place], [place] [address] | | | | | | + + -----+ + + + + | Specimen | Performing Laboratory | + + + | | [facility] [address] [facility] [place], | | | [place] [address] | + + + Renal function panel [...] | | | | 1.210.Testing performed at [facility], [address] | | | | [facility] [address] | | | | | | + + + + + + + | Specimen | Performing Laboratory | + + + | Blood | [facility] [address] [place], [place] [address], | | | [place] [address] | + + + APTT (08/09/2017 12:32 AM) + + + + | Component | Value | Ref Range | + + + + | APTT | 54 (H)Comment: Testing performed at [facility];[address] | 23 - 32 seconds | | | [address];[place] [address] | | + + + + + + + | Specimen | Performing Laboratory | + + + | Blood | [facility] [address] [place] [address] | + + + APTT (08/08/2017 4:50 PM) + + + + | Component | Value | Ref Range | + + + + | APTT | 78 ()Comment: CALLED TO LACEY Quintana ON 8RP AT | 23 - 32 seconds | | | 1730 BY CD, READ BACKTesting performed at | | | | [facility];[address] [place] [address];[place] [address] | | | |Testing performed at [address];[place] [address] | | | | | | + + + + + + + | Specimen | Performing Laboratory | + + + | Blood | [facility] [address] [place] [address] | + + + APTT (08/08/2017 9:19 AM) + + + + | Component | Value | Ref Range | + + + + | APTT | 34 (H)Comment: Testing performed at [facility];[address] | 23 - 32 seconds | | | [address];[place] [address] | | + + + + + + + | Specimen | Performing Laboratory | + + + | Blood | [facility] [address] [place] [address] | + + + Renal function panel [...] | | | | 1.210.Testing performed at [facility], [address] | | | | [place] [address] | | | | | | + + + + + + + | Specimen | Performing Laboratory | + + + | Blood | [facility] [address] [place] [address] [address] [place], | | | [place] [address] | + + + CBC W/Auto Diff [...] | | | at L, [address] [facility] Hospital[facility] [place], | | | | [place] [address] | | | |Testing performed at [facility], [address] [facility], [place] [address] | | | | | | + + -----+ + + + + | Specimen | Performing Laboratory | + + + | Blood | [facility] [address] [place] [address] [address] [place], | | | [place] [address] | + + + APTT (08/07/2017 4:21 PM) + + + + | Component | Value | Ref Range | + + + + | APTT | 35 (H)Comment: Testing performed at [facility];[address] | 23 - 32 seconds | | | [facility];[place] [address] | | + + + + + + + | Specimen | Performing Laboratory | + + + | Blood | [facility] [address] [facility] [place] [place] [address] | + + + Type and screen (08/07/2017 2:36 PM) + + + + | Component | Value | Ref Range | + + + + | ABO/RH(D) | O POSITIVE | | + + + + | ANTIBODY SCREEN | NEGATIVE | | + + + + | ARM BAND NUMBER | [id number] performed at [facility];[address] | | | | [place] [address] | | | | | | + + + + + + + | Specimen | Performing Laboratory | + + + | Blood | [facility] [address] [facility] [place] [address] | + + + APTT (08/07/2017 8:27 AM) + + + + | Component | Value | Ref Range | + + + + | APTT | 68 (H)Comment: Testing performed at [facility];[address] | 23 - 32 seconds | | | [facility];[place] [address] | | + + + + + + + | Specimen | Performing Laboratory | + + + | Blood | [facility] [address] [place] [address] | + + + Renal function panel [...] | | | | 1.210.Testing performed at [facility], [address] | | | | [place] [address] | | | | | | + + + + + + + | Specimen | Performing Laboratory | + + + | | [address] [place]. [place], | | | [place] [address] | + + + CBC W/Auto Diff [...] | | | PLT MORPHTesting performed at [facility], [address] | | | | [place] [address] | | | |1+ | | | |MICRO | | | |1+ | | | |HYPO | | | |1+ | | | |POLY | | | |NORMAL PLT MORPH | | | |Testing performed at [facility], [address] [place], [place] [address], [place] [address] | | | | | | + + -----+ + + + + | Specimen | Performing Laboratory | + + + | Blood | [facility] [address] [place], | | | [place] [address] | + + + APTT (08/06/2017 11:04 PM) + + + + | Component | Value | Ref Range | + + + + | APTT | 86 ()Comment: CALLED NURSING | 23 - 32 seconds | | | MOSHE VASQUEZ AT 2344 BY RHREAD BACK | | | | RESULTS VERIFIEDTesting performed at | | | | [facility];[address] [place] [address];[place] [address] | | | |READ BACK RESULTS VERIFIED | | | |Testing performed at [facility];[address] [place] [address];[place] [address] | | | | | | + + + + + + + | Specimen | Performing Laboratory | + + + | Blood | [facility] [address] [place] [address] | + + + Protime-INR (08/06/2017 3:57 [...] EMBOLISMTesting performed at | | | | [facility];[address] [place] [address];[place] [address] | | | |Testing performed at [facility];[address] [place] [address];[place] [address] | | | | | | + + + + + + + | Specimen | Performing Laboratory | + + + | Blood | [facility] [place] [address] | + + + CBC w/no diff [...] | MPV | 6.4Comment: Testing performed at [facility];[address] | fl | | | [facility];[place] [address] | | + + + + + + + | Specimen | Performing Laboratory | + + + | | [facility] [address] [place] [address] | + + + aPTT (08/06/2017 3:57 PM) + + + + | Component | Value | Ref Range | + + + + | APTT | 39 (H)Comment: Testing performed at [facility];[address] | 23 - 32 seconds | | | [address];[place] [address] | | + + + + + + + | Specimen | Performing Laboratory | + + + | Blood | [facility] [address] [place] [address] | + + + US lower extremity arterial left (08/06/2017 11:12 AM) + + + | Specimen | Performing Laboratory | + + + | | [facility] [address] [place] [address] | + + + + + | [...] (cm/s) / Doppler | | Waveform: Left CHIEF CARDIOPULMONARY TECHNOLOGIST Prox: 130.6 and triphasic DFA Prox: 97.1 and triphasic SFA | | Prox: 118.8 and triphasic SFA Mid: 126.6 and triphasic SFA Distal: 142.4 and triphasic | | POP Mid: 81.2 and triphasic ISABEL Prox: 136.5 and triphasic ISABEL Distal: 102.2 and | | biphasic 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 Prox: 71.5 and triphasic 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 Distal: 89.6 and biphasic CHUYITA Prox: [...] Doppler Waveform: | | | |Left | |CHIEF CARDIOPULMONARY TECHNOLOGIST Prox: 130.6 and triphasic | |DFA Prox: 97.1 and triphasic | |SFA Prox: 118.8 and triphasic | |SFA Mid: 126.6 and triphasic | |SFA Distal: 142.4 and triphasic | |POP Mid: 81.2 and triphasic | |ISABEL Prox: 136.5 and triphasic | |ISABEL Distal: 102.2 and biphasic | |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 [place], | | | [place] [address] | + + + CBC W/Auto Diff [...] | | | RESULTS.Comment: Testing performed at [facility], | | | | [address] [facility] [place] | | | | [address] | | + + + + + + + | Specimen | Performing Laboratory | + + + | Blood | [facility] [address] [place] [address] [address] [place], | | | [place] [address] | + + + aPTT (08/05/2017 5:20 AM) + + + + | Component | Value | Ref Range | + + + + | APTT | 34 (H)Comment: Testing performed at [facility];8 | 23 - 32 seconds | | | [place] [facility];[place] [address] | | + + + + + + + | Specimen | Performing Laboratory | + + + | Blood | [facility] [address] [place] [address] | + + + Protime-INR (08/05/2017 5:20 [...] EMBOLISMTesting performed at | | | | [facility];[address] [place] [address];[place] [address] | | | |Testing performed at [facility];[address] [place] [address];[place] [address] | | | | | | + + + + + + + | Specimen | Performing Laboratory | + + + | Blood | [facility] [address] [place] [address] | + + + Glycohemoglobin A1C (08/05/2017 5:20 AM) + + + + | Component | Value | Ref Range | + + + + | HEMOGLOBIN A1C | 5.7Comment: [place] Diabetes | 4.0 - 6.0 % | [...] formula.Testing | | | | performed at [facility], [address] [facility], | | | | [place] [address] | | + + + + + + + | Specimen | Performing Laboratory | + + + | Blood | [facility] [address] [facility] [address] [place], | | | [place] [address] | + + + Comprehensive Metabolic Panel [...] | | | | 1.210.Testing performed at [facility], [address] | | | | [place] [address] | | | | | | + + + + + + + | Specimen | Performing Laboratory | + + + | Blood | [address] [place], | | | [place] [address] | + + + Phosphorus (08/05/2017 5:20 AM) + + + + | Component | Value | Ref Range | + + + + | PHOSPHORUS | 4.0Comment: Testing performed at [facility], [address] | 2.3 - 4.8 mg/dL | | | [place] [address] | | + + + + + + + | Specimen | Performing Laboratory | + + + | Blood | [facility] [address] [place] [address] [address] [place], | | | [place] [address] | + + + Magnesium (08/05/2017 5:20 AM) + + + + | Component | Value | Ref Range | + + + + | MAGNESIUM | 2.7 (H)Comment: Testing performed at [facility], | 1.7 - 2.4 mg/dL | | | [address] [facility] | | | | [address] | | + + + + + + + | Specimen | Performing Laboratory | + + + | Blood | [facility] [address] [facility]. [place], | | | [place] [address] | + + + CBC W/Auto Diff [...] | | | | MORPHTesting performed at [facility], [address] | | | | [place] [address] | | | |1+ | | | |MICRO | | | |2+ | | | |ANISO | | | |NORMAL PLT MORPH | | | |Testing performed at [facility], [address] [place], [place] [address] | | | | | | + + -----+ + + + + | Specimen | Performing Laboratory | + + + | Blood | [facility] [address] [place] [address] [place], | | | [place] [address] | + + + Lactic acid (08/05/2017 12:52 AM) + + + + | Component | Value | Ref Range | + + + + | LACTIC ACID | 1.0Comment: Testing performed at [facility];888 | 0.4 - 2.0 mmol/L | | | [place] [address] | | + + + + + + + | Specimen | Performing Laboratory | + + + | Blood | [address] [address] | + + + MRI foot left without contrast (08/04/2017 11:40 PM) + + + | Specimen | Performing Laboratory | + + + | | [address] [address] | + + + + + | [...] | NEGATIVE | | | [facility];[address];[place] [address] | | + + + + + + + | Specimen | Performing Laboratory | + + + | Nasopharyngeal - | [facility] [address] [place] [address] | | Nasopharyngeal | | | Culture | | + + + US Lower extremity venous left (08/04/2017 10:15 PM) + + + | Specimen | Performing Laboratory | + + + | | [facility] [address] [place] [address] | + + + + + | [...] | Procedure Note | + + | Jroge, Rad Results In - 08/04/2017 10:26 PM [...] Laboratory | + + + | | [place] [address] [place] [address] | + + + + + | [...] + + | Wound - OTHR-w | [facility] [address] [facility] [address] [place], | | source desc (F6) | [place] [address] | + + + + + +--------+ [...] | [facility] [address] [facility] [place], | | peripheral draw | [place] [address] | + + + Septic Lactic Acid (08/04/2017 5:02 PM) + + + + | Component | Value | Ref Range | + + + + | LACTIC ACID | 2.9 (H)Comment: Testing performed at | 0.4 - 2.0 mmol/L | | | [facility];[address] [place] [address] | | + + + + + + + | Specimen | Performing Laboratory | + + + | | [facility] [address] [place] [address] | + + + Blood Culture Set [...] Blood, | [facility] [address] [place] [address] [address] [place], | | peripheral draw | [place] [address] | + + + C-reactive protein (08/04/2017 5:02 PM) + + + + | Component | Value | Ref Range | + + + + | CRP | 13.0 (H)Comment: Testing performed at | <0.5 mg/dL | | | [facility];[address] [place] [address];[place] [address] | | + + + + + + + | Specimen | Performing Laboratory | + + + | Blood | [facility] [address] [place] [address] | + + + Comprehensive metabolic panel [...] | | | | 1.210.Testing performed at [facility];[address] [place] [address] | | | | [facility];[place] [address] | | | | | | + + + + + + + | Specimen | Performing Laboratory | + + + | Blood | [facility] [address] [place] [address] | + + + CBC with differential [...] Testing performed at | | | | [facility];[address] [place] [address];[place] [address] | | + + + + + + + | Specimen | Performing Laboratory | + + + | Blood | [facility] [address] [place] [address] | + + + Urinalysis (reflex to microscopic/reflex to culture) (08/04/2017 3:38 PM) + + + + | Component | Value | Ref Range | + + + + | COLOR UA | YELLOW | | + + + + | CLARITY | CLEAR | | + + + + | Specific [place], UA | 1.011 | 1.002 - 1.030 [...] at | NEGATIVE mg/dL | | | [facility];[address];[place] [address] | | + + + + + + + | Specimen | Performing Laboratory | + + + | Urine, Clean Catch | [facility] [address] [place] [address] | + + + in this encounter [...] | | | | | | | [facility] 08/06/17 at 1700 | | | [...] 09:22 | | | | | Once, [facility] 08/13/17 at 0830, For 1 | | PDT | | | | | dose | | | | | | + +-------+ +--------+---+---+ +---+---+ | | | +---+---+ + +-------+ +--------+---+---+ | potassium chloride (K-DUR) CR | Given | | 30 mEq | | | | tablet 30 mEq 30 mEq, Oral, | | 8 10:52 | | | | | Once, [facility] 08/13/17 at 1030, For 1 | [...]
--- OUTSIDE RECORDS SUMMARY | ~2017-08-20 | XMS | Encounter Summary ---
Demographics + + + | Address | [address] | | | [place] [address] | + + + | Home Phone | | + + + | Preferred Language | Unknown | + + + | Marital Status | Single | + + + | Methodist Affiliation | Unknown | + + + | Race | Unknown | + + + | Ethnic Group | Unknown | + + + Author + + + | Author | [facility] | + + + | Organization | [facility] | + + + | Address | [...] Team Providers + +------+ + | Care Customer Support Representative Name | Role | Phone | + +------+ + | Eric Lew DO | PCP | | + +------+ + Encounter Details +--------+ + + + + | Date | Type | Department | Care Team | Description | +--------+ + + + + | 08/20/ | Telephone | [facility] | Michelle Calabrese | | | 2017 | | [facility] | DORI Fletcher | | | | | [address] | | | | | | [place] [address] | | | | | | [phone] | | | +--------+ + + + [...] [place] | | | | | | [address] | | | | | | | | +--------+---------+ + + + as of this encounter Visit Diagnoses Not on filein this encounter"
--- OUTSIDE RECORDS SUMMARY | ~2017-08-20 | XMS | Encounter Summary ---
Demographics + + + | Address | [address] | | | [place] [address] | + + + | Home Phone | | + + + | Preferred Language | Unknown | + + + | Marital Status | Single | + + + | Druze Affiliation | Unknown | + + + | Race | Unknown | + + + | Ethnic Group | Unknown | + + + Author + + + | Author | [facility] | + + + | Organization | [facility] | + + + | Address | [...] Team Providers + +------+ + | Care Linen Grader Name | Role | Phone | + +------+ + | Eric Lew DO | PCP | | + +------+ + Encounter Details +--------+ + + + + | Date | Type | Department | Care Team | Description | +--------+ + + + + | 08/17/ | Telephone | [facility] | Melba Arora, | | | 2017 | | Vascular Surgery | RN | | | | | [address] | | | | | | [place] | | | | | | [address] | | | | | | [phone] | | | +--------+ + + + [...] [place] | | | | | | [address] | | | | | | | | +--------+---------+ + + + as of this encounter Visit Diagnoses Not on filein this encounter"
--- OUTSIDE RECORDS SUMMARY | ~2017-08-20 | XMS | Encounter Summary ---
Demographics + + + | Address | [address] | | | [place] [address] | + + + | Home Phone | | + + + | Preferred Language | Unknown | + + + | Marital Status | Single | + + + | Yarsani Affiliation | Unknown | + + + | Race | Unknown | + + + | Ethnic Group | Unknown | + + + Author + + + | Author | [employer] [email or web address] | + + + | Organization | [email or web address] | + + + | Address | [...] Team Providers + +------+ + | Care Traffic Control Specialist Name | Role | Phone | [...] Description | +--------+---------+ + + + | 08/07/ | Surgery | [facility] | Agustin Blandon MD | KNEE - AMPUTATION | | 2018 | | [facility] | [address] | ABOVE | | | | Operating Room [address] | [place] [address] | | | | | [address] | [phone] | | | | | [place] [address] | | | | | | [phone] | | | +--------+---------+ + + + Social History [...] may be different fro m the original. [facility]: Hospitalist Discharge Summary Date of Admission: 08/04/2017 Date of Discharge: 08/14/2017 Discharge Provider: HARSHIL TOMLINSON MD Consulting Provider: Dr Lobo - CARLY , Vascular Surgery - Dr Blandon, Dr Emerson - Oncology, Dr Riggs - Podiatry Discharge Diagnoses: Principal Problem: 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HCC) LLE s/p AKA Active Problems: Acute hypoxic respiratory failure L foot cellulitis DVT (history of ) Was on Lovenox LAND INSPECTOR Laryngeal CA Metastatic disease unkown primary Pleural effusion COPD Obesity s/p AKA Phantom limb pain Smoker HLD BRIEF HISTORY OF PRESENTATION: Carmen Kahn is a 61 y.o. female with hx of DVT on lovenox LAND INSPECTOR, COPD, obesity, hx of multiple myeloma and laryngeal lesion (details unknown by pt) sees Dr Martinez Oncologangeles , 60 pack year smoker, GERD, HLD,chronic pain on opiates, recent complicated history from H&P Patient had a recent complicated hospital course. She was diagnosed with deep vein thrombos is in mid June -started on Eliquis. 3 days later patient presented to [facility] ER for hemor rhagic bullae and toe discoloration on 07/14. Case was discussed with multiple specialists in cluding vascular surgery andoncology. She had a CTA of lower extremity that showed no sign ificant stenosis and good distal runoff. Oncology was concerned about interaction of blood t hinner and proteins with his multiple myeloma causing possible TMA. Oncology at [facility] thought patient might have cerulae alba malignancy associatedand recwas to co ntinue treatment with Lovenox. Even vascular surgery was consulted at [facility] with recommendation to continue with Lovenox wound [...] diaphoresis Psychiatric: normal mood and affect Disposition: [place] Condition: stable and improved Code Status: Full Code Follow up: Anant Grajeda DO [address] [place] [id number] Follow up [facility] Vascular Surgery [address] [place] [phone] Follow up in 3 week(s) staple removal and post op appointment Jm Us MD [address] [place] [id number] Schedule an appointment as soon as possible [...] 1 Generic drug: albuterol vitamin D2 (ergocalciferol) 25434 units capsule Refills: 0 * This list [...] secure with guaze wrap. Wear your stump gag writer daily. Wear protector any time you are [...] onto | 3 patch | 0 | 04/20/20 | | | (DURAGESIC) 12 | the skin every third | | | 18 | | | MCG/HRIndications: | day. | | | | | | Chronic Pain | | | | | | + + + +---------+ + + | furosemide (LASIX) | Take 3 tablets by | 42 | 0 | 20 | | | 20 MG tablet | [...] tablet by | 60 | 0 | 20 | | | (MUCINEX) 600 MG 12 | mouth 2 (two) times | tablet | | 18 | 9 | | hr tablet | daily. | | | | | + + + +---------+ + + | | Take 10 mLs by mouth | 120 mL | 0 | //20 | | | guaifenesin-codeine | every 6 (six) hours | | | 18 | | | (GUAIFENESIN AC) | as needed for | | | | | | 100-10 MG/5ML syrup | Cough. | | | | | + + + +---------+ + + | | Inhale 3 mLs into | | | /20 | | | ipratropium-albutero | the lungs every 4 | | | 18 | | | l (DUO-NEB) 0.5-2.5 | (four) hours as | | | | | | mg/3mL | needed. | | | | | + + + +---------+ + + | nicotine (NICODERM | Place 1 patch onto | 28 | 0 | 20 | | | CQ) 21 | the [...] tablet by | 10 | 0 | //20 | | | (HERMES BOATENG) 20 | mouth daily. | tablet | | 18 | | | MEQ tablet | | | | | | + + + +---------+ + + | predniSONE | 60 mg x 4 days then | 26 | 0 | /20/20 | | | (DELTASONE) 20 MG | [...] | | | 18 | | | 63832 units capsule | On Fridays | | [...] of this encounter Progress Notes Barber Montero, JAVA ENGINEER - 08/14/2017 9:00 AM PDTFormatting of this note may be different from cyndee purdy. [facility] Department of Respiratory Senior Care Oxygen Evaluation (Evaluation is valid for 48 [...] note may be different from the original. [facility]: Infectious Disease Progress Note Hospital Day: LOS: 10 days Post-Op Day: * No surgery found * SUBJECTIVE Patient Summary: 61 y.o. 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 3 days later patient presented to [facility] ER for hemorrhagic bullae and toe discoloration o n 07/14. Case was discussed with multiple specialists including vascular surgery andoncolog y. She had a CTA of lower extremity that showed no significant stenosis and good distal runo ff. Oncology was concerned about interaction of blood thinner and proteins with his multiple myeloma causing possible TMA. Oncology at [facility] thought patient might have cerulae alba malignancy associatedand recwas to continue treatment with Lovenox. Even v ascular surgery was consulted at [facility] with recommendation to continue with Lovenox wound [...] needed. Code Status: Full Code BARRY LOBO, DO 08/14/2017Harshil Tomlinson MD - 08/13/2017 12:04 PM PDTFormatting of this note may be diff erent from the original. [facility]: Hospitalist Progress Note Pt: Carmen Kahn AGE/SEX: 61 y.o. female ROOM: [facility]/81[facility] : 1955 PCP: ANANT GRAJEDA ADMIT DATE: 08/04/2017 TODAY'S DATE: 08/13/2017 Hospital Day/Hospital Course: LOS: 9 days 61 y/o F with hx of DVT on lovenox LAND INSPECTOR, COPD, obesity, hx of multiple myeloma and laryngea l lesion (details unknown by pt) sees Dr Martinez Oncologist, 60 pack year smoker, GERD, H LD,chronic pain on opiates, recent complicated history from H&P Patient had a recent complicated hospital course. She was diagnosed with deep vein thrombos is in mid June - started on Eliquis. 3 days later patient presented to [facility] ER for hemorr hagic bullae and toe discoloration on 07/14. Case was discussed with multiple specialists inc luding vascular surgery and oncology. She had a CTA of lower extremity that showed no signif icant stenosis and good distal runoff. Oncology was concerned about interaction of blood thi nner and proteins with his multiple myeloma causing possible TMA. Oncology at [facility] thought patient might have cerulae alba malignancy associated and rec was to contin ue treatment with Lovenox. Even vascular surgery was consulted at [facility] wit h recommendation to continue with Lovenox [...] + fluid. Will receive lasix. Also rem ove smith in preparation for discharge Will also [...] Stopping heparin gtt, and shifting back to LAND INSPECTOR med Lovenox. Strict Is and Os. Check [...] chart notes was on full dose lovenox LAND INSPECTOR Currently on heparin gtt, transition to lovenox if okay with surgeon (done 08/10) Hyperlipidemia continue statin Multiple myeloma (HCC), query Hx of laryngeal lesion Dr Emerson is consulted , I will touch base with him today re his recommendations COPD (chronic obstructive pulmonary disease) (HCC) continue [...] note may be different from the original. [facility]: Infectious Disease Progress Note Hospital Day: LOS: 9 days Post-Op Day: * No surgery found * SUBJECTIVE Patient Summary: 61 y.o. 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 3 days later patient presented to [facility] ER for hemorrhagic bullae and toe discoloration o n 07/14. Case was discussed with multiple specialists including vascular surgery andoncolog y. She had a CTA of lower extremity that showed no significant stenosis and good distal runo ff. Oncology was concerned about interaction of blood thinner and proteins with his multiple myeloma causing possible TMA. Oncology at [facility] thought patient might have cerulae alba malignancy associatedand recwas to continue treatment with Lovenox. Even v ascular surgery was consulted at [facility] with recommendation to continue with Lovenox wound [...] hematology. Code Status: Full Code BARRY LOBO, 08/13/2017Harshil Tomlinson MD - 08/12/2017 2:25 PM PDTFormatting of this note may be diff erent from the original. [facility]: Hospitalist Progress Note Pt: Carmen Kahn AGE/SEX: 61 y.o. female ROOM: 8119/8119-1 : 1955 PCP: ANANT GRAJEDA ADMIT DATE: 08/04/2017 TODAY'S DATE: 08/12/2017 Hospital Day/Hospital Course: LOS: 8 days 61 y/o F with hx of DVT on lovenox LAND INSPECTOR, COPD, obesity, hx of multiple myeloma and laryngea l lesion (details unknown by pt) sees Dr Martinez Oncologist, 60 pack year smoker, GERD, H LD,chronic pain on opiates, recent complicated history from H&P Patient had a recent complicated hospital course. She was diagnosed with deep vein thrombos is in mid June - started on Eliquis. 3 days later patient presented to [facility] ER for hemorr hagic bullae and toe discoloration on 07/14. Case was discussed with multiple specialists inc luding vascular surgery and oncology. She had a CTA of lower extremity that showed no signif icant stenosis and good distal runoff. Oncology was concerned about interaction of blood thi nner and proteins with his multiple myeloma causing possible TMA. Oncology at [facility] thought patient might have cerulae alba malignancy associated and rec was to contin ue treatment with Lovenox. Even vascular surgery was consulted at [facility] wit h recommendation to continue with Lovenox [...] Stopping heparin gtt, and shifting back to LAND INSPECTOR med Lovenox. Strict Is and Os. Check [...] chart notes was on full dose lovenox LAND INSPECTOR Currently on heparin gtt, transition to lovenox [...] HARSHIL TOMLINSON MD 08/12/2017 2:25 PM Wally Keating, FORMS DESIGNER, LPO - 08/12/2017 10:12 AM [facility], Pt seen for follow up [...] protector to gait belt with straps. PRN. [facility], [phone], Wally Keating CPO, Anika Barry, DO - 08/12/2017 6:58 AM PD TFormatting of this note may be different from the original. [facility]: Infectious Disease Progress Note Hospital Day: LOS: 8 days Post-Op Day: * No surgery found * SUBJECTIVE Patient Summary: 61 y.o. 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 3 days later patient presented to [facility] ER for hemorrhagic bullae and toe discoloration o n 07/14. Case was discussed with multiple specialists including vascular surgery andoncolog y. She had a CTA of lower extremity that showed no significant stenosis and good distal runo ff. Oncology was concerned about interaction of blood thinner and proteins with his multiple myeloma causing possible TMA. Oncology at [facility] thought patient might have cerulae alba malignancy associatedand recwas to continue treatment with Lovenox. Even v ascular surgery was consulted at [facility] with recommendation to continue with Lovenox wound [...] (HCC) S/P AKA (above knee amputation), left ([facility]) ASSESSMENT & PLAN 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HCC) (08/04/2017) [...] (08/04/2017) Surgically treated. DVT (deep venous thrombosis) ([facility]) (08/04/2017) Management per primary service and hematology. Code Status: Full Code BARRY LOBO, DO 08/12/2017SaWally apple, FORMS DESIGNER, LPO - 08/11/2017 5:55 PM [facility], Pt seen for fitting of AK Post [...] ry to be there to assist. PRN. [facility], [phone], Wally Keating CPO, LPOBongar, Debbierey, MD - 08/11/2017 4:50 PM P DTFormatting of this note may be different from the original. [facility]: Hospitalist Progress Note Pt: Carmen Kahn AGE/SEX: 61 y.o. female ROOM: 8119/8119-1 : 1955 PCP: ANANT GRAJEDA ADMIT DATE: 08/04/2017 TODAY'S DATE: 08/11/2017 Hospital Day/Hospital Course: LOS: 7 days 61 y/o F with hx of DVT on lovenox LAND INSPECTOR, COPD, obesity, hx of multiple myeloma and laryngea l lesion (details unknown by pt) sees Dr Martinez Oncologist, 60 pack year smoker, GERD, H LD,chronic pain on opiates, recent complicated history from H&P Patient had a recent complicated hospital course. She was diagnosed with deep vein thrombos is in mid June - started on Eliquis. 3 days later patient presented to [facility] ER for hemorr hagic bullae and toe discoloration on 07/14. Case was discussed with multiple specialists inc luding vascular surgery and oncology. She had a CTA of lower extremity that showed no signif icant stenosis and good distal runoff. Oncology was concerned about interaction of blood thi nner and proteins with his multiple myeloma causing possible TMA. Oncology at [facility] thought patient might have cerulae alba malignancy associated and rec was to contin ue treatment with Lovenox. Even vascular surgery was consulted at [facility] wit h recommendation to continue with Lovenox [...] Stopping heparin gtt, and shifting back to LAND INSPECTOR med Lovenox. Strict Is and Os. Check echo, and have fluid restriction of 1.5 L /24 hours after NPO. Salt restriction. 08/11 improving, s/p R sided thoracentesis of 1.9L on R side, await fluid studies L foot cellulitis on abx as above per ID DVT (deep venous thrombosis) ([facility]) per chart notes was on full dose lovenox LAND INSPECTOR Currently on heparin gtt, transition to lovenox if okay with surgeon (done 08/10) Hyperlipidemia continue statin Multiple myeloma (HCC), query Hx of laryngeal lesion Dr Emerson is consulted COPD (chronic obstructive pulmonary disease) ([facility]) continue with duonebs prn Moderate obesity will benefit from obesity specialist referral Phantom limb pain ([facility]) gabapentin has been started and was recommended [...] - - - - 20 - - 08/10/17 2247 - - - 76 20 (!) 88 % - 08/10/17 2033 113/67 97.5 F (36.4 C) Oral 101 24 94 % - 08/10/17 1702 - - - - 22 - - 08/10/17 1652 - - - 118 20 - - I&O Detailed Table: Intake/Output Summary (Last 24 hours) at 08/11/17 1651 Last data filed at 08/11/17 1524 Gross [...] providers. HARSHIL TOMLINSON MD 08/11/2017 4:51 PM Andrea Muriel, RD - 08/11/2017 1:45 PM PDTFormatting of [...] NPO. Reports less than optimal PO intakr LAND INSPECTOR d/t taste change - nothing tast ed [...] speak with. Digestive System (Mouth to Rectum) NURSE PRACTITIONER HOME ASSESSMENTS following for dysphagia. Pt is missing teeth. [...] Estimated Energy Needs Total Energy Estimated Needs 6876-2334 kcal/day Method for Estimating Needs 25-30 kcal/kg based on adjusted body wt 66.5 kg Estimated Protein Needs Total Protein Estimated Needs 80-100 g/day Method for Estimating Needs 1.2-1.5 g/kg based on adjusted body wt 66.5 kg Recommendations Recommended energy needs ADAT to NURSE PRACTITIONER HOME ASSESSMENTS recs. Encourage increased protein. Ensure Enlive order ed PRN - pt will call and request as she desires. Will continue to follow per nutrition prot ocol. Nutritional Risk Nutritional risk Moderate Follow up date 08/16/[address] Boost plus is ordered as dietary supplement, not ensure enlive.Wally Keating CPO, LPO - 12:49 PM [facility], I was called this morning to provide this patient a AK Post Op Protector. I saw her to froilan ure her limb and will return with her post-op protector this afternoon or early evening. [facility], [phone], Wally Keating CPO, LPOSloot, Sarena, ARNP - 08/11/2017 8:44 AM PDT Formatting of this note may be different from the original. [facility]: Vascular Surgery Progress Note Hospital Day: [...] SpO2: [88 %-96 %] 92 % (08/11 0533) Weight: [88.6 kg (195 lb 4.8 oz)] 88.6 kg (195 lb 4.8 oz) (08/11 0241) Vitals:reviewed CONSTITUTIONAL: Conversant, well developed, NAD EYES: Anicteric sclerae, no lid drag, no proptosis RESP: Normal effort, regular, even, unlabored rate CV: + peripheral edema, rate regular SKIN: [place], warm, dry without rash/lesion MS: ROM not [...] planning Daily dressing change as ordered Consult attendant coin operated laundry-done Disposition: Stable from surgical standpoint for discharge once medically stable. Will se e in post op clinic in 3 weeks. Code Status: Full Code Neeru ALVARO Kirby 08/11/2017YoBarry liz DO - 08/11/2017 8:11 AM PDTFormatting of this note may be different from the original. [facility]: Infectious Disease Progress Note Hospital Day: LOS: 7 days Post-Op Day: * No surgery found * SUBJECTIVE Patient Summary: 61 y.o. 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 3 days later patient presented to [facility] ER for hemorrhagic bullae and toe discoloration o n 07/14. Case was discussed with multiple specialists including vascular surgery andoncolog y. She had a CTA of lower extremity that showed no significant stenosis and good distal runo ff. Oncology was concerned about interaction of blood thinner and proteins with his multiple myeloma causing possible TMA. Oncology at [facility] thought patient might have cerulae alba malignancy associatedand recwas to continue treatment with Lovenox. Even v ascular surgery was consulted at [facility] with recommendation to continue with Lovenox wound [...] (08/04/2017) Surgically treated. DVT (deep venous thrombosis) ([facility]) (08/04/2017) Management per primary service and hematology. Discussed with Dr. Tomlinson Code Status: Full Code BARRY LOBO DO 08/11/2017Harshil Tomlinson MD - 08/10/2017 9:46 AM PDTFormatting of this note may be diff erent from the original. [facility]: Hospitalist Progress Note Pt: Carmen Kahn AGE/SEX: 61 y.o. female ROOM: [facility]/8119- : 1955 PCP: ANANT GRJAEDA ADMIT DATE: 08/04/2017 TODAY'S DATE: 08/10/2017 Hospital Day/Hospital Course: LOS: 6 days 61 y/o F with hx of DVT on lovenox LAND INSPECTOR, COPD, obesity, hx of multiple myeloma and laryngea l lesion (details unknown by pt) sees Dr Martinez Oncologist, 60 pack year smoker, GERD, H LD,chronic pain on opiates, recent complicated history from H&P Patient had a recent complicated hospital course. She was diagnosed with deep vein thrombos is in mid June - started on Eliquis. 3 days later patient presented to [facility] ER for hemorr hagic bullae and toe discoloration on 07/14. Case was discussed with multiple specialists inc luding vascular surgery and oncology. She had a CTA of lower extremity that showed no signif icant stenosis and good distal runoff. Oncology was concerned about interaction of blood thi nner and proteins with his multiple myeloma causing possible TMA. Oncology at [facility] thought patient might have cerulae alba malignancy associated and rec was to contin ue treatment with Lovenox. Even vascular surgery was consulted at [facility] wit h recommendation to continue with Lovenox [...] foul smelling . In the ED, sh luisito was found to have lactic acid of [...] Stopping heparin gtt, and shifting back to LAND INSPECTOR med Lovenox. Strict Is and Os. Check echo, and have fluid restriction of 1.5 L /24 hour s after NPO. Salt restriction. Guarded prognosis, transfer to ICU if no improvement L foot cellulitis on abx as above DVT (deep venous thrombosis) (HCC) per chart notes was on full dose lovenox LAND INSPECTOR Currently on heparin gtt, transition to lovenox [...] - - - 24 95 % - 08/09/178 114/62 98 F (36.7 C) Oral 111 [...] note may be different from the original. [facility]: Infectious Disease Progress Note Hospital Day: LOS: 6 days Post-Op Day: * No surgery found * SUBJECTIVE Patient Summary: 61 y.o. 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 3 days later patient presented to [facility] ER for hemorrhagic bullae and toe discoloration o n 07/14. Case was discussed with multiple specialists including vascular surgery andoncolog y. She had a CTA of lower extremity that showed no significant stenosis and good distal runo ff. Oncology was concerned about interaction of blood thinner and proteins with his multiple myeloma causing possible TMA. Oncology at [facility] thought patient might have cerulae alba malignancy associatedand recwas to continue treatment with Lovenox. 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 She is mostly bothered by shortness [...] Aug 09 2017 11:29PM Referring Provider Line: [phone] ID: [id number] PROBLEM LIST Principal Problem: 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HCC) Active Problems: DVT (deep venous thrombosis) (HCC) Hyperlipidemia Multiple myeloma (HCC) Open wound of left lower leg Left foot infection COPD (chronic obstructive pulmonary disease) (HCC) Moderate obesity Phantom limb pain (HCC) ASSESSMENT & PLAN 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HCC) [...] CT scan to further clarify findings on isabel st x-ray and determine whether any thoracentesis with [...] hematology. Code Status: Full Code BARRY LOBO, 08/10/2017Amauri Sin, [facility] - 08/10/2017 12:06 AM PDTFormatting of [...] may be different fro m the original. [facility]: Hospitalist Progress Note Pt: Carmen Kahn AGE/SEX: 61 y.o. female ROOM: [facility]81[facility] : 1955 PCP: ANANT GRAJEDA ADMIT DATE: [...] chart notes was on full dose lovenox LAND INSPECTOR Currently on heparin gtt, transition to lovenox [...] flat affect LABS: Recent Labs Lab 08/09/17 0508/08/17 0508/07/1752108/04/17 1702 WBC 10.41 10.28 10.42 < > 11.07* HGB 8.4* 8.7* 9.1* < > 9.9* HCT 26.0* 26.8* 27.4* < > 31.3* PLT 246 254 255 < > 276 NEUTOPHILPCT -- -- -- -- 85.73 MONOPCT -- -- -- -- 4.15 < > = values in this interval not displayed. Recent Labs Lab 08/09/17 0508/08/17 0508/07/17 0508/05/17 0508/04/17 1702 NA 135 137 137 < > [...] hours. No results for input(s): PHART, PO2ART, KJN6GAN, [id number], BEART in the last 168 hours. Recent [...] note may be different from the original. [facility]: Vascular Surgery Progress Note Hospital Day: [...] (36.9 C)] 97.7 F (36.5 C) (08/09 122) BP: (96-140)/(55-78) 96/55 (08/09 1221) Heart Rate: [95-110] 110 (08/09 1221) Resp: [16-24] 22 (08/09 122) SpO2: [90 %-96 %] 96 % (08/09 122) NAD, in mild discomfort. Left AKA wrap [...] Status: Full Code Jeffery Ortiz MD 08/09/2017YoBarry liz, DO - 08/09/2017 7:01 AM PDTFormatting of this note may be different from the original. [facility]: Infectious Disease Progress Note Hospital Day: LOS: 5 days Post-Op Day: * No surgery found * SUBJECTIVE Patient Summary: 61 y.o. 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 3 days later patient presented to [facility] ER for hemorrhagic bullae and toe discoloration o n 07/14. Case was discussed with multiple specialists including vascular surgery andoncolog y. She had a CTA of lower extremity that showed no significant stenosis and good distal runo ff. Oncology was concerned about interaction of blood thinner and proteins with his multiple myeloma causing possible TMA. Oncology at [facility] thought patient might have cerulae alba malignancy associatedand recwas to continue treatment with Lovenox. 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 She has mostly uncomfortable with movement. [...] strep. 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 Pt lying on bed. Pt siste r, niece, great niece present. Chp intro'd self, brief visit. Pt had above knee amput yester day 08/07/17, per pt. Chp offered to sit and visit. Pt declined. Jeffery Rodriguez MD - 08/08/2017 10:53 AM PDTFormatting of this note favio y be different from the original. [facility]: Vascular Surgery Progress Note Hospital Day: LOS: 4 days Post-Op Day: 1 Day Post-Op SUBJECTIVE Patient Summary: Events Overnight: POD#1 S/P left AKA. Pt complaining of phantom limb pain this estrellamarce hayley--"feels like my leg is still there" Scheduled [...] SpO2: [87 %-95 %] 95 % (08/08 742) FiO2 : [46 %-95 %] 56 % (08/07 1557) NAD, in mild discomfort. Left AKA wrap [...] disease) (HCC) Moderate obesity ASSESSMENT & PLAN Doing well S/P AKA, but with some phantom limb pain. Consider adding gabapentin for this--p t states she has been on it previously and tolerated it well. Can start at 100mg tid and inc rease as needed. OK to start PT today for transfers etc. Disposition: Continued inpatient care Code Status: Full Code Jeffery Otriz MD 08/08/2017Karina Pinto MD - 08/08/2017 8:58 AM PDTFormatting of this note may be different from the original. [facility]: Hospitalist Progress Note Hospital Day: LOS: [...] Eliquis. 3 days later patient presented to [facility] ER for hemor rhagic bullae and toe discoloration on 07/14. Case was discussed with multiple specialists in cluding vascular surgery andoncology. She had a CTA of lower extremity that showed no sign ificant stenosis and good distal runoff. Oncology was concerned about interaction of blood t hinner and proteins with his multiple myeloma causing possible TMA. Oncology at [facility] thought patient might have cerulae alba malignancy associatedand recwas to co ntinue treatment with Lovenox. 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 [facility]: Infectious Disease Progress Note Hospital Day: LOS: 4 days Post-Op Day: * No surgery found * SUBJECTIVE Patient Summary: 61 y.o. 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 3 days later patient presented to [facility] ER for hemorrhagic bullae and toe discoloration o n 07/14. Case was discussed with multiple specialists including vascular surgery andoncolog y. She had a CTA of lower extremity that showed no significant stenosis and good distal runo ff. Oncology was concerned about interaction of blood thinner and proteins with his multiple myeloma causing possible TMA. Oncology at [facility] thought patient might have cerulae alba malignancy associatedand recwas to continue treatment with Lovenox. Even v ascular surgery was consulted at [facility] with recommendation to continue with Lovenox wound [...] amputation. Unasyn can be completed this aft ernoon, we will transition to oral Augmentin to complete 7 days postop. Left foot infection (08/04/2017) Secondary to above, Unasyn as discussed above, will monitor. DVT (deep venous thrombosis) ([facility]) (08/04/2017) Management per primary service and hematology. Code Status: Full Code BARRY LOBO DO 08/08/2017Karina Pinto MD - 08/07/2017 1:33 PM PDTFormatting of this note may be different from the original. [facility]: Hospitalist Progress Note Hospital Day: LOS: [...] 15 08/05/2017 EGFR >60 08/07/2017 Results for CARMNE KAHN ( ) as of 08/05/2017 14:11 Ref. Range 08/05/2017 00:52 Lactate, Jim Latest Ref Range: 0.4 - 2.0 mmol/L 1.0 Wound culture [[id number]] (Abnormal) Collected: 08/04/17 1710 Order Status: Completed Lab Status: Final result Updated: 08/06/17 1130 Specimen: Wound from OTHR-w source desc (F6) [...] l aryngeal lesion status post biopsy at [facility].she is to follow-up outpatient with her oncologist [...] note may be different from the original. [facility]: Infectious Disease Progress Note Hospital Day: LOS: 3 days Post-Op Day: * No surgery found * SUBJECTIVE Patient Summary: 61 y.o. 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 3 days later patient presented to [facility] ER for hemorrhagic bullae and toe discoloration o n 07/14. Case was discussed with multiple specialists including vascular surgery andoncolog y. She had a CTA of lower extremity that showed no significant stenosis and good distal runo ff. Oncology was concerned about interaction of blood thinner and proteins with his multiple myeloma causing possible TMA. Oncology at [facility] thought patient might have cerulae alba malignancy associatedand recwas to continue treatment with Lovenox. Even v ascular surgery was consulted at [facility] with recommendation to continue with Lovenox wound [...] Infusions heparin 50 units/mL 15 Units/kg/hr (08/07/17 0239) sodium chloride (IV) 75 mL/hr at 08/06/172030 [...] LMP (LMP Unknown) | SpO2 90% | [place] stfeeding? No | BMI 31.64 kg/m Temp [...] above, will monitor. DVT (deep venous thrombosis) ([facility]) (08/04/2017) Management per primary service and hematology. Code Status: Full Code BARRY LOBO DO 08/07/2017Karina Pinto MD - 08/06/2017 9:14 AM PDTFormatting of this note may be different from the original. [facility]: Hospitalist Progress Note Hospital Day: LOS: [...] 0.4 - 2.0 mmol/L 1.0 Wound culture [[id number]] (Abnormal) Collected: 08/04/17 1710 Order Status: Completed Lab Status: Final result Updated: 08/06/17 1135 Specimen: Wound from OTHR-w source desc (F6) [...] l aryngeal lesion status post biopsy at [facility].she is to follow-up outpatient with her oncologist [...] Code Status: Full Code Karina Pinto MD 08/06/2017YoBarry liz DO - 08/06/2017 8:33 AM PDTFormatting of this note may be different from the original. [facility]: Infectious Disease Progress Note Hospital Day: LOS: 2 days Post-Op Day: * No surgery found * SUBJECTIVE Patient Summary: 61 y.o. 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 3 days later patient presented to [facility] ER for hemorrhagic bullae and toe discoloration o n 07/14. Case was discussed with multiple specialists including vascular surgery andoncolog y. She had a CTA of lower extremity that showed no significant stenosis and good distal runo ff. Oncology was concerned about interaction of blood thinner and proteins with his multiple myeloma causing possible TMA. Oncology at [facility] thought patient might have cerulae alba malignancy associatedand recwas to continue treatment with Lovenox. Even v ascular surgery was consulted at [facility] with recommendation to continue with Lovenox wound [...] above, will monitor. DVT (deep venous thrombosis) ([facility]) (08/04/2017) Management per primary service and hematology. Code Status: Full Code BARRY LOBO DO 08/06/2017Karina Pinto MD - 08/05/2017 9:13 AM PDTFormatting of this note may be different from the original. [facility]: Hospitalist Progress Note Hospital Day: LOS: [...] IV Unasyn and await podiatry Pramod Riggs [facility] ,Vascular workup has not revealed any large vessel disease which could be intervened upon per records .monitor wbc and fever,add gentle hydration 2. Deep vein thrombosis malignancy associated Continue with Lovenox treatment dose 3.Multiple myeloma per previous record Status post bone marrow biopsy and also history of l aryngeal lesion status post biopsy at [facility].eliazar is to follow-up outpatient with her oncologist [...] | Dolores Harrison DNP | | | 2018 | Visit | | [address] | | | | | | [place] | | | | | | [address] | | | | | | | | +--------+---------+ + + + + +--------+ + + | Name | Priori | Associated Diagnoses | Order Schedule | | | ty | | | + +--------+ + + | Basic metabolic panel | Routin | Wet gangrene, left | Expected: | | | e | foot ([facility]) | 08/16/2017, Expires: | | | | | 08/14/2018 | + +--------+ + + | Magnesium | Routin | Wet gangrene, left | Expected: | | | e | foot (HCC) | 08/16/2017, Expires: | | | | [...] | PHOSPHORUS | 3.2Comment: Testing performed at [facility], [facility] | 2.3 - 4.8 mg/dL | | | [place] [address] | | + + + + + + + | Specimen | Performing Laboratory | + + + | Blood | [facility] [address], | | | [place] [address] | + + + Magnesium (08/14/2017 4:35 AM) + + + + | Component | Value | Ref Range | + + + + | MAGNESIUM | 2.2Comment: Testing performed at [facility], [address] | 1.7 - 2.4 mg/dL | | | [place] [address] | | + + + + + + + | Specimen | Performing Laboratory | + + + | Blood | [facility] [address], | | | [place] [address] | + + + Comprehensive metabolic panel [...] | | | | 1.210.Testing performed at [facility], [facility] | | | | [facility] [address] | | | | | | + + + + + + + | Specimen | Performing Laboratory | + + + | Blood | [facility] [address] [place], [place] [address]vd[address], | | | [place] [address] | + + + CBC W/Auto Diff [...] | | | | MORPHTesting performed at [facility], [address] | | | | [place] [address] | | | |1+ | | | |HYPO | | | |1+ | | | |MICRO | | | |NORMAL PLT MORPH | | | |Testing performed at [facility], [address] [place], [place] [address] | | | | | | + + -----+ + + + + | Specimen | Performing Laboratory | + + + | Blood | [facility] [address] [place], [place] [address], | | | [place] [address] | + + + Phosphorus (08/13/2017 5:03 AM) + + + + | Component | Value | Ref Range | + + + + | PHOSPHORUS | 3.8Comment: Testing performed at [facility], [facility] | 2.3 - 4.8 mg/dL | | | [place] [facility] [place] [address] | | + + + + + + + | Specimen | Performing Laboratory | + + + | Blood | [facility] [address], | | | [place] [address] | + + + Magnesium (08/13/2017 5:03 AM) + + + + | Component | Value | Ref Range | + + + + | MAGNESIUM | 2.4Comment: Testing performed at [facility], [address] | 1.7 - 2.4 mg/dL | | | [place] [address] | | + + + + + + + | Specimen | Performing Laboratory | + + + | Blood | [facility] [address] [place] [address] [address], | | | [place] [address] | + + + Comprehensive metabolic panel [...] | | | | 1.210.Testing performed at [facility], [address] | | | | [place] [address] | | | | | | + + + + + + + | Specimen | Performing Laboratory | + + + | Blood | [facility] [address] [place] [address] [address], | | | [place] [address] | + + + CBC W/Auto Diff [...] | | | RESULTS.Comment: Testing performed at [facility], | | | | [address] [place] | | | | [address] | | + + + + + + + | Specimen | Performing Laboratory | + + + | Blood | [facility] [address] [place] [address] [address], | | | [place] [address] | + + + Phosphorus (08/12/2017 5:07 AM) + + + + | Component | Value | Ref Range | + + + + | PHOSPHORUS | 3.7Comment: Testing performed at [facility], [facility] | 2.3 - 4.8 mg/dL | | | [place] [address] | | + + + + + + + | Specimen | Performing Laboratory | + + + | Blood | [facility] [address] [place] [address] [address]. [place], | | | [place] [address] | + + + Magnesium (08/12/2017 5:07 AM) + + + + | Component | Value | Ref Range | + + + + | MAGNESIUM | 2.4Comment: Testing performed at [facility], [address] | 1.7 - 2.4 mg/dL | | | [place] [address] | | + + + + + + + | Specimen | Performing Laboratory | + + + | Blood | [facility] [address] [place] [address] [address], | | | [place] [address] | + + + Comprehensive metabolic panel [...] | | | | 1.210.Testing performed at [facility], [address] | | | | [place] [address] | | | | | | + + + + + + + | Specimen | Performing Laboratory | + + + | Blood | [facility] [address] [place] [address] [address], | | | [place] [address] | + + + Renal function panel [...] | | | | 1.210.Testing performed at [facility], [address] | | | | [place] [address] | | | | | | + + + + + + + | Specimen | Performing Laboratory | + + + | Blood | [facility] [address] [place], [place] [address]J[place], | | | [place] [address] | + + + CBC W/Auto Diff [...] ANISO1+POLY1+HYPOTesting | | | | performed at [facility], [address] [facility], | | | | [place] [address] | | | |1+ | | | |POLY | | | |1+ | | | |HYPO | | | |Testing performed at [facility], [address] [place] [address] | | | | | | + + -----+ + + + + | Specimen | Performing Laboratory | + + + | Blood | [facility] [address] [facility] [place], | | | [place] [address] | + + + Pathology cytology - fluid (08/11/2017 4:00 PM) + + + | Specimen | Performing Laboratory | + + + | Body Fluid - Pleural | [facility] | | Fluid | | + [...] and adenocarcinoma markers. As part of the Reconstructive Dentist Program, this | | case was reviewed by another member of [employer] [facility]. (AMB) DESCRIPTION: In | | addition [...] Technical | | preparation was performed by [facility], [address] [place] [address] [facility] | | [place] [address] (Pastrycook: Venkatesh Teixeira D.O.; CLIA#: [id number]). | | Professional interpretation was performed by [facility], [facility] | | [address] [address] (Pastrycook: Barry Barnett, | | [place]; CLIA#: [id number]).6 Diagnostician: Scott VEGA([facility]) Offset Printer | | Diagnostician: Barry Barnett MD Pathologist Electronically Signed 08/19/2017 | + + X-ray chest inspiration & expiration (08/11/2017 3:11 PM) + + + | Specimen | Performing Laboratory | + + + | | [place] [address] [place] [address] | + + + + + | Impressions | + + | No pneumothorax. Right basilar patchy consolidation/atelectasis. Bilateral | | interstitial edema. Interval improvement of right pleural effusion. Heart size and | | mediastinal contours are unchanged. Diffuse sclerotic metastases persists. | | | + + + + | Narrative | + + | CARMEN ABDULRAQUEL 1955 61 years Female XR CHEST INSPIRATION/EXPIRATION | | 08/11/2017 3:11 PM INDICATION: Status post thoracentesis. Inspiration and expiration | | views. COMPARISON: August 09, 2017 TECHNIQUE: Inspiration and expiration views. | | | + + + + | Procedure Note | + + | Jorge, Rad Results In - 08/11/2017 3:21 PM PDT CARMEN Red GAEDE years | | FemaleXR CHEST INSPIRATION/EXPIRATION08/11/2017 3:11 [...] + + + | Body Fluid | [facility] [address] [place] [address] | + + + + + | [...] | Jorge, Rad Results In - 08/11/2017 2:10 PM PDT CARMEN GONZALEZ THORACENTESIS WITH | | IMAGING GUIDANCE08/11/2017 1:36 [...] | | | | BES/rrcTesting performed at [facility];[address] [place] [address] | | | | [facility];[place] [address] | | | | | | + + + + + + + | Specimen | Performing Laboratory | + + + | | [facility] [place] [place] [address] | + + + Body Fluid Cell Count (08/11/2017 1:15 PM) + + + + | Component | Value | Ref Range | + + + + | FLUID TYPE | PLEURAL FLUID | | + + + + | COLOR | YELLOW | | + + + + | APPEARANCE | CLOUDY | | + + + + | RBC'S | <84766 | /mm3 | + + + + [...] CELLS COUNTED | 100Comment: Testing performed at [facility];[address] | | | | [address] [facility];[place] [address] | | + + + + + + + | Specimen | Performing Laboratory | + + + | Body Fluid - Pleural | [place] [address] [facility] [place] [address] | | Fluid | | + + + pH, body fluid (08/11/2017 1:15 PM) + + + + | Component | Value | Ref Range | + + + + | FLUID PH | 7.64Comment: Testing performed at [facility];8 | | | | [facility];[place] [address] | | + + + + + + + | Specimen | Performing Laboratory | + + + | Body Fluid - Pleural | [facility] [address] [address] | | Fluid | | + + + Lactate dehydrogenase, body fluid (08/11/2017 1:15 PM) + + + + | Component | Value | Ref Range | + + + + | FLUID LDH | 490Comment: This is not a comb setter | U/L | | | validated sample type for this method. No | | | | reference ranges have been | | | | established.Testing performed at [facility], [facility] | | | | [place] [address] | | + + + + + + + | Specimen | Performing Laboratory | + + + | Body Fluid - Pleural | [address] [place], | | Fluid | [place] [address] | + + + Glucose, body fluid (08/11/2017 1:15 PM) + + + + | Component | Value | Ref Range | + + + + | FLUID GLUCOSE | 109Comment: This is not a comb setter | mg/dL | | | validated sample type for this method. No | | | | reference ranges have been | | | | established.Testing performed at [facility], [address] | | | | [place] [address] | | + + + + | Glucose, Fluid Type | PLEURAL FLUIDComment: Testing performed at | | | | [facility];[address] [place] [address];[place] [address] | | + + + + + + + | Specimen | Performing Laboratory | + + + | Body Fluid - Pleural | [place] [address] [place] [address] | | Fluid | | + + + Fluid total protein (Body fluid) (08/11/2017 1:15 PM) + + + + | Component | Value | Ref Range | + + + + | FLUID TOTAL PROTEIN | 3.0Comment: This is not a comb setter | g/dL | | | validated sample type for this method. No | | | | reference ranges have been | | | | established.Testing performed at [facility], [address] | | | | [place] [address] | | + + + + | FLUID TP SOURCE | PLEURAL FLUIDComment: Testing performed at | | | | [facility];[address] [place] [address];[place] [address] | | + + + + + + + | Specimen | Performing Laboratory | + + + | Body Fluid - Pleural | [facility] [address] [place] [address] | | Fluid | | + + [...] + | Body Fluid - Pleural | [facility] [address] [facility] [address], | | Fluid | [place] [address] | + + + Keyonime-SHARRI (08/11/2017 5:46 AM) + + + + [...] EMBOLISMTesting performed at | | | | [facility];[address] [place] [address];[place] [address] | | | |Testing performed at [facility];[address] [place] [address];[place] [address] | | | | | | + + + + + + + | Specimen | Performing Laboratory | + + + | Blood | [facility] [address] [place] [address] | + + + aPTT (08/11/2017 5:46 AM) + + + + | Component | Value | Ref Range | + + + + | APTT | 39 (H)Comment: Testing performed at [facility];8 | 23 - 32 seconds | | | [address] [place] [address] | | + + + + + + + | Specimen | Performing Laboratory | + + + | Blood | [facility] [address] [place] [address] | + + + Phosphorus (08/11/2017 5:46 AM) + + + + | Component | Value | Ref Range | + + + + | PHOSPHORUS | 3.2Comment: Testing performed at [facility], [facility] | 2.3 - 4.8 mg/dL | | | [place] [address] | | + + + + + + + | Specimen | Performing Laboratory | + + + | Blood | [facility] [address] [place] [address] [address], | | | [place] [address] | + + + Magnesium (08/11/2017 5:46 AM) + + + + | Component | Value | Ref Range | + + + + | MAGNESIUM | 2.3Comment: Testing performed at [facility], [address] | 1.7 - 2.4 mg/dL | | | [place] [address] | | + + + + + + + | Specimen | Performing Laboratory | + + + | Blood | [facility] [address] [place] [address] [address] [place], | | | [place] [address] | + + + Comprehensive metabolic panel [...] | | | | 1.210.Testing performed at [facility], [address] | | | | [place] [address] | | | | | | + + + + + + + | Specimen | Performing Laboratory | + + + | Blood | [facility] [address] [facility] [place], | | | [place] [address] | + + + CBC W/Auto Diff [...] | | | | 1+ANISO2+POLYTesting performed at [facility], [address] | | | | [place] [address] | | | |ANISO | | | |2+ | | | |POLY | | | |Testing performed at [facility], [address] [place] [address] | | | | | | + + -----+ + + + + | Specimen | Performing Laboratory | + + + | Blood | [facility] [address] [place] [address]. [place], | | | [place] [address] | + + + POC Arterial Blood [...] Testing | | | | performed at [facility];[address] [facility];[place], [place] | | | | [address] | | + + + + + + + | Specimen | Performing Laboratory | + + + | | [facility] [address] [place] [address] | + + + CT chest without contrast (08/10/2017 10:39 AM) + + + | Specimen | Performing Laboratory | + + + | | [facility] [address] [place] [address] | + + + + + | [...] + + | | [facility] [address] [place] [address] | + + + + + | [...] 3.31 cm D-E [place]: 2.18 cm E-F [place]: 0.03 m/s | | EPSS: 0.41 cm [...] TV A [place]: 0.66 m/s TV Dec [place]: 4.09 m/s2 TV Dec Time: 135.89 ms TV E | | [place]: 0.55 m/s TV E/A Ratio: 0.84 Development Intern: CM Authenticated | | by: AMARA CHAUDHARY MD Report Date/Time: 08-10-2017 16:30:17 | + + + + | Procedure Note | + + | Jorge, Rad Results In - 08/10/2017 4:40 PM PDT Patient Name: Geri KAHN of | | : 5Accession: [id number] Physician: AMARA CHAUDHARY MD | | INDICATIONS [...] (A-L): | | 20.34 ml/m2LAAs A2C: 15.95 [id number] A-L A2C: 39.38 mlLALs A2C: 5.48 cmLAAs A4C: | | 13.35 sb9UGCHC A-L A4C: 33.72 mlLALs A4C: 4.48 cmAo Diam: 3.31 cmD-E Excursion: | | 2.18 cmE-F [place]: 0.03 m/sEPSS: 0.41 cmTAPSE: 2.10 cmHR: 93.72 BPMAV maxPG: | | 9.31 mmHgAV meanP.60 mmHgAV Vmax: 1.52 m/Melina Vmean: 1.00 m/Melina VTI: 27.04 | | cmAVA Vmax: 3.01 cm2AVA (VTI): 2.98 tb7VCMY Vmax: 0.00 cm2/m2AVAI (VTI): 0.00 | | cm2/m2LVCI Dopp: 3.64 l/qtmt0JLTD Dopp: 7.21 l/minHR: 89.38 BPMLVOT maxP.91 | [...] 0.87 m/sMV VTI: 25.86 cmMVA (VTI): 3.12 xt6Vjllkz e': 0.07 m/sSeptal E/e': | | 14.33 Lateral e': 0.10 m/sLateral E/e': 9.59 HR: 88.92 BPMPV maxP.42 mmHgPV | | meanP.15 mmHgPV Vmax: 1.36 m/sPV Vmean: 0.81 m/sPV VTI: 22.77 cmRAP: 3 | | mmHgRV S': 0.12 m/sRVSP: 37.29 mmHgTR maxP.29 mmHgTR Vmax: 2.92 m/sTV A | | [place]: 0.66 m/sTV Dec [place]: 4.09 m/s2TV Dec Time: 135.89 msTV E [place]: 0.55 m/sTV | | E/A Ratio: 0.84 Development Intern: ELIZABETHuthenticated by: Bry COOK Date/Time: | | 08-10-2017 [...] | |D-E Excursion: 2.18 cm | |E-F [place]: 0.03 m/s | |EPSS: 0.41 cm | [...] A Maurice: 0.66 m/s | |TV Dec [place]: 4.09 m/s2 | |TV Dec Time: 135.89 ms | |TV E [place]: 0.55 m/s | |TV E/A Ratio: 0.84 | | | |Development Intern: CM | |Authenticated by: AMARA CHAUDHARY MD [...] APTT | 72 (H)Comment: Testing performed at [facility] | 23 - 32 seconds | | | [facility];[place] [address] | | + + + + + + + | Specimen | Performing Laboratory | + + + | | [place] [address] [place] [address] | + + + Brain natriuretic peptide (08/10/2017 5:03 AM) + + + + | Component | Value | Ref Range | + + + + | BRAIN NATRIURETIC | 60.5Comment: Testing performed at [facility];8 | 0 - 100 pg/mL | | PEPTIDE | [place] [address] | | + + + + + + + | Specimen | Performing Laboratory | + + + | | [facility] [address] [address] | + + + CBC W/Auto Diff [...] | | | | MORPHTesting performed at [facility], [facility] W | | | | [place] [address] | | | |POLY | | | |1+ | | | |HYPO | | | |1+ | | | |STIPPLING | | | |NORMAL PLT MORPH | | | |Testing performed at [facility], [address] [place] [address] | | | | | | + + -----+ + + + + | Specimen | Performing Laboratory | + + + | | [facility] [address] [place] [address] [place], | | | [place] [address] | + + + Renal function panel [...] | | | | 1.210.Testing performed at [facility], [address] | | | | [place] [address] | | | | | | + + + + + + + | Specimen | Performing Laboratory | + + + | Blood | [facility] [address] [place], | | | [place] [address] | + + + Pathology histology - tissue (08/10/2017) + + + | Specimen | Performing Laboratory | + + + | Tissue | [facility] | + + + + + [...] "left leg " consists of a left klipd-zyo-qhqc | | amputated leg that is 52.5 cm from zsbz-go-nydbcpqus margin and has a calf circumference | [...] that extends 3 cm | | proximally. Flag Car Driver sections are submitted in three cassettes. Cassette [...] technical | | preparation was performed by [employer], [facility], [facility] | | [place] [address] (Pastrycook: Barry Barnett M.D.; | | [facility]#: [id number]). Diagnostician: Josué Gresham MD Pathologist Electronically | [...] Testing | | | | performed at [facility];[address] [place] [address];[place] | | | | [address] | | + + + + + + + | Specimen | Performing Laboratory | + + + | | [place] [address] [address] [place] [address] | + + + XR chest 1 view (08/09/2017 10:59 PM) + + + | Specimen | Performing Laboratory | + + + | | [place] [address] [address] [place] [address] | + + + + + | [...] 2017 11:29PM Referring Provider Line: | | [phone] ID: [id number] | + + + + [...] 2017 11:29PM Referring Provider Line: | | [phone] ID: [id number] | | | |Mediastinum: Heart [...] 09 2017 11:29PM Referring Provider Line: [phone] ID: [id number] | + + APTT (08/09/2017 6:41 AM) + + + + | Component | Value | Ref Range | + + + + | APTT | 65 (H)Comment: Testing performed at [facility];[address] | 23 - 32 seconds | | | [address] [facility];[place] [address] | | + + + + + + + | Specimen | Performing Laboratory | + + + | Blood | [facility] [address] [place] [address] | + + + CBC W/Auto Diff [...] | | | | MORPHTesting performed at [facility], [facility] W | | | | [place] [address] | | | |1+ | | | |MICRO | | | |1+ | | | |POLY | | | |NORMAL PLT MORPH | | | |Testing performed at [facility], [facility] [address] [place], [place] [address] | | | | | | + + -----+ + + + + | Specimen | Performing Laboratory | + + + | | [facility] [address] [facility] [address] [place], | | | [place] [address] | + + + Renal function panel [...] | | | | 1.210.Testing performed at [facility], [address] | | | | [place] [address] | | | | | | + + + + + + + | Specimen | Performing Laboratory | + + + | Blood | [facility] [address] [place] [address] [place], | | | [place] [address] | + + + APTT (08/09/2017 12:32 AM) + + + + | Component | Value | Ref Range | + + + + | APTT | 54 (H)Comment: Testing performed at [facility];[address] | 23 - 32 seconds | | | [address] [place] [address] | | + + + + + + + | Specimen | Performing Laboratory | + + + | Blood | [facility] [address] [place] [address] | + + + APTT (08/08/2017 4:50 PM) + + + + | Component | Value | Ref Range | + + + + | APTT | 78 ()Comment: CALLED TO LACEY Quintana ON 8RP AT | 23 - 32 seconds | | | 1730 BY CD, READ BACKTesting performed at | | | | [facility];[address] [facility];[place] [address] | | | |Testing performed at [facility];[address] [facility];[place] [address] | | | | | | + + + + + + + | Specimen | Performing Laboratory | + + + | Blood | [address] [address] | + + + APTT (08/08/2017 9:19 AM) + + + + | Component | Value | Ref Range | + + + + | APTT | 34 (H)Comment: Testing performed at [facility];[address] | 23 - 32 seconds | | | [address] [facility];[place] [address] | | + + + + + + + | Specimen | Performing Laboratory | + + + | Blood | [facility] [address] [place] [address] | + + + Renal function panel [...] | | | | 1.210.Testing performed at [facility], [facility] | | | | [place] [address] | | | | | | + + + + + + + | Specimen | Performing Laboratory | + + + | Blood | [facility] [address] [place], [place] [address], | | | [place] [address] | + + + CBC W/Auto Diff [...] NORMALTesting performed | | | | at [facility], [address], [place], | | | | [place] [address] | | | |Testing performed at [facility], [address] [facility] [place], [place] [address] | | | | | | + + -----+ + + + + | Specimen | Performing Laboratory | + + + | Blood | [facility] [address] [facility] [place]. [place], | | | [place] [address] | + + + APTT (08/07/2017 4:21 PM) + + + + | Component | Value | Ref Range | + + + + | APTT | 35 (H)Comment: Testing performed at [facility];[address] | 23 - 32 seconds | | | [facility] [place] [address] | | + + + + + + + | Specimen | Performing Laboratory | + + + | Blood | [facility] [address] [place] [address] | + + + Type and screen (08/07/2017 2:36 PM) + + + + | Component | Value | Ref Range | + + + + | ABO/RH(D) | O POSITIVE | | + + + + | ANTIBODY SCREEN | NEGATIVE | | + + + + | ARM BAND NUMBER | [id number] performed at [facility];[address] | | [address];[place] [address] | | | | | | + + + + + + + | Specimen | Performing Laboratory | + + + | Blood | [facility] [address] [place] [address] | + + + APTT (08/07/2017 8:27 AM) + + + + | Component | Value | Ref Range | + + + + | APTT | 68 (H)Comment: Testing performed at [facility];[address] | 23 - 32 seconds | | | Darrin Thomas;[place] [address] | | + + + + + + + | Specimen | Performing Laboratory | + + + | Blood | [facility] [address] [place] [address] | + + + Renal function panel [...] | | | | 1.210.Testing performed at [facility], [facility] W | | | | [place] [address] | | | | | | + + + + + + + | Specimen | Performing Laboratory | + + + | | [facility] [address] [place], | | | [place] [address] | + + + CBC W/Auto Diff [...] | | | PLT MORPHTesting performed at [facility], [address] | | | | [place] [address] | | | |1+ | | | |MICRO | | | |1+ | | | |HYPO | | | |1+ | | | |POLY | | | |NORMAL PLT MORPH | | | |Testing performed at [facility], [address] [place], [place] [address] | | | | | | + + -----+ + + + + | Specimen | Performing Laboratory | + + + | Blood | [facility] [address] [facility]. [place], | | | [place] [address] | + + + APTT (08/06/2017 11:04 PM) + + + + | Component | Value | Ref Range | + + + + | APTT | 86 ()Comment: CALLED NURSING | 23 - 32 seconds | | | MOSHE VASQUEZ AT 2344 BY RHREAD BACK | | | | RESULTS VERIFIEDTesting performed at | | | | [facility];[address] [place] [address];[place] [address] | | | |READ BACK RESULTS VERIFIED | | | |Testing performed at [facility];[address] [place] [address];[place] [address] | | | | | | + + + + + + + | Specimen | Performing Laboratory | + + + | Blood | [address] [place] [address] | + + + Protime-INR (08/06/2017 3:57 [...] EMBOLISMTesting performed at | | | | [facility];[address] [place] [address];[place] [address] | | | |Testing performed at [facility];[address] [place] [address];[place] [address] | | | | | | + + + + + + + | Specimen | Performing Laboratory | + + + | Blood | [facility] [address] [place] [address] | + + + CBC w/no diff [...] | MPV | 6.4Comment: Testing performed at [facility];[address] | [address] | | | [address];[place] [address] | | + + + + + + + | Specimen | Performing Laboratory | + + + | | [address] [place] [address] | + + + aPTT (08/06/2017 3:57 PM) + + + + | Component | Value | Ref Range | + + + + | APTT | 39 (H)Comment: Testing performed at [facility];[address] | 23 - 32 seconds | | | [address] [place] [address] | | + + + + + + + | Specimen | Performing Laboratory | + + + | Blood | [facility] [address] [place] [address] | + + + US lower extremity arterial left (08/06/2017 11:12 AM) + + + | Specimen | Performing Laboratory | + + + | | [facility] [address] [place] [address] | + + + + + | [...] (cm/s) / Doppler | | Waveform: Left STRAIGHT EDGER Prox: 130.6 and triphasic DFA Prox: 97.1 and triphasic SFA | | Prox: 118.8 and triphasic SFA Mid: 126.6 and triphasic SFA Distal: 142.4 and triphasic | | POP Mid: 81.2 and triphasic ISABEL Prox: 136.5 and triphasic ISABEL Distal: 102.2 and | | biphasic LAND INSPECTOR Prox: 71.5 and triphasic LAND INSPECTOR Distal: 89.6 and biphasic CHUYITA Prox: 103.8 | | and biphasic CHUYITA Distal: 68.9 and biphasic Atherosclerosis in arteries of left | | lower extremity. | + + + + | Procedure Note | + + | Jorge, Bob Results In - 08/06/2017 11:55 AM PDT CARMEN Neda GONZALEZ LOWER EXTREMITY | | ARTERIAL LEFT08/06/2017 [...] Doppler Waveform: | | | |Left | |STRAIGHT EDGER Prox: 130.6 and triphasic | |DFA Prox: 97.1 and triphasic | |SFA Prox: 118.8 and triphasic | |SFA Mid: 126.6 and triphasic | |SFA Distal: 142.4 and triphasic | |POP Mid: 81.2 and triphasic | |ISABEL Prox: 136.5 and triphasic | |ISABEL Distal: 102.2 and biphasic | |LAND INSPECTOR Prox: 71.5 and triphasic | |LAND INSPECTOR Distal: 89.6 and biphasic | |CHUYITA Prox: [...] | | | | 1.210.Testing performed at [facility], [facility] | | | | [place] [place] [address] | | | | | | + + + + + + + | Specimen | Performing Laboratory | + + + | | [facility] [address] [place] [address] [place]. [place], | | | [place] [address] | + + + CBC W/Auto Diff [...] | | | RESULTS.Comment: Testing performed at [facility], | | | | [address] [place] | | | | [address] | | + + + + + + + | Specimen | Performing Laboratory | + + + | Blood | [facility] [address] [place], | | | [place] [address] | + + + aPTT (08/05/2017 5:20 AM) + + + + | Component | Value | Ref Range | + + + + | APTT | 34 (H)Comment: Testing performed at [facility];[address] | 23 - 32 seconds | | | [facility];[place] [address] | | + + + + + + + | Specimen | Performing Laboratory | + + + | Blood | [facility] [address] [place] [address] | + + + Protime-INR (08/05/2017 5:20 [...] EMBOLISMTesting performed at | | | | [facility];[address] [facility];[place] [address] | | | |Testing performed at [facility];[address] [place] [address];[place] [address] | | | | | | + + + + + + + | Specimen | Performing Laboratory | + + + | Blood | [address] [address] | + + + Glycohemoglobin A1C (08/05/2017 5:20 AM) + + + + | Component | Value | Ref Range | + + + + | HEMOGLOBIN A1C | 5.7Comment: The [place] Diabetes | 4.0 - 6.0 % | [...] formula.Testing | | | | performed at [facility], [address] [place] [address], | | | | [place] [address] | | + + + + + + + | Specimen | Performing Laboratory | + + + | Blood | [facility] [address] [place] [address]. [place], | | | [place] [address] | + + + Comprehensive Metabolic Panel [...] | | | | 1.210.Testing performed at [facility], [address] | | | | [place] [address] | | | | | | + + + + + + + | Specimen | Performing Laboratory | + + + | Blood | [facility] [address] [place], | | | [place] [address] | + + + Phosphorus (08/05/2017 5:20 AM) + + + + | Component | Value | Ref Range | + + + + | PHOSPHORUS | 4.0Comment: Testing performed at [facility], [facility] | 2.3 - 4.8 mg/dL | | | [place] [address] | | + + + + + + + | Specimen | Performing Laboratory | + + + | Blood | [address] [place] | | | [place] [address] | + + + Magnesium (08/05/2017 5:20 AM) + + + + | Component | Value | Ref Range | + + + + | MAGNESIUM | 2.7 (H)Comment: Testing performed at [facility], | 1.7 - 2.4 mg/dL | | | [address] [place] | | | | [address] | | + + + + + + + | Specimen | Performing Laboratory | + + + | Blood | [facility] [address] [facility] [place], | | | [place] [address] | + + + CBC W/Auto Diff [...] [facility], [address] | | | | [address], [place] [address] | | | |1+ | | | |MICRO | | | |2+ | | | |ANISO | | | |NORMAL PLT MORPH | | | |Testing performed at [facility], [address] [place], [place] [address] | | | | | | + + -----+ + + + + | Specimen | Performing Laboratory | + + + | Blood | [facility] [address] [place] [address], | | | [place] [address] | + + + Lactic acid (08/05/2017 12:52 AM) + + + + | Component | Value | Ref Range | + + + + | LACTIC ACID | 1.0Comment: Testing performed at [facility] | 0.4 - 2.0 mmol/L | | | [address] [place] [address] | | + + + + + + + | Specimen | Performing Laboratory | + + + | Blood | [facility] [address] [facility] [place] [address] | + + + MRI foot left without contrast (08/04/2017 11:40 PM) + + + | Specimen | Performing Laboratory | + + + | | [address] [address] | + + + + + | [...] + + | Bob Patel In - 08/04/2017 11:50 PM PDT CARMEN A FRANKOEDE1955MRI FOOT LEFT | | WO CONTRAST08/04/2017 11:40 [...] performed at | NEGATIVE | | | [facility];[address] [place], [place] [address]ft [facility];[place] [address] | | + + + + + + + | Specimen | Performing Laboratory | + + + | Nasopharyngeal - | [facility] [address] [place] [address] | | Nasopharyngeal | | | Culture | | + + + US Lower extremity venous left (08/04/2017 10:15 PM) + + + | Specimen | Performing Laboratory | + + + | | [place] [address] [place] [address] | + + + + + | Impressions | + + | 1. Thrombus previously noted within the popliteal vein is resolved. 2. There | | continues to be residual thrombus within the calf vessels. | + + + + | Narrative | + + | CARMEN KAHN 1955 US LOWER EXTREMITY VENOUS DOPPLER LEFT [...] In - 08/04/2017 10:26 PM PDT CARMEN Red FEMI1955US LOWER | | EXTREMITY VENOUS DOPPLER [...] + + + | | AMANDA BUTLER [facility] [address] [facility] [place] [address] | + + + + + | [...] | Narrative | + + | CARMEN HOLMAN FOOT LEFT 08/04/2017 5:34 PM HISTORY: 61 [...] In - 08/04/2017 6:04 PM PDT CARMEN A GAEDEXR FOOT LEFT08/04/2017 | | 5:34 PMHISTORY:61 [...] + + | Wound - OTHR-w | [facility] [facility] [address] [place], | | source desc (F6) | [place] [address] | + + + + + +--------+ [...] + + | Blood - Blood, | [facility] [address] [place] [address] [address] [place], | | peripheral draw | [place] [address] | + + + Septic Lactic Acid (08/04/2017 5:02 PM) + + + + | Component | Value | Ref Range | + + + + | LACTIC ACID | 2.9 (H)Comment: Testing performed at | 0.4 - 2.0 mmol/L | | | [facility];[address] [facility];[place] [address] | | + + + + + + + | Specimen | Performing Laboratory | + + + | | [facility] [address] [place] [address] [place] [address] | + + + Blood Culture Set [...] + + | Blood - Blood, | [facility] [address] [facility]. [place], | | peripheral draw | [place] [address] | + + + C-reactive protein (08/04/2017 5:02 PM) + + + + | Component | Value | Ref Range | + + + + | CRP | 13.0 (H)Comment: Testing performed at | <0.5 mg/dL | | | [facility];[address] [facility];[place] [address] | | + + + + + + + | Specimen | Performing Laboratory | + + + | Blood | [facility] [address] [place] [address] | + + + Comprehensive metabolic panel [...] | | | | 1.210.Testing performed at [facility];[address] [place] [address] | | | | radha;[place] [address] | | | | | | + + + + + + + | Specimen | Performing Laboratory | + + + | Blood | [facility] [address] [place] [address] | + + + CBC with differential [...] Testing performed at | | | | [facility];[address] [place] [address];[place] [address] | | + + + + + + + | Specimen | Performing Laboratory | + + + | Blood | [facility] [address] [place] [address] | + + + Urinalysis (reflex to microscopic/reflex to culture) (08/04/2017 3:38 PM) + + + + | Component | Value | Ref Range | + + + + | COLOR UA | YELLOW | | + + + + | CLARITY | CLEAR | | + + + + | Specific [place], UA | 1.011 | 1.002 - 1.030 [...] at | NEGATIVE mg/dL | | | [facility];[address] [facility];[place] [address] | | + + + + + + + | Specimen | Performing Laboratory | + + + | Urine, Clean Catch | [facility] [address] [place] [address] | + + + in this encounter Visit Diagnoses Not on filein this encounter Admitting Diagnoses + + | Diagnosis | [...] | | | Breakfast, First dose on Thu | | PDT [...] | | First dose on Thu08/04/17 at 2200 | | PDT | | [...] | | | Hours, First dose on 08/10/17 | | | | | | | [...] PDT | | | | +-------+ +-------+---+---+ + +---+ | | | + +---+ | LORazepam (ATIVAN) injection 1 | | | mg 1 mg, Intravenous, Img Once | | | PRN, Anxiety, Starting Thu | | | 08/04/17 at 2010, For 1 dose | | + +---+ | | | + +---+ + +---------+ +---------+---+--------+ | nicotine (NICODERM CQ) [...] | | | + + +---------+---+ + + +---+ | | | + +---+ [...] PRN, Nausea, Vomiting, Starting | | | 08/07/17 at 1739 | | + +---+ | | | + +---+ + +-------+ +-------+---+---+ | OxyCODONE (oxyCONTIN) 12 [...] | | | Breakfast, First dose on Thu | | PDT [...] + +---+ | | | + +---+ in this encounter
--- OUTSIDE RECORDS SUMMARY | ~2017-08-20 | XMS | Clinical Summary ---
Demographics + + + | Address | [address] | | | [place] [address] | + + + | Home Phone | | + + + | Preferred Language | Unknown | + + + | Marital Status | Single | + + + | Hindu Affiliation | Unknown | + + + | Race | Unknown | + + + | Ethnic Group | Unknown | + + + Author + + + | Author | [facility] | + + + | Organization | [facility] | + + + | Address | [...] Team Providers + +------+ + | Care Commercial Real Estate Broker Name | Role | Phone | + +------+ + | Eric Lew DO | PP | | + +------+ + Allergies No Known Allergies Current Medications + + + +---------+------+------+-------+ | Prescription | Sig. | Disp. | Refills | Star | End | Statu | | | | | | t | Date | s | | | | | | Date | | | + + + +---------+------+------+-------+ | acetaminophen | Take 650 mg by mouth | | | | | Activ | | (TYLENOL) 325 MG | every 6 (six) hours | | | | | e | | tabletIndications: | as needed for Pain. | | | | | | | Pain | | | | | | | + + + +---------+------+------+-------+ | calcium-vitamin D | Take 1 tablet by | | | | | Activ | | (CALCITRATE) 600-400 | mouth 2 (two) times | | | | | e | | MG-UNIT per tablet | daily. 600mg/800IU | | | | | | | | PO BID | | | | | | + + + +---------+------+------+-------+ | enoxaparin | Inject 90 mg into | | | | | Activ | | (LOVENOX) 100 MG/ML | the skin every 12 | | | | | e | | SOLNIndications: | (twelve) hours. | | | | | | | Deep Vein Thrombosis | | | | | | | + + + +---------+------+------+-------+ | esomeprazole | Take 40 mg by mouth | | | | | Activ | | (NEXIUM) 40 MG | every morning before | | | | | e | | capsuleIndications: | breakfast. | | | | | | | Gastroesophageal | | | | | | | | Reflux Disease | | | | | | | + + + +---------+------+------+-------+ | polyethylene | Take 17 g by mouth 3 | | | | | Activ | | glycol (GLYCOLAX) | (three) times daily | | | | | e | | packetIndications: | as needed. | | | | | | | Constipation | | | | | | | + + + +---------+------+------+-------+ | Sennosides (SENNA) | Take 17.2 mg by | | | | | Activ | | 8.6 MG CAPS | mouth 2 (two) times | | | | | e | | | daily. | | | | | | + + + +---------+------+------+-------+ | sertraline | Take 100 mg by mouth | | | | | Activ | | (ZOLOFT) 100 MG | daily. | | | | | e | | tablet | | | | | | | + + + +---------+------+------+-------+ | VENTOLIN HFA 108 | Take 2 puffs by | | 1 | 02/1 | | Activ | | (90 Base) MCG/ACT | mouth every 4 (four) | | | 6/20 | | e | | inhaler | hours as needed. | | | 18 | | | + + + +---------+------+------+-------+ | vitamin D2, | Take 1 capsule by | | 0 | 03/0 | | Activ | | ergocalciferol, | mouth once a week. | | | 8/20 | | e | | 54688 units capsule | On Fridays | | | 18 | | | + + + +---------+------+------+-------+ | | Inhale 3 mLs into | | | 04/0 | | Activ | | ipratropium-albutero | the lungs every 4 | | | 3/20 | | e | | l (DUO-NEB) 0.5-2.5 | (four) hours as | | | 18 | | | | mg/3mL | needed. | | | | | | + + + +---------+------+------+-------+ | simvastatin | Take 40 mg by mouth | | 0 | 03/0 | | Activ | | (ZOCOR) 40 MG tablet | every evening. | | | 8/20 | | e | | | | | | 18 | | | + + + +---------+------+------+-------+ | aspirin 81 MG | Take 1 tablet by | 30 | 0 | 04/2 | 04/2 | Activ | | chewable tablet | mouth daily with | tablet | | 1/20 | 1/20 | e | | | breakfast. | | | 18 | 19 | | + + + +---------+------+------+-------+ | fentaNYL | Place 1 patch onto | 3 patch | 0 | 04/2 | | Activ | | (DURAGESIC) 12 | the skin every third | | | 0/20 | | e | | MCG/HRIndications: | day. | | | 18 | | | | Chronic Pain | | | | | | | + + + +---------+------+------+-------+ | gabapentin | Take 2 capsules by | 180 | 0 | 04/2 | 04/2 | Activ | | (NEURONTIN) 100 MG | mouth 3 (three) | capsule | | 0/20 | 0/20 | e | | capsule | times daily. | | | 18 | 19 | | + + + +---------+------+------+-------+ | guaiFENesin | Take 1 tablet by | 60 | 0 | 04/2 | 04/2 | Activ | | (MUCINEX) 600 MG 12 | mouth 2 (two) times | tablet | | 0/20 | 0/20 | e | | hr tablet | daily. | | | 18 | 19 | | + + + +---------+------+------+-------+ | nicotine (NICODERM | Place 1 patch onto | 28 | 0 | 04/2 | | Activ | | CQ) 21 | the skin daily. | patch | | 0/20 | | e | | MG/24HRIndications: | | | | 18 | | | | Nicotine Dependence | | | | | | | + + + +---------+------+------+-------+ | potassium chloride | Take 1 tablet by | 10 | 0 | 04/2 | | Activ | | (K-DUR,CHERRY-CON) 20 | mouth daily. | tablet | | 0/20 | | e | | MEQ tablet | | | | 18 | | | + + + +---------+------+------+-------+ | predniSONE | 60 mg x 4 days then | 26 | 0 | 04/2 | | Activ | | (DELTASONE) 20 MG | 40 mg x 4 days | tablet | | 0/20 | | e | | tablet | then 20 mg x 4 days | | | 18 | | | | | then 10 mg x 4 days | | | | | | | | and needs to be | | | | | | | | reassessed by | | | | | | | | physician before | | | | | | | | stopping | | | | | | + + + +---------+------+------+-------+ | furosemide (LASIX) | Take 3 tablets by | 42 | 0 | 04/2 | 05/0 | Activ | | 20 MG tablet | mouth daily for 14 | tablet | | 0/20 | 4/20 | e | | | days. | | | 18 | 18 | | + + + +---------+------+------+-------+ | | Take 10 mLs by mouth | 120 mL | 0 | 04/2 | | Activ | | guaifenesin-codeine | every 6 (six) hours | | | 0/20 | | e | | (GUAIFENESIN AC) | as needed for | | | 18 | | | | 100-10 MG/5ML syrup | Cough. | | | | | | + + + +---------+------+------+-------+ | oxyCODONE | Take 1 tablet by | 28 each | 0 | 04/2 | 05/0 | Activ | | (OXYCONTIN) 10 MG 12 | mouth 2 (two) times | | | 0/20 | 4/20 | e | | hr | daily for 14 days. | | | 18 | 18 | | | tabletIndications: | | | | | | | | Chronic Pain | | | | | | | + + + +---------+------+------+-------+ | oxyCODONE | Take 1 tablet by | 40 | 0 | 04/2 | | Activ | | (ROXICODONE) 5 MG | mouth every 4 (four) | tablet | | 0/20 | | e | | immediate release | hours as needed for | | | 18 | | | | tablet | Pain. | | | | | | + + + +---------+------+------+-------+ | atorvastatin | Take 10 mg by mouth | | | | 04/1 | Disco | | (LIPITOR) 10 MG | nightly. | | | | 0/20 | ntinu | | tabletIndications: | | | | | 18 | ed | | Hyperlipidemia | | | | | | | + + + +---------+------+------+-------+ | Cholecalciferol | Take 1 tablet by | | | | 04/1 | Disco | | 400 units CAPS | mouth every morning. | | | | 0/20 | ntinu | | | | | | | 18 | ed | + + + +---------+------+------+-------+ | | Take 10 mLs by mouth | | | | 04/2 | Disco | | guaifenesin-codeine | every 6 (six) hours | | | | 0/20 | ntinu | | (GUAIFENESIN AC) | as needed for | | | | 18 | ed | | 100-10 MG/5ML syrup | Cough. | | | | | | + + + +---------+------+------+-------+ | fentaNYL | Place 1 patch onto | | | | 04/2 | Disco | | (DURAGESIC) 12 | the skin every third | | | | 0/20 | ntinu | | MCG/HRIndications: | day. | | | | 18 | ed | | Chronic Pain | | | | | | | + + + +---------+------+------+-------+ | | Take 3 mLs by | | | | 04/1 | Disco | | ipratropium-albutero | nebulization 4 | | | | 0/20 | ntinu | | l (DUONEB) 0.5-2.5 | (four) times daily | | | | 18 | ed | | mg/3mLIndications: | as needed. | | | | | | | Acute respiratory | | | | | | | | failure with hypoxia | | | | | | | + + + +---------+------+------+-------+ | nicotine (NICODERM | Place 1 patch onto | | | | 04/2 | Disco | | CQ) 21 | the skin daily. | | | | 0/20 | ntinu | | MG/24HRIndications: | | | | | 18 | ed | | Nicotine Dependence | | | | | | | + + + +---------+------+------+-------+ | nicotine | Take 2 mg by mouth | | | | 04/1 | Disco | | polacrilex | as needed for | | | | 0/20 | ntinu | | (NICORELIEF) 2 MG | Smoking cessation. | | | | 18 | ed | | gumIndications: | | | | | | | | Nicotine Dependence | | | | | | | + + + +---------+------+------+-------+ | oxyCODONE | Take 5 mg by mouth | | | | 04/2 | Disco | | (ROXICODONE) 5 MG | every 4 (four) hours | | | | 0/20 | ntinu | | immediate release | as needed for Pain. | | | | 18 | ed | | tablet | | | | | | | + + + +---------+------+------+-------+ | oxyCODONE | Take 10 mg by mouth | | | | 04/2 | Disco | | (OXYCONTIN) 10 MG 12 | 2 (two) times daily. | | | | 0/20 | ntinu | | hr | | | | | 18 | ed | | tabletIndications: | | | | | | | | Chronic Pain | | | | | | | + + + +---------+------+------+-------+ | predniSONE | Take 40 mg by mouth | | | | 04/1 | Disco | | (DELTASONE) 20 MG | daily with | | | | 0/20 | ntinu | | tabletIndications: | breakfast. | | | | 18 | ed | | Multiple Myeloma | | | | | | | + + + +---------+------+------+-------+ | | Take 10 mLs by mouth | | | 04/0 | 04/1 | Disco | | guaifenesin-codeine | every 6 (six) hours | | | 3/20 | 0/20 | ntinu | | (ROBITUSSIN-CODEINE) | as needed. | | | 18 | 18 | ed | | 100-10 MG/5ML syrup | | | | | | | + + + +---------+------+------+-------+ | | Take 1 tablet by | 8 | 0 | 04/2 | 04/2 | Expir | | amoxicillin-clavulan | mouth every 12 | tablet | | 0/20 | 4/20 | ed | | ate (AUGMENTIN) | (twelve) hours for 4 | | | 18 | 18 | | | 875-125 MG per | days. | | | | | | | tabletIndications: | | | | | | | | Non-Purulent Skin | | | | | | | | and Soft Tissue | | | | | | | | Infection | | | | | | | + + + +---------+------+------+-------+ | oxyCODONE | Take 1 tablet by | 20 each | 0 | 04/2 | 04/2 | Disco | | (OXYCONTIN) 10 MG 12 | mouth 2 (two) times | | | 0/20 | 0/20 | ntinu | | hr | daily. | | | 18 | 18 | ed | | tabletIndications: | | | | | | | | Chronic Pain | | | | | | | + + + +---------+------+------+-------+ | oxyCODONE | Take 1 tablet by | 20 | 0 | 04/2 | 04/2 | Disco | | (ROXICODONE) 5 MG | mouth every 4 (four) | tablet | | 0/20 | 0/20 | ntinu | | immediate release | hours as needed for | | | 18 | 18 | ed | | tablet | Pain. | | | | | | + + + +---------+------+------+-------+ | | Take 3 mLs by | 360 mL | 0 | 04/2 | 04/2 | Disco | | ipratropium-albutero | nebulization 4 | | | 0/20 | 0/20 | ntinu | | l (DUO-NEB) 0.5-2.5 | (four) times daily | | | 18 | 18 | ed | | mg/3mL | as needed. | | | | | | + + + +---------+------+------+-------+ + + +-------+ +------+------+-------+ | Hospital, Clinic, or | Ordered | Route | Frequency | Star | End | Statu | | Other Facility | Dose | | | t | Date | s | | Administered | | | | Date | | | | Medication | | | | | | | + + +-------+ +------+------+-------+ | lidocaine | | TP | PRN | 04/1 | 04/2 | Disco | | (XYLOCAINE) 4 % | | | | 0/20 | 0/20 | ntinu | | external solution | | | | 18 | 18 | ed | + + +-------+ +------+------+-------+ Active Problems + + + | Problem | Noted Date | + + + | S/P AKA (above knee amputation), left ([facility]) | 08/10/2017 | + + + | Phantom limb pain (HCC) | 08/08/2017 | + + + | Moderate obesity | 08/05/2017 | + + + | DVT (deep venous thrombosis) ([facility]) | 08/04/2017 | + + + | Hyperlipidemia | 08/04/2017 | + + + | Multiple myeloma (HCC) | 08/04/2017 | + + + | Foot infection | 08/04/2017 | + + + | 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[facility]) | 08/04/2017 | + + + | Open wound of left foot | 08/04/2017 | + + + | Open wound of left lower leg | 08/04/2017 | + + + | Left foot infection | 08/04/2017 | + + + | COPD (chronic obstructive pulmonary disease) ([facility]) | 08/04/2017 | + + + Encounters +--------+ + + + + | Date | Type | Specialty | Care Team | Description | +--------+ + + + + | 08/20/ | Telephone | | Michelle Calabrese | | | 2017 | | | DORI Fletcher | | +--------+ + + + + | 08/17/ | Telephone | | Melba Arora, | | | 2017 | | | RN | | +--------+ + + + + | 08/07/ | Anesthesia | | Omid Rodriguez, | | | 2017 | Event | | MD | | +--------+ + + + + | 08/07/ | Procedure | | | | | 2018 | Pass | | | | +--------+ + + + + | 08/07/ | Surgery | | Agustin Blandon MD | KNEE - AMPUTATION | | 2017 | | | | ABOVE | +--------+ + + + + | 08/04/ | Hospital | | Edmund Nolasco, | Wet gangrene, left | | 2017 - | Encounter | | Rafa Diop MD | foot (HCC) (Primary | | | | | Karina Pinto MD | Dx); Normocytic | | 08/14/ | | | Harshil Tomlinson, | anemia; Lactic | | 2017 | | | MD | acidosis; | | | | | | Hypoalbuminemia | +--------+ + + + + +---+ + | | Discharge | | | Summaries | | | - Davi, | | | Harshil | | | - | | | 08/14/2017 | | | 10:34 AM | | | PDT | | | Formatting | | | of this | | | note may be | | | different | | | from the | | | original.[facility] | [facility]: | | | Hospitalist | | | Discharge | | | SummaryDate | | | of | | | Admission: | | | | | | 08/04/2017Da | | | te of | | | Discharge: | | | 08/14/2017 | | | Discharge | | | Provider: | | | DEBBIEREY P | | | BONGAR, | | | [facility] | | | g Provider: | | | Dr Grace - | | | ID , | | | Vascular | | | Surgery - | | | Dr Barber Dr | | | [place] | | | - | | | Oncology, | | | Dr | | | Vangorkum - | | | Podiatry | | | Discharge | | | Diagnoses: | | | Principal | | | Problem: | | | Wet | | | gangrene | | | (HCC) LLE | | | s/p AKA | | | Active | | | Problems:Ac | | | derik hypoxic | | | | | | respiratory | | | failureL | | | foot | | | cellulitisD | | | [place] | | | (history of | | | ) Was on | | | 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 She | | | was | | | diagnosed | | | with deep | | | vein | | | thrombosis | | | in mid | | | June | | | - started | | | on Eliquis. | | | 3 days | | | later | | | patient | | | presented | | | to [facility] | | | ER for | | | hemorrhagic | | | bullae and | | | toe | | | discolorati | | | on on 07/14. | | | Case was | | | discussed | | | with | | | multiple | | | specialists | | | including | | | vascular | | | surgery | | | and oncolo | | | gy. She had | | | a CTA of | | | lower | | | extremity | | | that showed | | | no | | | significant | | | stenosis | | | and good | | | distal | | | runoff. | | | Oncology | | | was | | | concerned | | | about | | | interaction | | | of blood | | | thinner and | | | proteins | | | with his | | | multiple | | | myeloma | | | causing | | | possible | | | TMA. | | | Oncology at | | | [facility] | | | Medical | | | Center | | | thought | | | patient | | | might have | | | cerulae | | | alba | | | malignancy | | | associated | | | and | | | rec was to | | | continue | | | treatment | | | with | | | Lovenox. | | | Even | | | vascular | | | surgery was | | | consulted | | | at [facility] | | | Medical | | | Center with | | | | | | recommendat | | | ion to | | | continue | | | with | | | Lovenox | | | wound care | | | and no | | | interventio | | | ns needed. | | | Patient | | | also had | | | COPD | | | exacerbatio | | | n during | | | this same | | | timeframe | | | and was | | | treated | | | with | | | prednisone | | | and nebs.On | | | CT of | | | chest was | | | found to | | | have a | | | laryngeal | | | mass that | | | was | | | confirmed | | | to be a 3 | | | cm large | | | mass on CT | | | neck. ENT | | | evaluated | | | the patient | | | and on | | | fiberoptic | | | scope she | | | was not | | | thought to | | | have any | | | airway | | | compromise | | | and | | | rec was to | | | follow-up | | | with her | | | oncologist | | | Dr. | | | Earlene | | | . She had | | | biopsy | | | taken for | | | same. | | | She | | | came in as | | | a referral | | | from wound | | | clinic for | | | L foot | | | wound, foul | | | smelling . | | | In the ED, | | | she was | | | found to | | | have lactic | | | acid of | | | 2.9, WBC of | | | 11, xray | | | was | | | negative | | | for | | | osteomyelit | | | is but | | | showed mild | | | | | | superficial | | | skin gas. 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 | | | ID, | | | Podiatry, | | | and | | | Vascular | | | Surgery | | | were | | | consulted. | | | No | | | interventio | | | nable | | | vessel was | | | found. Pt | | | underwent | | | AKA on | | | 08/07/17 by | | | Dr Blandon. Dr | | | Krieshmalessia | | | following | | | pt up, and | | | started pt | | | on | | | gabapentin | | | for phantom | | | limb pain. | | | Course | | | complicated | | | by urinary | | | retention | | | downey | | | catheter | | | placed on | | | 08/09/17 - | | | the downey | | | was removed | | | yesterday | | | and she has | | | been | | | urinating | | | without | | | problems | | | Course | | | complicated | | | by acute | | | hypoxic | | | respiratory | | | failure | | | requiring | | | PPV. Pt was | | | started on | | | diuretics | | | and | | | steroids. | | | CXR | | | showed | | | moderate R | | | pleural | | | effusion | | | with | | | associated | | | atelectasis | | | or | | | consolidati | | | on, | | | possible | | | atelectasis | | | or | | | infiltrate | | | at L base | | | with trace | | | L | | | effusion,jackelin | | | rderline | | | cardiomegal | | | y On 08/11 | | | she | | | underwent | | | S/p 1.9 L | | | thoracentes | | | is from R | | | side,she | | | still | | | requires O2 | | | but has | | | significant | | | | | | improvement | | | as far as | | | mentation. | | | I also | | | Discussed | | | case with | | | Dr | | | Earlene | | | 0 he | | | states | | | biopsy | | | result was | | | adenoca | | | likely form | | | pancreas | | | or | | | gallbladder | | | . Discussed | | | with pt | | | and | | | daughter, | | | who wish to | | | obtain | | | Oncology | | | consultatio | | | n from | | | here. Dr | | | Chint[place]la | | | is kindly | | | consulting. | | | Per his | | | recommendat | | | ions: | | | Reviewed | | | with the | | | above | | | medical | | | records | | | that are | | | available | | | to care | | | everywhere | | | and | | | verified | | | some of the | | | details | | | with the | | | patient. 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 | | | Also, she | | | has hilar | | | adenopathy, | | | and right | | | pleural | | | effusion. | | | Thoracocent | | | esis was | | | performed | | | to follow | | | cytology to | | | evaluate | | | for | | | malignant | | | cells. If | | | pleural | | | effusion | | | positive, | | | she has | | | metastatic | | | cancer and | | | may be | | | treated | | | accordingly | | | . If | | | pleural | | | effusion | | | negative | | | for | | | malignant | | | cells, | | | consider | | | bronchoscop | | | y and | | | biopsy of | | | the right | | | paratrachea | | | l lymph | | | node. This | | | could | | | either be | | | metastatic | | | from head | | | and neck | | | cancer, or | | | synchronous | | | second | | | primary. | | | Also, | | | multiple | | | bone | | | lesions are | | | noted on | | | the | | | imaging, | | | and may be | | | biopsied as | | | needed, if | | | above | | | workup and | | | confirmator | | | y. She | | | underwent | | | left above | | | knee | | | amputation | | | for wet | | | gangrene of | | | the left | | | foot and is | | | recovering | | | from that. | | | She is | | | being | | | managed | | | with the | | | hospitalist | | | team, | | | infectious | | | diseases | | | and | | | vascular | | | surgery and | | | recommend | | | continued | | | management. | | | She was | | | seen by Dr. | | | | | | Earlene | | | previously | | | and wanted | | | to | | | follow-up | | | with . | | | Earlene | | | after | | | discharge. | | | After | | | discharge | | | she may | | | follow-up | | | with . | | | Earlene | | | for | | | further | | | management | | | of cancer. | | | If patient | | | remains | | | admitted in | | | the | | | hospital | | | management | | | of her wet | | | gangrene, I | | | will help | | | with workup | | | for | | | malignancy | | | on | | | as-needed | | | basis. | | | Patient has | | | been | | | cleared by | | | Vasculary | | | surgery to | | | discharge. | | | They | | | recommend a | | | f/u with | | | them as | | | outpatient | | | for wound | | | check. ID | | | has cleared | | | th | | | epatient | | | for | | | discharge | | | and | | | recommends | | | for oral | | | abx | | | (augmentin) | | | to be | | | completed | | | until | | | 08/18. I | | | have spoken | | | to Dr | | | Chintapatla | | | and he | | | recommends | | | for pt to | | | f/u with Dr | | | | | | Earlene | | | to discuss | | | the | | | diagnoses | | | and | | | treatment | | | for her | | | malignancy. | | | She has | | | been seen | | | by PT and | | | the | | | recommendat | | | ion is for | | | pt to be at | | | SNF. Pt | | | requires O2 | | | but has | | | improved to | | | 3 l today. | | | She needs | | | to | | | continue | | | with | | | diuretics, | | | nebulizers. | | | She may | | | need repeat | | | CXR For | | | follow up | | | to see | | | whether she | | | needs | | | repeat | | | thoracentes | | | is. But for | | | the most | | | part, her | | | most | | | important | | | issue is to | | | have a | | | discussion | | | with Dr | | | Earlene | | | for her | | | diagnosis | | | and | | | prognosis. | | | Due to her | | | multiple | | | comorbiditi | | | es and the | | | fact that | | | her | | | malignancy | | | seems to be | | | | | | metastatic, | | | but still | | | needs | | | further re | | | eval by her | | | primary | | | Oncologyist | | | , she is a | | | High risk | | | for | | | readmission | | | We have | | | taken care | | | of her O2 | | | prescriptio | | | nDISCHARGE | | | EXAMVital | | | Signs:BP | | | 126/56 (BP | | | Location: | | | Right upper | | | arm) | | | | Pulse 104 | | | | Temp 97.8 | | | F (36.6 | | | C) (Oral) | | | | Resp 18 | | | | Ht | | | 1.676 m (5' | | | 6") | Wt | | | 79.1 kg | | | (174 lb 6.4 | | | oz) | LMP | | | (LMP | | | Unknown) | | | | SpO2 94% | | | | | | | Breastfeedi | | | ng? No | | | | BMI 28.15 | | | kg/m | | | Constitutio | | | nal: Alert | | | and awake , | | | obese, | | | sheis 94$ | | | on 3 lpm | | | via NC, she | | | is in | | | pleasant | | | spirits | | | HEENT: | | | moist | | | mucous | | | membranes, | | | pink | | | conjunctiva | | | e and | | | anicteric | | | sclerae. No | | | JVD. Neck | | | supple | | | Cardiovascu | | | lar: mild | | | tachycardia | | | of 104 | | | Pulmonary: | | | Breath | | | sounds are | | | diminished | | | in bases , | | | scattered | | | wheezing | | | Abdominal: | | | Soft and | | | non-tender. | | | Bowel | | | sounds are | | | present. No | | | rebound or | | | guarding. | | | | | | Extremities | | | : s/p L | | | AKA, | | | dressing in | | | place, no | | | significant | | | edema on R | | | | | | Neurologica | | | l: AAO x3. | | | No CN | | | deficit. | | | Skin: No | | | diaphoresis | | | | | | Psychiatric | | | : normal | | | mood and | | | affect | | | Disposition | | | : | | | [place] | | | Condition: | | | stable and | | | | | | improvedCod | | | e Status: | | | Full Code | | | Follow | | | up:Eric | | | [place], | | | [address] | | | [id number] | | | on [place] | | | [phone] | | | [phone] | | | [facility] | [facility] | | | [id number] | | | [place] | | | Dr [address] | | | [place] | | | [place] | | | [phone] | | | [phone] | | | Follow up | | | in 3 | | | week(s)stap | | | le removal | | | and post op | | | | | | appointment | | | Jm | | | Earlene | | | , MD[address] | | | [address] | | | [address] | | | [place] | | | [phone] | | | [phone] | | | ule an | | | appointment | | | as soon as | | | possible | | | for a visit | | | Medication | | | List | | | START | | | taking | | | these | | | medications | | | | | | amoxicillin | | | -clavulanat | | | [phone] | | | MG per | | | tabletQTY: | | | 8 | | | tabletRefil | | | ls: | | | 0Commonly | | | known as: | | | AUGMENTINTa | | | ke 1 tablet | | | by mouth | | | every 12 | | | (twelve) | | | hours for 4 | | | days. | | | aspirin 81 | | | MG chewable | | | tabletQTY: | | | 30 | | | tabletRefil | | | ls: 0Take | | | 1 tablet by | | | mouth | | | daily with | | | breakfast.S | | | tart taking | | | on: | | | 08/15/2017 | | | furosemide | | | 20 MG | | | tabletQTY: | | | 42 | | | tabletRefil | | | ls: | | | 0Commonly | | | known as: | | | LASIXTake 3 | | | tablets by | | | mouth | | | daily for | | | 14 days. | | | gabapentin | | | 100 MG | | | capsuleQTY: | | | 180 | | | capsuleRefi | | | lls: | | | 0Commonly | | | known as: | | | NEURONTINTa | | | ke 2 | | | capsules by | | | mouth 3 | | | (three) | | | times | | | daily. | | | guaiFENesin | | | 600 MG 12 | | | hr | | | tabletQTY: | | | 60 | | | tabletRefil | | | ls: | | | 0Commonly | | | known as: | | | MUCINEXTake | | | 1 tablet | | | by mouth 2 | | | (two) times | | | daily. | | | potassium | | | chloride SA | | | 20 MEQ | | | tabletQTY: | | | 10 | | | tabletRefil | | | ls: | | | 0Commonly | | | known as: | | | K-DUR,KLOR- | | | CONTake 1 | | | tablet by | | | mouth | | | daily. | | | predniSONE | | | 20 MG | | | tabletQTY: | | | 26 | | | tabletRefil | | | ls: | | | 0Commonly | | | known as: | | | [id number] | | | mg x 4 | | | days then | | | 40 mg x 4 | | | days then | | | 20 mg x 4 | | | days then | | | 10 mg x 4 | | | days and | | | needs to be | | | reassessed | | | by | | | physician | | | before | | | stopping | | | CONTINUE | | | taking | | | these | | | medications | | | | | | acetaminoph | | | en 325 MG | | | tabletRefil | | | ls: | | | 0Commonly | | | known as: | | | TYLENOL | | | calcium-vit | | | barahona D | | | 600-400 | | | MG-UNIT per | | | | | | tabletRefil | | | ls: | | | 0Commonly | | | known as: | | | CALCITRATE | | | enoxaparin | | | 100 MG/ML | | | SolnRefills | | | : | | | 0Commonly | | | known as: | | | LOVENOX | | | esomeprazol | | | e 40 MG | | | capsuleRefi | | | lls: | | | 0Commonly | | | known as: | | | NEXIUM | | | fentaNYL 12 | | | MCG/HRQTY: | | | 3 | | | patchRefill | | | s: | | | 0Commonly | | | known as: | | | DURAGESICPl | | | gayla 1 patch | | | onto the | | | skin every | | | third day. | | | guaifenesin | | | -codeine | | | 100-10 | | | MG/5ML | | | syrupRefill | | | s: | | | 0Commonly | | | known as: | | | GUAIFENESIN | | | AC | | | ipratropium | | | -albuterol | | | 0.5-2.5 | | | mg/3mLRefil | | | ls: | | | 0Commonly | | | known as: | | | DUO-NEB | | | nicotine 21 | | | | | | MG/24HRQTY: | | | 28 | | | patchRefill | | | s: | | | 0Commonly | | | known as: | | | NICODERM | | | CQPlace 1 | | | patch onto | | | the skin | | | daily. * | | | oxyCODONE | | | 10 MG 12 hr | | | tabletQTY: | | | 20 | | | eachRefills | | | : | | | 0Commonly | | | known as: | | | OXYCONTINTa | | | ke 1 tablet | | | by mouth 2 | | | (two) | | | times | | | daily. * | | | oxyCODONE 5 | | | MG | | | immediate | | | release | | | tabletQTY: | | | 20 | | | tabletRefil | | | ls: | | | 0Commonly | | | known as: | | | ROXICODONET | | | neema 1 | | | tablet by | | | mouth every | | | 4 (four) | | | hours as | | | needed for | | | Pain. | | | polyethylen | | | e glycol | | | packetRefil | | | ls: | | | 0Commonly | | | known as: | | | GLYCOLAX | | | Senna 8.6 | | | MG | | | CapsRefills | | | : 0 | | | sertraline | | | 100 MG | | | tabletRefil | | | ls: | | | 0Commonly | | | known as: | | | ZOLOFT | | | simvastatin | | | 40 MG | | | tabletRefil | | | ls: | | | 0Commonly | | | known as: | | | ZOCOR | | | VENTOLIN | | | HFA 108 (90 | | | Base) | | | MCG/ACT | | | inhalerRefi | | | lls: | | | 1Generic | | | drug: | | | albuterol | | | vitamin D2 | | | (ergocalcif | | | lara) [id number] | | | units | | | capsuleRefi | | | lls: 0 * | | | This list | | | has 2 | | | medication( | | | s) that are | | | the same | | | as other | | | medications | | | prescribed | | | for you. | | | Read the | | | directions | | | carefully, | | | and ask | | | your doctor | | | or other | | | care | | | provider to | | | review | | | them with | | | you. You | | | might also | | | be taking | | | other | | | medications | | | not listed | | | above. If | | | you have | | | questions | | | about any | | | of your | | | other | | | medications | | | , talk to | | | the person | | | who | | | prescribed | | | them or | | | your | | | Primary | | | Care | | | Provider. | | | Where to | | | Get Your | | | Medications | | | You can | | | get these | | | medications | | | from any | | | pharmacy | | | Bring a | | | paper | | | prescriptio | | | n for each | | | of these | | | medications | | | | | | amoxicillin | | | -clavulanat | | | e [phone] | | | MG per | | | tablet | | | aspirin 81 | | | MG chewable | | | tablet | | | fentaNYL 12 | | | MCG/HR | | | furosemide | | | 20 MG | | | tablet | | | gabapentin | | | 100 MG | | | capsule | | | guaiFENesin | | | 600 MG 12 | | | hr tablet | | | nicotine | | | 21 | | | MG/24HR | | | oxyCODONE | | | 10 MG 12 hr | | | tablet | | | oxyCODONE 5 | | | MG | | | immediate | | | release | | | tablet | | | potassium | | | chloride SA | | | 20 MEQ | | | tablet | | | predniSONE | | | 20 MG | | | tablet | | | Discharge | | | took >30 | | | minutes, to | | | include | | | final | | | examination | | | , | | | discussion | | | of | | | admission, | | | and | | | preparation | | | of | | | prescriptio | | | ns, | | | instruction | | | s for | | | on-going | | | care, | | | follow-up | | | and | | | documentati | | | on of | | | discharge | | | summary.VIDAL | | | PARISA P | | | DAVI, | | | MD08/14/2017 | +---+ + +--------+ +---+ + + | 08/04/ | Office | | Eric Lew, DO | 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HCC) | | 2017 | Visit | | Justine Phoenix MD | (Primary Dx); Other | | | | | | hyperlipidemia; Deep | | | | | | vein thrombosis | | | | | | (DVT) of distal vein | | | | | | of lower extremity, | | | | | | unspecified | | | | | | chronicity, | | | | | | unspecified | | | | | | laterality (HCC); | | | | | | Multiple myeloma, | | | | | | remission status | | | | | | unspecified (HCC); | | | | | | Open wound of left | | | | | | foot, initial | | | | | | encounter; Open | | | | | | wound of left lower | | | | | | leg, initial | | | | | | encounter; Left foot | | | | | | infection | +--------+ +---+ + + | 08/04/ | Procedure | | | | | 2018 | Pass | | | | +--------+ +---+ + + | 07/18/ | Emergency | | Jeffery Naranjo, | Acute deep vein | | 2018 | | | MD Oliver Sherwood, | thrombosis (DVT) of | | | | | MD | popliteal vein of | | | | | | both lower | | | | | | extremities (HCC) | | | | | | (Primary Dx); | | | | | | Elevated blood | | | | | | pressure reading; | | | | | | Blister; Bullae; | | | | | | Multiple myeloma, | | | | | | remission status | | | | | | unspecified (HCC) | +--------+ +---+ + + from Last 3 Months Social [...] on file | | + + + Last Filed Vital Signs + + + [...] AM PDT | + + + + Plan of Treatment +--------+---------+ + + + | Date | Type | Specialty | Care Team | Description | +--------+---------+ + + + | 08/28/ | Office | | Dolores Harrison DNP | | | 2018 | Visit | | [address] | | | | | | [place] | | | | | | [address] | | | | | | | | +--------+---------+ + + + + + + + + | Health Maintenance | Due Date | Last Done | Comments | + + + + + | Vaccine: | | | | | Dtap/Tdap/Td (1 - | 4 | | | | Tdap) | | | | + + + + + | Vaccine: | | | | | Pneumococcal 19-64 | 4 | | | | Highest Risk (1 of 3 | | | | | - PCV13) | | | | + + + + + | Cervical Cancer | | | | | Screening (Pap) | 6 | | | + + + + + | Breast Cancer | | | | | Screening | 5 | | | | (Mammogram) | | | | + + + + + | Colon Cancer | | | | | Screening | 5 | | | | (Colonoscopy) | | | | + + + + + | Vaccine: Influenza | | | | | (Season Ended) | 8 | | | + + + + + Procedures + +--------+ + + + | [...] PDT | | | + +--------+ +---+---+ from Last 3 Months Results CBC W/Auto Diff (Reflex to Manual) (08/14/2017 4:35 AM)Only the most recent of 12 results within the time period is included. + + -----+ + | Component | [...] | | | | MORPHTesting performed at [facility], [facility] [address] | | | | [place] [address] | | | |1+ | | | |HYPO | | | |1+ | | | |MICRO | | | |NORMAL PLT MORPH | | | |Testing performed at [facility], [address] [place] [address] | | | | | | + + -----+ + + + + | Specimen | Performing Laboratory | + + + | Blood | [address] [place] | | | [place] [address] | + + + Phosphorus (08/14/2017 4:35 AM)Only the most recent of 5 results within the time period is included. + + + + | Component | Value | Ref Range | + + + + | PHOSPHORUS | 3.2Comment: Testing performed at [facility], 71 | 2.3 - 4.8 mg/dL | | | [place] [address] | | + + + + + + + | Specimen | Performing Laboratory | + + + | Blood | [address] [place], | | | [place] [address] | + + + Magnesium (08/14/2017 4:35 AM)Only the most recent of 5 results within the time period is included. + + + + | Component | Value | Ref Range | + + + + | MAGNESIUM | 2.2Comment: Testing performed at [facility], [address] | 1.7 - 2.4 mg/dL | | | [place] [address] | | + + + + + + + | Specimen | Performing Laboratory | + + + | Blood | [address] [place], | | | [place] [address] | + + + Comprehensive metabolic panel (08/14/2017 4:35 AM)Only the most recent of 7 results within the time period is included. + + + + | Component | [...] | | | | 1.210.Testing performed at [facility], [address] | | | | [facility] [place] [address] | | | | | | + + + + + + + | Specimen | Performing Laboratory | + + + | Blood | [facility] [address] [facility] [place], | | | [place] [address] | + + + Renal function panel (08/12/2017 5:07 AM)Only the most recent of 6 results within the time period is included. + + + + | Component | [...] | | | | 1.210.Testing performed at [facility], [address] | | | | [place] [address] | | | | | | + + + + + + + | Specimen | Performing Laboratory | + + + | Blood | [facility] [address] [place], | | | [place] [address] | + + + Pathology cytology - fluid (08/11/2017 4:00 PM) + + + | Specimen | Performing Laboratory | + + + | Body Fluid - Pleural | [facility] | | Fluid | | + [...] and adenocarcinoma markers. As part of the Hand Splitter Program, this | | case was reviewed by another member of [facility] ([facility]) Pathology. (AMB) DESCRIPTION: In | | addition [...] Technical | | preparation was performed by [facility], [address] [place], [place] [address] | | [place] [address] (Product Manager Financial Services: Venkatesh Teixeira D.O.; CLIA#: [id number]). | | Professional interpretation [facility] | | [address] [address] (Product Manager Financial Services: Barry Barnett, | | [place]; CLIA#: [id number]).6 Diagnostician: Scott VEGA([facility]) Envelope Adjuster | | Diagnostician: Barry Barnett MD Pathologist Electronically Signed 08/19/2017 | + + X-ray chest inspiration & expiration (08/11/2017 3:11 PM) + + + | Specimen | Performing Laboratory | + + + | | [facility] [address] [place] [address] | + + + + + | [...] In - 08/11/2017 3:21 PM PDT CARMEN [id number] years | | FemaleXR CHEST INSPIRATION/EXPIRATION08/11/2017 3:11 [...] + + + | Body Fluid | [address] [address] | + + + + + | [...] | | | | BES/rrcTesting performed at [facility];[address] [place] [address] | | | | [facility];[place] [address] | | | | | | + + + + + + + | Specimen | Performing Laboratory | + + + | | [place] [address] [place] [address] | + + + FLUID CULT W/GRAM [...] + | Body Fluid - Pleural | [facility] [address] [place] [address] Blvd[address] [place], | | Fluid | [place] [address] | + + + Body Fluid Cell Count (08/11/2017 1:15 PM) + + + + | Component | Value | Ref Range | + + + + | FLUID TYPE | PLEURAL FLUID | | + + + + | COLOR | YELLOW | | + + + + | APPEARANCE | CLOUDY | | + + + + | RBC'S | <18448 | /mm3 | + + + + [...] CELLS COUNTED | 100Comment: Testing performed at [facility];[address] | | | | [address];[place] [address] | | + + + + + + + | Specimen | Performing Laboratory | + + + | Body Fluid - Pleural | [facility] [address] [place] [address] | | Fluid | | + + + Fluid total protein (Body fluid) (08/11/2017 1:15 PM) + + + + | Component | Value | Ref Range | + + + + | FLUID TOTAL PROTEIN | 3.0Comment: This is not a engraver pantograph | g/dL | | | validated sample type for this method. No | | | | reference ranges have been | | | | established.Testing performed at [facility], [address] | | | | [place] [address] | | + + + + | FLUID TP SOURCE | PLEURAL FLUIDComment: Testing performed at | | | | [facility];[address] [place] [address];[place] [address] | | + + + + + + + | Specimen | Performing Laboratory | + + + | Body Fluid - Pleural | [place] [address] [facility] [place] [address] | | Fluid | | + + + Lactate dehydrogenase, body fluid (08/11/2017 1:15 PM) + + + + | Component | Value | Ref Range | + + + + | FLUID LDH | 490Comment: This is not a engraver pantograph | U/L | | | validated sample type for this method. No | | | | reference ranges have been | | | | established.Testing performed at [facility], [address] | | | | [place] [address] | | + + + + + + + | Specimen | Performing Laboratory | + + + | Body Fluid - Pleural | [facility] [address] [place], [place] | Fluid | [place] [address] | + + + Glucose, body fluid (08/11/2017 1:15 PM) + + + + | Component | Value | Ref Range | + + + + | FLUID GLUCOSE | 109Comment: This is not a engraver pantograph | mg/dL | | | validated sample type for this method. No | | | | reference ranges have been | | | | established.Testing performed at [facility], [address] | | | | [address] [facility], [place] [address] | | + + + + | Glucose, Fluid Type | PLEURAL FLUIDComment: Testing performed at | | | | [facility];[address] [place] [address];[place] [address] | | + + + + + + + | Specimen | Performing Laboratory | + + + | Body Fluid - Pleural | [place] [address] [facility] [place] [address] | | Fluid | | + + + pH, body fluid (08/11/2017 1:15 PM) + + + + | Component | Value | Ref Range | + + + + | FLUID PH | 7.64Comment: Testing performed at [facility];[address] | | | | [facility];[place] [address] | | + + + + + + + | Specimen | Performing Laboratory | + + + | Body Fluid - Pleural | [address] [address] | | Fluid | | + + + aPTT (08/11/2017 5:46 AM)Only the most recent of 13 results within the time period is incl uded. + + + + | Component | Value | Ref Range | + + + + | APTT | 39 (H)Comment: Testing performed at [facility];[address] | 23 - 32 seconds | | | [address] [facility];[place] [address] | | + + + + + + + | Specimen | Performing Laboratory | + + + | Blood | [facility] [address] [place] [address] | + + + Protime-INR (08/11/2017 5:46 AM)Only the most recent of 5 results within the time period i s included. + + + + | Component | Value | Ref Range | + + + + | INR | 1.2Comment: REFERENCE RANGE:0.9 - | | | | 1.2 NON-ANTICOAGULATED2.0 - 3.0 ALL | | | | OTHER THERAPEUTIC INDICATIONS2.5 - 3.5 | | | | MECHANICAL HEART VALVES, RECURRENT OR | | | | SYSTEMIC EMBOLISMTesting performed at | | | | [facility];[address] [place] [address];[place] [address] | | | |Testing performed at [facility];[address] [place] [address];[place] [address] | | | | | | + + + + + + + | Specimen | Performing Laboratory | + + + | Blood | [facility] [address] [place] [address] | + + + POC Arterial Blood Gas (08/10/2017 7:17 PM)Only the most recent of 2 results within the ti mi period is included. + + + + | Component | [...] Testing | | | | performed at [facility];[address] [facility];[place], [place] | | | | [address] | | + + + + + + + | Specimen | Performing Laboratory | + + + | | [facility] [address] [place] [address] | + + + CT chest without contrast (08/10/2017 10:39 AM) + + + | Specimen | Performing Laboratory | + + + | | [facility] [address] [place] [address] | + + + + + | [...] Laboratory | + + + | | [address] [address] | + + + + + | [...] 3.31 cm D-E Excursion: 2.18 cm E-F [place]: 0.03 m/s | | EPSS: 0.41 cm [...] TV A [place]: 0.66 m/s TV Dec [place]: 4.09 m/s2 TV Dec Time: 135.89 ms TV E | | [place]: 0.55 m/s TV E/A Ratio: 0.84 Real Estate Representative: CM Authenticated | | by: AMARA CHAUDHARY MD Report Date/Time: 08-10-2017 16:30:17 | + + + + | Procedure Note | + + | Jorge, Rad Results In - 08/10/2017 4:40 PM PDT Patient Name: Geri KAHN of | | : 5Accession: [id number] Physician: AMARA CHAUDHARY MD | | INDICATIONS [...] (A-L): | | 20.34 ml/m2LAAs A2C: 15.95 gb9BPNIE A-L A2C: 39.38 mlLALs A2C: 5.48 cmLAAs A4C: | | 13.35 ya3AZUUT A-L A4C: 33.72 mlLALs A4C: 4.48 cmAo Diam: 3.31 cmD-E Excursion: | | 2.18 cmE-F [place]: 0.03 m/sEPSS: 0.41 cmTAPSE: 2.10 cmHR: 93.72 BPMAV maxPG: | | 9.31 mmHgAV meanP.60 mmHgAV Vmax: 1.52 m/Melina Vmean: 1.00 m/Melina VTI: 27.04 | | cmAVA Vmax: 3.01 cm2AVA (VTI): 2.98 mv9SIOF Vmax: 0.00 cm2/m2AVAI (VTI): 0.00 | | cm2/m2LVCI Dopp: 3.64 l/khyy5GMBP Dopp: 7.21 l/minHR: 89.38 BPMLVOT maxP.91 | [...] 0.87 m/sMV VTI: 25.86 cmMVA (VTI): 3.12 in7Dvqvdj e': 0.07 m/sSeptal E/e': | | 14.33 Lateral e': 0.10 m/sLateral E/e': 9.59 HR: 88.92 BPMPV maxP.42 mmHgPV | | meanP.15 mmHgPV Vmax: 1.36 m/sPV Vmean: 0.81 m/sPV VTI: 22.77 cmRAP: 3 | | mmHgRV S': 0.12 m/sRVSP: 37.29 mmHgTR maxP.29 mmHgTR Vmax: 2.92 m/sTV A | | Maurice: 0.66 m/sTV Dec [place]: 4.09 m/s2TV Dec Time: 135.89 msTV E Maurice: 0.55 m/sTV | | E/A Ratio: 0.84 Real Estate Representative: CMAuthenticated by: Bry COOK Date/Time: | | [...] | |D-E Excursion: 2.18 cm | |E-F [place]: 0.03 m/s | |EPSS: 0.41 cm | [...] A Maurice: 0.66 m/s | |TV Dec [place]: 4.09 m/s2 | |TV Dec Time: 135.89 ms | |TV E [place]: 0.55 m/s | |TV E/A Ratio: 0.84 | | | |Real Estate Representative: CM | |Authenticated by: AMARA CHAUDHARY MD [...] valvular abnormalities were noted. | + + Brain natriuretic peptide (08/10/2017 5:03 AM) + + + + | Component | Value | Ref Range | + + + + | BRAIN NATRIURETIC | 60.5Comment: Testing performed at [facility];[address] | 0 - 100 pg/mL | | PEPTIDE | [place] [address] | | + + + + + + + | Specimen | Performing Laboratory | + + + | | [facility] [place] [address] | + + + Pathology histology - tissue (08/10/2017) + + + | Specimen | Performing Laboratory | + + + | Tissue | [facility] | + + + [...] "left leg " consists of a left xpwbi-jnw-aadn | | amputated leg that is 52.5 cm from yvui-lx-wzuufqhlv margin and has a calf circumference | [...] that extends 3 cm | | proximally. Patient Clerical Assistant sections are submitted in three cassettes. Cassette [...] technical | | preparation was performed by [facility], [facility], [facility] | | [place] [address] (Product Manager Financial Services: Barry Barnett M.D.; | | [facility]#: [id number]). Diagnostician: Josué Gresham MD Pathologist Electronically | | Signed 08/11/2017 | + + XR chest 1 view (08/09/2017 10:59 PM) + + + | Specimen | Performing Laboratory | + + + | | [address] [address] | + + + + + | [...] 2017 11:29PM Referring Provider Line: | | [phone] ID: [id number] | + + + + [...] left | | effusion. 3. Borderline cardiomegaly. [facility] call report notification system was | | initiated by Dr. Guero Eid at 23:11 hrs on 08/09/17.The above findings were | | discussed with Dr RUDOLPH Dr by Dr. Guero Eid at 23:28 hrs on 08/09/17. | | Electronically signed by Guero Eid MD on Aug 09 2017 11:29PM Referring Provider Line: | | [phone] ID: [id number] | | | |Mediastinum: Heart [...] 09 2017 11:29PM Referring Provider Line: [phone] ID: [id number] | + + Type and screen (08/07/2017 2:36 PM) + + + + | Component | Value | Ref Range | + + + + | ABO/RH(D) | O POSITIVE | | + + + + | ANTIBODY SCREEN | NEGATIVE | | + + + + | ARM BAND NUMBER | [id number] performed at [facility];[address];[place] [address] | | | | | | + + + + + + + | Specimen | Performing Laboratory | + + + | Blood | [facility] [address] [place] [address] | + + + CBC w/no diff [...] | MPV | 6.4Comment: Testing performed at [facility];[address] | [address] | | | [address];[place] [address] | | + + + + + + + | Specimen | Performing Laboratory | + + + | | [facility] [address] [facility] [place] [address] | + + + US lower extremity arterial left (08/06/2017 11:12 AM) + + + | Specimen | Performing Laboratory | + + + | | [place] [address] [place] [address] | + + + + + | [...] (cm/s) / Doppler | | Waveform: Left UNIVERSITY CONTROLLER Prox: 130.6 and triphasic DFA Prox: 97.1 and triphasic SFA | | Prox: 118.8 and triphasic SFA Mid: 126.6 and triphasic SFA Distal: 142.4 and triphasic | | POP Mid: 81.2 and triphasic ISABEL Prox: 136.5 and triphasic ISABEL Distal: 102.2 and | | biphasic MARKETING AUTOMATION MANAGER Prox: 71.5 and triphasic MARKETING AUTOMATION MANAGER Distal: 89.6 and biphasic CHUYITA Prox: 103.8 [...] Doppler Waveform: | | | |Left | |UNIVERSITY CONTROLLER Prox: 130.6 and triphasic | |DFA Prox: 97.1 and triphasic | |SFA Prox: 118.8 and triphasic | |SFA Mid: 126.6 and triphasic | |SFA Distal: 142.4 and triphasic | |POP Mid: 81.2 and triphasic | |ISABEL Prox: 136.5 and triphasic | |ISABEL Distal: 102.2 and biphasic | |MARKETING AUTOMATION MANAGER Prox: 71.5 and triphasic | |MARKETING AUTOMATION MANAGER Distal: 89.6 and biphasic | |CHUYITA Prox: 103.8 and biphasic | |CHUYITA Distal: 68.9 and biphasic | | | |Atherosclerosis in arteries of left lower extremity. | | | |IMPRESSION: | |Atherosclerosis in arteries of left lower extremity without hemodynamically significant jay nosis. Three vessel distal runoff. | | | | | | | + + Glycohemoglobin A1C (08/05/2017 5:20 AM) + + + + | Component | Value | Ref Range | + + + + | HEMOGLOBIN A1C | 5.7Comment: [facility] | 4.0 - 6.0 % | [...] formula.Testing | | | | performed at [facility], [address] [facility], | | | | [place] [address] | | + + + + + + + | Specimen | Performing Laboratory | + + + | Blood | [facility] [address] [place] [address] [address] [place], | | | [place] [address] | + + + Lactic acid (08/05/2017 12:52 AM)Only the most recent of 2 results within the time period i s included. + + + + | Component | Value | Ref Range | + + + + | LACTIC ACID | 1.0Comment: Testing performed at [facility];888 | 0.4 - 2.0 mmol/L | | | [facility];[place] [address] | | + + + + + + + | Specimen | Performing Laboratory | + + + | Blood | [facility] [address] [place] [address] | + + + MRI foot left without contrast (08/04/2017 11:40 PM) + + + | Specimen | Performing Laboratory | + + + | | [place] [address] [place], [place] [id number] | + + + + + | [...] In - 08/04/2017 11:50 PM PDT CARMEN KAHN1954MRI FOOT LEFT | | WO CONTRAST08/04/2017 11:40 [...] performed at | NEGATIVE | | | [facility];[address] [facility];[place] [address] | | + + + + + + + | Specimen | Performing Laboratory | + + + | Nasopharyngeal - | [facility] [address] [place] [address] | | Nasopharyngeal | | | Culture | | + + + US Lower extremity venous left (08/04/2017 10:15 PM) + + + | Specimen | Performing Laboratory | + + + | | [address] [address] | + + + + + | [...] Note | + + | Bob Patel Results In - 08/04/2017 10:26 PM PDT CARMEN KAHN1954US LOWER | | EXTREMITY VENOUS DOPPLER LEFT08/04/2017 [...] Laboratory | + + + | | [address] [address] | + + + + + | [...] | Narrative | + + | CARMEN ABDULPAMELA XR FOOT LEFT 08/04/2017 5:34 PM HISTORY: [...] Note | + + | Bob Patel Results In - 08/04/2017 6:04 PM PDT [...] + + | Wound - OTHR-w | [facility] [address] [place], | | source desc (F6) | [place] [address] | + + + + + +--------+ [...] + Blood Culture Set 2 (08/04/2017 5:04 PM)Only the most recent of 2 results within the time period is included. + + + + | Component | [...] + + | Blood - Blood, | [facility] [address] [place], [place] [address]. [place], | | peripheral draw | [place] [address] | + + + Septic Lactic Acid (08/04/2017 5:02 PM) + + + + | Component | Value | Ref Range | + + + + | LACTIC ACID | 2.9 (H)Comment: Testing performed at | 0.4 - 2.0 mmol/L | | | [place];[address] [facility];[place] [address] | | + + + + + + + | Specimen | Performing Laboratory | + + + | | [address] [address] | + + + Blood Culture Set 1 (08/04/2017 5:02 PM)Only the most recent of 2 results within the time period is included. + + + + | Component | [...] + + | Blood - Blood, | [facility] [address] [place], | | peripheral draw | [place] [address] | + + + C-reactive protein (08/04/2017 5:02 PM) + + + + | Component | Value | Ref Range | + + + + | CRP | 13.0 (H)Comment: Testing performed at | <0.5 mg/dL | | | [facility] [place] [address] | | + + + + + + + | Specimen | Performing Laboratory | + + + | Blood | [facility] [address] [facility] [place] [address] | + + + Urinalysis (reflex to microscopic/reflex to culture) (08/04/2017 3:38 PM)Only the most rec ent of 2 results within the time period is included. + + + + | Component | Value | Ref Range | + + + + | COLOR UA | YELLOW | | + + + + | CLARITY | CLEAR | | + + + + | Specific [place], UA | 1.011 | 1.002 - 1.030 [...] at | NEGATIVE mg/dL | | | [facility];[address] [place] [address];[place] [address] | | + + + + + + + | Specimen | Performing Laboratory | + + + | Urine, Clean Catch | [facility] [address] [place] [address] | + + + US Lower Extremity venous doppler- Bilateral (07/18/2017 3:43 PM) + + + | Specimen | Performing Laboratory | + + + | | [place] [id number] [place] [address] | + + + + + | Impressions | + + | 1. Deep vein thrombosis in both lower extremities as detailed above. | | 2. Occlusive thrombus in left great saphenous vein from mid thigh through ankle. | | 3. Subcutaneous calf edema bilaterally. These findings were communicated via | | telephone to Dr. Sherwood by Dr. Terrell on 07/18/2017 at 3:50 PM. | + + + + | Narrative | + + | CARMEN KAHN US LOWER EXTREMITY VENOUS DOPPLER BILAT 07/18/2017 3:43 PM HISTORY: | | 61 years. Female. Recent left leg DVT. TECHNIQUE: Bilateral lower extremity | | venous exam using grayscale, color Doppler and pulsed wave spectral Doppler techniques. | | COMPARISON: CT from earlier the same day. FINDINGS: Normal compressibility, | | augmentation of flow, and Doppler flow evident within the common femoral, deep femoral | | and superficial femoral veins bilaterally. Patent right popliteal vein. | | Nonocclusive thrombus in left popliteal vein. Occlusive thrombus in left calf veins, | | posterior tibial vein and peroneal vein. Occlusive thrombus in left great saphenous vein | | from mid thigh through ankle. Nonocclusive thrombus in right posterior tibial and | | peroneal veins. Occlusive thrombus in right calf veins. Subcutaneous calf edema | | bilaterally. | + + + + | Procedure Note | + + | Jorge, Rad Results In - 07/18/2017 3:56 PM PDT CARMEN GONZALEZ LOWER EXTREMITY VENOUS | | DOPPLER BIL07/18/2017 3:43 PMHISTORY:61 years. Female. Recent left leg | | DVT.TECHNIQUE:Bilateral lower extremity venous exam using grayscale, color Doppler and | | pulsed wave spectral Doppler techniques.COMPARISON:CT from earlier the same | | day.FINDINGS:Normal compressibility, augmentation of flow, and Doppler flow evident | | within the common femoral, deep femoral and superficial femoral veins bilaterally. | | Patent right popliteal vein.Nonocclusive thrombus in left popliteal vein. Occlusive | | thrombus in left calf veins, posterior tibial vein and peroneal vein. Occlusive thrombus | | in left great saphenous vein from mid thigh through ankle.Nonocclusive thrombus in | | right posterior tibial and peroneal veins. Occlusive thrombus in right calf | | veins.Subcutaneous calf edema bilaterally.IMPRESSION:1. Deep vein thrombosis in both | | lower extremities as detailed above.2. Occlusive thrombus in left great saphenous vein | | from mid thigh through ankle.3. Subcutaneous calf edema bilaterally.These findings were | | communicated via telephone to Dr. Sherwood by Dr. Terrell on 07/18/2017 at 3:50 | | PM. | | | | | |Nonocclusive thrombus in left popliteal vein. 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 Occlusive thrombus in left great saphenous vein from mid thigh through ankle. | | | |Nonocclusive thrombus in right posterior tibial and peroneal veins. Occlusive thrombus in r ight calf veins. | | | |Subcutaneous calf edema bilaterally. | | | |IMPRESSION: | |1. Deep vein thrombosis in both lower extremities as detailed above. | |2. Occlusive thrombus in left great saphenous vein from mid thigh through ankle. | |3. Subcutaneous calf edema bilaterally. | | | |These findings were communicated via telephone to Dr. Sherwood by Dr. Terrell on 07/18/2017 at 3: 50 PM. | | | | | + + DRVVT MIX (07/18/2017 3:40 PM) + + +-------- ---+ | Component | Value | Ref Ran ge | + + +-------- ---+ | dRVVT MIX | 70.6 (H)Comment: Reference range: 0.0 to | sec | | | 47.0Testing performed by [facility] [address] [place] [address] | | | | [facility] [address] | | | |Testing performed by [facility] [address] | | | | | | + + +-------- ---+ + + + | Specimen | Performing Laboratory | + + + | | [facility] [address] [place] [address] | + + + HEX ROSALIO LAMAR (07/18/2017 3:40 PM) + + + + | Component | Value | Ref Range | + + + + | HEX PHOS NEUT | (See Below)Comment: Results do not | | | COMMENT | indicate the presence of a Lupus | | | | Anticoagulant:abnormal high screening | | | | results (PTT-LA, dRVVT, mixing studies), | | | | maybe due to medication (heparin, warfarin, | | | | aspirin), Factor | | | | inhibitors,anticardiolipin antibodies, or | | | | poor specimen integrity.Testing performed | | | | by [facility], [place] | | | | [place] [address] | | + + + + + + + | Specimen | Performing Laboratory | + + + | | [address] [address] | + + + Protein S, total and free (07/18/2017 3:40 PM) + + + + | Component | Value | Ref Range | + + + + | PROTEIN S AG,TOTAL | 151 (H)Comment: Reference range: 60 to 150 | % | | | This test was developed and its performance | | | | characteristicsdetermined by [employer]. It | | | | has not been cleared or approvedby the Food | | | | and Drug Administration.Total Protein S | | | | Antigen is an acute phase reactant protein | | | | and can beelevated in inflammatory states. | | | |Total Protein S Antigen is an acute phase reactant protein and can be | | | |elevated in inflammatory states. | | | | | | + + + + | PROTEIN S AG,FREE | 118Comment: Reference range: 57 to 157 This | % | | | test was developed and its performance | | | | characteristicsdetermined by [facility]. It | | | | has not been cleared or approvedby the Food | | | | and Drug Administration.Testing performed | | | | by [facility], [place] [facility] [place] | | | | [place] [address] | | | |Testing performed by [facility], [address] [facility] [address] | | | | | | + + + + + + + | Specimen | Performing Laboratory | + + + | Blood | [address] [address] | + + + Protein C antigen, total (07/18/2017 3:40 PM) + + + + | Component | Value | Ref Range | + + + + | Protein C Antigen | 75Comment: Reference range: 60 to | % | | | 150Testing performed by [facility] [address] [place] [address] | | | | [place] [id number] | | | |Testing performed by [facility] [address] | | | | | | + + + + + + + | Specimen | Performing Laboratory | + + + | Blood | [facility] [address] [facility] [address] | + + + Lupus Inhibitor Screen (07/18/2017 3:40 PM) + + --+ + | Component | Value | Ref Range | + + --+ + | PROTIME,PATIENT | 12.0 (H)Comment: Reference range: 9.6 to | sec | | | 11.5 | | + + --+ + | PT,PATIENT/CTL MIX | 10.9Comment: Reference range: 9.6 to 11.5 | sec | + + --+ + | 1 HR INCUB PT 1:1 MARINE OPERATIONS COORDINATOR | 12.3 (H)Comment: Reference range: 9.6 to | sec | | | 11.5 | | + + --+ + | APTT,PATIENT | 25.7Comment: Reference range: 22.9 to 30.2 | sec | + + --+ + | aPTT,PATIENT/CTL MIX | 21.4 (L)Comment: Reference range: 22.9 to | sec | | | 30.2 | | + + --+ + | APTT 1:1 MIX SALINE | 35.2Comment: Reference range: Not Estab. | sec | + + --+ + | APTT MIX 60MIN INCUB | NIY | sec | | | Comment: | | | | | | | | Testing Not Indicated | | | | | | + + --+ + | APTT INCUB MIX CTL | NIY | sec | | | Comment: | | | | | | | | Testing Not Indicated | | | | | | + + --+ + | THROMBIN | 18.1Comment: Reference range: 0.0 to 23.0 | sec | | TIME,PATIENT | | | + + --+ + | DRVVT | 138.0 (H)Comment: Reference range: 0.0 to | sec | | | 47.0 | | + + --+ + | HEX PHOSPHOLIPID | 0Comment: Reference range: 0 to 11Testing | sec | | NEUT | performed by [facility], | | | | [facility] [address] | | | |Testing performed by [facility] [address] | | | | | | + + --+ + + + + | Specimen | Performing Laboratory | + + + | Blood | [facility] [address] [place] [address] | + + + CTA abd aorta & bilat ilio runoff w IV con (07/18/2017 12:18 PM) + + + | Specimen | Performing Laboratory | + + + | | [facility] [place] [address] [place] [address] | + + + + + | Impressions | + + | 1. Normal caliber abdominal aorta and bilateral common and external iliac arteries | | without evidence for flow-limiting stenosis. 2. The right lower extremity shows no | | evidence for hemodynamically significant stenosis. Two-vessel runoff seen to the level | | of the right ankle, with the peroneal artery not seen in the distal calf. 3. The left | | lower examination shows no evidence for hemodynamically significant stenosis. Again, | | two-vessel runoff is seen to the level of the left ankle with the left anterior tibial | | artery not well-seen at the level of the ankle. 4. Innumerable sclerotic lesions in | | the bones suspicious for metastatic disease from unknown primary malignancy. 5. | | Subcutaneous soft tissue fat stranding and fluid seen in the left greater than right | | lower extremity compatible with edema. Cellulitis cannot be excluded based on the | | imaging appearance. No discrete fluid collections are seen to suggest abscess. No foci | | of subcutaneous gas is seen. 6. Inferior lingular and right base pulmonary nodules are | | seen. Dedicated chest CT could be obtained for further evaluation as indicated. 7. No | | acute abnormality identified in the abdomen or pelvis. Electronically signed by | | Madison Watson MD on Jul 18 2017 4:00PM Referring Provider Line: [phone] | | ID: [id number] | + + + + | Narrative | + + | EXAM: CT ANGIOGRAM ABDOMEN AND PELVIS, WITH BILATERAL LOWER EXTREMITY ARTERY RUNOFF | | EXAM DATE: 07/18/2017 12:19 PM CLINICAL HISTORY: Lower extremity Gangrene, | | evaluate vascular insufficiency COMPARISON: None. TECHNIQUE: Routine helical | | imaging was performed through the abdomen, pelvis and bilateral lower extremities in | | arterial phase. IV Contrast: 100 cc Isovue-370. Reconstructions: Coronal, sagittal, and | | 3D MIP reconstructions were performed. In accordance with CT protocol optimization, | | one or more of the following dose reduction techniques were utilized for this exam: | | automated exposure control, adjustment of mA and/or KV based on patient size, or use of | | iterative reconstructive technique. FINDINGS: Vascular: Abdominal aorta: Normal | | caliber abdominal aorta is seen without evidence for aneurysm or dissection. Scattered | | foci of mixed calcified and noncalcified plaque seen in the abdominal aorta. No | | flow-limiting stenosis. Origins of the celiac artery, SMA, bilateral renal arteries, and | | YAMILET are patent. Pelvic vasculature: Scattered plaques seen in the common iliac | | arteries bilaterally. No evidence for flow-limiting stenosis. The external iliac | | arteries and internal iliac arteries are widely patent. Right lower extremity: foci of | | calcified plaque seen at the posterior aspect of the right common femoral artery without | | evidence for flow-limiting stenosis. Status post foci of plaque seen in the superficial | | femoral artery without stenosis. The right profunda femoris stenosis. The above-knee | | and below-knee popliteal artery is patent. The right anterior tibial artery is patent to | | the level of the ankle. Tibioperoneal trunk is patent. The posterior tibial artery is | | patent. The proximal peroneal artery is patent. The peroneal artery and the distal | | catheter is not well-seen and may be occluded. Left lower extremity: The left common | | femoral artery is patent. The left profunda femoris is patent. Focal plaque seen at the | | origin of the SFA without evidence for flow-limiting stenosis. The left SFA is otherwise | | patent. The left above-knee and below-knee popliteal artery is patent. The origin of | | the left anterior tibial artery is patent, however, it is not well-seen at the level of | | the distal calf may be occluded. Flow seen in the posterior tibial and peroneal arteries | | to the level of the ankle. Abdomen: Indeterminate inferior lingular 6 mm nodule | | (6/2). Additional 7 mm right medial base nodule also seen (6/19). Small bilateral basal | | pleural effusions. No other consolidation seen. Small pericardial effusion noted. No | | focal liver lesion is evident. Hepatic and portal veins are patent. Gallbladder | | surgically absent. No biliary dilation. The spleen and pancreas and bilateral adrenal | | glands are normal. No evidence for renal masses nor hydronephrosis bilaterally. Bowel | | loops are normal caliber without signs of obstruction. Scattered colonic diverticula | | without signs of acute diverticulitis. Pelvis: Unremarkable urinary bladder for | | degree of distention. Uterus is surgically absent. Ovaries not well seen by CT. No | | enlarged intra-abdominal or pelvic lymph nodes. Musculoskeletal: Severe left lower | | extremity subcutaneous soft tissue edema and fat stranding extending from the mid thigh | | to the level of the ankle. Mild to moderate right lower extremity subcutaneous soft | | tissue edema or stranding at the level of the knee to the level of the ankle. No | | discrete fluid collection seen. No foci of subcutaneous gas are evident. No | | significant degenerative changes. Innumerable foci of sclerosis seen in the spine, iliac | | bones, and proximal femurs bilaterally suspicious for infiltrative metastatic disease. | | | + + + + | Procedure Note | + + | Jorge, Rad Results In - 07/18/2017 4:00 PM PDT EXAM:CT ANGIOGRAM ABDOMEN AND PELVIS, | | WITH BILATERAL LOWER EXTREMITY ARTERY RUNOFFEXAM DATE: 07/18/2017 12:19 PMCLINICAL | | HISTORY: Lower extremity Gangrene, evaluate vascular insufficiencyCOMPARISON: | | None.TECHNIQUE: Routine helical imaging was performed through the abdomen, pelvis and | | bilateral lower extremities in arterial phase. IV Contrast: 100 cc Isovue-370. | | Reconstructions: Coronal, sagittal, and 3D MIP reconstructions were performed.In | | accordance with CT protocol optimization, one or more of the following dose reduction | | techniques were utilized for this exam: automated exposure control, adjustment of mA | | and/or KV based on patient size, or use of iterative reconstructive | | technique.FINDINGS:Vascular: Abdominal aorta: Normal caliber abdominal aorta is seen | | without evidence for aneurysm or dissection. Scattered foci of mixed calcified and | | noncalcified plaque seen in the abdominal aorta. No flow-limiting stenosis. Origins of | | the celiac artery, SMA, bilateral renal arteries, and YAMILET are patent.Pelvic vasculature: | | Scattered plaques seen in the common iliac arteries bilaterally. No evidence for | | flow-limiting stenosis. The external iliac arteries and internal iliac arteries are | | widely patent.Right lower extremity: foci of calcified plaque seen at the posterior | | aspect of the right common femoral artery without evidence for flow-limiting stenosis. | | Status post foci of plaque seen in the superficial femoral artery without stenosis. The | | right profunda femoris stenosis. The above-knee and below-knee popliteal artery is | | patent. The right anterior tibial artery is patent to the level of the ankle. | | Tibioperoneal trunk is patent. The posterior tibial artery is patent. The proximal | | peroneal artery is patent. The peroneal artery and the distal catheter is not well-seen | | and may be occluded.Left lower extremity: The left common femoral artery is patent. The | | left profunda femoris is patent. Focal plaque seen at the origin of the SFA without | | evidence for flow-limiting stenosis. The left SFA is otherwise patent. The left | | above-knee and below-knee popliteal artery is patent. The origin of the left anterior | | tibial artery is patent, however, it is not well-seen at the level of the distal calf | | may be occluded. Flow seen in the posterior tibial and peroneal arteries to the level of | | the ankle.Abdomen: Indeterminate inferior lingular 6 mm nodule (09/26). Additional 7 mm | | right medial base nodule also seen (10/13). Small bilateral basal pleural effusions. No | | other consolidation seen. Small pericardial effusion noted. No focal liver lesion is | | evident. Hepatic and portal veins are patent. Gallbladder surgically absent. No biliary | | dilation. The spleen and pancreas and bilateral adrenal glands are normal. No evidence | | for renal masses nor hydronephrosis bilaterally. Bowel loops are normal caliber without | | signs of obstruction. Scattered colonic diverticula without signs of acute | | diverticulitis.Pelvis: Unremarkable urinary bladder for degree of distention. Uterus is | | surgically absent. Ovaries not well seen by CT. No enlarged intra-abdominal or pelvic | | lymph nodes.Musculoskeletal: Severe left lower extremity subcutaneous soft tissue edema | | and fat stranding extending from the mid thigh to the level of the ankle. Mild to | | moderate right lower extremity subcutaneous soft tissue edema or stranding at the level | | of the knee to the level of the ankle. No discrete fluid collection seen. No foci of | | subcutaneous gas are evident. No significant degenerative changes. Innumerable foci of | | sclerosis seen in the spine, iliac bones, and proximal femurs bilaterally suspicious for | | infiltrative metastatic disease.IMPRESSION:1. Normal caliber abdominal aorta and | | bilateral common and external iliac arteries without evidence for flow-limiting | | stenosis.2. The right lower extremity shows no evidence for hemodynamically significant | | stenosis. Two-vessel runoff seen to the level of the right ankle, with the peroneal | | artery not seen in the distal calf.3. The left lower examination shows no evidence for | | hemodynamically significant stenosis. Again, two-vessel runoff is seen to the level of | | the left ankle with the left anterior tibial artery not well-seen at the level of the | | ankle. 4. Innumerable sclerotic lesions in the bones suspicious for metastatic disease | | from unknown primary malignancy. 5. Subcutaneous soft tissue fat stranding and fluid | | seen in the left greater than right lower extremity compatible with edema. Cellulitis | | cannot be excluded based on the imaging appearance. No discrete fluid collections are | | seen to suggest abscess. No foci of subcutaneous gas is seen. 6. Inferior lingular and | | right base pulmonary nodules are seen. Dedicated chest CT could be obtained for further | | evaluation as indicated. 7. No acute abnormality identified in the abdomen or pelvis. | | Electronically signed by Madison Watson MD on Jul 18 2017 4:00PM Referring Provider | | Line: [phone] ID: [id number] | + + CT Head Non-Contrast (07/18/2017 10:47 AM) + + + | Specimen | Performing Laboratory | + + + | | [facility] [address] [place] [address] | + + + + + | Impressions | + + | 1. Negative noncontrast CT scan of the brain. 2. If occult metastatic disease | | is clinically suspect, MRI would be much more sensitive and specific. Electronically | | signed by Stevan Elder MD on 07/18/2017 10:53 AM | + + + + | Narrative | + + | CARMEN KAHN 61 years Female HISTORY: Possible metastatic disease TECHNIQUE: | | Helical CT noncontrast images were acquired from the foramen magnum through the | | cranial vertex. Dose reduction techniques were used including automated exposure | | control (AEC), iterative reconstruction technique, and/or mA and/or kV dose adjustments | | based on patient size COMPARISON: None. FINDINGS: The brain parenchyma does | | not demonstrate acute intraaxial hemorrhage, midline shift, mass effect, or cerebral | | edema. The ventricles, cisterns, and sulci are normal in size and configuration. | | Normal robledo-white matter differentiation is preserved. No extraaxial fluid | | collections are noted. The orbits and their contents are normal. The paranasal | | sinuses are well aerated. No mucosal thickening or air-fluid levels are noted. The | | mastoid air cells show normal pneumatization bilaterally. No mastoid fluid | | noted. The osseous structures of the calvaria do not demonstrate fracture. No | | lytic or blastic lesions are noted. | + + + + | Procedure Note | + + | Jorge, Rad Results In - 07/18/2017 10:58 AM PDT CARMEN KAHN 61 years | | FemaleHISTORY:Possible metastatic diseaseTECHNIQUE:Helical CT noncontrast images were | | acquired from the foramen magnum through the cranial vertex.Dose reduction techniques | | were used including automated exposure control (AEC), iterative reconstruction | | technique, and/or mA and/or kV dose adjustments based on patient | | sizeCOMPARISON:None.FINDINGS:The brain parenchyma does not demonstrate acute intraaxial | | hemorrhage, midline shift, mass effect, or cerebral edema. The ventricles, cisterns, | | and sulci are normal in size and configuration. Normal robledo-white matter differentiation | | is preserved. No extraaxial fluid collections are noted. The orbits and their | | contents are normal. The paranasal sinuses are well aerated. No mucosal thickening or | | air-fluid levels are noted. The mastoid air cells show normal pneumatization | | bilaterally. No mastoid fluid noted. The osseous structures of the calvaria do not | | demonstrate fracture. No lytic or blastic lesions are noted.IMPRESSION:1. Negative | | noncontrast CT scan of the brain.2. If occult metastatic disease is clinically suspect, | | MRI would be much more sensitive and specific. | | | |IMPRESSION: | |1. Negative noncontrast CT scan of the brain. | |2. If occult metastatic disease is clinically suspect, MRI would be much more sensitive an d specific. | | | | | + + XR chest PA and lateral (07/18/2017 10:29 AM) + + + | Specimen | Performing Laboratory | + + + | | [facility] [id number] | + + + + + | Impressions | + + | 1. Multiple small pulmonary nodules most numerous in the left upper lung zone CT | | scan would be recommended for better characterization. 2. Discoid atelectasis in the | | right midlung zone | | 10:33 AM | + + + + | Narrative | + + | CARMEN KAHN XR CHEST 2 VIEW FRONTAL AND LATERAL 07/18/2017 10:29 AM HISTORY: | | 61 years. Female. Metastatic disease no other history TECHNIQUE: XR CHEST 2 | | VIEW FRONTAL AND LATERAL. Standard technique. Total of 4 images presented for | | interpretation. COMPARISON: None at this facility FINDINGS: Cardiac size and | | pulmonary vascular pattern are normal. Mild discoid atelectasis in the right midlung | | zone. There are scattered punctate nodular densities most numerous in the left upper | | lung zone. No evidence of significant hilar or mediastinal adenopathy. | + + + + | Procedure Note | + + | Jorge, Rad Results In - 07/18/2017 10:38 AM PDT CARMEN CASTILLOR CHEST 2 VIEW FRONTAL | | AND LATERAL07/18/2017 10:29 AMHISTORY:61 years. Female. Metastatic disease no other | | historyTECHNIQUE:XR CHEST 2 VIEW FRONTAL AND LATERAL. Standard technique. Total of 4 | | images presented for interpretation.COMPARISON:None at this facilityFINDINGS:Cardiac | | size and pulmonary vascular pattern are normal. Mild discoid atelectasis in the right | | midlung zone. There are scattered punctate nodular densities most numerous in the left | | upper lung zone. No evidence of significant hilar or mediastinal | | adenopathy.IMPRESSION:1. Multiple small pulmonary nodules most numerous in the left | | upper lung zone CT scan would be recommended for better characterization.2. Discoid | | atelectasis in the right midlung zoneElectronically signed by Stevan Elder MD on | | 07/18/2017 10:33 AM | |None at this facility | | | |FINDINGS: | |Cardiac size and pulmonary vascular pattern are normal. Mild discoid atelectasis in the rig ht midlung zone. There are scattered punctate nodular densities most numerous in the left up per lung zone. No evidence | |of significant hilar or mediastinal adenopathy. | |IMPRESSION: | |1. Multiple small pulmonary nodules most numerous in the left upper lung zone CT scan woul d be recommended for better characterization. | |2. Discoid atelectasis in the right midlung zone | | | | | | | | | + + Lipase (07/18/2017 9:47 AM) + + + + | Component | Value | Ref Range | + + + + | LIPASE | 86Comment: Testing performed at [facility];888 | 73 - 393 U/L | | | [address] [facility];[place] [address] | | + + + + + + + | Specimen | Performing Laboratory | + + + | Blood | [facility] [address] [place] [address] | + + + from Last 3 Months Insurance + +--------+ +------+-------+---------+ | Payer | Benefi | Subscriber | Type | Phone | Address | | | t Plan | ID | | | | | | / | | | | | | | Group | | | | | + +--------+ +------+-------+---------+ | [employer] | ODS | xxxxxxxxx | | | | | | HEALTH | | | | | | | PLAN | | | | | + +--------+ +------+-------+---------+ + +--------+ +--------+ + + | Guarantor Name | Accoun | Relation to | Date | Phone | Billing Address | | | t Type | Patient | of | | | | | | | | | | + +--------+ +--------+ + + | CARMEN KAHN | Person | Self | [birth year] Home: | [address] | | | al/Fam | | [phone] | [phone] | [place] | | | cong | | | [phone] | [address] | + +--------+ +--------+ + +
--- OUTSIDE RECORDS SUMMARY | ~2017-08-20 | XMS | Encounter Summary ---
Demographics + + + | Address | [address] | | | [place] [address] | + + + | Home Phone | | + + + | Preferred Language | Unknown | + + + | Marital Status | Single | + + + | Religion Affiliation | Unknown | + + + | Race | Unknown | + + + | Ethnic Group | Unknown | + + + Author + + + | Author | [email or web address] | + + + | Organization | [email or web address] | + + + | Address | [...] Team Providers + +------+ + | Care Tariff Expert Name | Role | Phone | + +------+ + | Eric Lew DO | PCP | | + +------+ + Encounter Details +--------+ + + + + | Date | Type | Department | Care Team | Description | +--------+ + + + + | 08/07/ | Procedure | [facility] | | | | 2018 | [facility] | | | | | | Operating Room [address] | | | | | | [address] [facility] | | | | | | [place] [address] | | | | | | [phone] | | | +--------+ + + + [...] Thompson | | | | | | [place] | | | | | | [id number] | | | | | | | | +--------+---------+ + + + as of this encounter Visit Diagnoses Not on filein this encounter"
--- OUTSIDE RECORDS SUMMARY | ~2017-08-20 | XMS | Encounter Summary ---
Demographics + + + | Address | [address] | | | [place] [address] | + + + | Home Phone | | + + + | Preferred Language | Unknown | + + + | Marital Status | Single | + + + | Hindu Affiliation | Unknown | + + + | Race | Unknown | + + + | Ethnic Group | Unknown | + + + Author + + + | Author | [facility] | | | and Raúlana | + + + | Organization | [facility] | | | and [...] [place] | | | | | [address] | | + + + + + Care Team Providers + +------+ + | Care Special Forces Specialist Name | Role | Phone | [...] + + | 07/21/ | Telephone | [facility] | Earlene, | Other | | 2017 | | [facility] | Jm Dominguez MD [address] | | | | [facility] [address] [place] | | | | | [address] [place] | [place] [address] | | | | | [place] [address] | [phone] | | | | | [phone] | | | +--------+ + + + [...]
--- OUTSIDE RECORDS SUMMARY | ~2017-08-20 | XMS | Encounter Summary ---
Demographics + + + | Address | [address] | | | [place] [address] | + + + | Home Phone | | + + + | Preferred Language | Unknown | + + + | Marital Status | Single | + + + | Uatsdin Affiliation | Unknown | + + + | Race | Unknown | + + + | Ethnic Group | Unknown | + + + Author + + + | Author | [facility] | | | and Raúlana | + + + | Organization | [facility] | | | and [place] [...] [place] | | | | | [address] | | + + + + + Care Team Providers + +------+ + | Care Fishing Line Winding Machine Operator Name | Role | Phone | [...] [place] | | | | | [address] [place] | [place] [address] | | | | | [place] [address] | [phone] | | | | | [phone] | | | +--------+ + + + [...]
--- OUTSIDE RECORDS SUMMARY | ~2017-08-20 | XMS | Clinical Summary ---
Demographics + + + | Address | [address] | | | [place] [address] | + + + | Home Phone | | + + + | Preferred Language | Unknown | + + + | Marital Status | Single | + + + | Holiness Affiliation | Unknown | + + + | Race | Unknown | + + + | Ethnic Group | Unknown | + + + Author + + + | Author | [facility] | | | and Raúlana | + + + | Organization | [facility] | | | and [place] [...] [place] | | | | | [address] | | + + + + + Care Team Providers + +------+ + | Care Fly Raiser Lockstitch Name | Role | Phone | + [...] [phone] | PPO | [phone] | [address] [address] | | | [address] | | | [phone] | [place] [address] | | | TY PPO | | [...] | [phone] | [phone] | [place] [address] | | | cong | | | [phone] | | + +--------+ +--------+ + +"
--- OUTSIDE RECORDS SUMMARY | ~2017-08-20 | XMS | Encounter Summary ---
Demographics + + + | Address | [address] | | | [place] [address] | + + + | Home Phone | | + + + | Preferred Language | Unknown | + + + | Marital Status | Single | + + + | Anglican Affiliation | Unknown | + + + | Race | Unknown | + + + | Ethnic Group | Unknown | + + + Author + + + | Author | [facility] | | | and Raúlana | + + + | Organization | [facility] | | | and [place] [...] [place] | | | | | [address] | | + + + + + Care Team Providers + +------+ + | Care Biology Research Assistant Name | Role | Phone | + [...] [place] | | | | | [address] [place] | [place] [address] | | | | | [place] [address] | [phone] | | | | | [phone] | | | +--------+ + + + [...]
--- OUTSIDE RECORDS SUMMARY | ~2017-08-20 | XMS | Encounter Summary ---
Demographics + + + | Address | [address] | | | [place] [address] | + + + | Home Phone | | + + + | Preferred Language | Unknown | + + + | Marital Status | Single | + + + | Jainism Affiliation | Unknown | + + + | Race | Unknown | + + + | Ethnic Group | Unknown | + + + Author + + + | Author | [facility] | + + + | Organization | [facility] | + + + | Address | [...] Team Providers + +------+ + | Care Butcher Meat Name | Role | Phone | + [...] | | | | | | | ([facility]) | | | | | | | Wet | | | | | | | gangrene, | | | | | | | left foot | | | | | | | ([facility]) | | | +--------+--------+ + + + + Encounter Details +--------+ + + + + | Date | Type | Department | Care Team | Description | +--------+ + + + + | 08/07/ | Anesthesia | [facility] | Omid Rodriguez, | | | 2018 | [facility] | [facility] | [place] [address] | | | | | Operating Room [address] | [place] [address] | | | | | [address] | | | | | | [place] [address] | | | | | | [phone] | | | +--------+ + + + + Anesthesia Record + + + + + | Procedure Name | Responsible | Anesthesia Start | Anesthesia Stop Time | | | Anesthesiologist | Time | | + + + + + | KNEE - AMPUTATION | Jarocho Gaines, | 08/07/17 1440 | 08/07/17 1609 | | ABOVE (Left Leg) | MD | | | + + + + + +----+---+ + + | Da | T | Event | Comment | | te | i | | | | | m | | | | | e | | | +----+---+ + + | 04 | 1 | An Start | Pre-anesthetic vital signs reassessed. | | /1 | 4 | | | | 3/ | 4 | | | | 20 | 0 | | | | 18 | | | | +----+---+ + + | | 1 | An | | | | 4 | Induction | | | | 4 | | | | | 5 | | | +----+---+ + + | | 1 | Quick Note | Started lidocaine infusion at 140mg/hr | | | 4 | | | | | 4 | | | | | 6 | | | +----+---+ + + | | 1 | An LMA | | | | 4 | | | | | 4 | | | | | 7 | | | +----+---+ + + | | 1 | Quick Note | timeout | | | 4 | | | | | 5 | | | | | 8 | | | +----+---+ + + | | 1 | Quick Note | Epic stopped drawing vital sign information into the record. | | | 5 | | Began to record manually. | | | 2 | | | | | 3 | | | +----+---+ + + | | 1 | An | | | | 5 | Emergence | | | | 5 | | | | | 0 | | | +----+---+ + + | | 1 | an stop | | | | 6 | data | | | | 0 | | | | | 2 | | | +----+---+ + + | | 1 | An Stop | | | | 6 | | | | | 0 | | | | | 9 | | | +----+---+ + + +------+ | Meds | +------+ + +---------+ | Name | Total | + +---------+ | fentanyl 50 mcg/mL | 200 mcg | + +---------+ | lidocaine 2 % | 250 mg | + +---------+ | propofol bolus | 100 mg | + +---------+ | dexamethasone 4 mg/mL | 8 mg | + +---------+ | ondansetron 2 mg/mL | 4 mg | + +---------+ | ePHEDrine 5 mg/mL | 25 mg | + +---------+ | phenylephrine 100 mcg/mL | 400 mcg | + +---------+ | ceFAZolin (ANCEF) IVPB 2 g | 2 g | + +---------+ | ketamine 100 mg/mL | 30 mg | + +---------+ | HYDROmorphone 2 mg/mL | 2 mg | + +---------+ | NS | 500 mL | + +---------+ | plasmalyte-A | 200 mL | + +---------+ + + | Name | + + | Aux O2 (L/min) | + + | N2O | + + | O2 | + + | Air | + + | Sevoflurane-EX | + + | N2O | + + + + | No blood administrations on file. | + + +--------+ + + + | Type | Details | Placement | Removal | +--------+ + + + | Wound | 08/07/17; 1516; Incision; Leg; | 08/07/171515 by | | | | Left | Melonie Olivares RN | | +--------+ + + + | Wound | 08/04/17; 1328; 1; Yes; 07/16/17 | 08/04/17 1328 by | 08/08/17257 by | | | (DVT left popliteal vein); LEFT | Sameera Muñoz RN | Nava Mckeon RN | | | PRETIB; Yes; No; No; No; | | | | | 08/08/17; 8 | | | +--------+ + + + | Wound | 08/04/17; 1333; 2; Yes; 07/16/17; | 08/04/17 1333 by | 08/08/17 0258 by | | | Vasculopathy; LEFT DORSAL FOOT; | Sameera Muñoz RN | Nava Mckeon RN | | | Yes; No; No; No; 08/08/17; 0258 | | | +--------+ + + + | Periph | Placement Date: 08/04/17; | 08/04/17 170 by | 08/08/17 1100 by | | eral | Placement Time: 1702; Removal | Amina Monterroso RN | Teresita Mckinley RN | | IV | Date: 08/08/17; Removal Time: | | | | | 1100; Size (Gauge): 20 G; | | | | | Orientation: Right; Location: | | | | | Wrist; Insertion Attempts: 1 | | | +--------+ + + + | Periph | Placement Date: 08/06/17; | 08/06/171825 by | 08/11/17 09 by | | eral | Placement Time: 1825; Removal | Elina Red RN | Michelle Lee, | | IV | Date: 08/11/17; Removal Time: | | RN | | | 0929; Size (Gauge): 20 G; | | | | | Orientation: Left; Location: | | | | | Forearm; Site Prep: | | | | | Chlorhexidine-Isopropyl Alcohol; | | | | | Insertion Attempts: 2 | | | +--------+ + + + | LMA/Ph | Placement Date: 08/07/17; | 08/07/17 144 by | 08/07/17 1559 by | | alma | Placement Time: 1446; Removal | Jarocho Gaines, | Jarocho Gaines, | | al | Date: 08/07/17; Removal Time: | MD | MD | | | 1559; Mask Airway: Easy; Type: | | | | | Air Q; Type Size: 3.5; | | | | | Confirmation: EtCO2 | | | +--------+ + + + | Negati | 08/07/17; 1548; Placed in OR; | 08/07/17 1548 by | 08/11/17 0000 by | | ve | Leg; Left; 08/11/17 (removed by | Melonie Olivares RN | Michelle Lee, | | Julio | ALVARO) | | RN | | re | | | | | Wound | | | | | Therap | | | | | y | | | | +--------+ + + + | Urethr | 08/07/17; 1554; Yes; Latex; 16 | 08/07/17 1554 by | 08/08/17 1100 by | | al | Fr.; Per order | Melonie Olivares RN | Maite Pastor RN | | Wayne | | | | | er | | | | +--------+ + + + in this encounter Social History + +-------+ +--------+------+ | Tobacco [...] [place] | | | | | | [address] | | | | | | | | +--------+---------+ + + + as of this encounter Visit Diagnoses Not on filein this encounter Administered Medications + +--------+ +------+------+------+ | Medication Order | MAR | Action | Dose | Rate | Site | | | Action | Date | | | | + +--------+ +------+------+------+ | ceFAZolin (ANCEF) IVPB 2 g 2 | Given | | 2 g | | | | g, Intravenous, Administer over | | 8 14:56 | | | | | 30 Minutes, Clay Dry Press Mixer Operator To O.R., Fri | | PDT | | | | | 08/07/17 at 1430, For 1 dose, Must | | | | | | | be completely infused before | | | | | | | incision is made. Redose every 4 | | | | | | | hours during procedure. | | | | | | + +--------+ +------+------+------+ +---+---+ | | | +---+---+ + +-------+ +------+---+---+ | dexamethasone (DECADRON) 4 | Given | | 8 mg | | | | MG/ML injection Intravenous, | | 8 15:03 | | | | | PRN, Starting Thu08/07/17 at | | PDT | | | | | 1503, Anesthesia Intra-op | | | | | | + +-------+ +------+---+---+ +---+---+ | | | +---+---+ + +---------+ +---+---+---+ | electrolyte-A (PLASMALYTE-A) | New Bag | | | | | | solution Continuous PRN, | | 8 15:13 | | | | | Starting Thu08/07/17 at 1513, | | PDT | | | | | Anesthesia Intra-op | | | | | | + +---------+ +---+---+---+ +---+---+ | | | +---+---+ + +-------+ +-------+---+---+ | ephedrine injection | Given | | 15 mg | | | | Intravenous, PRN, Starting Fri | | 8 14:58 | | | | | 08/07/17 at 1458, Anesthesia | | PDT | | | | | Intra-op | | | | | | + +-------+ +-------+---+---+ +-------+ +-------+---+---+ | Given | | 10 mg | | | | | 8 15:23 | | | | | | PDT | | | | +-------+ +-------+---+---+ +---+---+ | | | +---+---+ + +-------+ +---------+---+---+ | fentaNYL (SUBLIMAZE) injection | Given | | 100 mcg | | | | Intravenous, PRN, Starting Fri | | 8 14:42 | | | | | 08/07/17 at 1442, Anesthesia | | PDT | | | | | Intra-op | | | | | | + +-------+ +---------+---+---+ +-------+ +---------+---+---+ | Given | | 100 mcg | | | | | 8 15:19 | | | | | | PDT | | | | +-------+ +---------+---+---+ +---+---+ | | | +---+---+ + +-------+ +--------+---+---+ | HYDROmorphone (DILAUDID) | Given | | 0.5 mg | | | | injection PRN, Starting Fri | | 8 15:08 | | | | | 08/07/17 at 1449, Anesthesia | | PDT | | | | | Intra-op | | | | | | + +-------+ +--------+---+---+ +-------+ +--------+---+---+ | Given | | 0.5 mg | | | | | 8 15:10 | | | | | | PDT | | | | +-------+ +--------+---+---+ | Given | | 0.5 mg | | | | | 8 15:14 | | | | | | PDT | | | | +-------+ +--------+---+---+ +---+---+ | | | +---+---+ + +-------+ +-------+---+---+ | ketamine (KETALAR) injection | Given | | 20 mg | | | | PRN, Starting Thu08/07/17 at | | 8 14:42 | | | | | 1442, Anesthesia Intra-op | | PDT | | | | + +-------+ +-------+---+---+ +-------+ +-------+---+---+ | Given | | 10 mg | | | | | 8 15:13 | | | | | | PDT | | | | +-------+ +-------+---+---+ +---+---+ | | | +---+---+ + +-------+ +--------+---+---+ | lidocaine 2 % (MDV) 2 % | Given | | 100 mg | | | | injection Intravenous, PRN, | | 8 14:45 | | | | | Starting 08/07/17 at 1445, | | PDT | | | | | Anesthesia Intra-op | | | | | | + +-------+ +--------+---+---+ +-------+ +--------+---+---+ | Given | | 150 mg | | | | | 8 15:50 | | | | | | PDT | | | | +-------+ +--------+---+---+ +---+---+ | | | +---+---+ + +-------+ +------+---+---+ | ondansetron (ZOFRAN) injection | Given | | 4 mg | | | | Intravenous, PRN, Nausea, | | 8 15:03 | | | | | Vomiting, Starting 08/07/17 at | | PDT | | | | | 1503, Anesthesia Intra-op | | | | | | + +-------+ +------+---+---+ +---+---+ | | | +---+---+ + +-------+ +---------+---+---+ | phenylephrine (DAIJA-SYNEPHRINE) | Given | | 200 mcg | | | | 100 MCG/ML injection | | 8 14:53 | | | | | Intravenous, PRN, Starting Fri | | PDT | | | | | 08/07/17 at 1453, Anesthesia | | | | | | | Intra-op | | | | | | + +-------+ +---------+---+---+ +-------+ +---------+---+---+ | Given | | 200 mcg | | | | | 8 15:21 | | | | | | PDT | | | | +-------+ +---------+---+---+ +---+---+ | | | +---+---+ + +-------+ +--------+---+---+ | propofol (DIPRIVAN) injection | Given | | 100 mg | | | | Intravenous, PRN, Starting Fri | | 8 14:45 | | | | | 08/07/17 at 1445, Anesthesia | | PDT | | | | | Intra-op | | | | | | + +-------+ +--------+---+---+ +---+---+ | | | +---+---+ + +---------+ +---+---+---+ | sodium chloride 0.9 % infusion | New Bag | | | | | | Continuous PRN, Starting Fri | | 8 14:39 | | | | | 08/07/17 at 1439, Anesthesia | | PDT | | | | | Intra-op | | | | | | + +---------+ +---+---+---+ +---+---+ | | | +---+---+ in this encounter"
--- OUTSIDE RECORDS SUMMARY | ~2017-08-20 | XMS | Encounter Summary ---
Demographics + + + | Address | [address] | | | [place] [address] | + + + | Home Phone | | + + + | Preferred Language | Unknown | + + + | Marital Status | Single | + + + | Sabianist Affiliation | Unknown | + + + | Race | Unknown | + + + | Ethnic Group | Unknown | + + + Author + + + | Author | [facility] | + + + | Organization | [facility] | + + + | Address | [...] Team Providers + +------+ + | Care Microbiology Manager Name | Role | Phone | + +------+ + | Eric Lew DO | PCP | | + +------+ + Encounter Details +--------+ + + + + | Date | Type | Department | Care Team | Description | +--------+ + + + + | 08/07/ | Procedure | [facility] | | | | 2018 | [facility] | | | | | | Operating Room [address] | | | | | | [address] [facility] | | | | | | [place] [address] | | | | | | [phone] | | | +--------+ + + + [...] [place] | | | | | | [id number] | | | | | | | | +--------+---------+ + + + as of this encounter Visit Diagnoses Not on filein this encounter"
--- OUTSIDE RECORDS SUMMARY | ~2017-08-20 | XMS | Encounter Summary ---
Demographics + + + | Address | [address] | | | [place] [address] | + + + | Home Phone | | + + + | Preferred Language | Unknown | + + + | Marital Status | Single | + + + | Quaker Affiliation | Unknown | + + + | Race | Unknown | + + + | Ethnic Group | Unknown | + + + Author + + + | Author | [facility] | + + + | Organization | [facility] | + + + | Address | [...] Team Providers + +------+ + | Care Body Masker Name | Role | Phone | + +------+ + | Eric Lew DO | PCP | | + +------+ + Reason for Visit + + + | Reason | Comments | + + + | Circulatory Problem | left leg known DVT. "He foot is getting bigger" | + + + Auth/Cert +--------+--------+ + [...] | +--------+ + + + + | 07/18/ | Emergency | [facility] | Jeffery Naranjo, | Acute deep vein | | 2018 | | Medical [place] | MD Nemo VIZCARRA | thrombosis (DVT) of | | | | Emergency Department | [place] [address] | popliteal vein of | | | | [address] | Oliver Sherwood MD | both lower | | | | [place] [address] | [address] | extremities (HCC) | | | | [phone] | [place] [address] | (Primary Dx); | | | | | [phone] | Elevated blood | | | | | | pressure reading; | | | | | | Blister; Bullae; | | | | | | Multiple myeloma, | | | | | | remission status | | | | | | unspecified (HCC) | +--------+ + + + + Social History + +-------+ +--------+------+ | Tobacco Use | Types | Packs/Day | Years | Date | | | | | Used | | + +-------+ +--------+------+ | Current Every Day | | | | | | Smoker | | | | | + [...] + + + | Blood Pressure | 123/70 | 07/18/2017 3:35 PM PDT | + + + + | Pulse | 104 | 07/18/2017 3:35 PM PDT | + + + + | Temperature | 36.7 C (98.1 F) | 07/18/2017 10:51 AM PDT | + + + + | Respiratory Rate | 18 | 07/18/2017 3:35 PM PDT | + + + + | Oxygen Saturation | 97% | 07/18/2017 3:35 PM PDT | + + + + | Inhaled Oxygen | - | - | | Concentration | | | + + + + | Weight | 86.6 kg (191 lb) | 07/18/2017 8:59 AM PDT | + + + + | Height | - | - | + + + + | Body Mass Index | - | - | + + + + in this encounter Medications at Time of Discharge + + +-------+---------+ + + | Medication | Sig. | Disp. | Refills | Start | End Date | | | | | | Date | | + + +-------+---------+ + + | simvastatin | Take 40 mg by mouth | | 0 | 07/03/19 | | | (ZOCOR) 40 MG tablet | every evening. | | | 18 | | + + +-------+---------+ + + | VENTOLIN HFA 108 | Take 2 puffs by | | 1 | 06/12/19 | | | (90 Base) MCG/ACT | mouth every 4 (four) | | | 18 | | | inhaler | hours as needed. | | | | | + + +-------+---------+ + + | vitamin D2, | Take 1 capsule by | | 0 | 07/03/19 | | | ergocalciferol, | mouth once a week. | | | 18 | | | [address]50 units capsule | On Fridays | | | | | + + +-------+---------+ + + as of this encounter Plan [...] [place] | | | | | | [address] | | | | | | | | +--------+---------+ + + + as of this encounter Results Urinalysis (reflex to micro/reflex to culture) (07/18/2017 4:26 PM) + + + + | Component | Value | Ref Range | + + + + | COLOR UA | YELLOW | | + + + + | CLARITY | CLEAR | | + + + + | Specific [place], UA | 1.045 (H) | 1.002 - 1.030 | + + + + | LEUKOCYTE ESTERASE | NEGATIVE | NEGATIVE | + + + + | NITRITE | NEGATIVE | NEGATIVE | + + + + | UROBILINOGEN | 2.0 (H) | <1.1 mg/dL | + + + + | PROTEIN | NEGATIVE | NEGATIVE mg/dL | + + + + | PH,URINE | 6.0 | 5.0 - 8.0 | + + + + | BLOOD | NEGATIVE | NEGATIVE | + + + + | KETONES | NEGATIVE | NEGATIVE mg/dL | + + + + | BILIRUBIN | NEGATIVE | NEGATIVE | + + + + | GLUCOSE | NEGATIVEComment: Testing performed at | NEGATIVE mg/dL | | | [facility] [place] [place];[address] [facility] [address];[place] [address] | | + + + + + + + | Specimen | Performing Laboratory | + + + | Urine, Clean Catch | [address] [place] [address] | + + + US Lower Extremity venous doppler- Bilateral (07/18/2017 3:43 PM) + + + | Specimen | Performing Laboratory | + + + | | [address] [place] [address] | + + + + + | [...] In - 07/18/2017 3:56 PM PDT CARMEN LOVELLRAJESHAislinn LOWER EXTREMITY VENOUS | | DOPPLER BIL07/18/2017 [...] vein. 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 Occlusive [...] | | | | | + + ARMANI STEVENSON COMMENT (07/18/2017 3:40 PM) + + + + [...] integrity.Testing performed | | | | by [facility], [address] [place], [place] [address] | | | | [place] [address] | | + + + + + + + | Specimen | Performing Laboratory | + + + | | [address] [address] | + + + DRVVT MIX (07/18/2017 3:40 PM) + + +-------- ---+ | Component | Value | Ref Ran ge | + + +-------- ---+ | dRVVT MIX | 70.6 (H)Comment: Reference range: 0.0 to | sec | | | 47.0Testing performed by [facility] [address] [place] [address] | | | | [place] [address] | | | |Testing performed by [facility] [place] [address] | | | | | | + + +-------- ---+ + + + | Specimen | Performing Laboratory | + + + | | [facility] [address] [place] [address] | + + + Lupus Inhibitor Screen [...] + | 1 HR INCUB PT 1:1 CLINICAL NURSE MANAGER | 12.3 (H)Comment: Reference range: 9.6 to [...] sec | | NEUT | performed by [facility], [address] [place] [address], | | | | [facility] [address] | | | |Testing performed by [facility], [address] [place] [address] | | | | | | + + --+ + + + + | Specimen | Performing Laboratory | + + + | Blood | [facility] [address] [place] [address] | + + + Protein C antigen, total (07/18/2017 3:40 PM) + + + + | Component | Value | Ref Range | + + + + | Protein C Antigen | 75Comment: Reference range: 60 to | % | | | 150Testing performed by [facility] | | | [facility] [address] | | | |Testing performed by [facility] [address] | | | | | | + + + + + + + | Specimen | Performing Laboratory | + + + | Blood | [facility] [address] [place] [address] | + + + Protein S, total and free (07/18/2017 3:40 PM) + + + + | Component | Value | Ref Range | + + + + | PROTEIN S AG,TOTAL | 151 (H)Comment: Reference range: 60 to 150 | % | | | This test was developed and its performance | | | | characteristicsdetermined by [facility]. It | | | | has not [...] performance | | | | characteristicsdetermined by [facility]. It | | | | has not been cleared or approvedby the Food | | | | and Drug Administration.Testing performed | | | | by [facility], [address] [place] [address] | | | | [place] [address] | | | |Testing performed by [facility], [address] [facility] [address] | | | | | | + + + + + + + | Specimen | Performing Laboratory | + + + | Blood | [facility] [address] [facility] [place] [address] | + + + Protime-INR (07/18/2017 3:40 PM) + + + + [...] EMBOLISMTesting performed at | | | | [facility] [place] [place];[address] [place] [address];[place] [address] | | | |Testing performed at [facility] [place] [place];[address] [place] [address];[place] [address] | | | | | | + + + + + + + | Specimen | Performing Laboratory | + + + | Blood | [facility] [address] [place] [address] | + + + aPTT (07/18/2017 3:40 PM) + + + + | Component | Value | Ref Range | + + + + | APTT | 35 (H)Comment: Testing performed at [facility] [place] [place];[address] | 23 - 32 seconds | | | [facility];[place] [address] | | + + + + + + + | Specimen | Performing Laboratory | + + + | Blood | [facility] [address] [place] [address] | + + + Blood Culture Set 2 (07/18/2017 3:40 PM) + + + + | Component | Value | Ref Range | + + + + | Specimen Description | BLOOD | | + + + + | SPECIAL REQUESTS | LT AC | | + + + + | CULTURE | NO GROWTH 6 DAYS | | + + + + + + + | Specimen | Performing Laboratory | + + + | Blood - Blood | [facility] [address] [place], | | | [place] [address] | + + + Blood Culture Set 1 (07/18/2017 1:39 PM) + + + + | Component | Value | Ref Range | + + + + | Specimen Description | BLOOD, PERIPHERAL DRAW | | + + + + | SPECIAL REQUESTS | RAC | | + + + + | CULTURE | NO GROWTH 6 DAYS | | + + + + + + + | Specimen | Performing Laboratory | + + + | Blood - Blood, | [facility] [address] [place], | | peripheral draw | [place] [address] | + + + CTA abd aorta & bilat ilio runoff w IV con (07/18/2017 12:18 PM) + + + | Specimen | Performing Laboratory | + + + | | [facility] [address] [place] [address] | + + + + + | [...] Jul 18 2017 4:00PM Referring Provider Line: [phone] | | ID: [id number] | + + [...] inferior lingular 6 mm nodule | | (09/26). Additional 7 mm right medial base nodule also seen (10/13). Small bilateral basal | | pleural effusions. [...] ankle.Abdomen: Indeterminate inferior lingular 6 mm nodule (/). Additional 7 mm | | right medial [...] 2017 4:00PM Referring Provider | | Line: [phone] ID: [id number] | + + CT Head Non-Contrast (07/18/2017 10:47 AM) + + + | Specimen | Performing Laboratory | + + + | | [facility] [address] [place] [address] | + + + + + | [...] + + + | | [facility] [address] [place] [address] | + + + + + | Impressions | + + | 1. Multiple small pulmonary nodules most numerous in the left upper lung zone CT | | scan would be recommended for better characterization. 2. Discoid atelectasis in the | | right midlung zone | | 10:33 AM | + + + + | Narrative | + + | CARMEN GAPAMELA XR CHEST 2 VIEW FRONTAL AND LATERAL [...] In - 07/18/2017 10:38 AM PDT CARMEN GAEDEXR CHEST 2 VIEW FRONTAL | | AND [...] | | | | | + + Lactic acid (07/18/2017 9:50 AM) + + + + | Component | Value | Ref Range | + + + + | LACTIC ACID | 1.7Comment: Testing performed at [facility] [place] [place];888 | 0.4 - 2.0 mmol/L | | | [address] Vizcarra;[place] [address] | | + + + + + + + | Specimen | Performing Laboratory | + + + | Blood | [facility] [address] [place], [place] [address] [address] | + + + aPTT (07/18/2017 9:47 AM) + + + + | Component | Value | Ref Range | + + + + | APTT | 30Comment: Testing performed at [facility] [place] [place];888 | 23 - 32 seconds | | | [address];[place] [address] | | + + + + + + + | Specimen | Performing Laboratory | + + + | Blood | [facility] [place] [address] | + + + Protime (07/18/2017 9:47 AM) + + + + [...] EMBOLISMTesting performed at | | | | [facility] [place] [place];[address] [place] [address];[place] [address] | | | |Testing performed at [facility] [place] [place];[address] [place] [address];[place] [address] | | | | | | + + + + + + + | Specimen | Performing Laboratory | + + + | Blood | [facility] [address] [place] [address] | + + + Lipase (07/18/2017 9:47 AM) + + + + | Component | Value | Ref Range | + + + + | LIPASE | 86Comment: Testing performed at [facility] [place] [place];888 | 73 - 393 U/L | | | [address] [facility];[place] [address] | | + + + + + + + | Specimen | Performing Laboratory | + + + | Blood | [facility] [address] [place] [address] | + + + Comprehensive metabolic panel (07/18/2017 9:47 AM) + + + + | Component | Value | Ref Range | + + + + | SODIUM | 132 (L) | 135 - 145 mmol/L | + + + + | POTASSIUM | 3.1 (L) | 3.5 - 4.9 mmol/L | + + + + | CHLORIDE | 91 (L) | 99 - 109 mmol/L | + + + + | CO2 | 33 (H) | 23 - 32 mmol/L | + + + + | ANION GAP AGAP | 11 | 5 - 20 mmol/L | + + + + | GLUCOSE | 97 | 65 - 99 mg/dL | + + + + | BUN | 20 | 8 - 25 mg/dL | + + + + | CREATININE | 0.67 | 0.50 - 1.00 mg/dL | + + + + | BUN/CREAT | 30 | | + + + + | CALCIUM | 8.7 | 8.5 - 10.5 mg/dL | + + + + | TOTAL PROTEIN | 7.8 | 6.3 - 8.2 g/dL | + + + + | Albumin | 2.6 (L) | 3.3 - 4.8 g/dL | + + + + | GLOBULIN | 5.2 (H) | 1.3 - 4.9 g/dL | + + + + | A/G | 0.5 (L) | 1.0 - 2.4 | + + + + | TBIL | 0.5 | 0.1 - 1.5 mg/dL | + + + + | ALK PHOS | 615 (H) | 35 - 115 U/L | + + + + | AST | 29 | 10 - 45 U/L | + [...] | | | | 1.210.Testing performed at [facility] [place] [place];[address] [place] [address] | | | | [facility];[place] [address] | | | | | | + + + + + + + | Specimen | Performing Laboratory | + + + | Blood | [facility] [address] [place] [address] | + + + CBC with differential (07/18/2017 9:47 AM) + + +--------- + | Component | Value | Ref Rang e | + + +--------- + | WBC | 13.76 (H) | 3.80 - 1 1.00 K/uL | + + +--------- + | RBC | 4.39 | 3.70 - 5 .10 M/uL | + + +--------- + | HGB | 11.3 | 11.3 - 1 5.5 g/dL | + + +--------- + | HCT | 34.7 | 34.0 - 4 6.0 % | + + +--------- + | MCV | 79.1 (L) | 80.0 - 1 00.0 fl | + + +--------- + | MCH | 25.8 (L) | 27.0 - 3 4.0 pg | + + +--------- + | MCHC | 32.6 | 32.0 - 3 5.5 g/dL | + + +--------- + | RDW SD | 45.9 | 37 - 53 fl | + + +--------- + | PLT | 314 | 150 - 40 0 K/uL | + + +--------- + | MPV | 6.6 | fl | + + +--------- + | DIFF TYPE | MANUAL | | + + +--------- + | Neutrophils Manual | 73 | % | + + +--------- + | Bands | 4 | % | + + +--------- + | Lymphocytes Manual | 18 | % | + + +--------- + | Monocytes Manual | 5 | % | + + +--------- + | Neutrophils Absolute | 10.04 (H) | 1.90 - 7 .40 K/uL | + + +--------- + | Bands Manual | 0.55 (H) | 0.00 - 0 .20 K/uL | + + +--------- + | Lymphocytes Absolute | 2.48 | 1.00 - 3 .90 K/uL | + + +--------- + | Monocytes Absolute | 0.69 | 0.00 - 0 .80 K/uL | + + +--------- + | Platelet Estimate | ADEQUATE | | + + +--------- + | MORPHOLOGY | 1+Comment: MICROTesting performed at | | | | [facility] [place] [place];[address] [place] [address];[place] [address] | | | |MICRO | | | |Testing performed at [facility] [place] [place];[address] [place] [address];[place] [address] | | | | | | + + +--------- + + + + | Specimen | Performing Laboratory | + + + | Blood | [facility] [address] [place] [address] | + + + in this encounter Visit Diagnoses + + | Diagnosis | + + | Acute deep vein thrombosis (DVT) of popliteal vein of both lower extremities (HCC) - | | Primary | + + | Elevated blood pressure reading | + + | Elevated blood pressure reading without diagnosis of hypertension | + + | Blister | + + | Other, multiple, and unspecified sites, blister, without mention of infection | + + | Bullae | + + | Other specified disorder of skin | + + | Multiple myeloma, remission status unspecified (HCC) | + + Admitting Diagnoses + + | Diagnosis | + + | Blister | + + | Other, multiple, and unspecified sites, blister, without mention of infection | + + | Elevated blood pressure reading | + + | Elevated blood pressure reading without diagnosis of hypertension | + + | Bullae | + + | Other specified disorder of skin | + + | Acute deep vein thrombosis (DVT) of popliteal vein of both lower extremities (HCC) | + + | Multiple myeloma, remission status unspecified (HCC) | + + Administered Medications + +--------+---------+------+------+------+ | Medication Order | MAR | Action | Dose | Rate | Site | | | Action | Date | | | | + +--------+---------+------+------+------+ + +---+ | heparin (porcine) 5000 | | | unit/0.5mL injection 2,500 Units | | | 2,500 Units, Intravenous, PRN, | | | for aPTT 20 to 29, Starting Sat | | | 07/18/17 at 1349 | | + +---+ | | | + +---+ | heparin (porcine) 5000 | | | unit/0.5mL injection 5,000 Units | | | 5,000 Units, Intravenous, PRN, | | | for aPTT less than 20, Starting | | | 07/18/17 at 1349 | | + +---+ | | | + +---+ + +-------+ +--------+---+---+ | heparin (porcine) 5000 | Given | | 6,900 | | | | unit/0.5mL injection 6,900 Units | | 8 15:38 | Units | | | | 6,900 Units (rounded from 6,928 | | PDT | | | | | Units = 80 Units/kg | | | | | | | 86.6 kg), Intravenous, Once, Sat | | | | | | | 07/18/17 at 1351, For 1 dose | | | | | | + +-------+ +--------+---+---+ +---+---+ | | | +---+---+ + +---------+ + +-------+---+ | heparin 50 units/mL infusion | New Bag | | 18 | 31.2 | | | 18 Units/kg/hr | | 8 15:41 | Units/kg | mL/hr | | | 86.6 kg (31.176 mL/hr, rounded | | PDT | /hr | | | | to 31.2 mL/hr), Intravenous, at | | | | | | | 31.2 mL/hr, Continuous, Starting | | | | | | | 07/18/17 at 1351 | | | | | | + +---------+ + +-------+---+ +---+---+ | | | +---+---+ + +-------+ +------+---+---+ | HYDROmorphone (DILAUDID) | Given | | 1 mg | | | | injection 1 mg 1 mg, | | 8 09:58 | | | | | Intravenous, Every 10 Min PRN, | | PDT | | | | | Pain, may repeat if pain | | | | | | | unrelieved, Starting 07/18/17 | | | | | | | at 0932, For 3 doses | | | | | | + +-------+ +------+---+---+ +-------+ +------+---+--------+ | Given | | 1 mg | | Right | | | 8 11:01 | | | Arm | | | PDT | | | | +-------+ +------+---+--------+ | Given | | 1 mg | | | | | 8 12:41 | | | | | | PDT | | | | +-------+ +------+---+--------+ +---+---+ | | | +---+---+ + +-------+ +---------+---+---+ | iopamidol (ISOVUE-370) 76 % | Given | | 100 mLs | | | | injection 100 mL 100 mL, | | 8 12:01 | | | | | Intravenous, Img Once PRN, Other, | | PDT | | | | | Starting 07/18/17 at 1156, | | | | | | | For 1 dose | | | | | | + +-------+ +---------+---+---+ +---+---+ | | | +---+---+ + +-------+ +------+---+---+ | ondansetron (ZOFRAN) injection | Given | | 4 mg | | | | 4 mg 4 mg, Intravenous, Once, | | 8 09:58 | | | | | 07/18/17 at 0935, For 1 dose | | PDT | | | | + +-------+ +------+---+---+ +---+---+ | | | +---+---+ + +---------+ +--------+-------+---+ | potassium chloride 20 mEq in | New Bag | | 20 mEq | 130 | | | 260 mL IVPB 20 mEq, Intravenous, | | 8 11:50 | | mL/hr | | | Administer over 2 Hours, Once, | | PDT | | | | | 07/18/17 at 1200, For 1 dose | | | | | | + +---------+ +--------+-------+---+ + +---+ | | | + +---+ | sodium chloride 0.9 % flush 10 | | | mL 10 mL, Intravenous, Every 8 | | | Hours, First dose on 07/18/17 | | | at 0935 | | + +---+ | | | + +---+ + +---------+ +---+-------+---+ | sodium chloride 0.9 % infusion | New Bag | | | 110 | | | at 110 mL/hr, Intravenous, | | 8 09:58 | | mL/hr | | | Continuous, Starting 07/18/17 | | PDT | | | | | at 0935 | | | | | | + +---------+ +---+-------+---+ +---+---+ | | | +---+---+ in this encounter
--- OUTSIDE RECORDS SUMMARY | ~2017-08-20 | XMS | Encounter Summary ---
Demographics + + + | Address | [address] | | | [place] [address] | + + + | Home Phone | | + + + | Preferred Language | Unknown | + + + | Marital Status | Single | + + + | Advent Affiliation | Unknown | + + + | Race | Unknown | + + + | Ethnic Group | Unknown | + + + Author + + + | Author | [email or web address] | + + + | Organization | [facility] | + + + | Address | [...] Team Providers + +------+ + | Care Rigging Worker Name | Role | Phone | + [...] | | | | | | | ([facility]) | | | | | | | Wet | | | | | | | gangrene, | | | | | | | left foot | | | | | | | ([facility]) | | | +--------+--------+ + + + + Encounter Details +--------+ + + + + | Date | Type | Department | Care Team | Description | +--------+ + + + + | 08/07/ | Anesthesia | [facility] | Omid Rodriguez, | | | 2018 | [facility] | [facility] | [place] [address] | | | | | Operating Room [address] | [place] [address] | | | | | [address] | | | | | | [place] [address] | | | | | | [phone] | | | +--------+ + + + [...] [place] | | | | | | [address] | | | | | | | [...] | | | | | 30 Minutes, Technical Architect To O.R., Fri | | PDT | [...]
--- OUTSIDE RECORDS SUMMARY | ~2017-08-20 | XMS | Encounter Summary ---
Demographics + + + | Address | [address] | | | [place] [address] | + + + | Home Phone | | + + + | Preferred Language | Unknown | + + + | Marital Status | Single | + + + | Yarsanism Affiliation | Unknown | + + + | Race | Unknown | + + + | Ethnic Group | Unknown | + + + Author + + + | Author | [facility] | + + + | Organization | [facility] | + + + | Address | [...] Team Providers + +------+ + | Care Fleet Maintenance Manager Name | Role | Phone | + +------+ + | Eric Lew DO | PCP | | + +------+ + Encounter Details +--------+ + + + + | Date | Type | Department | Care Team | Description | +--------+ + + + + | 08/20/ | Telephone | [facility] | Michelle Calabrese | | | 2017 | | [facility] | DORI Fletcher | | | | | [address] | | | | | | [place] [address] | | | | | | [phone] | | | +--------+ + + + [...] [place] | | | | | | [id number] | | | | | | | | +--------+---------+ + + + as of this encounter Visit Diagnoses Not on filein this encounter"
--- OUTSIDE RECORDS SUMMARY | ~2017-08-20 | XMS | Clinical Summary ---
Demographics + + + | Address | [address] | | [place] [address] | + + + | Home Phone | | + + + | Preferred Language | Unknown | + + + | Marital Status | Single | + + + | Advent Affiliation | NRP | + + + [...] Providers + +------+ + | Care Field Technical Specialist Name | Role | Phone | + +------+ + | Eric Lew DO | PP | | + +------+ + Source Comments LAURA is fully live on both [facility] Ambulatory and [facility] InPatient.[facility] Allergies No Known Allergies Current Medications + [...] 02/07/2014, | | | (FLU SHOT) | 8 | 04/14/2005 | | + + + + + Results Not on filefrom Last 3 Months
--- OUTSIDE RECORDS SUMMARY | ~2017-08-20 | XMS | Encounter Summary ---
Demographics + + + | Address | [address] | | | [place] [address] | + + + | Home Phone | | + + + | Preferred Language | Unknown | + + + | Marital Status | Single | + + + | Nondenominational Affiliation | Unknown | + + + | Race | Unknown | + + + | Ethnic Group | Unknown | + + + Author + + + | Author | [email or web address] | + + + | Organization | [facility] | + + + | Address | [...] Team Providers + +------+ + | Care Molecular Spectroscopist Name | Role | Phone | + [...] + + | 07/18/ | Emergency | [facility] | Jeffery Naranjo, | Acute deep vein | | 2018 | | [facility] [place] | MD Nemo VIZCARRA | thrombosis (DVT) of | | | | Emergency Department | [place] [address] | popliteal vein of | | | | [address] | Oliver Sherwood MD | both lower | | | | [place] [address] | [address] | extremities (HCC) | | | | [phone] | [place] [address] | (Primary Dx); | | | | | [phone] | Elevated blood | | | | [...] | | | 18 | | | [id number] units capsule | On Fridays | | [...] [place] | | | | | | [address] | | | | | | | [...] | + + + + | Specific [place], UA | 1.045 (H) | 1.002 - [...] at | NEGATIVE mg/dL | | | [facility];[address] [facility];[place] [address] | | + + + + + + + | Specimen | Performing Laboratory | + + + | Urine, Clean Catch | [address] [place] [address] | + + + US Lower Extremity venous doppler- Bilateral (07/18/2017 3:43 PM) + + + | Specimen | Performing Laboratory | + + + | | [address] [place] [address] | + + + + + | [...] vein. Occlusive thrombus in left calf veins, iron melter ior tibial vein and peroneal vein. Occlusive [...] integrity.Testing performed | | | | by [facility], [address] [place], [place] [address] | | | | [place] [address] | | + + + + + + + | Specimen | Performing Laboratory | + + + | | [address] [address] | + + + DRVVT MIX (07/18/2017 3:40 PM) + + +-------- ---+ | Component | Value | Ref Ran ge | + + +-------- ---+ | dRVVT MIX | 70.6 (H)Comment: Reference range: 0.0 to | sec | | | 47.0Testing performed by [facility] [address] [place] [address] | | | | [place] [address] | | | |Testing performed by [facility] [place] [address] | | | | | | + + +-------- ---+ + + + | Specimen | Performing Laboratory | + + + | | [facility] [address] [place] [address] | + + + Lupus Inhibitor Screen [...] + | 1 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 | 12.3 (H)Comment: Reference range: 9.6 to [...] sec | | NEUT | performed by [facility], [address] [place] [address], | | | | [facility] [address] | | | |Testing performed by [facility], [address] [place] [address] | | | | | | + + --+ + + + + | Specimen | Performing Laboratory | + + + | Blood | [facility] [address] [place] [address] | + + + Protein C antigen, total (07/18/2017 3:40 PM) + + + + | Component | Value | Ref Range | + + + + | Protein C Antigen | 75Comment: Reference range: 60 to | % | | | 150Testing performed by [facility] | | | [facility] [address] | | | |Testing performed by [facility] [address] | | | | | | + + + + + + + | Specimen | Performing Laboratory | + + + | Blood | [facility] [address] [place] [address] | + + + Protein S, total and free (07/18/2017 3:40 PM) + + + + | Component | Value | Ref Range | + + + + | PROTEIN S AG,TOTAL | 151 (H)Comment: Reference range: 60 to 150 | % | | | This test was developed and its performance | | | | characteristicsdetermined by [facility]. It | | | | has not [...] performance | | | | characteristicsdetermined by [facility]. It | | | | has not been cleared or approvedby the Food | | | | and Drug Administration.Testing performed | | | | by [facility], [address] [place] [address] | | | | [place] [address] | | | |Testing performed by [facility], [address] [facility] [address] | | | | | | + + + + + + + | Specimen | Performing Laboratory | + + + | Blood | [facility] [address] [facility] [place] [address] | + + + Protime-INR (07/18/2017 3:40 [...] EMBOLISMTesting performed at | | | | [facility];[address] [place] [address];[place] [address] | | | |Testing performed at [facility];[address] [place] [address];[place] [address] | | | | | | + + + + + + + | Specimen | Performing Laboratory | + + + | Blood | [facility] [address] [place] [address] | + + + aPTT (07/18/2017 3:40 PM) + + + + | Component | Value | Ref Range | + + + + | APTT | 35 (H)Comment: Testing performed at [facility];[address] | 23 - 32 seconds | | | [facility];[place] [address] | | + + + + + + + | Specimen | Performing Laboratory | + + + | Blood | [facility] [address] [place] [address] | + + + Blood Culture Set [...] + + | Blood - Blood | [facility] [address] [place], | | | [place] [address] | + + + Blood Culture Set [...] + + | Blood - Blood, | [facility] [address] [facility] [place], | | peripheral draw | [place] [address] | + + + CTA abd aorta & bilat ilio runoff w IV con (07/18/2017 12:18 PM) + + + | Specimen | Performing Laboratory | + + + | | [facility] [address] [facility] [place] [address] | + + + + + | [...] Jul 18 2017 4:00PM Referring Provider Line: [phone] | | ID: [id number] | + + [...] 2017 4:00PM Referring Provider | | Line: [phone] ID: [id number] | + + CT Head Non-Contrast (07/18/2017 10:47 AM) + + + | Specimen | Performing Laboratory | + + + | | [facility] [address] [place] [address] | + + + + + | [...] | + + + | | [facility] [address] [place] [address] | + + + + + | [...] LACTIC ACID | 1.7Comment: Testing performed at [facility];[address] | 0.4 - 2.0 mmol/L | | | [place] Vizcarra;[place] [address] | | + + + + + + + | Specimen | Performing Laboratory | + + + | Blood | [facility] [address] [place], [place] [address] [address] | + + + aPTT (07/18/2017 9:47 AM) + + + + | Component | Value | Ref Range | + + + + | APTT | 30Comment: Testing performed at [facility];888 | 23 - 32 seconds | | | [place] Viz[place] [address] | | + + + + + + + | Specimen | Performing Laboratory | + + + | Blood | [facility] [place] [address] | + + + Protime (07/18/2017 9:47 [...] EMBOLISMTesting performed at | | | | [facility];[address] [place] [address];[place] [address] | | | |Testing performed at [facility];[address] [place] [address];[place] [address] | | | | | | + + + + + + + | Specimen | Performing Laboratory | + + + | Blood | [facility] [address] [place] [address] | + + + Lipase (07/18/2017 9:47 AM) + + + + | Component | Value | Ref Range | + + + + | LIPASE | 86Comment: Testing performed at [facility];[address] | 73 - 393 U/L | | | [address] [facility];[place] [address] | | + + + + + + + | Specimen | Performing Laboratory | + + + | Blood | [facility] [address] [place] [address] | + + + Comprehensive metabolic panel [...] | | | | 1.210.Testing performed at [facility];[address] [place] [address] | | | | [facility];[place] [address] | | | | | | + + + + + + + | Specimen | Performing Laboratory | + + + | Blood | [facility] [address] [place] [address] | + + + CBC with differential [...] MICROTesting performed at | | | | [facility];[address] [place] [address];[place] [address] | | | |MICRO | | | |Testing performed at [facility];[address] [place] [address];[place] [address] | | | | | | + + +--------- + + + + | Specimen | Performing Laboratory | + + + | Blood | [facility] [address] [place] [address] | + + + in this encounter [...]
--- OUTSIDE RECORDS SUMMARY | ~2017-08-20 | XMS | Clinical Summary ---
Demographics + + + | Address | [address] | | | [place] [address] | + + + | Home Phone | | + + + | Preferred Language | Unknown | + + + | Marital Status | Single | + + + | Orthodox Affiliation | Unknown | + + + | Race | Unknown | + + + | Ethnic Group | Unknown | + + + Author + + + | Author | [facility] | + + + | Organization | [facility] | + + + | Address | [...] Team Providers + +------+ + | Care Machine Loader Name | Role | Phone | + [...] | 8/20 | | e | | [id number] units capsule | On Fridays | | [...] | S/P AKA (above knee amputation), left ([facility]) | 08/10/2017 | + + + | Phantom limb pain (HCC) | 08/08/2017 | + + + | Moderate obesity | 08/05/2017 | + + + | DVT (deep venous thrombosis) ([facility]) | 08/04/2017 | + + + | Hyperlipidemia | 08/04/2017 | + + + | Multiple myeloma (HCC) | 08/04/2017 | + + + | Foot infection | 08/04/2017 | + + + | 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[facility]) | 08/04/2017 | + + + | Open wound of left foot | 08/04/2017 | + + + | Open wound of left lower leg | 08/04/2017 | + + + | Left foot infection | 08/04/2017 | + + + | COPD (chronic obstructive pulmonary disease) ([facility]) | 08/04/2017 | + + + Encounters [...] ) Was on | | | Lovenox [employer] | | | Laryngeal | | | [...] | | | lovenox | | | [employer], COPD, | | | obesity, hx | [...] | | Oncology at | | | [facility] | | | Medical | | | [...] | | consulted | | | at [facility] | | | Medical | | | [...] | | | : | | | [place] | | | Condition: | | | stable and | | | | | | improvedCod | | | e Status: | | | Full Code | | | Follow | | | up:Eric | | | Walker, | | | [address] | | | [phone] | | | on [place] | | | [phone] | | | [phone] | | | w upKadlec | | | Clinic | | | Vascular | | | [id number] | | | Goethals | | | Dr Jay | | | [place] | | | [place] | | | [phone] | | | [phone] | | | Follow up | | | in 3 | | | week(s)stap | | | le removal | | | and post op | | | | | | appointment | | | Jm | | | Earlene | | | , MD[address] | | [address] | | | [address] | | | [place] | | | [phone] | | | [phone] | | | [...] | | known as: | | | [id number] | | | mg x 4 | [...] | | (ergocalcif | | | lara) [address] | | | units | | | [...] SINGER | | | | | | [address] | | | | | | | [...] | | | | MORPHTesting performed at [facility], [facility] [address] | | | | [place] [address] | | | |1+ | | | |HYPO | | | |1+ | | | |MICRO | | | |NORMAL PLT MORPH | | | |Testing performed at [facility], [address] [place] [address] | | | | | | + + -----+ + + + + | Specimen | Performing Laboratory | + + + | Blood | [address] [place] | | | [place] [address] | + + + Phosphorus (08/14/2017 4:35 AM)Only the most recent of 5 results within the time period is included. + + + + | Component | Value | Ref Range | + + + + | PHOSPHORUS | 3.2Comment: Testing performed at [facility], 71 | 2.3 - 4.8 mg/dL | | | [place] [address] | | + + + + + + + | Specimen | Performing Laboratory | + + + | Blood | [address] [place], | | | [place] [address] | + + + Magnesium (08/14/2017 4:35 AM)Only the most recent of 5 results within the time period is included. + + + + | Component | Value | Ref Range | + + + + | MAGNESIUM | 2.2Comment: Testing performed at [facility], 7131 | 1.7 - 2.4 mg/dL | | | [place] [address] | | + + + + + + + | Specimen | Performing Laboratory | + + + | Blood | [address] [place], | | | [place] [address] | + + + Comprehensive metabolic panel [...] | | | | 1.210.Testing performed at [facility], [address] | | | | [facility] [place] [address] | | | | | | + + + + + + + | Specimen | Performing Laboratory | + + + | Blood | [facility] [address] [facility] Center[facility] [place], | | | [place] [address] | + + + Renal function panel [...] | | | | 1.210.Testing performed at [facility], [address] | | | | [place] [address] | | | | | | + + + + + + + | Specimen | Performing Laboratory | + + + | Blood | [facility] [address] [place], | | | [place] [address] | + + + Pathology cytology - [...] and adenocarcinoma markers. As part of the [employer], this | | case was reviewed by another member of [employer] Pathology. (AMB) DESCRIPTION: In | | addition [...] Technical | | preparation was performed by [facility], [address] [place], [place] [address] | | [place] [address] (Pony Worker: Venkatesh Teixeira D.O.; CLIA#: [id number]). | | Professional interpretation was performed by [facility] | | [address] [address] (Pony Worker: Barry Barnett, | | [place]; CLIA#: [id number]).6 Diagnostician: Scott VEGA([facility]) Health Promoter | | Diagnostician: Barry Barnett MD Pathologist Electronically Signed 08/19/2017 | + + X-ray chest inspiration & expiration (08/11/2017 3:11 PM) + + + | Specimen | Performing Laboratory | + + + | | [facility] [address] [place] [address] | + + + + + | [...] In - 08/11/2017 3:21 PM PDT CARMEN [id number] years | | FemaleXR CHEST INSPIRATION/EXPIRATION08/11/2017 3:11 [...] + + + | Body Fluid | [address] [address] | + + + + + | [...] | | | | BES/rrcTesting performed at [facility];[address] [place] [address] | | | | [facility];[place] [address] | | | | | | + + + + + + + | Specimen | Performing Laboratory | + + + | | [place] [address] [place] [address] | + + + FLUID CULT W/GRAM [...] + | Body Fluid - Pleural | [facility] [address] [place] [address] Blvd[address] [place], | | Fluid | [place] [address] | + + + Body Fluid Cell Count (08/11/2017 1:15 PM) + + + + | Component | Value | Ref Range | + + + + | FLUID TYPE | PLEURAL FLUID | | + + + + | COLOR | YELLOW | | + + + + | APPEARANCE | CLOUDY | | + + + + | RBC'S | <38303 | /mm3 | + + + + [...] CELLS COUNTED | 100Comment: Testing performed at [facility];888 | | | | Darrin Thomas;[place] [address] | | + + + + + + + | Specimen | Performing Laboratory | + + + | Body Fluid - Pleural | [facility] [address] [place] [address] | | Fluid | | + + + Fluid total protein (Body fluid) (08/11/2017 1:15 PM) + + + + | Component | Value | Ref Range | + + + + | FLUID TOTAL PROTEIN | 3.0Comment: This is not a microarray analyst | g/dL | | | validated sample type for this method. No | | | | reference ranges have been | | | | established.Testing performed at [facility], [address] | | | | [place] [address] | | + + + + | FLUID TP SOURCE | PLEURAL FLUIDComment: Testing performed at | | | | [facility];[address] [place] [address];[place] [address] | | + + + + + + + | Specimen | Performing Laboratory | + + + | Body Fluid - Pleural | [place] [address] [facility] [place] [address] | | Fluid | | + + + Lactate dehydrogenase, body fluid (08/11/2017 1:15 PM) + + + + | Component | Value | Ref Range | + + + + | FLUID LDH | 490Comment: This is not a microarray analyst | U/L | | | validated sample type for this method. No | | | | reference ranges have been | | | | established.Testing performed at [facility], [address] | | | | [place] [address] | | + + + + + + + | Specimen | Performing Laboratory | + + + | Body Fluid - Pleural | [facility] [address] [place], [place] | Fluid | [place] [address] | + + + Glucose, body fluid (08/11/2017 1:15 PM) + + + + | Component | Value | Ref Range | + + + + | FLUID GLUCOSE | 109Comment: This is not a microarray analyst | mg/dL | | | validated sample type for this method. No | | | | reference ranges have been | | | | established.Testing performed at [facility], [address] | | | | [address] [facility], [place] [address] | | + + + + | Glucose, Fluid Type | PLEURAL FLUIDComment: Testing performed at | | | | [facility];[address] [place] [address];[place] [address] | | + + + + + + + | Specimen | Performing Laboratory | + + + | Body Fluid - Pleural | [place] [address] [facility] Children[facility] [place] [address] | | Fluid | | + + + pH, body fluid (08/11/2017 1:15 PM) + + + + | Component | Value | Ref Range | + + + + | FLUID PH | 7.64Comment: Testing performed at [facility];[address] | | | | [facility];[place] [address] | | + + + + + + + | Specimen | Performing Laboratory | + + + | Body Fluid - Pleural | [address] [address] | | Fluid | | + + + aPTT (08/11/2017 5:46 AM)Only the most recent of 13 results within the time period is incl uded. + + + + | Component | Value | Ref Range | + + + + | APTT | 39 (H)Comment: Testing performed at [facility];888 | 23 - 32 seconds | | | Darrin [facility];[place] [address] | | + + + + + + + | Specimen | Performing Laboratory | + + + | Blood | [facility] [address] [place] [address] | + + + Protime-INR (08/11/2017 5:46 [...] EMBOLISMTesting performed at | | | | [facility];[address] [place] [address];[place] [address] | | | |Testing performed at [facility];[address] [place] [address];[place] [address] | | | | | | + + + + + + + | Specimen | Performing Laboratory | + + + | Blood | [facility] [address] [place] [address] | + + + POC Arterial Blood Gas (08/10/2017 7:17 PM)Only the most recent of 2 results within the ti la period is included. + + + + [...] Testing | | | | performed at [facility];[address] [facility];[place], [place] | | | | [address] | | + + + + + + + | Specimen | Performing Laboratory | + + + | | [facility] [address] [place] [address] | + + + CT chest without contrast (08/10/2017 10:39 AM) + + + | Specimen | Performing Laboratory | + + + | | [facility] [address] [place] [address] | + + + + + | [...] Laboratory | + + + | | [address] [address] | + + + + + | [...] 3.31 cm D-E Excursion: 2.18 cm E-F [place]: 0.03 m/s | | EPSS: 0.41 cm [...] TV A [place]: 0.66 m/s TV Dec [place]: 4.09 m/s2 TV Dec Time: 135.89 ms TV E | | [place]: 0.55 m/s TV E/A Ratio: 0.84 Tool Carrier: CM Authenticated | | by: AMARA CHAUDHARY MD Report Date/Time: 08-10-2017 16:30:17 | + + + + | Procedure Note | + + | Jorge, Rad Results In - 08/10/2017 4:40 PM PDT Patient Name: Geri KAHN of | | : 5Accession: [id number] Physician: AMARA CHAUDHARY MD | | INDICATIONS [...] (A-L): | | 20.34 ml/m2LAAs A2C: 15.95 vh4EZGQY A-L A2C: 39.38 mlLALs A2C: 5.48 cmLAAs A4C: | | 13.35 lv0LAUAT A-L A4C: 33.72 mlLALs A4C: 4.48 cmAo Diam: 3.31 cmD-E Excursion: | | 2.18 cmE-F [place]: 0.03 m/sEPSS: 0.41 cmTAPSE: 2.10 cmHR: 93.72 BPMAV maxPG: | | 9.31 mmHgAV meanP.60 mmHgAV Vmax: 1.52 m/Melina Vmean: 1.00 m/Melina VTI: 27.04 | | cmAVA Vmax: 3.01 cm2AVA (VTI): 2.98 ys2TSSQ Vmax: 0.00 cm2/m2AVAI (VTI): 0.00 | | cm2/m2LVCI Dopp: 3.64 l/ltnd4ORXS Dopp: 7.21 l/minHR: 89.38 BPMLVOT maxP.91 | [...] 0.87 m/sMV VTI: 25.86 cmMVA (VTI): 3.12 rc9Zmzkid e': 0.07 m/sSeptal E/e': | | 14.33 Lateral e': 0.10 m/sLateral E/e': 9.59 HR: 88.92 BPMPV maxP.42 mmHgPV | | meanP.15 mmHgPV Vmax: 1.36 m/sPV Vmean: 0.81 m/sPV VTI: 22.77 cmRAP: 3 | | mmHgRV S': 0.12 m/sRVSP: 37.29 mmHgTR maxP.29 mmHgTR Vmax: 2.92 m/sTV A | | Maurice: 0.66 m/sTV Dec [place]: 4.09 m/s2TV Dec Time: 135.89 msTV E Maurice: 0.55 m/sTV | | E/A Ratio: 0.84 Tool Carrier: CMAuthenticated by: Bry COOK Date/Time: | | [...] | |D-E Excursion: 2.18 cm | |E-F [place]: 0.03 m/s | |EPSS: 0.41 cm | [...] A Maurice: 0.66 m/s | |TV Dec [place]: 4.09 m/s2 | |TV Dec Time: 135.89 ms | |TV E [place]: 0.55 m/s | |TV E/A Ratio: 0.84 | | | |Tool Carrier: CM | |Authenticated by: AMARA CHAUDHARY MD [...] BRAIN NATRIURETIC | 60.5Comment: Testing performed at [facility];888 | 0 - 100 pg/mL | | PEPTIDE | Darrin Thomas;[place] [address] | | + + + + + + + | Specimen | Performing Laboratory | + + + | | [facility] [place] [address] | + + + Pathology histology - tissue (08/10/2017) + + + | Specimen | Performing Laboratory | + + + | Tissue | [facility] | + + + [...] "left leg " consists of a left cnpbh-dyd-nrre | | amputated leg that is 52.5 cm from bzsn-iy-pddzdrciq margin and has a calf circumference | [...] that extends 3 cm | | proximally. Dairy Farmworker sections are submitted in three cassettes. Cassette [...] technical | | preparation was performed by [facility], [facility], [facility] | | [place] [address] (Pony Worker: Barry Barnett M.D.; | | [facility]#: [id number]). Diagnostician: Josué Gresham MD Pathologist Electronically | | Signed 08/11/2017 | + + XR chest 1 view (08/09/2017 10:59 PM) + + + | Specimen | Performing Laboratory | + + + | | [address] [address] | + + + + + | [...] 2017 11:29PM Referring Provider Line: | | [phone] ID: [id number] | + + + + [...] left | | effusion. 3. Borderline cardiomegaly. [facility] call report notification system was | | initiated by Dr. Guero Eid at 23:11 hrs on 08/09/17.The above findings were | | discussed with Dr RUDOLPH Dr by Dr. Guero iEd at 23:28 hrs on 08/09/17. | | Electronically signed by Guero Eid MD on Aug 09 2017 11:29PM Referring Provider Line: | | [phone] ID: [id number] | | | |Mediastinum: Heart [...] 09 2017 11:29PM Referring Provider Line: [phone] ID: [id number] | + + Type and screen (08/07/2017 2:36 PM) + + + + | Component | Value | Ref Range | + + + + | ABO/RH(D) | O POSITIVE | | + + + + | ANTIBODY SCREEN | NEGATIVE | | + + + + | ARM BAND NUMBER | [id number] performed at [facility];[address] | [address];[place] [address] | | | | | | + + + + + + + | Specimen | Performing Laboratory | + + + | Blood | [facility] [address] [place] [address] | + + + CBC w/no diff [...] | MPV | 6.4Comment: Testing performed at [facility];888 | fl | | | [place]ha;[place] [address] | | + + + + + + + | Specimen | Performing Laboratory | + + + | | [facility] [address] [facility] [place] [address] | + + + US lower extremity arterial left (08/06/2017 11:12 AM) + + + | Specimen | Performing Laboratory | + + + | | [place] [address] [place] [address] | + + + + + | [...] (cm/s) / Doppler | | Waveform: Left COST ESTIMATING CLERK Prox: 130.6 and triphasic DFA Prox: 97.1 and triphasic SFA | | Prox: 118.8 and triphasic SFA Mid: 126.6 and triphasic SFA Distal: 142.4 and triphasic | | POP Mid: 81.2 and triphasic ISABEL Prox: 136.5 and triphasic ISABEL Distal: 102.2 and | | biphasic [employer]NT Prox: 71.5 and triphasic [employer] Distal: 89.6 and biphasic CHUYITA Prox: 103.8 [...] Doppler Waveform: | | | |Left | |COST ESTIMATING CLERK Prox: 130.6 and triphasic | |DFA Prox: 97.1 and triphasic | |SFA Prox: 118.8 and triphasic | |SFA Mid: 126.6 and triphasic | |SFA Distal: 142.4 and triphasic | |POP Mid: 81.2 and triphasic | |ISABEL Prox: 136.5 and triphasic | |ISABEL Distal: 102.2 and biphasic | |[employer] Prox: 71.5 and triphasic | |[employer] Distal: 89.6 and biphasic | |CHUYITA Prox: [...] + | HEMOGLOBIN A1C | 5.7Comment: The [employer] Diabetes | 4.0 - 6.0 % | [...] formula.Testing | | | | performed at [facility], [address] [facility], | | | | [place] [address] | | + + + + + + + | Specimen | Performing Laboratory | + + + | Blood | [facility] [address] [place] [address] [address]vd[address] [place], | | | [place] [address] | + + + Lactic acid (08/05/2017 12:52 AM)Only the most recent of 2 results within the time period i s included. + + + + | Component | Value | Ref Range | + + + + | LACTIC ACID | 1.0Comment: Testing performed at [facility];888 | 0.4 - 2.0 mmol/L | | | [address] [facility];[place] [address] | | + + + + + + + | Specimen | Performing Laboratory | + + + | Blood | [facility] [address] [place] [address] | + + + MRI foot left without contrast (08/04/2017 11:40 PM) + + + | Specimen | Performing Laboratory | + + + | | [place] [address] [place] [address] | + + + + + | [...] performed at | NEGATIVE | | | [facility];[address] [facility];[place] [address] | | + + + + + + + | Specimen | Performing Laboratory | + + + | Nasopharyngeal - | [facility] [address] [place] [address] | | Nasopharyngeal | | | Culture | | + + + US Lower extremity venous left (08/04/2017 10:15 PM) + + + | Specimen | Performing Laboratory | + + + | | [address] [address] | + + + + + | [...] Laboratory | + + + | | [address] [address] | + + + + + | [...] + + | Wound - OTHR-w | [facility] [address] [place], | | source desc (F6) | [place] [address] | + + + + + +--------+ [...] + + | Blood - Blood, | [facility] [address] [place], [place] [address]radha. [place], | | peripheral draw | [place] [address] | + + + Septic Lactic Acid (08/04/2017 5:02 PM) + + + + | Component | Value | Ref Range | + + + + | LACTIC ACID | 2.9 (H)Comment: Testing performed at | 0.4 - 2.0 mmol/L | | | [place];[address] [facility];[place] [address] | | + + + + + + + | Specimen | Performing Laboratory | + + + | | [address] [address] | + + + Blood Culture Set [...] + + | Blood - Blood, | [facility] [address] [place], | | peripheral draw | [place] [address] | + + + C-reactive protein (08/04/2017 5:02 PM) + + + + | Component | Value | Ref Range | + + + + | CRP | 13.0 (H)Comment: Testing performed at | <0.5 mg/dL | | | [facility] [place] [address];[place] [address] | | + + + + + + + | Specimen | Performing Laboratory | + + + | Blood | [facility] [address] [facility] [place] [address] | + + + Urinalysis (reflex to [...] | + + + + | Specific Guy, UA | 1.011 | 1.002 - 1.030 [...] at | NEGATIVE mg/dL | | | [facility];[address] [place] [address];[place] [address] | | + + + + + + + | Specimen | Performing Laboratory | + + + | Urine, Clean Catch | [facility] [address] [place] [address] | + + + US Lower Extremity venous doppler- Bilateral (07/18/2017 3:43 PM) + + + | Specimen | Performing Laboratory | + + + | | [place] [address] [place] [address] | + + + + + | [...] vein. Occlusive thrombus in left calf veins, field contact person ior tibial vein and peroneal vein. Occlusive [...] sec | | | 47.0Testing performed by [facility] [address] [place] [address] | | | | [facility] [address] | | | |Testing performed by [facility] Sanjay [facility] [address] | | | | | | + + +-------- ---+ + + + | Specimen | Performing Laboratory | + + + | | [facility] [address] [place] [address] | + + + HEX ROSALIO LAMAR [...] integrity.Testing performed | | | | by [facility], Paul [place] | | | | [place] [address] | | + + + + + + + | Specimen | Performing Laboratory | + + + | | [address] [address] | + + + Protein S, total and free (07/18/2017 3:40 PM) + + + + | Component | Value | Ref Range | + + + + | PROTEIN S AG,TOTAL | 151 (H)Comment: Reference range: 60 to 150 | % | | | This test was developed and its performance | | | | characteristicsdetermined by [employer]. It | | | | has not [...] performance | | | | characteristicsdetermined by [facility]. It | | | | has not been cleared or approvedby the Food | | | | and Drug Administration.Testing performed | | | | by [facility], Desirae [facility] [place] | | | | [place] [address] | | | |Testing performed by [facility], [address] [facility] [address] | | | | | | + + + + + + + | Specimen | Performing Laboratory | + + + | Blood | [address] [address] | + + + Protein C antigen, total (07/18/2017 3:40 PM) + + + + | Component | Value | Ref Range | + + + + | Protein C Antigen | 75Comment: Reference range: 60 to | % | | | 150Testing performed by [facility] [address] [place] [address] | | | | [place] [id number] | | | |Testing performed by [facility] [address] | | | | | | + + + + + + + | Specimen | Performing Laboratory | + + + | Blood | [facility] [address] [facility] [facility] [address] | + + + Lupus Inhibitor Screen [...] + | 1 HR INCUB PT 1:1 SENIOR QUALITATIVE RESEARCHER | 12.3 (H)Comment: Reference range: 9.6 to [...] sec | | NEUT | performed by [facility] InstituteDes[facility], | | | | [facility] [address] | | | |Testing performed by [facility] Institute[facility]ae [facility] [address] | | | | | | + + --+ + + + + | Specimen | Performing Laboratory | + + + | Blood | [facility] [address] [place] [address] | + + + CTA abd aorta & bilat ilio runoff w IV con (07/18/2017 12:18 PM) + + + | Specimen | Performing Laboratory | + + + | | [place] [address] [place] [address] | + + + + + | [...] Jul 18 2017 4:00PM Referring Provider Line: [phone] | | ID: [id number] | + + [...] 2017 4:00PM Referring Provider | | Line: [phone] ID: [id number] | + + CT Head Non-Contrast (07/18/2017 10:47 AM) + + + | Specimen | Performing Laboratory | + + + | | [facility] [address] [place] [address] | + + + + + | [...] | + + + | | [place] [facility] [address] | + + + + + | [...] | LIPASE | 86Comment: Testing performed at [facility];888 | 73 - 393 U/L | | | Darr[address] [facility];[place] [address] | | + + + + + + + | Specimen | Performing Laboratory | + + + | Blood | [facility] [address] [place] [address] | + + + from Last 3 [...] | cong | | | [address] | [phone] | + +--------+ +--------+ + +
--- OUTSIDE RECORDS SUMMARY | ~2017-08-20 | XMS | Encounter Summary ---
Demographics + + + | Address | [address] | | | [place] [address] | + + + | Home Phone | | + + + | Preferred Language | Unknown | + + + | Marital Status | Single | + + + | Mosque Affiliation | Unknown | + + + | Race | Unknown | + + + | Ethnic Group | Unknown | + + + Author + + + | Author | [email or web address] | + + + | Organization | [facility] | + + + | Address | [...] Team Providers + +------+ + | Care Golf Technician Name | Role | Phone | + +------+ + | Eric Lew DO | PCP | | + +------+ + Encounter Details +--------+ + + + + | Date | Type | Department | Care Team | Description | +--------+ + + + + | 08/17/ | Telephone | [facility] | Melba Arora, | | | 2017 | | Vascular Surgery | RN | | | | | [address] | | | | | | [place] | | | | | | [address] | | | | | | [phone] | | | +--------+ + + + [...] [place] | | | | | | [id number] | | | | | | | | +--------+---------+ + + + as of this encounter Visit Diagnoses Not on filein this encounter"
--- OUTSIDE RECORDS SUMMARY | ~2017-08-20 | XMS | Encounter Summary ---
Demographics + + + | Address | [address] | | | [place] [address] | + + + | Home Phone | | + + + | Preferred Language | Unknown | + + + | Marital Status | Single | + + + | Jain Affiliation | Unknown | + + + | Race | Unknown | + + + | Ethnic Group | Unknown | + + + Author + + + | Author | [facility] | + + + | Organization | [facility] | + + + | Address | [...] Team Providers + +------+ + | Care Pediatric Dental Assistant Name | Role | Phone | + +------+ + | Eric Lew DO | PCP | | + +------+ + Encounter Details +--------+ + + + + | Date | Type | Department | Care Team | Description | +--------+ + + + + | 08/04/ | Procedure | [facility] | | | | 2018 | [facility] | [facility] | | | | | | Floor [place] | | | | | | [address] | | | | | | [place] [address] | | | | | | [phone] | | | +--------+ + + + [...]
--- OUTSIDE RECORDS SUMMARY | ~2017-08-20 | XMS | Clinical Summary ---
Demographics + + + | Address | [address] | | [place] [address] | + + + | Home Phone | | + + + | Preferred Language | Unknown | + + + | Marital Status | Single | + + + | [employer] Affiliation | NRP | + + + [...] Team Providers + +------+ + | Care Stock Room Manager Name | Role | Phone | + +------+ + | Eric Lew DO | PP | | + +------+ + Source Comments [facility] is fully live on both [facility] and [facility] Allergies No Known Allergies Current Medications + [...]
--- OUTSIDE RECORDS SUMMARY | ~2017-08-20 | XMS | Encounter Summary ---
Demographics + + + | Address | [address] | | | [place] [address] | + + + | Home Phone | | + + + | Preferred Language | Unknown | + + + | Marital Status | Single | + + + | [employer] Affiliation | Unknown | + + + | Race | Unknown | + + + | Ethnic Group | Unknown | + + + Author + + + | Author | [facility] | + + + | Organization | [facility] | + + + | Address | [...] Team Providers + +------+ + | Care Chinese Medicine Practitioner Name | Role | Phone | + [...] + + | 08/07/ | Surgery | [facility] | Agustin Blandon MD | KNEE - AMPUTATION | | 2018 | | [facility] [place] | [address] | [address]OVE | | | | Operating Room [address] | [place] [address] | | | | | [address] | [phone] | | | | | [place] [address] | | | | | | [phone] | | | +--------+---------+ + + + [...] may be different fro m the original. 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 She was diagnosed with deep vein thrombos is in mid June -started on Eliquis. 3 days later patient presented to [facility] for hemor rhagic bullae and [...] Lovenox. Even vascular surgery was consulted at [facility] with recommendation to continue with Lovenox [...] diaphoresis Psychiatric: normal mood and affect Disposition: Bath Condition: stable and improved Code Status: Full Code Follow up: Anant Grajeda DO [address] [place] [id number] Follow up [facility] Vascular Surgery [address] [place] [phone] Follow up in 3 week(s) staple removal and post op appointment Jm Us MD [address] [place] [id number] Schedule an appointment as soon as [...] 1 Generic drug: albuterol vitamin D2 (ergocalciferol) 11261 units capsule Refills: 0 * This list [...] secure with guaze wrap. Wear your stump semiconductor wafers tester daily. Wear protector any time you are [...] | | | 18 | | | 45183 units capsule | On Fridays | | [...] of this encounter Progress Notes Barber Montero, PROFESSOR OF LAW - 08/14/2017 9:00 AM PDTFormatting of this note may be different from cyndee purdy. [facility] Department of Respiratory Skilled Nursing Oxygen Evaluation (Evaluation is valid for 48 [...] note may be different from the original. [facility] Service: Infectious Disease Progress Note Hospital Day: LOS: 10 days Post-Op Day: * No surgery found * SUBJECTIVE Patient Summary: 61 y.o. female with significant past medical history of asthma, CERAMIC SAW TENDER D, multiple myeloma on chemotherapy, deep vein thrombosis in mid June -started on Eliquis . 3 days later patient presented to [facility] ER for hemorrhagic bullae and toe discoloration o n 07/14. Case was discussed with multiple specialists including vascular surgery andoncolog y. She had a CTA of lower extremity that showed no significant stenosis and good distal runo ff. Oncology was concerned about interaction of blood thinner and proteins with his multiple myeloma causing possible TMA. Oncology at [facility] thought patient might have cerulae alba malignancy associatedand recwas to continue treatment with Lovenox. Even v ascular surgery was consulted at [facility] with recommendation to continue with Lovenox [...] may be diff erent from the original. [facility] Service: Hospitalist Progress Note Pt: Carmen Kahn AGE/SEX: 61 y.o. 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 She was diagnosed with deep vein thrombos is in mid June - started on Eliquis. 3 days later patient presented to [facility] ER for hemorr hagic bullae and toe discoloration on 07/14. Case was discussed with multiple specialists inc luding vascular surgery and oncology. She had a CTA of lower extremity that showed no signif icant stenosis and good distal runoff. Oncology was concerned about interaction of blood thi nner and proteins with his multiple myeloma causing possible TMA. Oncology at [facility] thought patient might have cerulae alba malignancy associated and rec was to contin ue treatment with Lovenox. 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 Strict Is and Os. 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 [facility] Service: Infectious Disease Progress Note Hospital Day: LOS: 9 days Post-Op Day: * No surgery found * SUBJECTIVE Patient Summary: 61 y.o. female with significant past medical history of asthma, CERAMIC SAW TENDER D, multiple myeloma on chemotherapy, deep vein thrombosis in mid June -started on Eliquis . 3 days later patient presented to [facility] ER for hemorrhagic bullae and toe discoloration o n 07/14. Case was discussed with multiple specialists including vascular surgery andoncolog y. She had a CTA of lower extremity that showed no significant stenosis and good distal runo ff. Oncology was concerned about interaction of blood thinner and proteins with his multiple myeloma causing possible TMA. Oncology at [facility] thought patient might have cerulae alba malignancy associatedand recwas to continue treatment with Lovenox. Even v ascular surgery was consulted at [facility] with recommendation to continue with Lovenox [...] may be diff erent from the original. [facility] Service: Hospitalist Progress Note Pt: Carmen Kahn AGE/SEX: 61 y.o. 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 She was diagnosed with deep vein thrombos is in mid June - started on Eliquis. 3 days later patient presented to [facility] ER for hemorr hagic bullae and toe discoloration on 07/14. Case was discussed with multiple specialists inc luding vascular surgery and oncology. She had a CTA of lower extremity that showed no signif icant stenosis and good distal runoff. Oncology was concerned about interaction of blood thi nner and proteins with his multiple myeloma causing possible TMA. Oncology at [facility] thought patient might have cerulae alba malignancy associated and rec was to contin ue treatment with Lovenox. 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 Strict Is and Os. 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 PRN. [facility], [phone], Wally Keating CPO, Anika Barry, DO - 08/12/2017 6:58 AM PD TFormatting of this note may be different from the original. [facility] Service: Infectious Disease Progress Note Hospital Day: LOS: 8 days Post-Op Day: * No surgery found * SUBJECTIVE Patient Summary: 61 y.o. female with significant past medical history of asthma, CERAMIC SAW TENDER D, multiple myeloma on chemotherapy, deep vein thrombosis in mid June -started on Eliquis . 3 days later patient presented to [facility] ER for hemorrhagic bullae and toe discoloration o n 07/14. Case was discussed with multiple specialists including vascular surgery andoncolog y. She had a CTA of lower extremity that showed no significant stenosis and good distal runo ff. Oncology was concerned about interaction of blood thinner and proteins with his multiple myeloma causing possible TMA. Oncology at [facility] thought patient might have cerulae alba malignancy associatedand recwas to continue treatment with Lovenox. Even v ascular surgery was consulted at [facility] with recommendation to continue with Lovenox [...] (HCC) S/P AKA (above knee amputation), left ([facility]) ASSESSMENT & PLAN 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HCC) [...] (08/04/2017) Surgically treated. DVT (deep venous thrombosis) ([facility]) (08/04/2017) Management per primary service and hematology. Code Status: Full Code BARRY LOBO, DO 08/12/2017SaWally apple, SENIOR DATASTAGE DEVELOPER, LPO - 08/11/2017 5:55 PM [facility], Pt seen for fitting of [...] ry to be there to assist. PRN. [facility], [phone], Wally Keating CPO, LPOBongar, Debbierey, MD - 08/11/2017 4:50 PM P DTFormatting of this note may be different from the original. [facility] Service: Hospitalist Progress Note Pt: Carmen Kahn AGE/SEX: 61 y.o. 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 She was diagnosed with deep vein thrombos is in mid June - started on Eliquis. 3 days later patient presented to [facility] ER for hemorr hagic bullae and toe discoloration on 07/14. Case was discussed with multiple specialists inc luding vascular surgery and oncology. She had a CTA of lower extremity that showed no signif icant stenosis and good distal runoff. Oncology was concerned about interaction of blood thi nner and proteins with his multiple myeloma causing possible TMA. Oncology at [facility] thought patient might have cerulae alba malignancy associated and rec was to contin ue treatment with Lovenox. 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 Strict Is and Os. Check echo, and have fluid restriction of 1.5 L /24 hours after NPO. Salt restriction. 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 Digestive System (Mouth to Rectum) HVAC SPECIALIST following for dysphagia. Pt is missing teeth. [...] Estimated Energy Needs Total Energy Estimated Needs 4415-5848 kcal/day Method for Estimating Needs 25-30 kcal/kg based on adjusted body wt 66.5 kg Estimated Protein Needs Total Protein Estimated Needs 80-100 g/day Method for Estimating Needs 1.2-1.5 g/kg based on adjusted body wt 66.5 kg Recommendations Recommended energy needs ADAT to HVAC SPECIALIST recs. Encourage increased protein. Ensure Enlive order ed PRN - pt will call and request as she desires. Will continue to follow per nutrition prot ocol. Nutritional Risk Nutritional risk Moderate Follow up date 08/16/[address] Boost plus is ordered as dietary supplement, not ensure enlive.Wally Keating CPO, LPO - 12:49 PM [facility], [place], I was called this morning to provide this patient a AK Post Op Protector. I saw her to froilan ure her limb and will return with her post-op protector this afternoon or early evening. [facility], [phone], Wally Keating CPO, LPOSloot, Sarena, ARNP - 08/11/2017 8:44 AM PDT Formatting of this note may be different from the original. [facility] Service: Vascular Surgery Progress Note Hospital [...] CV: + peripheral edema, rate regular SKIN: [place], warm, dry without rash/lesion MS: ROM not [...] planning Daily dressing change as ordered Consult canoe inspector final-done Disposition: Stable from surgical standpoint for discharge once medically stable. Will se e in post op clinic in 3 weeks. Code Status: Full Code Neeru ALVARO Kirby 08/11/2017YoBarry liz DO - 08/11/2017 8:11 AM PDTFormatting of this note may be different from the original. [facility] Service: Infectious Disease Progress Note Hospital Day: LOS: 7 days Post-Op Day: * No surgery found * SUBJECTIVE Patient Summary: 61 y.o. female with significant past medical history of asthma, CERAMIC SAW TENDER D, multiple myeloma on chemotherapy, deep vein thrombosis in mid June -started on Eliquis . 3 days later patient presented to [facility] ER for hemorrhagic bullae and toe discoloration o n 07/14. Case was discussed with multiple specialists including vascular surgery andoncolog y. She had a CTA of lower extremity that showed no significant stenosis and good distal runo ff. Oncology was concerned about interaction of blood thinner and proteins with his multiple myeloma causing possible TMA. Oncology at [facility] thought patient might have cerulae alba malignancy associatedand recwas to continue treatment with Lovenox. Even v ascular surgery was consulted at [facility] with recommendation to continue with Lovenox [...] (08/04/2017) Surgically treated. DVT (deep venous thrombosis) ([facility]) (08/04/2017) Management per primary service and hematology. Discussed with Dr. Tomlinson Code Status: Full Code BARRY LOBO DO 08/11/2017Harshil Tomlinson MD - 08/10/2017 9:46 AM PDTFormatting of this note may be diff erent from the original. [facility] Service: Hospitalist Progress Note Pt: Carmen Kahn AGE/SEX: 61 y.o. 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 She was diagnosed with deep vein thrombos is in mid June - started on Eliquis. 3 days later patient presented to [facility] ER for hemorr hagic bullae and toe discoloration on 07/14. Case was discussed with multiple specialists inc luding vascular surgery and oncology. She had a CTA of lower extremity that showed no signif icant stenosis and good distal runoff. Oncology was concerned about interaction of blood thi nner and proteins with his multiple myeloma causing possible TMA. Oncology at [facility] thought patient might have cerulae alba malignancy associated and rec was to contin ue treatment with Lovenox. 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 Strict Is and Os. Check echo, and have fluid restriction of 1.5 L /24 hour s after NPO. Salt restriction. 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 [facility] Service: Infectious Disease Progress Note Hospital Day: LOS: 6 days Post-Op Day: * No surgery found * SUBJECTIVE Patient Summary: 61 y.o. female with significant past medical history of asthma, CERAMIC SAW TENDER D, multiple myeloma on chemotherapy, deep vein thrombosis in mid June -started on Eliquis . 3 days later patient presented to [facility] ER for hemorrhagic bullae and toe discoloration o n 07/14. Case was discussed with multiple specialists including vascular surgery andoncolog y. She had a CTA of lower extremity that showed no significant stenosis and good distal runo ff. Oncology was concerned about interaction of blood thinner and proteins with his multiple myeloma causing possible TMA. Oncology at [facility] thought patient might have cerulae alba malignancy associatedand recwas to continue treatment with Lovenox. Even v ascular surgery was consulted at [facility] with recommendation to continue with Lovenox [...] left leg stump with occasional spasms and craps manager mps. She is mostly bothered by shortness [...] Aug 09 2017 11:29PM Referring Provider Line: [phone] ID: [id number] PROBLEM LIST Principal Problem: Wet [...] Status: Full Code BARRY LOBO, 08/10/2017Amauri Sin, [facility] - 08/10/2017 12:06 AM PDTFormatting [...] may be different fro m the original. [facility] Service: Hospitalist Progress Note Pt: Carmen Kahn AGE/SEX: 61 y.o. 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 No results for input(s): PHART, PO2ART, BMT1RNC, [id number], BEART in the last 168 hours. Recent [...] note may be different from the original. [facility] Service: Vascular Surgery Progress Note Hospital [...] note may be different from the original. [facility] Service: Infectious Disease Progress Note Hospital Day: LOS: 5 days Post-Op Day: * No surgery found * SUBJECTIVE Patient Summary: 61 y.o. female with significant past medical history of asthma, CERAMIC SAW TENDER D, multiple myeloma on chemotherapy, deep vein thrombosis in mid June -started on Eliquis . 3 days later patient presented to [facility] ER for hemorrhagic bullae and toe discoloration o n 07/14. Case was discussed with multiple specialists including vascular surgery andoncolog y. She had a CTA of lower extremity that showed no significant stenosis and good distal runo ff. Oncology was concerned about interaction of blood thinner and proteins with his multiple myeloma causing possible TMA. Oncology at [facility] thought patient might have cerulae alba malignancy associatedand recwas to continue treatment with Lovenox. Even v ascular surgery was consulted at [facility] with recommendation to continue with Lovenox [...] left leg stump with occasional spasms and craps manager mps. She has mostly uncomfortable with movement. [...] strep. PROBLEM LIST Principal Problem: 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[facility]) Active Problems: DVT (deep venous thrombosis) ([facility]) Hyperlipidemia Multiple myeloma ([facility]) Open wound of left lower leg Left foot infection COPD (chronic obstructive pulmonary disease) ([facility]) Moderate obesity Phantom limb pain ([facility]) ASSESSMENT & PLAN 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[facility]) (08/04/2017) The patient has been diagnosed [...] favio y be different from the original. [facility] Service: Vascular Surgery Progress Note Hospital [...] note may be different from the original. [facility] Service: Hospitalist Progress Note Hospital Day: [...] Eliquis. 3 days later patient presented to [facility] ER for hemor rhagic bullae and [...] Lovenox. 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 [facility] Service: Infectious Disease Progress Note Hospital Day: LOS: 4 days Post-Op Day: * No surgery found * SUBJECTIVE Patient Summary: 61 y.o. female with significant past medical history of asthma, CERAMIC SAW TENDER D, multiple myeloma on chemotherapy, deep vein thrombosis in mid June -started on Eliquis . 3 days later patient presented to [facility] ER for hemorrhagic bullae and toe discoloration o n 07/14. Case was discussed with multiple specialists including vascular surgery andoncolog y. She had a CTA of lower extremity that showed no significant stenosis and good distal runo ff. Oncology was concerned about interaction of blood thinner and proteins with his multiple myeloma causing possible TMA. Oncology at [facility] thought patient might have cerulae alba malignancy associatedand recwas to continue treatment with Lovenox. Even v ascular surgery was consulted at [facility] with recommendation to continue with Lovenox [...] above, will monitor. DVT (deep venous thrombosis) ([facility]) (08/04/2017) Management per primary service and hematology. Code Status: Full Code BARRY LOBO DO 08/08/2017Karina Pinto MD - 08/07/2017 1:33 PM PDTFormatting of this note may be different from the original. [facility] Service: Hospitalist Progress Note Hospital Day: [...] 0.4 - 2.0 mmol/L 1.0 Wound culture [[id number]] (Abnormal) Collected: 08/04/17 1710 Order Status: Completed Lab Status: Final result Updated: 08/06/17 113 Specimen: Wound from OTHR-w source desc (F6) [...] l aryngeal lesion status post biopsy at [facility].she is to follow-up outpatient with her [...] note may be different from the original. [facility] Service: Infectious Disease Progress Note Hospital Day: LOS: 3 days Post-Op Day: * No surgery found * SUBJECTIVE Patient Summary: 61 y.o. female with significant past medical history of asthma, CERAMIC SAW TENDER D, multiple myeloma on chemotherapy, deep vein thrombosis in mid June -started on Eliquis . 3 days later patient presented to [facility] ER for hemorrhagic bullae and toe discoloration o n 07/14. Case was discussed with multiple specialists including vascular surgery andoncolog y. She had a CTA of lower extremity that showed no significant stenosis and good distal runo ff. Oncology was concerned about interaction of blood thinner and proteins with his multiple myeloma causing possible TMA. Oncology at [facility] thought patient might have cerulae alba malignancy associatedand recwas to continue treatment with Lovenox. Even v ascular surgery was consulted at [facility] with recommendation to continue with Lovenox [...] LMP (LMP Unknown) | SpO2 90% | Palmer stfeeding? No | BMI 31.64 kg/m Temp [...] above, will monitor. DVT (deep venous thrombosis) ([facility]) (08/04/2017) Management per primary service and hematology. Code Status: Full Code BARRY LOBO DO 08/07/2017Karina Pinto MD - 08/06/2017 9:14 AM PDTFormatting of this note may be different from the original. [facility] Service: Hospitalist Progress Note Hospital Day: [...] 0.4 - 2.0 mmol/L 1.0 Wound culture [[id number]] (Abnormal) Collected: 08/04/17 1710 Order Status: Completed Lab Status: Final result Updated: 08/06/17 1136 Specimen: Wound from OTHR-w source desc (F6) [...] l aryngeal lesion status post biopsy at [facility].she is to follow-up outpatient with her [...] note may be different from the original. [facility] Service: Infectious Disease Progress Note Hospital Day: LOS: 2 days Post-Op Day: * No surgery found * SUBJECTIVE Patient Summary: 61 y.o. female with significant past medical history of asthma, CERAMIC SAW TENDER D, multiple myeloma on chemotherapy, deep vein thrombosis in mid June -started on Eliquis . 3 days later patient presented to [facility] ER for hemorrhagic bullae and toe discoloration o n 07/14. Case was discussed with multiple specialists including vascular surgery andoncolog y. She had a CTA of lower extremity that showed no significant stenosis and good distal runo ff. Oncology was concerned about interaction of blood thinner and proteins with his multiple myeloma causing possible TMA. Oncology at [facility] thought patient might have cerulae alba malignancy associatedand recwas to continue treatment with Lovenox. Even v ascular surgery was consulted at [facility] with recommendation to continue with Lovenox [...] above, will monitor. DVT (deep venous thrombosis) ([facility]) (08/04/2017) Management per primary service and hematology. Code Status: Full Code BARRY LOBO DO 08/06/2017Karina Pinto MD - 08/05/2017 9:13 AM PDTFormatting of this note may be different from the original. [facility] Service: Hospitalist Progress Note Hospital Day: [...] IV Unasyn and await podiatry Pramod Riggs [facility] ,Vascular workup has not revealed any large vessel disease which could be intervened upon per records .monitor wbc and fever,add gentle hydration 2. Deep vein thrombosis malignancy associated Continue with Lovenox treatment dose 3.Multiple myeloma per previous record Status post bone marrow biopsy and also history of l aryngeal lesion status post biopsy at [facility].eliazar is to follow-up outpatient with her [...] SINGER | | | | | | [address] | | | | | | | | +--------+---------+ + + + + +--------+ + + | Name | Priori | Associated Diagnoses | Order Schedule | | | ty | | | + +--------+ + + | Basic metabolic panel | Routin | Wet gangrene, left | Expected: | | | e | foot ([facility]) | 08/16/2017, Expires: | | | [...] | PHOSPHORUS | 3.2Comment: Testing performed at [facility], [facility] | 2.3 - 4.8 mg/dL | | | [place] [address] | | + + + + + + + | Specimen | Performing Laboratory | + + + | Blood | [facility] [address] [place], | | | [place] [address] | + + + Magnesium (08/14/2017 4:35 AM) + + + + | Component | Value | Ref Range | + + + + | MAGNESIUM | 2.2Comment: Testing performed at [facility], [address] | 1.7 - 2.4 mg/dL | | | [place] [address] | | + + + + + + + | Specimen | Performing Laboratory | + + + | Blood | [facility] [address], | | | [place] [address] | + + + Comprehensive metabolic panel [...] | | | | 1.210.Testing performed at [facility], [facility] | | | | [facility] [address] | | | | | | + + + + + + + | Specimen | Performing Laboratory | + + + | Blood | [facility] [address] [place], [place] [address]vd. [place], | | | [place] [address] | + + + CBC W/Auto Diff [...] | | | | MORPHTesting performed at [facility], [address] | | | | [place] [address] | | | |1+ | | | |HYPO | | | |1+ | | | |MICRO | | | |NORMAL PLT MORPH | | | |Testing performed at [facility], [address] [place], [place] [address] | | | | | | + + -----+ + + + + | Specimen | Performing Laboratory | + + + | Blood | [facility] [address] [place], [place] [address]cinthya [place]iu, | | | [place] [address] | + + + Phosphorus (08/13/2017 5:03 AM) + + + + | Component | Value | Ref Range | + + + + | PHOSPHORUS | 3.8Comment: Testing performed at [facility], [facility] | 2.3 - 4.8 mg/dL | | | [facility] [place] [address] | | + + + + + + + | Specimen | Performing Laboratory | + + + | Blood | [facility] [address], | | | [place] [address] | + + + Magnesium (08/13/2017 5:03 AM) + + + + | Component | Value | Ref Range | + + + + | MAGNESIUM | 2.4Comment: Testing performed at [facility], [address] | 1.7 - 2.4 mg/dL | | | [place] [address] | | + + + + + + + | Specimen | Performing Laboratory | + + + | Blood | [facility] [address] [place] [address] Blvd[address] [place], | | | [place] [address] | + + + Comprehensive metabolic panel [...] | | | | 1.210.Testing performed at [facility], [address] | | | | [place] [address] | | | | | | + + + + + + + | Specimen | Performing Laboratory | + + + | Blood | [facility] [address] [place] [address] Blvd[address] [place], | | | [place] [address] | + + + CBC W/Auto Diff [...] | | | RESULTS.Comment: Testing performed at [facility], | | | | [address] [place] | | | | [address] | | + + + + + + + | Specimen | Performing Laboratory | + + + | Blood | [facility] [address] [place] [address] [address] [place]iu, | | | [place] [address] | + + + Phosphorus (08/12/2017 5:07 AM) + + + + | Component | Value | Ref Range | + + + + | PHOSPHORUS | 3.7Comment: Testing performed at [facility], [facility] | 2.3 - 4.8 mg/dL | | | [facility] [place] [address] | | + + + + + + + | Specimen | Performing Laboratory | + + + | Blood | [facility] [address] [place] [address] [address]. [place], | | | [place] [address] | + + + Magnesium (08/12/2017 5:07 AM) + + + + | Component | Value | Ref Range | + + + + | MAGNESIUM | 2.4Comment: Testing performed at [facility], [address] | 1.7 - 2.4 mg/dL | | | [place] [facility] [place] [address] | | + + + + + + + | Specimen | Performing Laboratory | + + + | Blood | [facility] [address] [place] [address] [address], | | | [place] [address] | + + + Comprehensive metabolic panel [...] | | | | 1.210.Testing performed at [facility], [address] | | | | [place] [address] | | | | | | + + + + + + + | Specimen | Performing Laboratory | + + + | Blood | [facility] [address] [place] [address] [address] [place], | | | [place] [address] | + + + Renal function panel [...] | | | | 1.210.Testing performed at [facility], [address] | | | | [place] [address] | | | | | | + + + + + + + | Specimen | Performing Laboratory | + + + | Blood | [facility] [address] [place], [place] [address]Jatinder Chiu, | | | [place] [address] | + + + CBC W/Auto Diff [...] ANISO1+POLY1+HYPOTesting | | | | performed at [facility], [address] [facility], | | | | [place] [address] | | | |1+ | | | |POLY | | | |1+ | | | |HYPO | | | |Testing performed at [facility], [address] [place] [address] | | | | | | + + -----+ + + + + | Specimen | Performing Laboratory | + + + | Blood | [facility] [address] [facility] [place], | | | [place] [address] | + + + Pathology cytology - [...] and adenocarcinoma markers. As part of the [employer] Program, this | | case was reviewed by another member of [facility]. (AMB) DESCRIPTION: In | | addition [...] Technical | | preparation was performed by [facility], [address] [place] [address] [facility] | | [place] [address] (Planning And Analysis Manager: Venkatesh Teixeira D.O.; CLIA#: [id number]). | | Professional interpretation was performed by [facility], [facility] | | [address] [address] (Planning And Analysis Manager: Barry Barnett, | | Donovan; CLIA#: [id number]).6 Diagnostician: Scott VEGA([facility]) Hod Carrier | | Diagnostician: Barry Barnett MD Pathologist Electronically Signed 08/19/2017 | + + X-ray chest inspiration & expiration (08/11/2017 3:11 PM) + + + | Specimen | Performing Laboratory | + + + | | [place] [address] [place] [address] | + + + + + | [...] + + + | Body Fluid | [facility] [address] [place] [address] | + + + + + | [...] | | | | BES/rrcTesting performed at [facility];[address] [place] [address] | | | | [facility];[place] [address] | | | | | | + + + + + + + | Specimen | Performing Laboratory | + + + | | [facility] [address] [place] [address] | + + + Body Fluid Cell Count (08/11/2017 1:15 PM) + + + + | Component | Value | Ref Range | + + + + | FLUID TYPE | PLEURAL FLUID | | + + + + | COLOR | YELLOW | | + + + + | APPEARANCE | CLOUDY | | + + + + | RBC'S | <800[address] | /mm3 | + + + + [...] CELLS COUNTED | 100Comment: Testing performed at [facility];[address] | | | | [address] [facility];[place] [address] | | + + + + + + + | Specimen | Performing Laboratory | + + + | Body Fluid - Pleural | [place] [address] [facility] [place] [address] | | Fluid | | + + + pH, body fluid (08/11/2017 1:15 PM) + + + + | Component | Value | Ref Range | + + + + | FLUID PH | 7.64Comment: Testing performed at [facility];8 | | | | [facility];[place] [address] | | + + + + + + + | Specimen | Performing Laboratory | + + + | Body Fluid - Pleural | [facility] [address] [address] | | Fluid | | + + + Lactate dehydrogenase, body fluid (08/11/2017 1:15 PM) + + + + | Component | Value | Ref Range | + + + + | FLUID LDH | 490Comment: This is not a completion supervisor | U/L | | | validated sample type for this method. No | | | | reference ranges have been | | | | established.Testing performed at [facility], [facility] | | | | [place] [address] | | + + + + + + + | Specimen | Performing Laboratory | + + + | Body Fluid - Pleural | [address] [place], | | Fluid | [place] [address] | + + + Glucose, body fluid (08/11/2017 1:15 PM) + + + + | Component | Value | Ref Range | + + + + | FLUID GLUCOSE | 109Comment: This is not a completion supervisor | mg/dL | | | validated sample type for this method. No | | | | reference ranges have been | | | | established.Testing performed at [facility], [address] | | | | [place] [address] | | + + + + | Glucose, Fluid Type | PLEURAL FLUIDComment: Testing performed at | | | | [facility];[address] [place] [address];[place] [address] | | + + + + + + + | Specimen | Performing Laboratory | + + + | Body Fluid - Pleural | [place] [address] [place] [address] | | Fluid | | + + + Fluid total protein (Body fluid) (08/11/2017 1:15 PM) + + + + | Component | Value | Ref Range | + + + + | FLUID TOTAL PROTEIN | 3.0Comment: This is not a completion supervisor | g/dL | | | validated sample type for this method. No | | | | reference ranges have been | | | | established.Testing performed at [facility], [address] | | | | [place] [address] | | + + + + | FLUID TP SOURCE | PLEURAL FLUIDComment: Testing performed at | | | | [facility];[address] [place] [address];[place] [address] | | + + + + + + + | Specimen | Performing Laboratory | + + + | Body Fluid - Pleural | [facility] [address] [place] [address] | | Fluid | | + + [...] + | Body Fluid - Pleural | [facility] [address] [facility] [address] [place], | | Fluid | [place] [address] | + + + Keyonime-SHARRI (08/11/2017 5:46 [...] EMBOLISMTesting performed at | | | | [facility];[address] [place] [address];[place] [address] | | | |Testing performed at [facility];[address] [place] [address];[place] [address] | | | | | | + + + + + + + | Specimen | Performing Laboratory | + + + | Blood | [facility] [address] [place] [address] | + + + aPTT (08/11/2017 5:46 AM) + + + + | Component | Value | Ref Range | + + + + | APTT | 39 (H)Comment: Testing performed at [facility];8 | 23 - 32 seconds | | | Darrin Thomas;[place] [address] | | + + + + + + + | Specimen | Performing Laboratory | + + + | Blood | [facility] [address] [place] [address] | + + + Phosphorus (08/11/2017 5:46 AM) + + + + | Component | Value | Ref Range | + + + + | PHOSPHORUS | 3.2Comment: Testing performed at [facility], [facility] | 2.3 - 4.8 mg/dL | | | [place] [address] | | + + + + + + + | Specimen | Performing Laboratory | + + + | Blood | [facility] [address] [place] [address] Kathy [place], | | | [place] [address] | + + + Magnesium (08/11/2017 5:46 AM) + + + + | Component | Value | Ref Range | + + + + | MAGNESIUM | 2.3Comment: Testing performed at [facility], [address] | 1.7 - 2.4 mg/dL | | | [place] [address] | | + + + + + + + | Specimen | Performing Laboratory | + + + | Blood | [facility] [address] [place] [address] [address] [place], | | | [place] [address] | + + + Comprehensive metabolic panel [...] | | | | 1.210.Testing performed at [facility], [address] | | | | [place] [address] | | | | | | + + + + + + + | Specimen | Performing Laboratory | + + + | Blood | [facility] [address] [facility] [place], | | | [place] [address] | + + + CBC W/Auto Diff [...] | | | | 1+ANISO2+POLYTesting performed at [facility], [address] | | | | [place] [address] | | | |ANISO | | | |2+ | | | |POLY | | | |Testing performed at [facility], [address] [place] [address] | | | | | | + + -----+ + + + + | Specimen | Performing Laboratory | + + + | Blood | [facility] [address] [place] [address]. [place], | | | [place] [address] | + + + POC Arterial Blood [...] Testing | | | | performed at [facility];[address] [facility];[place], [place] | | | | [address] | | + + + + + + + | Specimen | Performing Laboratory | + + + | | [facility] [address] [place] [address] | + + + CT chest without contrast (08/10/2017 10:39 AM) + + + | Specimen | Performing Laboratory | + + + | | [facility] [address] [place] [address] | + + + + + | [...] Laboratory | + + + | | [facility] [address] [place] [address] | + + + + + | [...] 3.31 cm D-E Excursion: 2.18 cm E-F Letcher: 0.03 m/s | | EPSS: 0.41 cm [...] TV A Maurice: 0.66 m/s TV Dec Letcher: 4.09 m/s2 TV Dec Time: 135.89 ms TV E | | Maurice: 0.55 m/s TV E/A Ratio: 0.84 Purchasing Expeditor: CM Authenticated | | by: AMARA CHAUDHARY MD Report Date/Time: 08-10-2017 16:30:17 | + + + + | Procedure Note | + + | Jorge, Rad Results In - 08/10/2017 4:40 PM PDT Patient Name: Geri KAHN of | | : 5Accession: [id number] Physician: AMARA CHAUDHARY MD | | INDICATIONS [...] (A-L): | | 20.34 ml/m2LAAs A2C: 15.95 [id number] A-L A2C: 39.38 mlLALs A2C: 5.48 cmLAAs A4C: | | 13.35 [id number] A-L A4C: 33.72 mlLALs A4C: 4.48 cmAo Diam: 3.31 cmD-E Excursion: | | 2.18 cmE-F Letcher: 0.03 m/sEPSS: 0.41 cmTAPSE: 2.10 cmHR: 93.72 BPMAV maxPG: | | 9.31 mmHgAV meanP.60 mmHgAV Vmax: 1.52 m/Melina Vmean: 1.00 m/Melina VTI: 27.04 | | cmAVA Vmax: 3.01 cm2AVA (VTI): 2.98 fs6SCLV Vmax: 0.00 cm2/m2AVAI (VTI): 0.00 | | cm2/m2LVCI Dopp: 3.64 l/qbty0WNQL Dopp: 7.21 l/minHR: 89.38 BPMLVOT maxP.91 | [...] 0.87 m/sMV VTI: 25.86 cmMVA (VTI): 3.12 bn1Cobmzu e': 0.07 m/sSeptal E/e': | | 14.33 Lateral e': 0.10 m/sLateral E/e': 9.59 HR: 88.92 BPMPV maxP.42 mmHgPV | | meanP.15 mmHgPV Vmax: 1.36 m/sPV Vmean: 0.81 m/sPV VTI: 22.77 cmRAP: 3 | | mmHgRV S': 0.12 m/sRVSP: 37.29 mmHgTR maxP.29 mmHgTR Vmax: 2.92 m/sTV A | | Maurice: 0.66 m/sTV Dec Letcher: 4.09 m/s2TV Dec Time: 135.89 msTV E Maurice: 0.55 m/sTV | | E/A Ratio: 0.84 Purchasing Expeditor: ELIZABETHuthenticated by: Bry COOK Date/Time: | | [...] | |D-E Excursion: 2.18 cm | |E-F Letcher: 0.03 m/s | |EPSS: 0.41 cm | [...] A Maurice: 0.66 m/s | |TV Dec Letcher: 4.09 m/s2 | |TV Dec Time: 135.89 ms | |TV E Maurice: 0.55 m/s | |TV E/A Ratio: 0.84 | | | |Purchasing Expeditor: CM | |Authenticated by: AMARA CHAUDHARY MD [...] APTT | 72 (H)Comment: Testing performed at [facility] | 23 - 32 seconds | | | [facility];[place] [address] | | + + + + + + + | Specimen | Performing Laboratory | + + + | | [place] [address] [place] [address] | + + + Brain natriuretic peptide (08/10/2017 5:03 AM) + + + + | Component | Value | Ref Range | + + + + | BRAIN NATRIURETIC | 60.5Comment: Testing performed at [facility];8 | 0 - 100 pg/mL | | PEPTIDE | Darrin Thomas;[place] [address] | | + + + + + + + | Specimen | Performing Laboratory | + + + | | [facility] [address] [address] | + + + CBC W/Auto Diff [...] | | | | MORPHTesting performed at [facility], [facility] [address] | | | | [place] [address] | | | |POLY | | | |1+ | | | |HYPO | | | |1+ | | | |STIPPLING | | | |NORMAL PLT MORPH | | | |Testing performed at [facility], [address] [place] [address] | | | | | | + + -----+ + + + + | Specimen | Performing Laboratory | + + + | | [facility] [address] [place] [address] [place], | | | [place] [address] | + + + Renal function panel [...] | | | | 1.210.Testing performed at [facility], [address] | | | | [place] [address] | | | | | | + + + + + + + | Specimen | Performing Laboratory | + + + | Blood | [facility] [address] [facility] [place], | | | [place] [address] | + + + Pathology histology - tissue (08/10/2017) + + + | Specimen | Performing Laboratory | + + + | Tissue | [facility] | + + + + + | Narrative | + + | SPECIMEN(S): A Lt. LEG SPECIMEN SOURCE: A. Lt. LEG CLINICAL HISTORY: 08/07/2017 | | at 1523 H. Gangrene left foot/leg. 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 See | | comment. -Moderate arteriosclerosis. COMMENT: The end soft tissues of | | resection margin are histologically viable and non-inflamed. WGR:rds:C2NR GROSS | | DESCRIPTION: One specimen is received in one container, labeled with the patient's | | name: A. Received fresh designated "left leg " consists of a left yvcyu-rpy-bpcj | | amputated leg that is 52.5 cm from eqkn-sm-hsgjpelan margin and has a calf circumference | [...] that extends 3 cm | | proximally. Consulting Group Analyst sections are submitted in three cassettes. Cassette [...] technical | | preparation was performed by [employer], [facility], [facility] | | [place] [address] (Planning And Analysis Manager: Barry Barnett M.D.; | | [facility]#: [id number]). Diagnostician: Josué Gresham MD Pathologist Electronically | [...] Testing | | | | performed at [facility];[address] [place] [address];[place] | | | | [address] | | + + + + + + + | Specimen | Performing Laboratory | + + + | | [place] [address] [address] [place] [address] | + + + XR chest 1 view (08/09/2017 10:59 PM) + + + | Specimen | Performing Laboratory | + + + | | [place] [address] [address] [place] [address] | + + + + + | [...] 2017 11:29PM Referring Provider Line: | | [phone] ID: [id number] | + + + + [...] 2017 11:29PM Referring Provider Line: | | [phone] ID: [id number] | | | |Mediastinum: Heart [...] 09 2017 11:29PM Referring Provider Line: [phone] ID: [id number] | + + APTT (08/09/2017 6:41 AM) + + + + | Component | Value | Ref Range | + + + + | APTT | 65 (H)Comment: Testing performed at [facility];[address] | 23 - 32 seconds | | | [facility];[place] [address] | | + + + + + + + | Specimen | Performing Laboratory | + + + | Blood | [facility] [address] [place] [address] | + + + CBC W/Auto Diff [...] | | | | MORPHTesting performed at [facility], [facility] [address] | | | | [place] [address] | | | |1+ | | | |MICRO | | | |1+ | | | |POLY | | | |NORMAL PLT MORPH | | | |Testing performed at [facility], [facility] [address] [place], [place] [address] | | | | | | + + -----+ + + + + | Specimen | Performing Laboratory | + + + | | [facility] [address] [facility] [address] [place], | | | [place] [address] | + + + Renal function panel [...] | | | | 1.210.Testing performed at [facility], [address] | | | | [place] [address] | | | | | | + + + + + + + | Specimen | Performing Laboratory | + + + | Blood | [facility] [address] [place] [address] [address] [place], | | | [place] [address] | + + + APTT (08/09/2017 12:32 AM) + + + + | Component | Value | Ref Range | + + + + | APTT | 54 (H)Comment: Testing performed at [facility];[address] | 23 - 32 seconds | | | Darrin Thomas;[place] [address] | | + + + + + + + | Specimen | Performing Laboratory | + + + | Blood | [facility] [address] [place] [address] | + + + APTT (08/08/2017 4:50 PM) + + + + | Component | Value | Ref Range | + + + + | APTT | 78 ()Comment: CALLED TO LACEY Quintana ON 8RP AT | 23 - 32 seconds | | | 1730 BY CD, READ BACKTesting performed at | | | | [facility];[address] [facility];[place] [address] | | | |Testing performed at [facility];[address] [facility];[place] [address] | | | | | | + + + + + + + | Specimen | Performing Laboratory | + + + | Blood | [address] [address] | + + + APTT (08/08/2017 9:19 AM) + + + + | Component | Value | Ref Range | + + + + | APTT | 34 (H)Comment: Testing performed at [facility]888 | 23 - 32 seconds | | | [facility];[place] [address] | | + + + + + + + | Specimen | Performing Laboratory | + + + | Blood | [facility] [address] [place] [address] | + + + Renal function panel [...] | | | | 1.210.Testing performed at [facility], [facility] | | | | [facility] [place] [address] | | | | | | + + + + + + + | Specimen | Performing Laboratory | + + + | Blood | [facility] [address] [place], [place] [address]Jatinder [place], | | | [place] [address] | + + + CBC W/Auto Diff [...] NORMALTesting performed | | | | at [facility], [address], [place], | | | | [place] [address] | | | |Testing performed at [facility], [address] [facility] [place], [place] [address] | | | | | | + + -----+ + + + + | Specimen | Performing Laboratory | + + + | Blood | [facility] [address] [facility] [place]. [place], | | | [place] [address] | + + + APTT (08/07/2017 4:21 PM) + + + + | Component | Value | Ref Range | + + + + | APTT | 35 (H)Comment: Testing performed at [facility];888 | 23 - 32 seconds | | | [facility] [place] [address] | | + + + + + + + | Specimen | Performing Laboratory | + + + | Blood | [facility] [address] [place] [address] | + + + Type and screen (08/07/2017 2:36 PM) + + + + | Component | Value | Ref Range | + + + + | ABO/RH(D) | O POSITIVE | | + + + + | ANTIBODY SCREEN | NEGATIVE | | + + + + | ARM BAND NUMBER | [id number] performed at [facility];[address] | [address];[place] [address] | | | | | | + + + + + + + | Specimen | Performing Laboratory | + + + | Blood | [facility] [address] [place] [address] | + + + APTT (08/07/2017 8:27 AM) + + + + | Component | Value | Ref Range | + + + + | APTT | 68 (H)Comment: Testing performed at [facility];888 | 23 - 32 seconds | | | Darrin Thomas;[place] [address] | | + + + + + + + | Specimen | Performing Laboratory | + + + | Blood | [facility] [address] [place] [address] | + + + Renal function panel [...] | | | | 1.210.Testing performed at [facility], [facility] [address] | | | | [place] [address] | | | | | | + + + + + + + | Specimen | Performing Laboratory | + + + | | [facility] [address] [facility] [address] [place], | | | [place] [address] | + + + CBC W/Auto Diff [...] | | | PLT MORPHTesting performed at [facility], [address] | | | | [place] [address] | | | |1+ | | | |MICRO | | | |1+ | | | |HYPO | | | |1+ | | | |POLY | | | |NORMAL PLT MORPH | | | |Testing performed at [facility], [address] [place], [place] [address] | | | | | | + + -----+ + + + + | Specimen | Performing Laboratory | + + + | Blood | [facility] [address] [facility]. [place], | | | [place] [address] | + + + APTT (08/06/2017 11:04 PM) + + + + | Component | Value | Ref Range | + + + + | APTT | 86 ()Comment: CALLED NURSING | 23 - 32 seconds | | | MOSHE VASQUEZ AT 2344 BY RHREAD BACK | | | | RESULTS VERIFIEDTesting performed at | | | | [facility];[address] [place] [address];[place] [address] | | | |READ BACK RESULTS VERIFIED | | | |Testing performed at [facility];[address] [place] [address];[place] [address] | | | | | | + + + + + + + | Specimen | Performing Laboratory | + + + | Blood | [address] [place] [address] | + + + Protime-INR (08/06/2017 3:57 [...] EMBOLISMTesting performed at | | | | [facility];[address] [place] [address];[place] [address] | | | |Testing performed at [facility];[address] [place] [address];[place] [address] | | | | | | + + + + + + + | Specimen | Performing Laboratory | + + + | Blood | [facility] [address] [place] [address] | + + + CBC w/no diff [...] | MPV | 6.4Comment: Testing performed at [facility];[address] | fl | | | [address];[place] [address] | | + + + + + + + | Specimen | Performing Laboratory | + + + | | [address] [place] [address] | + + + aPTT (08/06/2017 3:57 PM) + + + + | Component | Value | Ref Range | + + + + | APTT | 39 (H)Comment: Testing performed at [facility];888 | 23 - 32 seconds | | | [address];[place] [address] | | + + + + + + + | Specimen | Performing Laboratory | + + + | Blood | [facility] [address] [place] [address] | + + + US lower extremity arterial left (08/06/2017 11:12 AM) + + + | Specimen | Performing Laboratory | + + + | | [facility] [address] [place] [address] | + + + + + | [...] (cm/s) / Doppler | | Waveform: Left SPORTS THERAPIST Prox: 130.6 and triphasic DFA Prox: 97.1 and triphasic SFA | | Prox: 118.8 and triphasic SFA Mid: 126.6 and triphasic SFA Distal: 142.4 and triphasic | | POP Mid: 81.2 and triphasic ISABEL Prox: 136.5 and triphasic ISABEL Distal: 102.2 and | | biphasic MOLDED FRAMES ASSEMBLER Prox: 71.5 and triphasic MOLDED FRAMES ASSEMBLER Distal: 89.6 and biphasic CHUYITA Prox: 103.8 [...] Doppler Waveform: | | | |Left | |SPORTS THERAPIST Prox: 130.6 and triphasic | |DFA Prox: 97.1 and triphasic | |SFA Prox: 118.8 and triphasic | |SFA Mid: 126.6 and triphasic | |SFA Distal: 142.4 and triphasic | |POP Mid: 81.2 and triphasic | |ISABEL Prox: 136.5 and triphasic | |ISABEL Distal: 102.2 and biphasic | |MOLDED FRAMES ASSEMBLER Prox: 71.5 and triphasic | |MOLDED FRAMES ASSEMBLER Distal: 89.6 and biphasic | |CHUYITA Prox: [...] | | | | 1.210.Testing performed at [facility], [facility] | | | | [facility] [place] [address] | | | | | | + + + + + + + | Specimen | Performing Laboratory | + + + | | [facility] [address] [place] [address] [place]. [place], | | | [place] [address] | + + + CBC W/Auto Diff [...] | | | RESULTS.Comment: Testing performed at [facility], | | | | [address] [place] | | | | [address] | | + + + + + + + | Specimen | Performing Laboratory | + + + | Blood | [facility] [address] [facility] [address] [place], | | | [place] [address] | + + + aPTT (08/05/2017 5:20 AM) + + + + | Component | Value | Ref Range | + + + + | APTT | 34 (H)Comment: Testing performed at [facility];888 | 23 - 32 seconds | | | [facility] [address] | | + + + + + + + | Specimen | Performing Laboratory | + + + | Blood | [facility] [address] [place] [address] | + + + Protime-INR (08/05/2017 5:20 [...] EMBOLISMTesting performed at | | | | [facility];[address] [facility];[place] [address] | | | |Testing performed at [facility];[address] [place] [address];[place] [address] | | | | | | + + + + + + + | Specimen | Performing Laboratory | + + + | Blood | [address] [address] | + + + Glycohemoglobin A1C (08/05/2017 5:20 AM) + + + + | Component | Value | Ref Range | + + + + | HEMOGLOBIN A1C | 5.7Comment: [facility] [place] [employer] | 4.0 - 6.0 % | [...] formula.Testing | | | | performed at [facility], [address] [place] [address], | | | | [place] [address] | | + + + + + + + | Specimen | Performing Laboratory | + + + | Blood | [facility] [address] [place] [address]. [place], | | | [place] [address] | + + + Comprehensive Metabolic Panel [...] | | | | 1.210.Testing performed at [facility], [address] | | | | [place] [address] | | | | | | + + + + + + + | Specimen | Performing Laboratory | + + + | Blood | [facility] [address] [facility] [address] [place], | | | [place] [address] | + + + Phosphorus (08/05/2017 5:20 AM) + + + + | Component | Value | Ref Range | + + + + | PHOSPHORUS | 4.0Comment: Testing performed at [facility], [facility] | 2.3 - 4.8 mg/dL | | | [place] [address] | | + + + + + + + | Specimen | Performing Laboratory | + + + | Blood | [address] [place] | | | [place] [address] | + + + Magnesium (08/05/2017 5:20 AM) + + + + | Component | Value | Ref Range | + + + + | MAGNESIUM | 2.7 (H)Comment: Testing performed at [facility], | 1.7 - 2.4 mg/dL | | | [address] [place] | | | | [address] | | + + + + + + + | Specimen | Performing Laboratory | + + + | Blood | [facility] [address] [facility] [place], | | | [place] [address] | + + + CBC W/Auto Diff [...] W | | | | [address], [place] [address] | | | |1+ | | | |MICRO | | | |2+ | | | |ANISO | | | |NORMAL PLT MORPH | | | |Testing performed at [facility], [address] [place], [place] [address] | | | | | | + + -----+ + + + + | Specimen | Performing Laboratory | + + + | Blood | [facility] [address] [place], [place] [address], | | | [place] [address] | + + + Lactic acid (08/05/2017 12:52 AM) + + + + | Component | Value | Ref Range | + + + + | LACTIC ACID | 1.0Comment: Testing performed at [facility] | 0.4 - 2.0 mmol/L | | | [address] Thomas;[place] [address] | | + + + + + + + | Specimen | Performing Laboratory | + + + | Blood | [facility] [address] [facility] [place] [address] | + + + MRI foot left without contrast (08/04/2017 11:40 PM) + + + | Specimen | Performing Laboratory | + + + | | [address] [address] | + + + + + | [...] performed at | NEGATIVE | | | [facility];[address] [place], [place] [address];[place] [address] | | + + + + + + + | Specimen | Performing Laboratory | + + + | Nasopharyngeal - | [facility] [address] [place] [address] | | Nasopharyngeal | | | Culture | | + + + US Lower extremity venous left (08/04/2017 10:15 PM) + + + | Specimen | Performing Laboratory | + + + | | [place] [address] [place] [address] | + + + + + | [...] + + + | | AMANDA BUTLER [facility] [address] [facility] [address] | + + + + + | [...] + + | Wound - OTHR-w | [facility] [address] [facility] [address] [place], | | source desc (F6) | [place] [address] | + + + + + +--------+ [...] + + | Blood - Blood, | [facility] [address] [place] [address] [address] [place], | | peripheral draw | [place] [address] | + + + Septic Lactic Acid (08/04/2017 5:02 PM) + + + + | Component | Value | Ref Range | + + + + | LACTIC ACID | 2.9 (H)Comment: Testing performed at | 0.4 - 2.0 mmol/L | | | [facility];[address] [facility];[place] [address] | | + + + + + + + | Specimen | Performing Laboratory | + + + | | [facility] [address] [place] [address] [place] [address] | + + + Blood Culture Set [...] + + | Blood - Blood, | [facility] [address] [facility]. [place], | | peripheral draw | [place] [address] | + + + C-reactive protein (08/04/2017 5:02 PM) + + + + | Component | Value | Ref Range | + + + + | CRP | 13.0 (H)Comment: Testing performed at | <0.5 mg/dL | | | [facility];[address] [facility];[place] [address] | | + + + + + + + | Specimen | Performing Laboratory | + + + | Blood | [facility] [address] [place] [address] | + + + Comprehensive metabolic panel [...] | | | | 1.210.Testing performed at [facility];[address] [place] [address] | | | | radha;[place] [address] | | | | | | + + + + + + + | Specimen | Performing Laboratory | + + + | Blood | [facility] [address] [place] [address] | + + + CBC with differential [...] Testing performed at | | | | [facility];[address] [place] [address];[place] [address] | | + + + + + + + | Specimen | Performing Laboratory | + + + | Blood | [facility] [address] [place] [address] | + + + Urinalysis (reflex to microscopic/reflex to culture) (08/04/2017 3:38 PM) + + + + | Component | Value | Ref Range | + + + + | COLOR UA | YELLOW | | + + + + | CLARITY | CLEAR | | + + + + | Specific Eros, UA | 1.011 | 1.002 - 1.030 [...] at | NEGATIVE mg/dL | | | [facility];[address] [facility];[place] [address] | | + + + + + + + | Specimen | Performing Laboratory | + + + | Urine, Clean Catch | [facility] [address] [place] [address] | + + + in this encounter [...]
[~2017-08-20 20:38] MED LIST changes: +ELIQUIS5 MG PO; +ENDOCET 10-3251 EACH PO; +OXYCONTIN10 MG PO
[2017-08-20] MEDS ORDERED: ENOXAPARIN100 MG/1 M (21:01)
[2017-08-20] MEDS ORDERED: DURAGESIC1 EAC4 TD (21:05)
[2017-08-20] MEDS ORDERED: FUROSEMIDE80 MG (21:06)
[2017-08-20] MEDS ORDERED: GABAPENTIN100 MG PO (21:07)
[2017-08-20] MEDS ORDERED: MUCUS ER600 M1 PO (21:08)
[2017-08-20] MEDS ORDERED: GUAIFENESIN-CODE5 ML PO (21:09)
[2017-08-20] MEDS ORDERED: IPRAT-ALBUT 0.5-3 ML INH (21:10)
[2017-08-20] MEDS ORDERED: NICODERM CQ1 EAC1 TD (21:11)
[2017-08-20] MEDS ORDERED: K-TAB ER20 MEQ PO (21:13)
[2017-08-20] MEDS ORDERED: SENNA8.6 MG PO (21:14)
[2017-08-20] MEDS ORDERED: PREDNISONE20 MG PO (21:14)
[2017-08-20] MEDS ORDERED: VITAMIN D250000 UNIT PO (21:15)
[2017-08-20] MEDS ORDERED: AUGMENTIN 875-1 EACH PO (21:17)
[2017-08-26] MEDS ORDERED: MULTIVITAMINS1 EAC7 (14:08)
[2017-08-26] MEDS ORDERED: POLYOX WSR-3011 GM MISC (14:09)
[2017-08-26] MEDS ORDERED: SERTRALINE HCL100 MG PO (14:09)
== END 2017-08-20 23:10 | disposition home or self-care (01) ==
LOC: ED 20:38
DX: J44.0 Chronic obstructive pulmonary disease with (acute) lower respiratory infection (principal); J20.9 Acute bronchitis, unspecified; J01.90 Acute sinusitis, unspecified; F17.200 Nicotine dependence, unspecified, uncomplicated; Z79.899 Other long term (current) drug therapy; Z79.891 Long term (current) use of opiate analgesic; E78.00 Pure hypercholesterolemia, unspecified; Z79.52 Long term (current) use of systemic steroids; Z79.82 Long term (current) use of aspirin
CPT/HCPCS: 71045; 80053; 83735; 83880; 84484; 85025; 99284

== ENCOUNTER 2017-09-01 15:01 | Emergency (ER) | payer OTHER ==
[~2017-09-01] VITALS: Ht 167.6 cm; Wt 71.2 kg
[~2017-09-01 15:01] MED LIST changes: +AUGMENTIN 875-1 EACH PO; +DURAGESIC1 EAC4 TD; +ENOXAPARIN100 MG/1 M; +FUROSEMIDE80 MG; +GABAPENTIN100 MG PO; +GUAIFENESIN-CODE5 ML PO; +IPRAT-ALBUT 0.5-3 ML INH; +K-TAB ER20 MEQ PO; +MUCUS ER600 M1 PO; +MULTIVITAMINS1 EAC7; +NICODERM CQ1 EAC1 TD; +POLYOX WSR-3011 GM MISC; +PREDNISONE20 MG PO; +SENNA8.6 MG PO
[2017-09-01] MEDS ORDERED: NASAL SPRAY30 M1 NAS (15:59)
[2017-09-01] MEDS ORDERED: DULCOLAX10 MG PR (16:03)
[2017-09-01] MEDS ORDERED: LEVOFLOXACIN500 MG PO (16:09)
[2017-09-01] MEDS ORDERED: PAIN RELIEVER325 MG PO (16:17)
--- NOTE | 2017-09-01 20:32 | EKG ---
[facility] [address] [facility] [place] [address] Signed Atrial fibrillation with rapid ventricular response Right bundle branch block T wave abnormality, consider inferolateral ischemia Abnormal ECG No previous ECGs available Confirmed by SAMMY ENCISO MD ([id number]) on 09/01/2017 8:31:59 PM Electronically Signed By: SAMMY ENCISO MD 09/01/172031 PATIENT NAME: RICKY KAHN MAY Electrocardiogram DATE OF : 53 PHYSICIAN: SAMMY ENCISO MD REPORT #: [id number] REPORT IS CONFIDENTIAL AND NOT TO BE RELEASED WITHOUT AUTHORIZATION
== END 2017-09-01 19:50 | disposition short-term general hospital (02) ==
LOC: ED 15:01
PROC: 0T9B70Z Drainage of Bladder with Drainage Device, Via Natural or Artificial Opening (ICD-10-PCS; principal; 2017-09-01)
DX: J90 Pleural effusion, not elsewhere classified (principal); C80.1 Malignant (primary) neoplasm, unspecified; J18.9 Pneumonia, unspecified organism; F17.200 Nicotine dependence, unspecified, uncomplicated; Z79.899 Other long term (current) drug therapy
CPT/HCPCS: 36600; 51702; 71045; 80053; 82803; 83605; 83880; 84484; 85025; 87040; 93005; 93010; 94640; 99285